=== PATIENT | female | born 1945 | race Caucasian/White ===

== ENCOUNTER 2020-03-04 09:22 | Outpatient (REF) | payer MEDICARE, SELFPAY ==
[2020-03-04 10:06] LABS: MANUAL DIFF FLAG NO
[2020-03-04 10:18] LABS: Basophils Percent Auto 0.5 % (0-2); Eosinophils Absolute Auto 0.2 X10*3/uL (0.0-0.4); Hemoglobin 12.5 g/dl (12.0-16.0); Imm Gran Abs Auto 0.02 X10*3/uL (0.00-0.03); Imm Gran Pct Auto 0.3 % (0.0-0.4); Lymphocytes Absolute Auto 2.4 X10*3/uL (1.2-4.9); Lymphocytes Percent Auto 40.4 % (20-40); Mean Corpuscular HGB Conc 32.1 g/dl (31.0-35.0); Mean Corpuscular Hemoglobin 28.8 pg (27.0-33.0); Mean Corpuscular Volume 89.9 fL (80-98); Mean Platelet Volume 10.3 fL (9.4-12.3); Monocytes Absolute Auto 0.5 X10*3/uL (0.1-1.2); Monocytes Percent Auto 8.4 % (2-11); Neutrophils Absolute Auto 2.7 X10*3/uL (2.0-8.3); Neutrophils Percent Auto 46.4 % (45-73); Platelet Count 210 X10*3/uL (160-400); Red Blood Count 4.34 X10*6/uL (4.20-5.50); Red Cell Distribution Width 12.5 % (11.0-16.0); White Blood Count 5.8 X10*3/uL (4.8-10.8)
[2020-03-04 10:48] LABS: Alanine Aminotransferase 14 U/L (0-31); Albumin Level 3.9 g/dL (3.5-5.0); Alkaline Phosphatase 41 U/L (39-117); Anion Gap 10 (12-20); Aspartate Amino Transferase 23 U/L (5-31); Bilirubin Total 0.5 mg/dL (0.0-1.0); Blood Urea Nitrogen 16 mg/dL (9-16); Calcium 9.7 mg/dL (8.4-10.2); Carbon Dioxide 26 mmol/L (22-29); Chloride 108 mmol/L (96-108); Cholesterol 178 mg/dL; Estimated Glomerular Filt Rate 48; Glucose Fasting 85 mg/dL (60-99); HDL Cholesterol 48 mg/dL; LDL Cholesterol Calculated 99 mg/dl; Potassium 4.7 mmol/l (3.3-5.1); Sodium 139 mmol/L (135-145); Total Protein 6.8 g/dL (6.5-8.0); Triglycerides 156 mg/dL
[2020-03-04 10:54] LABS: B Type Natriuretic Peptide 86 pg/mL (<100)
[2020-03-04 11:09] LABS: Vitamin D 25-OH Total 41.6 ng/mL (>30)
== END 2020-03-04 09:23 | disposition home or self-care (01) ==
LOC: HO.LAB 09:22
PROVIDERS: PCP Internal Medicine; Visit Provider Internal Medicine
DX: E78.00 Pure hypercholesterolemia, unspecified (principal); I50.9 Heart failure, unspecified; I48.0 Paroxysmal atrial fibrillation; E55.9 Vitamin D deficiency, unspecified
CPT/HCPCS: 36415; 80053; 80061; 82306; 83880; 85025

== ENCOUNTER → 2020-03-17 08:51 | Outpatient (BNVA) | payer MEDICARE, SELFPAY | PROVIDERS: PCP Internal Medicine; Visit Provider Internal Medicine Cardiovascular Disease | DX: I48.0 Paroxysmal atrial fibrillation (principal); Z86.79 Personal history of other diseases of the circulatory system; Z45.018 Encounter for adjustment and management of other part of cardiac pacemaker; Z79.01 Long term (current) use of anticoagulants | CPT/HCPCS: 93005; 99212 ==

== ENCOUNTER 2020-05-14 08:02 | Outpatient (REF) | payer MEDICARE, SELFPAY ==
[2020-05-14 10:34] LABS: Alanine Aminotransferase 23 U/L (0-31); Albumin Level 4.1 g/dL (3.5-5.0); Alkaline Phosphatase 43 U/L (39-117); Anion Gap 12 (12-20); Aspartate Amino Transferase 23 U/L (5-31); Bilirubin Total 0.7 mg/dL (0.0-1.0); Blood Urea Nitrogen 16 mg/dL (9-16); Calcium 9.8 mg/dL (8.4-10.2); Carbon Dioxide 25 mmol/L (22-29); Chloride 109 mmol/L (96-108); Estimated Glomerular Filt Rate 47; Glucose Fasting 93 mg/dL (60-99); Potassium 4.3 mmol/L (3.3-5.1); Sodium 142 mmol/L (135-145); Total Protein 6.9 g/dL (6.5-8.0)
[2020-05-16 13:07] LABS: Calcium (PTHI) 10.1 mg/dL (8.6-10.4); PTHI 59 pg/mL (14-64)
[2020-05-20 02:03] LABS: Collagen Type I C-Telopeptide 138 pg/mL (see note)
== END 2020-05-14 08:03 | disposition home or self-care (01) ==
LOC: HO.LAB 08:02
PROVIDERS: Absent Provider Internal Medicine Endocrinology, Diabetes & Metabolism; PCP Internal Medicine; Visit Provider Internal Medicine
DX: E21.3 Hyperparathyroidism, unspecified (principal); M81.0 Age-related osteoporosis without current pathological fracture
CPT/HCPCS: 36415; 80053; 82306; 82523; 83970

== ENCOUNTER → 2020-05-26 07:58 | Outpatient (BNVA) | payer MEDICARE, SELFPAY | PROVIDERS: PCP Internal Medicine; Referring Provider Internal Medicine; Visit Provider Internal Medicine Endocrinology, Diabetes & Metabolism | DX: Z13.89 Encounter for screening for other disorder (principal) | CPT/HCPCS: Q3014 ==

== ENCOUNTER → 2020-06-02 11:11 | Outpatient (BNVA) | payer MEDICARE, SELFPAY | PROVIDERS: PCP Internal Medicine; Visit Provider Hospitalist | DX: J44.9 Chronic obstructive pulmonary disease, unspecified (principal); G47.33 Obstructive sleep apnea (adult) (pediatric); I48.0 Paroxysmal atrial fibrillation; Z79.899 Other long term (current) drug therapy; Z87.891 Personal history of nicotine dependence | CPT/HCPCS: 99212 ==

== ENCOUNTER 2020-07-15 08:18 | Outpatient (REF) | payer MEDICARE, SELFPAY ==
[2020-07-15 08:43] LABS: MANUAL DIFF FLAG NO
[2020-07-15 08:49] LABS: Basophils Percent Auto 0.6 % (0-2); Eosinophils Absolute Auto 0.2 X10*3/uL (0.0-0.4); Hemoglobin 13.2 g/dl (12.0-16.0); Imm Gran Abs Auto 0.01 X10*3/uL (0.00-0.03); Imm Gran Pct Auto 0.1 % (0.0-0.4); Lymphocytes Absolute Auto 2.3 X10*3/uL (1.2-4.9); Lymphocytes Percent Auto 32.9 % (20-40); Mean Corpuscular HGB Conc 32.2 g/dl (31.0-35.0); Mean Corpuscular Volume 90.1 fL (80-98); Mean Platelet Volume 9.7 fL (9.4-12.3); Monocytes Absolute Auto 0.6 X10*3/uL (0.1-1.2); Monocytes Percent Auto 9.1 % (2-11); Neutrophils Absolute Auto 3.8 X10*3/uL (2.0-8.3); Neutrophils Percent Auto 54.3 % (45-73); Platelet Count 246 X10*3/uL (160-400); Red Blood Count 4.55 X10*6/uL (4.20-5.50); White Blood Count 6.9 X10*3/uL (4.8-10.8)
[2020-07-15 09:12] LABS: B Type Natriuretic Peptide 393 pg/mL (<100)
[2020-07-15 09:20] LABS: Alanine Aminotransferase 18 U/L (0-31); Albumin Level 4.1 g/dL (3.5-5.0); Alkaline Phosphatase 44 U/L (39-117); Anion Gap 10 (12-20); Aspartate Amino Transferase 24 U/L (5-31); Bilirubin Total 0.8 mg/dL (0.0-1.0); Blood Urea Nitrogen 13 mg/dL (9-16); Calcium 10.3 mg/dL (8.4-10.2); Carbon Dioxide 28 mmol/L (22-29); Chloride 108 mmol/L (96-108); Cholesterol 180 mg/dL; Estimated Glomerular Filt Rate 41; Glucose Fasting 107 mg/dL (60-99); HDL Cholesterol 49 mg/dL; LDL Cholesterol Calculated 103 mg/dl; Potassium 4.3 mmol/L (3.3-5.1); Sodium 142 mmol/L (135-145); Total Protein 6.9 g/dL (6.5-8.0); Triglycerides 144 mg/dL
== END 2020-07-15 08:19 | disposition home or self-care (01) ==
LOC: HO.LAB 08:18
PROVIDERS: PCP Internal Medicine; Visit Provider Internal Medicine
DX: I50.22 Chronic systolic (congestive) heart failure (principal); E78.5 Hyperlipidemia, unspecified; I48.0 Paroxysmal atrial fibrillation
CPT/HCPCS: 36415; 80053; 80061; 83880; 85025

== ENCOUNTER → 2020-09-16 08:21 | Outpatient (BNVA) | payer MEDICARE, SELFPAY | PROVIDERS: PCP Internal Medicine; Visit Provider Internal Medicine Cardiovascular Disease | DX: Z45.018 Encounter for adjustment and management of other part of cardiac pacemaker (principal); I48.0 Paroxysmal atrial fibrillation | CPT/HCPCS: 93005; 99212 ==

== ENCOUNTER 2020-09-26 08:19 | Outpatient (REF) | payer MEDICARE, SELFPAY ==
--- NOTE | ~2020-09-26 | FL_ITS ---
EXAMINATION: FL BARIUM SWALLOW CLINICAL INFORMATION: Dysphagia. COMPARISON: None TECHNIQUE: Barium swallow examination is performed using fluoroscopic evaluation in addition to multiple fluoroscopic spot views. The patient is imaged both upright and prone and using both thick and thin sulfate along with effervescent granules. Patient was also administered a barium tablet. Fluoroscopy time: 1.8 minutes DAP: 7.3 Gy-cm2 Images: 61 FINDINGS: The swallowing mechanism is normal. No aspiration or penetration is seen. There is abnormal esophageal motility. There are extensive tertiary contractions of the esophagus. There is retrograde peristalsis seen with the patient upright and prone. There is temporary stasis of the barium tablet in the distal thoracic esophagus. There is a small sliding-type hiatal hernia with Schatzki ring. No reflux is seen. FL/FL barium swallow IMPRESSION: Abnormal esophageal motility with tertiary contractions and retrograde peristalsis with the patient upright and prone. Small sliding hiatal hernia with Schatzki ring. Temporary stasis of the barium tablet in the distal thoracic esophagus. No reflux.
== END 2020-09-26 08:20 | disposition home or self-care (01) ==
LOC: HO.XRAY 08:19
PROVIDERS: PCP Internal Medicine; Visit Provider Internal Medicine
DX: R13.10 Dysphagia, unspecified (principal)
CPT/HCPCS: 74220

== ENCOUNTER 2020-09-30 10:41 | Outpatient (REF) | payer MEDICARE, SELFPAY ==
--- NOTE | ~2020-09-30 | XR_ITS ---
EXAMINATION: XR HAND, RIGHT CLINICAL INFORMATION: S69.90XA - Unspecified injury of unspecified wrist, hand ... Patient Shielded? COMPARISON: Radiographs right hand and wrist 10/04/2013. TECHNIQUE: The right hand and wrist are imaged together in large [id number] images for a total of 3 views. FINDINGS: Symptom marker directed towards the right thumb. There is mild generalized osteopenia. There is no visible acute or healing fracture or dislocation or destructive process. The ulnar variance is neutral. There is mild narrowing of the triscaphe joint. The MCP and interphalangeal joints show no focal narrowing or erosive change. XR/XR hand RT min 3V IMPRESSION: 1. Mild generalized osteopenia. No visible fracture or dislocation. 2. Degenerative changes lateral carpus. No erosive changes.
== END 2020-09-30 10:42 | disposition home or self-care (01) ==
LOC: HO.HMGCX 10:41
PROVIDERS: PCP Internal Medicine; Visit Provider Nurse Practitioner Family
DX: S69.91XA Unspecified injury of right wrist, hand and finger(s), initial encounter (principal)
CPT/HCPCS: 73130

== ENCOUNTER 2020-10-28 13:46 | Outpatient (REF) | payer MEDICARE, SELFPAY ==
--- NOTE | ~2020-10-28 | MM_ITS ---
EXAMINATION: MM SCREENING DIGITAL BREAST TOMOSYNTHESIS, BILATERAL CLINICAL INFORMATION: Screening. Asymptomatic. The lifetime risk of breast cancer based on the Tyrer-Cuzick Model is 2%. COMPARISON: Mammography: 09/07/2019, 07/17/2018, 02/17/2018, 07/14/2017; bilateral breast ultrasound 07/14/2017, left breast ultrasound 02/17/2018. TECHNIQUE: Digital breast tomosynthesis is performed in both the craniocaudal and mediolateral oblique views along with computer-aided detection (CAD). Synthesized 2D images are generated from the tomosynthesis. Additional exaggerated right CC view is provided. FINDINGS: The breasts are heterogeneously dense, which may obscure small masses (ACR BI-RADS breast composition Category c). There are fibrocystic changes again noted greatest anterior retroareolar right breast with probable associated chronic duct ectasia. Fibrocystic changes central lower left breast decreased since 2018. There is no significant mass or developing density or interval architectural abnormality. Again, there are scattered bilateral vascular, round, punctate calcifications. Pacemaker generator overlies and partly obscures the left axilla on the MLO view. The skin contours are smooth. No significant changes prior exams. MM/MM tomosynthesis screening BI IMPRESSION: No mammographic evidence of malignancy. ASSESSMENT: BI-RADS 2: Benign RECOMMENDATION: Routine annual mammography screening. This patient's information was entered into a reminder system with a target due date for their next mammogram.
== END 2020-10-28 13:47 | disposition home or self-care (01) ==
LOC: HO.MAMMO 13:46
PROVIDERS: Visit Provider Internal Medicine
DX: Z12.31 Encounter for screening mammogram for malignant neoplasm of breast (principal)
CPT/HCPCS: 77063; 77067

== ENCOUNTER 2020-11-07 14:59 | Outpatient (REF) | payer MEDICARE, SELFPAY ==
--- NOTE | ~2020-11-07 | MM_ITS ---
EXAMINATION: BONE DENSITOMETRY CLINICAL INDICATION: History of osteoporosis. Other specified disorders of bone density and structure, osteopenia. Postmenopausal. COMPARISON: Previous BD dated 09/08/2018 and baseline BD dated 09/02/2011. TECHNIQUE: Using a Strutta DXA System (software version: 13.1) manufactured by [employer], dual-energy x-ray absorptiometry was performed of the lumbar spine and left hip. The images are of good technical quality. Summary results are attached. FINDINGS: AP SPINE L1-L4: Current: BMD 1.088 g/cm2, Z-score 1.0, T-score -0.8, normal, 11.2% increase from previous, 8.9% increase from baseline (<5% change is not significant). Prior: BMD 0.978 g/cm2. Baseline: BMD 0.999 g/cm2. LEFT FEMUR, NECK: Current: BMD 0.671 g/cm2, Z-score -0.7, T-score -2.6, osteoporosis. Prior: BMD 0.684 g/cm2. Baseline: BMD 0.747 g/cm2. LEFT FEMUR, TOTAL: Current: BMD 0.744 g/cm2, Z-score -0.3, T-score -2.1, osteopenia, 0.5% decrease from previous, 10.7% decrease from baseline (<5% change is not significant). Prior: BMD 0.748 g/cm2. Baseline: BMD 0.833 g/cm2. IDENTIFIED RISK FACTORS: Osteoporosis. Height loss. History of fracture, (adult). Secondary osteoporosis, (early menopause). Hysterectomy. Bilateral oophorectomy. HISTORY OF FRACTURE: Shoulder/clavicle. MEDICATIONS: ERT/SERMS. Raloxifene, (Evista). Bisphosphonates. Calcium or multivitamin. Vitamin D. MM/XR DEXA axial skeleton IMPRESSION: 1. DIAGNOSIS: Osteoporosis based on the lowest T-score value of -2.6 in the femoral neck applying World Health Organization criteria. 2. 10-YEAR FRACTURE RISK PREDICTION, FRAX: According to the guidelines, FRAX calculation should only be performed on patients in the osteopenia bone density category. Therefore, FRAX was not performed on this patient. 3. Treatment Recommendations: NOF guidelines recommend consideration for treatment in postmenopausal women and men age 50 and older presenting with the following: -A hip or vertebral (clinical or morphometric) fracture. -T-score less than or equal to -2.5 at the femoral neck or spine after appropriate evaluation to exclude secondary causes. -Low bone mass at the hip or spine and a 10-year fracture probability by FRAX of greater than or equal to 3% for hip fracture or greater than or equal to 20% for major osteoporotic fracture based on the [place] adapted WHO algorithm. 4. Other Recommendations: All treatment decisions require clinical judgment and consideration of individual patient factors, including patient preferences, comorbidities, previous drug use, risk factors not captured in the FRAX model (e.g. frailty, falls, vitamin D deficiency, increased bone turnover, interval significant decline in bone density) and possible under or overestimation of fracture risk by FRAX. Additional medical evaluation for secondary cause of low bone mineral density may be appropriate. FUTURE SCAN RECOMMENDATION: People with diagnosed cases of osteoporosis or at high risk for fracture should have regular bone mineral density tests. For patients eligible for Medicare, routine testing is allowed once every 2 years. The testing frequency can be increased to one year for patients who have rapidly progressing disease, those who are receiving or discontinuing medical therapy to restore bone mass, or have additional risk factors.
== END 2020-11-07 15:00 | disposition home or self-care (01) ==
LOC: HO.MAMMO 14:59
PROVIDERS: PCP Internal Medicine; Visit Provider Internal Medicine
DX: Z13.820 Encounter for screening for osteoporosis (principal); M81.0 Age-related osteoporosis without current pathological fracture; Z87.81 Personal history of (healed) traumatic fracture; Z78.0 Asymptomatic menopausal state; Z79.899 Other long term (current) drug therapy; Z98.890 Other specified postprocedural states; Z90.722 Acquired absence of ovaries, bilateral
CPT/HCPCS: 77080

== ENCOUNTER → 2020-11-21 10:36 | Outpatient (BNVA) | payer MEDICARE, SELFPAY | PROVIDERS: PCP Internal Medicine; Referring Provider Internal Medicine; Visit Provider Nurse Practitioner Family | DX: R13.19 Other dysphagia (principal) | CPT/HCPCS: 99202 ==

== ENCOUNTER 2020-12-16 13:08 | Day surgery (SDC) | payer MEDICARE, SELFPAY ==
[2020-12-11 14:41] VITALS: BMI 25.8
[2020-12-11 16:50] VITALS: BMI 27.3
--- NOTE | 2020-12-15 11:03 | HO.ANESPROP2 ---
Documented by User: Radha Gardner NP 12/15/20 11:06 HPI - Anesthesia Eval Consult details Narrative: 75yo F for Upper Endoscopy Pacer in situ (SSS) Pradaxa for afib PMFSH Active Problems Active Problems: All Active Problems (Updated 12/11/20 @ 16:56 by Areli Johnson, SHANTA) Thumb injury (Acute) Dysphagia (Acute) JESU (obstructive sleep apnea) (Acute) COPD (chronic obstructive pulmonary disease) (Acute) Hyperparathyroidism (Acute) Osteoporosis (Acute) Dyslipidemia (Acute) Heart failure (Acute) Paroxysmal atrial fibrillation (Acute) Cardiac pacemaker in situ (Acute) Past Medical History Medical History Cardiac pacemaker in situ COPD (chronic obstructive pulmonary disease) Diverticulosis Dyslipidemia Dysphagia Epigastric pain GERD (gastroesophageal reflux disease) Heart failure Hiatal hernia Hyperparathyroidism JESU (obstructive sleep apnea) Osteoporosis Paroxysmal atrial fibrillation Sick sinus syndrome Family History Family History Father COPD (chronic obstructive pulmonary disease) Mother CAD (coronary artery disease) CVD (cardiovascular disease) Daughter No problems noted. Surgical History Surgical History H/O bilateral cataract extraction History of esophagogastroduodenoscopy (EGD) History of laparoscopic cholecystectomy History of pacemaker History of total abdominal hysterectomy and bilateral salpingo-oophorectomy History of total left knee replacement Hx of colonoscopy Social History Social History Housing: House Alcohol intake: current Alcohol intake frequency: holidays/special occasions only Alcohol type: wine Patient Tobacco Use Status: Former Tobacco user Quit Date: 1996 Tobacco use type: Cigarette e-Cigarette/Vaping Use: Never Used Second Hand Smoke Exposure: No Use of substances other than those prescribed or required for medical reasons: No Are you DNR?: No Advance Directives: No Advance Directives Information Provided: No Advance Directives on File: No Poor oral hygiene: No (upper and lower bridgework) service: No Current occupational status: retired Meds Allergies Allergy/AdvReac Type Severity Reaction Status Date / Time dronedarone [Multaq] Allergy Severe syncope Verified 12/11/20 16:46 flecainide Allergy Severe vertigo,blurry Verified 12/11/20 16:46 vision lisinopril [LISINOPRIL] Allergy Severe ANGIOEDEMA, Verified 12/11/20 16:46 bad cough, throat closing, tingling of head, cough Opioids - Morphine Analogues Allergy Severe SHORTNESS Verified 12/11/20 16:46 [OPIOIDS - MORPHINE OF BREATH ANALOGUES] losartan Allergy Intermediate dry cough, Verified 12/11/20 16:46 pruritus hydromorphone [Dilaudid] AdvReac Severe unresponsiv Verified 12/11/20 16:46 eness Home Medications Medication Instructions Recorded Confirmed Last Taken Type multivitamin,lc-pdsq-ydsovnkg 1 tab PO DAILY 03/17/20 12/11/20 Unknown History (Complete Multivitamin) calcium carbonate 600 mg (1,500 tab PO 12/11/20 12/11/20 Unknown History mg)-vitamin D3 400 unit tablet (Calcium 600 + D(3)) Exam Exam Date and Time: December 15, 2020 1103 Height,Weight and Vital Signs: Height 5 ft 1 in Weight 65.771 kg Pertinent Lab Results Pertinent Lab Results: Laboratory Tests 07/15/20 07/15/20 08:30 08:30 WBC 6.9 Hgb 13.2 Hct 41.0 Plt Count 246 Sodium 142 Potassium 4.3 Chloride 108 Carbon Dioxide 28 BUN 13 Creatinine 1.28 Narrative Narrative: PACER INTERR 09/2020 Dual-chamber [place] pacemaker in place.? Programmed in DDDR at ? 70 beats per minute.? Atrial pacing 85% of the time.? Ventricular pacing less than 1.1% time.? Atrial pacing thresholds excellent and reprogrammed to enhance battery life.? Ventricular pacing thresholds adequate and in our capture mode.? Atrial ventricular sensing is excellent.? Pacing lead impedance is stable.? Battery life is excellent at greater than 9 years. EKG 09/2020 atrially paced rhythm with normal QRS complex and normal intervals Assessment and Plan Assessment Anesthesia Assessment: Chart Reviewed Documented by User: Erlinda Oneill MD 12/16/20 15:46 [facility] Past Medical History Medical History Cardiac pacemaker in situ COPD (chronic obstructive pulmonary disease) Diverticulosis Dyslipidemia Dysphagia Epigastric pain GERD (gastroesophageal reflux disease) Heart failure Hiatal hernia Hyperparathyroidism JESU (obstructive sleep apnea) Osteoporosis Paroxysmal atrial fibrillation Sick sinus syndrome Family History Family History Father COPD (chronic obstructive pulmonary disease) Mother CAD (coronary artery disease) CVD (cardiovascular disease) Daughter No problems noted. Family history of problems with anesthesia: No Surgical History Surgical History H/O bilateral cataract extraction History of esophagogastroduodenoscopy (EGD) History of laparoscopic cholecystectomy History of pacemaker History of total abdominal hysterectomy and bilateral salpingo-oophorectomy History of total left knee replacement Hx of colonoscopy History of Problems with Anesthesia: No Social History Social History Housing: House Alcohol intake: current Alcohol intake frequency: holidays/special occasions only Alcohol type: wine Patient Tobacco Use Status: Former Tobacco user Quit Date: 1996 Tobacco use type: Cigarette e-Cigarette/Vaping Use: Never Used Second Hand Smoke Exposure: No Use of substances other than those prescribed or required for medical reasons: No Are you DNR?: No Advance Directives: No Advance Directives Information Provided: No Advance Directives on File: No Poor oral hygiene: No (upper and lower bridgework) service: No Current occupational status: retired Meds Allergies Allergy/AdvReac Type Severity Reaction Status Date / Time dronedarone [Multaq] Allergy Severe syncope Verified 12/11/20 16:46 flecainide Allergy Severe vertigo,blurry Verified 12/11/20 16:46 vision lisinopril [LISINOPRIL] Allergy Severe ANGIOEDEMA, Verified 12/11/20 16:46 bad cough, throat closing, tingling of head, cough Opioids - Morphine Analogues Allergy Severe SHORTNESS Verified 12/11/20 16:46 [OPIOIDS - MORPHINE OF BREATH ANALOGUES] losartan Allergy Intermediate dry cough, Verified 12/11/20 16:46 pruritus hydromorphone [Dilaudid] AdvReac Severe unresponsiv Verified 12/11/20 16:46 eness Home Medications Medication Instructions Recorded Confirmed Last Taken Type multivitamin,ry-pwci-ilrtpinu 1 tab PO DAILY 03/17/20 12/11/20 Unknown History (Complete Multivitamin) calcium carbonate 600 mg (1,500 tab PO 12/11/20 12/11/20 Unknown History mg)-vitamin D3 400 unit tablet (Calcium 600 + D(3)) Exam Airway Mallampati Class: II TM Dist: >3cm Neck ROM: Limited Assessment and Plan Assessment Anesthesia Assessment: Anesthesia Plan Discussed Final Anesthetic Review Family History of Problems with Anesthesia: No History of Problems with Anesthesia: No NPO: Yes ASA Class: III Final Preanesthetic Review: No Changes in Pt Med Stat, Meds/Allgs Chart Reviewed, Consent Obtained/Reviewed and Anes Risks/Benef Reviewed Patient Risk: Intermediate Procedure Risk: Low Assessment/Block/Sedation in SS: Assess/Block/Sedation-SS Anesthetic Plan Anesthetic Plan: MAC: Disposition: Standard PACU
[2020-12-16 14:02] VITALS: BP 129/69; PULSE 75; RESP 16; TEMP 36.1; O2SAT 95
[2020-12-16] MEDS: Lactated Ringers 1,000 ML 100 ML IVCONT (14:13)
--- NOTE | 2020-12-16 16:14 | P.BOP_ITS ---
Brief Operative Note Date of Service: 12/16/20 Pre-op diagnosis: Dysphagia, abdominal pain, abnormal barium swallow Post-op diagnosis: other (Dysphagia, hiatal hernia, Schatzki's ring, gastritis, gastric polyps) Procedure: FLEXIBLE TRANSORAL UPPER GASTROINTESTINAL ENDOSCOPY Consent: Indications for the procedure and potential complications of bleeding, perforation, reaction to medications and missed diagnosis were discussed with the patient and informed consent was obtained. Instrument: Olympus GIF H 190 mid size upper endoscope Monitoring: Vital signs and clinical assessment, continuous EKG monitoring, Pulse oximetry, Carbon Dioxide monitoring and blood pressure monitoring were done throughout the procedure. Procedure: The patient was placed in the left lateral decubitis position and pre-procedure medications were administered and a bite block was placed. The endoscope was inserted into the mouth and advanced under direct vision to the third part of duodenum. A careful inspection was made as the upper endoscope was withdrawn including a retroflexed examination of the proximal stomach; Findings and interventions are described below. Findings: Larynx: Normal Esophagus: Tortuous esophagus with increased tertiary contractions. GE junction at 33 cms, small hiatal hernia 33 to 35 cms.. Partially obstructing Schatzki's ring was noted at the GE junction. Esophageal balloon dilation was performed with an 18 mm and 19 mm (51 F) CRE balloon for 60 seconds at each level Stomach: Moderate diffuse gastric erythema with nodular appearing gastric mucosa. Biopsies were obtained from the gastric antrum and body. Multiple 5-10 mm benign appearing polyps in the gastric body and fundus - biopsied. Grade 2 flap valve on retroflexed examination of the cardia. Duodenum: Normal bulb and descending duodenum Intervention: Biopsies and esophageal balloon dilation as noted above Impression and Post Procedure Diagnosis: Endoscopy Findings: ESOPHAGUS: Tortuous esophagus with increased tertiary contractions. GE junction at 33 cms, small hiatal hernia 33 to 35 cms.. Partially obstructing Schatzki's ring was noted at the GE junction. Esophageal balloon dilation was performed to 51 F Dysphagia is likely due to a combination of Schatzki's ring and esophageal motility disorder. STOMACH: Gastritis and multiple gastric polyps. Plan: Await pathology results Patient has an appointment on 01/02/21 in the GI Clinic with NIKKIE Mcnamara. Above findings were reviewed with the patient and Gastric Polyps and Gastritis handouts were given in the discharge area Patient was advised to resume taking Pradaxa on 12/17/2020 Surgeon: Per Rodriguez MD Anesthesia: MAC (Sammy Cruz CRNA) Was an Wellness Guide used for this Procedure?: Yes Wellness Guide: Nancy Aviles Estimated blood loss (mL): 0 Pathology: other (A. GASTRIC ANTRUM BX'S R/O H. PYLORI B. GASTRIC POLYP C. GASTRIC BODY BX'S) Condition: stable Disposition: PACU
--- NOTE | 2020-12-16 16:14 | MHC.SHP ---
Pre-Procedural Eval Section A Date of Service: 12/16/20 The patient is an INPATIENT: No Changes since office visit: Yes Patient answered all questions; No Cold of Flu in the past 2 weeks, No New Medical Problems and No Changes in Medication The History & Physical has been completed within 30 days and I have reviewed it.: Yes Section B Chief Complaint: Dysphagia Allergies: Allergies Allergy/AdvReac Type Severity Reaction Status Date / Time dronedarone [Multaq] Allergy Severe syncope Verified 12/11/20 16:46 flecainide Allergy Severe vertigo,blurry Verified 12/11/20 16:46 vision lisinopril [LISINOPRIL] Allergy Severe ANGIOEDEMA, Verified 12/11/20 16:46 bad cough, throat closing, tingling of head, cough Opioids - Morphine Analogues Allergy Severe SHORTNESS Verified 12/11/20 16:46 [OPIOIDS - MORPHINE OF BREATH ANALOGUES] losartan Allergy Intermediate dry cough, Verified 12/11/20 16:46 pruritus hydromorphone [Dilaudid] AdvReac Severe unresponsiv Verified 12/11/20 16:46 eness Plan I have reviewed the history and physical and performed a pertinent physical examination on my patient. No changes have occurred unless specified.
--- NOTE | 2020-12-16 16:15 | W.PM.OPN ---
Operative Note Operative Note Date of Service: 12/16/20 Narrative: Pre-op diagnosis:?Dysphagia, abdominal pain, abnormal barium swallow Post-op diagnosis:?other (Dysphagia, hiatal hernia, Schatzki's ring, gastritis, gastric polyps) Procedure:? FLEXIBLE TRANSORAL UPPER GASTROINTESTINAL ENDOSCOPY WITH BIOPSIES AND ESOPHAGEAL BALLOON DILATION Consent:?Indications for the procedure and potential complications of bleeding, perforation, reaction to medications and missed diagnosis were discussed with the patient and informed consent was obtained. Instrument:?Olympus GIF H 190 mid size upper endoscope Monitoring: Vital signs and clinical assessment, continuous EKG monitoring, Pulse oximetry, Carbon Dioxide monitoring and blood pressure monitoring were done throughout the procedure. Procedure:?The patient was placed in the left lateral decubitis position and pre-procedure medications were administered and a bite block was placed. The endoscope was inserted into the mouth and advanced under direct vision to the third part of duodenum. A careful inspection was made as the upper endoscope was withdrawn including a retroflexed examination of the proximal stomach; Findings and interventions are described below. Findings: Larynx:??Normal Esophagus:??Tortuous esophagus with increased tertiary contractions.? GE junction at 33 cms, small hiatal hernia 33 to 35 cms..? Partially obstructing?Schatzki's ring was noted at the GE junction.? Esophageal balloon dilation was performed with an 18 mm and 19 mm (51 F) CRE balloon for 60 seconds at each level Stomach:?Moderate diffuse gastric erythema with nodular appearing gastric mucosa.? Biopsies were obtained from the gastric antrum and body.? Multiple 5-10 mm benign appearing polyps in the gastric body and fundus - biopsied.? Grade 2 flap valve on retroflexed examination of the cardia. Duodenum:?Normal bulb and descending duodenum Intervention:?Biopsies and esophageal balloon dilation as noted above Impression and Post Procedure Diagnosis: Endoscopy Findings: ESOPHAGUS: Tortuous esophagus with increased tertiary contractions.? GE junction at 33 cms, small hiatal hernia 33 to 35 cms..? Partially obstructing Schatzki's ring was noted at the GE junction.? Esophageal balloon dilation was performed to 51 F Dysphagia is likely due to a combination of Schatzki's ring and esophageal motility disorder. STOMACH: Gastritis and multiple gastric polyps. Plan: Await pathology results Patient has an appointment on 01/02/21 in the GI Clinic with NIKKIE Mcnamara. Above findings were reviewed with the patient and Gastric Polyps and Gastritis handouts were given in the discharge area Patient was advised to resume taking Pradaxa on 12/17/2020 Surgeon:?Per Rodriguez MD Anesthesia:?MAC (Sammy Cruz CRNA) Was an Planting Material Carrier used for this Procedure?:?Yes Planting Material Carrier:?Nancy Aviles Estimated blood loss (mL):?0 Pathology:?other (A. GASTRIC ANTRUM BX'S R/O H. PYLORI? B. GASTRIC POLYP? C. GASTRIC BODY BX'S) Condition:?stable Disposition:?PACU
[2020-12-16 16:50] VITALS: BP 94/51; PULSE 70; RESP 16; TEMP 36.1; O2SAT 97
[2020-12-16 16:55] VITALS: BP 92/49; PULSE 70; RESP 15; O2SAT 100
[2020-12-16 17:00] VITALS: BP 112/63; PULSE 70; RESP 16; O2SAT 100
[2020-12-16 17:05] VITALS: BP 115/70; PULSE 70; RESP 17; TEMP 36.2; O2SAT 100
[2020-12-16 17:20] VITALS: BP 123/61; PULSE 72; RESP 16; TEMP 36.3; O2SAT 98
== END 2020-12-16 17:36 | disposition home or self-care (01) ==
PROVIDERS: PCP Internal Medicine; Visit Provider Internal Medicine Gastroenterology
PROC: 0DJ08ZZ Inspection of Upper Intestinal Tract, Via Natural or Artificial Opening Endoscopic (ICD-10-PCS; CPT 43235; principal; 2020-12-16 14:20)
DX: K22.2 Esophageal obstruction (principal); R13.19 Other dysphagia; K44.9 Diaphragmatic hernia without obstruction or gangrene; K29.50 Unspecified chronic gastritis without bleeding; K31.7 Polyp of stomach and duodenum; I49.5 Sick sinus syndrome; I50.9 Heart failure, unspecified; Z95.0 Presence of cardiac pacemaker; I48.0 Paroxysmal atrial fibrillation; Z79.01 Long term (current) use of anticoagulants; J44.9 Chronic obstructive pulmonary disease, unspecified; G47.33 Obstructive sleep apnea (adult) (pediatric); Z79.899 Other long term (current) drug therapy; Z88.8 Allergy status to other drugs, medicaments and biological substances; Z90.49 Acquired absence of other specified parts of digestive tract; Z87.891 Personal history of nicotine dependence
CPT/HCPCS: 43249; 43239; 88305; 88342; C1726; J3010

== ENCOUNTER → 2021-01-02 09:55 | Outpatient (BNVA) | payer MEDICARE, SELFPAY | PROVIDERS: PCP Internal Medicine; Referring Provider Internal Medicine; Visit Provider Nurse Practitioner Family | DX: K21.9 Gastro-esophageal reflux disease without esophagitis (principal); R13.19 Other dysphagia; R14.0 Abdominal distension (gaseous) | CPT/HCPCS: 99212 ==

== ENCOUNTER 2021-01-26 10:49 | Emergency (ER) | payer MEDICARE, SELFPAY ==
[2021-01-26 11:05] VITALS: BP 146/82; BP 153/75; PULSE 68; PULSE 70; RESP 18; TEMP 37.1; O2SAT 97; O2SAT 98; BMI 28.3
--- NOTE | 2021-01-26 11:15 | ED_ITS ---
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 Patient states her Menieres attacks is sudden and she falls back. Today felt lightheaded with nausea there was no sense of movement today. She felt nauseated but no vomiting today. MD elicited complaint: lightheadedness Onset (ago): minute(s) Timing: sudden onset Severity: severe Description: lightheadedness Associated symptoms: nausea Related Data Home Medications Medication Instructions Recorded Confirmed multivitamin,xd-[id number]-[id number] 1 tab PO DAILY 03/17/20 01/22/21 (Complete Multivitamin) calcium carbonate 600 mg (1,500 tab PO 12/11/20 01/22/21 mg)-vitamin D3 400 unit tablet (Calcium 600 + D(3)) Previous Rx's Medication Instructions Recorded lovastatin 20 mg tablet 20 mg PO DAILY #90 tab 08/19/20 metoprolol succinate 25 mg 25 mg PO DAILY #90 tab 08/19/20 tablet,extended release 24 hr oxybutynin chloride 5 mg tablet 5 mg PO BID #180 tab 08/19/20 alendronate 70 mg tablet 70 mg PO QWEEK 90 Days #13 tab 11/25/20 dabigatran etexilate 150 mg 150 mg PO BID #180 cap 11/30/20 capsule (Pradaxa) pantoprazole 40 mg tablet,delayed 40 mg PO DAILY #90 tab 01/02/21 release ondansetron HCl 4 mg tablet 4 mg PO Q8H PRN #10 tab 01/26/21 (Zofran) Allergies Allergy/AdvReac Type Severity Reaction Status Date / Time dronedarone [Multaq] Allergy Severe syncope Verified 01/22/21 09:13 flecainide Allergy Severe vertigo,blurry Verified 01/22/21 09:13 vision lisinopril [LISINOPRIL] Allergy Severe ANGIOEDEMA, Verified 01/22/21 09:13 bad cough, throat closing, tingling of head, cough Opioids - Morphine Analogues Allergy Severe SHORTNESS Verified 01/22/21 09:13 [OPIOIDS - MORPHINE OF BREATH ANALOGUES] losartan Allergy Intermediate dry cough, Verified 01/22/21 09:13 pruritus hydromorphone [Dilaudid] AdvReac Severe unresponsiv Verified 01/22/21 09:13 eness Review of Systems Constitutional: Constitutional: Reports no additional constitutional complaints Eyes: Eyes: Reports no additional eye complaints ENT: Denies dizziness Cardiovascular: Cardiovascular: Reports no additional cardiovascular complaints Respiratory: Respiratory: Reports as per HPI Gastrointestinal: Gastrointestinal: Reports no additional gastrointestinal complaints Genitourinary: Genitourinary: Reports no additional female genitourinary comp laints Musculoskeletal: Musculoskeletal: Reports no additional musculoskeletal complaints Integumentary/Breasts: Skin/Breast: Denies rash Neurologic: Reports system reviewed and no additional complaints, except as documented, Denies dizziness and Denies Sensory deficit (Neuro) Psychiatric: Psychiatric: Denies anxiety [facility] Past Medical History Medical History Cardiac pacemaker in situ COPD (chronic obstructive pulmonary disease) Diverticulosis Dyslipidemia Dysphagia Epigastric pain GERD (gastroesophageal reflux disease) Heart failure Hiatal hernia Hyperparathyroidism JESU (obstructive sleep apnea) Osteoporosis Paroxysmal atrial fibrillation Sick sinus syndrome Surgical History H/O bilateral cataract extraction History of esophagogastroduodenoscopy (EGD) History of laparoscopic cholecystectomy History of pacemaker History of total abdominal hysterectomy and bilateral salpingo-oophorectomy History of total left knee replacement Hx of colonoscopy Family History Family History Father COPD (chronic obstructive pulmonary disease) Mother CAD (coronary artery disease) CVD (cardiovascular disease) Daughter No problems noted. Social History Social History Housing: House Alcohol intake: current Alcohol intake frequency: holidays/special occasions only Alcohol type: wine Patient Tobacco Use Status: Former Tobacco user Quit Date: 1996 Tobacco use type: Cigarette e-Cigarette/Vaping Use: Never Used Second Hand Smoke Exposure: No Advance Directives: No Advance Directives Information Provided: Yes service: No Current occupational status: retired Physical Exam Vital Signs: Vital Signs: Last Vital Signs Temp 98.2 F 01/26/21 15:22 Pulse 71 01/26/21 15:22 Resp 15 01/26/21 15:22 BP 148/69 H 01/26/21 15:22 Pulse Ox 94 01/26/21 15:22 Body Mass Index 28.3 Const: General: healthy appearing Nutritional Appearance: average body habitus Orientation/consciousness: oriented to person and patient oriented x3 Limitations: no limitations HENMT: Head: Yes normal to inspection Ears: external ears normal General nose exam: Normal external nose present Mouth: Normal oral and palatal mucosa present and oropharynx normal Throat: Yes posterior oropharynx normal Eyes: General: appearance normal, both eyes and all related structures Neck: Other: supple Neck: Yes normal visual inspection Chest: Chest palpation & inspection: normal inspection of the chest Resp: Auscultation: clear to auscultation bilaterally Cardio: Jugular venous distension: no JVD Rate: regular rate Rhythm: regular rhythm Heart sounds: S1 normal heart sound present and S2 normal heart sound present GI: Inspection: Yes normal to inspection Palpation (GI): Soft to palpation, nontender and No hepatosplenomegaly present Auscultation: normal bowel sounds : General: Yes no CVA tenderness Back/Spine/Pelvis: Back: no CVA tenderness Skin: General skin exam: no rashes or lesions noted Neuro: General: oriented to person and patient oriented x3 Cranial nerves: Yes CN's II-XII intact bilaterally Motor exam (neuro): 5/5 motor strength present throughout Sensory Exam: No Sensory deficit (Neuro) Extrem: General: Yes normal to inspection Psych: Appearance: grossly normal Course Reevaluation(s) Reevaluation #1: patients pacemaker was interrogated, she had 2 very short runs of afib barely lasting 3 seconds, no other arrhythmia Time: 14:02 MDM - Dizziness Lab Data Result diagrams: 01/26/21 12:04 01/26/21 12:04 Labs: Lab Results 01/26/21 01/26/21 01/26/21 Range/Units 12:04 12:04 12:04 WBC 9.0 (4.8-10.8) X10*3/uL RBC 4.25 (4.20-5.50) X10*6/uL Hgb 12.4 (12.0-16.0) g/dl Hct 38.2 (37.0-47.0) % MCV 89.9 (80.0-98.0) fL MCH 29.2 (27.0-33.0) pg MCHC 32.5 (31.0-35.0) g/dl RDW 12.9 (11.0-16.0) % Plt Count 204 (160-400) X10*3/uL MPV 9.7 (9.4-12.3) fL Immature Gran % (Auto) 0.3 (0.0-0.4) % Neut % (Auto) 71.8 (45-73) % Lymph % (Auto) 20.1 (20-40) % [place] % (Auto) 6.3 (2-11) % Eos % (Auto) 1.2 (0-4) % Baso % (Auto) 0.3 (0-2) % Lymph # (Auto) 1.8 (1.2-4.9) X10*3/uL [place] # (Auto) 0.6 (0.1-1.2) X10*3/uL Eos # (Auto) 0.1 (0.0-0.4) X10*3/uL Baso # (Auto) 0.0 (0.0-0.2) X10*3/uL Abs Immat Gran (auto) 0.03 (0.00-0.03) X10*3/uL Absolute Neuts (auto) 6.4 (2.0-8.3) x10*3/uL Absolute Nucleated RBC 0.000 (0.0-0.012) X10*3/uL Nucleated RBC % (auto) 0.0 (0.0-0.2) /100WBC Sodium 138 (135-145) mmol/L Potassium 4.5 (3.3-5.1) mmol/L Chloride 109 H (96-108) mmol/L Carbon Dioxide 20 L (22-29) mmol/L Anion Gap 14 (12-20) BUN 12 (9-16) mg/dL Creatinine 1.11 (0.5-1.4) mg/dL Estim Creat Clear Calc 35.9 Estimated GFR 48 Random Glucose 92 (60-115) mg/dL Calcium 9.6 D (8.4-10.2) mg/dL Troponin I High Sens < 3.5 (<3.5-17.0) ng/L ECG Data Attestation: I personally reviewed and interpreted this ECG as follows: Interpretation: atrial paced 70, no st or twave changes Discharge Plan Discharge Clinical Impression: Dizziness Patient Disposition: Home, Self-Care Instructions: Dizziness (ED) Prescriptions: New ondansetron HCl [Zofran] 4 mg tablet 4 mg PO Q8H PRN (Reason: nausea and vomiting) Qty: 10 RF: 0 No Action lovastatin 20 mg tablet 20 mg PO DAILY Qty: 90 RF: 3 metoprolol succinate 25 mg tablet extended release 24 hr 25 mg PO DAILY Qty: 90 RF: 3 oxybutynin chloride 5 mg tablet 5 mg PO BID Qty: 180 RF: 1 alendronate 70 mg tablet 70 mg PO QWEEK 90 Days Qty: 13 RF: 0 Pradaxa 150 mg capsule 150 mg PO BID Qty: 180 RF: 2 calcium carbonate-vitamin D3 [Calcium 600 + D(3)] 600 mg(1,500mg) -400 unit Tablet PO RF: 0 Complete Multivitamin Tablet 1 tab PO DAILY RF: 0 pantoprazole 40 mg tablet,delayed release (DR/EC) 40 mg PO DAILY Qty: 90 RF: 2 Referrals: Physician,Unknown J [Primary Care Provider] - 5 days
--- NOTE | 2021-01-26 11:20 | ECG_ITS ---
Test Reason : DIZZINESS Blood Pressure : / mmHG Vent. Rate : 070 BPM Atrial Rate : 070 BPM P-R Int : 206 ms QRS Dur : 084 ms QT Int : 392 ms P-R-T Axes : 025 -06 023 degrees QTc Int : 423 ms Atrial-paced rhythm Left axis deviation Abnormal ECG When compared with ECG of 19-NOV-2014 07:10, QRS duration has decreased Nonspecific T wave abnormality no longer evident in Lateral leads Referred By: Parish Ramirez Electronically Signed By:SADIE SIEGEL MD
[2021-01-26 12:09] VITALS: BP 148/65; BP 155/74; PULSE 70
[2021-01-26 12:09] LABS: MANUAL DIFF FLAG NO
[2021-01-26 12:11] VITALS: BP 135/70; PULSE 72
[2021-01-26 12:11] LABS: Basophils Percent Auto 0.3 % (0-2); Eosinophils Absolute Auto 0.1 X10*3/uL (0.0-0.4); Eosinophils Percent Auto 1.2 % (0-4); Hematocrit 38.2 % (37.0-47.0); Hemoglobin 12.4 g/dl (12.0-16.0); Imm Gran Abs Auto 0.03 X10*3/uL (0.00-0.03); Imm Gran Pct Auto 0.3 % (0.0-0.4); Lymphocytes Absolute Auto 1.8 X10*3/uL (1.2-4.9); Lymphocytes Percent Auto 20.1 % (20-40); Mean Corpuscular HGB Conc 32.5 g/dl (31.0-35.0); Mean Corpuscular Hemoglobin 29.2 pg (27.0-33.0); Mean Corpuscular Volume 89.9 fL (80.0-98.0); Mean Platelet Volume 9.7 fL (9.4-12.3); Monocytes Absolute Auto 0.6 X10*3/uL (0.1-1.2); Monocytes Percent Auto 6.3 % (2-11); Neutrophils Absolute Auto 6.4 x10*3/uL (2.0-8.3); Neutrophils Percent Auto 71.8 % (45-73); Platelet Count 204 X10*3/uL (160-400); Red Blood Count 4.25 X10*6/uL (4.20-5.50); Red Cell Distribution Width 12.9 % (11.0-16.0)
[2021-01-26 12:37] LABS: Troponin-I High Sensitivity < 3.5 ng/L (<3.5-17.0)
[2021-01-26 14:08] LABS: Anion Gap 14 (12-20); Blood Urea Nitrogen 12 mg/dL (9-16); Calcium 9.6 mg/dL (8.4-10.2); Carbon Dioxide 20 mmol/L (22-29); Chloride 109 mmol/L (96-108); Creatinine Clr Calc Pharmacy 35.9; Estimated Glomerular Filt Rate 48; Glucose Random 92 mg/dL (60-115); Potassium 4.5 mmol/L (3.3-5.1); Sodium 138 mmol/L (135-145)
[2021-01-26 15:22] VITALS: BP 148/69; PULSE 71; RESP 15; TEMP 36.8; O2SAT 94
== END 2021-01-26 16:04 | disposition home or self-care (01) ==
PROVIDERS: Emergency Provider Emergency Medicine
DX: R42 Dizziness and giddiness (principal); I48.0 Paroxysmal atrial fibrillation; J44.9 Chronic obstructive pulmonary disease, unspecified; Z95.0 Presence of cardiac pacemaker
CPT/HCPCS: 36415; 80048; 84484; 85025; 93005; 99283; 99285

== ENCOUNTER 2021-02-10 13:50 | Outpatient (REF) | payer MEDICARE, SELFPAY ==
[2021-02-10 14:51] LABS: Influenza A PCR NEGATIVE (Negative); Influenza B PCR NEGATIVE (Negative); Resp Syncy Virus RNA Qual PCR NEGATIVE (Negative); SARS COV2 PCR INHOUSE NEGATIVE (Negative)
== END 2021-02-10 13:51 | disposition home or self-care (01) ==
LOC: HO.LNP 13:50
PROVIDERS: Visit Provider Internal Medicine
DX: Z20.822 Contact with and (suspected) exposure to COVID-19 (principal); R43.9 Unspecified disturbances of smell and taste
CPT/HCPCS: 0241U

== ENCOUNTER → 2021-03-24 08:56 | Outpatient (BNVA) | payer MEDICARE, SELFPAY | PROVIDERS: Referring Provider Internal Medicine; Visit Provider Internal Medicine Cardiovascular Disease | DX: Z45.018 Encounter for adjustment and management of other part of cardiac pacemaker (principal); I48.0 Paroxysmal atrial fibrillation | CPT/HCPCS: 99212 ==

== ENCOUNTER → 2021-04-03 08:59 | Outpatient (BNVA) | payer MEDICARE, SELFPAY | PROVIDERS: PCP Internal Medicine; Referring Provider Internal Medicine; Visit Provider Nurse Practitioner Family | DX: Z12.11 Encounter for screening for malignant neoplasm of colon (principal); K21.9 Gastro-esophageal reflux disease without esophagitis; K44.9 Diaphragmatic hernia without obstruction or gangrene; R14.0 Abdominal distension (gaseous) | CPT/HCPCS: 99212 ==

== ENCOUNTER 2021-05-13 09:32 | Outpatient (REF) | payer MEDICARE, SELFPAY ==
[2021-05-13 10:31] LABS: MANUAL DIFF FLAG NO
[2021-05-13 11:14] LABS: Basophils Percent Auto 0.5 % (0-2); Eosinophils Absolute Auto 0.2 X10*3/uL (0.0-0.4); Eosinophils Percent Auto 2.7 % (0-4); Hematocrit 41.4 % (37.0-47.0); Hemoglobin 13.1 g/dl (12.0-16.0); Imm Gran Abs Auto 0.02 X10*3/uL (0.00-0.03); Imm Gran Pct Auto 0.3 % (0.0-0.4); Lymphocytes Absolute Auto 2.6 X10*3/uL (1.2-4.9); Lymphocytes Percent Auto 38.9 % (20-40); Mean Corpuscular HGB Conc 31.6 g/dl (31.0-35.0); Mean Corpuscular Hemoglobin 28.6 pg (27.0-33.0); Mean Corpuscular Volume 90.4 fL (80.0-98.0); Monocytes Absolute Auto 0.5 X10*3/uL (0.1-1.2); Monocytes Percent Auto 8.1 % (2-11); Neutrophils Absolute Auto 3.3 x10*3/uL (2.0-8.3); Neutrophils Percent Auto 49.5 % (45-73); Platelet Count 239 X10*3/uL (160-400); Red Blood Count 4.58 X10*6/uL (4.20-5.50); Red Cell Distribution Width 12.8 % (11.0-16.0); White Blood Count 6.6 X10*3/uL (4.8-10.8)
[2021-05-13 11:39] LABS: B Type Natriuretic Peptide 67 pg/mL (<100)
[2021-05-13 11:49] LABS: Alanine Aminotransferase 24 U/L (0-31); Albumin Level 4.2 g/dL (3.5-5.0); Alkaline Phosphatase 45 U/L (39-117); Anion Gap 10 (12-20); Aspartate Amino Transferase 30 U/L (5-31); Bilirubin Total 0.7 mg/dL (0.0-1.0); Blood Urea Nitrogen 13 mg/dL (9-16); Calcium 10.8 mg/dL (8.4-10.2); Carbon Dioxide 29 mmol/L (22-29); Chloride 107 mmol/L (96-108); Cholesterol 207 mg/dL; Estimated Glomerular Filt Rate 46; Glucose Fasting 91 mg/dL (60-99); HDL Cholesterol 51 mg/dL; LDL Cholesterol Calculated 123 mg/dl; Potassium 4.5 mmol/L (3.3-5.1); Sodium 141 mmol/L (135-145); Total Protein 7.4 g/dL (6.5-8.0); Triglycerides 165 mg/dL
[2021-05-17 15:32] LABS: Vitamin D 25-OH, D2 <4 ng/mL; Vitamin D 25-OH, D3 54 ng/mL; Vitamin D 25-OH, Total 54 ng/mL (30-100)
== END 2021-05-13 09:33 | disposition home or self-care (01) ==
LOC: HO.LAB 09:32
PROVIDERS: Visit Provider Internal Medicine
DX: E78.5 Hyperlipidemia, unspecified (principal); J44.9 Chronic obstructive pulmonary disease, unspecified; I50.22 Chronic systolic (congestive) heart failure; E55.9 Vitamin D deficiency, unspecified
CPT/HCPCS: 36415; 80053; 80061; 82306; 83880; 85025

== ENCOUNTER → 2021-05-29 09:11 | Outpatient (BNVA) | payer MEDICARE, SELFPAY | PROVIDERS: PCP Internal Medicine; Referring Provider Internal Medicine; Visit Provider Nurse Practitioner Family | DX: Z12.11 Encounter for screening for malignant neoplasm of colon (principal); K21.9 Gastro-esophageal reflux disease without esophagitis; R19.5 Other fecal abnormalities | CPT/HCPCS: 99212 ==

== ENCOUNTER 2021-06-02 08:12 | Outpatient (REF) | payer MEDICARE, SELFPAY ==
--- NOTE | ~2021-06-02 | XR_ITS ---
EXAMINATION: XR CHEST CLINICAL INFORMATION: COPD. COMPARISON: Chest 04/10/2019 TECHNIQUE: 2 views of the chest were obtained. FINDINGS: No significant abnormality is noted involving the heart, lungs, mediastinum, bony thorax or soft tissues. XR/XR chest 2V IMPRESSION: Unremarkable chest examination.
--- NOTE | 2021-06-02 11:02 | PFT_ITS ---
FLOWS: FEV1 90% of predicted at 1.66 L. FVC 98% of predicted at 2.42 L. FEV1 to FVC ratio of 0.68. No bronchodilator response. LUNG VOLUMES: Total lung capacity 98% of predicted at 4.66 L. Residual volume 94% of predicted at 2.12 L. Slow vital capacity 101% of predicted at 2.54 L. Expiratory reserve volume 78% of predicted at 0.38 L. Diffusion capacity is moderately decreased. IMPRESSION: Mild obstructive ventilatory defect with no bronchodilator response. Decreased diffusion capacity suggests emphysema. Vignesh Berman MD AP/MODL / [id number]
== END 2021-06-02 08:13 | disposition home or self-care (01) ==
LOC: HO.RESP 08:12
PROVIDERS: PCP Internal Medicine; Visit Provider Hospitalist
DX: J44.9 Chronic obstructive pulmonary disease, unspecified (principal); G47.33 Obstructive sleep apnea (adult) (pediatric); I48.0 Paroxysmal atrial fibrillation
CPT/HCPCS: 71046; 94060; 94727; 94729; 99212

== ENCOUNTER → 2021-07-28 08:53 | Outpatient (BNVA) | payer MEDICARE, SELFPAY | PROVIDERS: PCP Internal Medicine; Visit Provider Internal Medicine Endocrinology, Diabetes & Metabolism | DX: M81.0 Age-related osteoporosis without current pathological fracture (principal) | CPT/HCPCS: 99212 ==

== ENCOUNTER 2021-07-31 10:41 | Outpatient (REF) | payer MEDICARE, SELFPAY ==
[2021-08-04 15:42] LABS: Calcium (PTHI) 9.8 mg/dL (8.6-10.4); PTHI 78 pg/mL (16-77)
[2021-08-12 09:27] LABS: Prot Elec - Albumin 3.9 g/dL (3.8-4.8); Prot Elec - Alpha1 0.3 g/dL (0.2-0.3); Prot Elec - Alpha2 0.7 g/dL (0.5-0.9); Prot Elec - Beta 1 0.5 g/dL (0.4-0.6); Prot Elec - Beta 2 0.3 g/dL (0.2-0.5); Prot Elec - Gamma 1.1 g/dL (0.8-1.7); Prot Elec - Total Protein 6.7 g/dL (6.1-8.1)
== END 2021-07-31 10:42 | disposition home or self-care (01) ==
LOC: HO.LAB 10:41
PROVIDERS: PCP Internal Medicine; Visit Provider Internal Medicine Endocrinology, Diabetes & Metabolism
DX: M81.0 Age-related osteoporosis without current pathological fracture (principal)
CPT/HCPCS: 83970; 84165; 86335

== ENCOUNTER 2021-08-03 10:55 | Day surgery (SDC) | payer MEDICARE, SELFPAY ==
[2021-07-29 10:01] VITALS: BMI 27.9
--- NOTE | 2021-07-31 13:16 | P.CONAN_ITS ---
Documented by User: Radha Gardner NP 07/31/21 13:21 HPI - Anesthesia Eval Consult details Narrative: 75yo F for Colonoscopy Pacer in situ (SSS) Pradaxa for afib Stable at 03/2021 cardiac visit [facility] Active Problems Active Problems: All Active Problems (Updated 05/29/21 @ 09:38 [facility] Positive colorectal cancer screening using Cologuard test (Acute) Hypercalcemia (Acute) Upper respiratory tract infection (Acute) Thumb injury (Acute) Dysphagia (Acute) JESU (obstructive sleep apnea) (Acute) COPD (chronic obstructive pulmonary disease) (Acute) Hyperparathyroidism (Acute) Osteoporosis (Acute) Dyslipidemia (Acute) Heart failure (Acute) Paroxysmal atrial fibrillation (Acute) Cardiac pacemaker in situ (Acute) Past Medical History Medical History (Updated 05/29/21 @ 09:38 by ERIC BrownPAULINE) Cardiac pacemaker in situ COPD (chronic obstructive pulmonary disease) Diverticulosis Dyslipidemia Dysphagia Epigastric pain GERD (gastroesophageal reflux disease) Heart failure Hiatal hernia Hypercalcemia Hyperparathyroidism JESU (obstructive sleep apnea) Osteoporosis Paroxysmal atrial fibrillation Positive colorectal cancer screening using Cologuard test Sick sinus syndrome Family History Family History Father COPD (chronic obstructive pulmonary disease) Mother CAD (coronary artery disease) CVD (cardiovascular disease) Daughter No problems noted. Family history of problems with anesthesia: No Surgical History Surgical History H/O bilateral cataract extraction History of esophagogastroduodenoscopy (EGD) History of laparoscopic cholecystectomy History of pacemaker History of total abdominal hysterectomy and bilateral salpingo-oophorectomy History of total left knee replacement Hx of colonoscopy History of Problems with Anesthesia: No Social History Social History Housing: House Alcohol intake: current Alcohol intake frequency: holidays/special occasions only Alcohol type: wine Patient Tobacco Use Status: Former Tobacco user Quit Date: 1996 Tobacco use type: Cigarette Smoked in Last 30 Days: No e-Cigarette/Vaping Use: Never Used Second Hand Smoke Exposure: No Use of substances other than those prescribed or required for medical reasons: No Are you DNR?: No Advance Directives: No Advance Directives Information Provided: Yes Recently lost weight without trying: No service: No Current occupational status: retired Meds Allergies Allergy/AdvReac Type Severity Reaction Status Date / Time dronedarone [Multaq] Allergy Severe syncope Verified 07/28/21 08:58 flecainide Allergy Severe vertigo,blurry Verified 07/28/21 08:58 vision lisinopril [LISINOPRIL] Allergy Severe ANGIOEDEMA, Verified 07/28/21 08:58 bad cough, throat closing, tingling of head, cough Opioids - Morphine Analogues Allergy Severe SHORTNESS Verified 07/28/21 08:58 [OPIOIDS - MORPHINE OF BREATH ANALOGUES] losartan Allergy Intermediate dry cough, Verified 07/28/21 08:58 pruritus hydromorphone [Dilaudid] AdvReac Severe unresponsiv Verified 07/28/21 08:58 eness Home Medications Medication Instructions Recorded Confirmed Last Taken Type multivitamin,dn-gjsm-ynrkhmkd 1 tab PO DAILY 03/17/20 07/29/21 Unknown History (Complete Multivitamin) calcium carbonate 600 mg-vitamin 1 tab PO DAILY 12/11/20 07/29/21 Unknown History D3 10 mcg (400 unit) tablet (Calcium 600 + D(3)) Exam Exam Date and Time: July 31, 2021 1316 Height,Weight and Vital Signs: Height 5 ft 1 in Weight 67.132 kg Pertinent Lab Results Pertinent Lab Results: Laboratory Tests 05/13/21 05/13/21 10:30 10:30 WBC 6.6 Hgb 13.1 Hct 41.4 Plt Count 239 Sodium 141 Potassium 4.5 Chloride 107 Carbon Dioxide 29 BUN 13 Creatinine 1.14 Narrative Narrative: Cardiac Device Check 07/2021 Details: ?remote pacemaker report generated 07/19/2021.? Pacemaker function is adequate.? Battery life is excellent.? Total burden of atrial fibrillation around 4.8% EKG 01/2021 Vent. Rate : 070 BPM ? ? Atrial Rate : 070 BPM ?? P-R Int : 206 ms? QRS Dur : 084 ms ? ? QT Int : 392 ms ? ? ? P-R-T Axes : 025 -06 023 degrees ?? QTc Int : 423 ms ? Atrial-paced rhythm Left axis deviation Abnormal ECG When compared with ECG of 19-NOV-2014 07:10, QRS duration has decreased Nonspecific T wave abnormality no longer evident in Lateral leads PFT 05/2021 (per 05/2021 pulm note, no significant change from 2013) FLOWS:? FEV1 90% of predicted at 1.66 L. ? FVC 98% of predicted at 2.42 L. ? FEV1 to FVC ratio of 0.68. ? No bronchodilator response. ?? LUNG VOLUMES:? Total lung capacity 98% of predicted at 4.66 L. ? Residual volume 94% of predicted at 2.12 L. ? Slow vital capacity 101% of predicted at 2.54 L. ? Expiratory reserve volume 78% of predicted at 0.38 L. ? Diffusion capacity is moderately decreased. ?? IMPRESSION:? Mild obstructive ventilatory defect with no bronchodilator response.? Decreased diffusion capacity suggests emphysema. Assessment and Plan Assessment Anesthesia Assessment: Chart Reviewed Final Anesthetic Review Family History of Problems with Anesthesia: No History of Problems with Anesthesia: No Documented by User: Shannan Nolen MD 08/03/21 13:09 [facility] Past Medical History Medical History (Updated 05/29/21 @ 09:38 by Andreia Chowdary [facility]) Cardiac pacemaker in situ COPD (chronic obstructive pulmonary disease) Diverticulosis Dyslipidemia Dysphagia Epigastric pain GERD (gastroesophageal reflux disease) Heart failure Hiatal hernia Hypercalcemia Hyperparathyroidism JESU (obstructive sleep apnea) Osteoporosis Paroxysmal atrial fibrillation Positive colorectal cancer screening using Cologuard test Sick sinus syndrome Family History Family History Father COPD (chronic obstructive pulmonary disease) Mother CAD (coronary artery disease) CVD (cardiovascular disease) Daughter No problems noted. Surgical History Surgical History H/O bilateral cataract extraction History of esophagogastroduodenoscopy (EGD) History of laparoscopic cholecystectomy History of pacemaker History of total abdominal hysterectomy and bilateral salpingo-oophorectomy History of total left knee replacement Hx of colonoscopy Social History Social History Housing: House Alcohol intake: current Alcohol intake frequency: holidays/special occasions only Alcohol type: wine Patient Tobacco Use Status: Former Tobacco user Quit Date: 1996 Tobacco use type: Cigarette Smoked in Last 30 Days: No e-Cigarette/Vaping Use: Never Used Second Hand Smoke Exposure: No Use of substances other than those prescribed or required for medical reasons: No Are you DNR?: No Advance Directives: No Advance Directives Information Provided: Yes Recently lost weight without trying: No service: No Current occupational status: retired Meds Allergies Allergy/AdvReac Type Severity Reaction Status Date / Time dronedarone [Multaq] Allergy Severe syncope Verified 07/28/21 08:58 flecainide Allergy Severe vertigo,blurry Verified 07/28/21 08:58 vision lisinopril [LISINOPRIL] Allergy Severe ANGIOEDEMA, Verified 07/28/21 08:58 bad cough, throat closing, tingling of head, cough Opioids - Morphine Analogues Allergy Severe SHORTNESS Verified 07/28/21 08:58 [OPIOIDS - MORPHINE OF BREATH ANALOGUES] losartan Allergy Intermediate dry cough, Verified 07/28/21 08:58 pruritus hydromorphone [Dilaudid] AdvReac Severe unresponsiv Verified 07/28/21 08:58 eness Home Medications Medication Instructions Recorded Confirmed Last Taken Type multivitamin,wz-dgpn-jmyazjft 1 tab PO DAILY 03/17/20 07/29/21 Unknown History (Complete Multivitamin) calcium carbonate 600 mg-vitamin 1 tab PO DAILY 12/11/20 07/29/21 Unknown History D3 10 mcg (400 unit) tablet (Calcium 600 + D(3)) Exam Airway Mallampati Class: III (Multiple caps) TM Dist: >3cm Neck ROM: Full Heart: rrr Lungs: cta Assessment and Plan Assessment Anesthesia Assessment: Anesthesia Plan Discussed and Chart Reviewed Final Anesthetic Review NPO: Yes ASA Class: III Final Preanesthetic Review: No Changes in Pt Med Stat, Meds/Allgs Chart Reviewed and Consent Obtained/Reviewed Patient Risk: Intermediate Procedure Risk: Intermediate Anesthetic Plan Anesthetic Plan: MAC: Disposition: Standard PACU
[2021-08-03 11:58] VITALS: BMI 27.8
[2021-08-03 12:10] VITALS: BP 168/80; PULSE 75; RESP 16; TEMP 36.2; O2SAT 98
[2021-08-03] MEDS: Sodium Phosphate,Mono-Dibasic 133 ML ENEMA PR (12:23)
[2021-08-03] MEDS: Lactated Ringers 1,000 ML 50 ML IVCONT (12:23)
--- NOTE | 2021-08-03 12:24 | PC.NURSE ---
FLEET ENEMA PER MD RODRÍGUEZ. STATES YELLOW THEN ?LIGHT BROWN. NELL PROCEDURE WELL.
--- NOTE | 2021-08-03 12:55 | PC.NURSE ---
yellow results after fleets
--- NOTE | 2021-08-03 13:06 | MHC.SHP ---
Pre-Procedural Eval Section A Date of Service: 08/03/21 The patient is an INPATIENT: No The History & Physical has been completed within 30 days and I have reviewed it.: No Section B Chief Complaint: Positive Cologuard test Details of Present Illness: Colon cancer screening, positive Cologuard test Relevant Family History (Specify if Yes): No Relevant Social History: Tobacco Use (former smoker) Present Medications: see Short Stay Collaborative assessment Medical History: Significant History (Cardiac pacemaker in situ COPD (chronic obstructive pulmonary disease) Diverticulosis Dyslipidemia Dysphagia Epigastric pain GERD (gastroesophageal reflux disease) Heart failure Hiatal hernia Hypercalcemia Hyperparathyroidism JESU (obstructive sleep apnea) Osteoporosis Paroxysmal atrial fibrillation ) History of Previous Operations: Relevant previous surgery/procedure and date(s) (H/O bilateral cataract extraction History of esophagogastroduodenoscopy (EGD) History of laparoscopic cholecystectomy History of pacemaker History of total abdominal hysterectomy and bilateral salpingo-oophorectomy History of total left knee replacement Hx of colonoscopy) Allergies: Allergies Allergy/AdvReac Type Severity Reaction Status Date / Time dronedarone [Multaq] Allergy Severe syncope Verified 07/28/21 08:58 flecainide Allergy Severe vertigo,blurry Verified 07/28/21 08:58 vision lisinopril [LISINOPRIL] Allergy Severe ANGIOEDEMA, Verified 07/28/21 08:58 bad cough, throat closing, tingling of head, cough Opioids - Morphine Analogues Allergy Severe SHORTNESS Verified 07/28/21 08:58 [OPIOIDS - MORPHINE OF BREATH ANALOGUES] losartan Allergy Intermediate dry cough, Verified 07/28/21 08:58 pruritus hydromorphone [Dilaudid] AdvReac Severe unresponsiv Verified 07/28/21 08:58 eness Review of Systems Sugical H&P ROS: Negative: Constitution, Cardiovascular and Gastrointestinal Exam Surgical H&P Exam: Normal: Heart, Normal: Lungs, Normal: Extremities and Normal: Abdomen Plan Diagnosis/Plan: Unchanged I have reviewed the history and physical and performed a pertinent physical examination on my patient. No changes have occurred unless specified.
--- NOTE | 2021-08-03 13:14 | W.PM.OPN ---
Operative Note Operative Note Date of Service: 08/03/21 Narrative: Pre-op diagnosis: Colon cancer screening, positive Cologuard test Post-op diagnosis:?other (Colon polyps, diverticulosis, cecal AVM, hemorrhoids) Procedure: COLONOSCOPY TILL CECUM WITH SNARE POLYPECTOMY AND SUBMUCOSAL INJECTION Consent: Indications for the procedure and potential complications of bleeding, perforation, reaction to medications and missed diagnosis were discussed with the patient and informed consent was obtained. Instrument: Olympus PCF H 190 L variable stiffness pediatric colonoscope Monitoring: Vital signs and clinical assessment, intermittent blood pressure monitoring, continuous EKG monitoring, Pulse oximetry and Carbon Dioxide monitoring were done throughout the procedure. Colon withdrawl time was 32 minutes. Procedure: The patient was placed in the left lateral decubitis position and pre-procedure medications were administered. After a digital rectal examination of the ano-rectum, the video colonoscope was inserted into the rectum and advanced through the colon to the cecum. The colonoscope was slowly withdrawn in a retrograde panoramic fashion and the colon mucosa was carefully examined including a retroflexed view of the rectum. Findings and interventions are described below. Procedure Difficulty: Without difficulty Findings: Terminal Ileum: Not evaluated Cecum:? A 1.5 cms non-bleeding AVM Ascending Colon:? A 2 to 2.5 cms flat polyp at 70 cms raised with 2 cc of Orise solution and removed with a hot snare.? Polypectomy site was marked with lalit ink. A 2nd 1.5 sessile polyp at 70 cms removed with a hot snare. Two 8 to 10 mm sessile polyps removed with a hot snare. Scattered moderate diverticulosis throughout the colon Transverse Colon:? Scattered moderate diverticulosis throughout the colon Descending Colon:? Scattered moderate diverticulosis throughout the colon Sigmoid Colon:? Severe diverticulosis with luminal narrowing Rectum:? Normal Ano-rectum:? Small internal hemorrhoids Colon preparation:? Good Impression and Post Procedure Diagnosis: Colonoscopy Findings: Four medium sized polyps removed Moderate diverticulosis seen in the entire colon, left > right Small hemorrhoids on retroflexed exam. Plan: Await pathology results. Pt advised to resume Pradaxa on 08/09/21. Patient has an appointment on 08/17/21 in the GI [facility] with Andreia Chowdary FNP-BC . Repeat Colonoscopy interval based on path results - in 1-2 years if polyps are adenomatous and to check polypectomy sites in the right colon. Above findings were reviewed with the patient and colon polyps and diverticulosis handouts were given in the discharge area Surgeon: Per Rodriguez MD Anesthesia:?MAC (Dr Myrick) Was an Director Clinical Operations used for this Procedure?:?Yes Director Clinical Operations:?Christina Everett Estimated blood loss (mL):?0 Pathology:?other (A. ascending colon polyps with Orise at 70 cm (2)? B. ascending colon polyp) Condition:?stable Disposition:?PACU
[2021-08-03 14:03] VITALS: BP 129/66; PULSE 70; RESP 16; TEMP 36.3; O2SAT 97
[2021-08-03 14:18] VITALS: BP 134/60; PULSE 70; RESP 16; TEMP 36.3; O2SAT 98
== END 2021-08-03 15:03 | disposition home or self-care (01) ==
PROVIDERS: PCP Internal Medicine; Visit Provider Internal Medicine Gastroenterology
PROC: 0DJD8ZZ Inspection of Lower Intestinal Tract, Via Natural or Artificial Opening Endoscopic (ICD-10-PCS; CPT 45378; principal; 2021-08-03 12:50)
DX: R19.5 Other fecal abnormalities (principal); D12.2 Benign neoplasm of ascending colon; K57.30 Diverticulosis of large intestine without perforation or abscess without bleeding; K64.8 Other hemorrhoids; K55.20 Angiodysplasia of colon without hemorrhage; K21.9 Gastro-esophageal reflux disease without esophagitis; K44.9 Diaphragmatic hernia without obstruction or gangrene; J44.9 Chronic obstructive pulmonary disease, unspecified; G47.33 Obstructive sleep apnea (adult) (pediatric); E78.5 Hyperlipidemia, unspecified; I48.0 Paroxysmal atrial fibrillation; I50.9 Heart failure, unspecified; I49.5 Sick sinus syndrome; Z95.0 Presence of cardiac pacemaker; Z79.899 Other long term (current) drug therapy; Z88.8 Allergy status to other drugs, medicaments and biological substances; Z90.49 Acquired absence of other specified parts of digestive tract; Z87.891 Personal history of nicotine dependence
CPT/HCPCS: 45385; 45381; 88305

== ENCOUNTER → 2021-08-17 07:48 | Outpatient (BNVA) | payer MEDICARE, SELFPAY | PROVIDERS: PCP Internal Medicine; Visit Provider Nurse Practitioner Family | DX: D12.2 Benign neoplasm of ascending colon (principal); K57.30 Diverticulosis of large intestine without perforation or abscess without bleeding; K64.8 Other hemorrhoids; K21.9 Gastro-esophageal reflux disease without esophagitis; Z98.890 Other specified postprocedural states | CPT/HCPCS: 99212 ==

== ENCOUNTER → 2021-09-15 08:24 | Outpatient (REF) | payer MEDICARE, SELFPAY ==
--- NOTE | 2021-09-15 08:27 | CA_ITS ---
Transthoracic Echocardiogram Patient (Last, First, Middle): Nancy Zaragoza E Gender: Female Date of : 1945 Age: 75 Procedure Date: 09/15/2021 Procedure Type: Transthoracic Echocardiogram Location: OP Height: 152.4 cm Weight: 65.77 kg BSA: 1.63 m2 Heart Rate: bpm BP: 130 / 76 mmHg Dismantler: YANDEL Referring MD: Saud Guzmán MD Symptoms: I48.0 - Paroxysmal atrial fibrillation Study Quality: Adequate ECG Rhythm: Sinus Conclusions: - The left ventricular systolic function is normal. The calculated ejection fraction is 66% by biplane method. - No obvious valvular pathology seen on this study. Findings Left Ventricle Normal left ventricular cavity size. There is mildly increased left ventricular wall thickness. The left ventricular systolic function is normal. The calculated ejection fraction is 66% by biplane method. There is no evidence of regional wall motion abnormalities. E/E prime ratio is between 8 and 15 consistent with indeterminate filling pressures. Evidence suggests grade I (mild) diastolic dysfunction. Right Ventricle Normal right ventricular cavity size. There is mildly decreased right ventricular systolic function. Atria Both atria are normal in size. Aortic Valve The aortic valve structure and function is likely normal. There is no aortic valve stenosis. There is no aortic valve regurgitation. Mitral Valve The mitral valve appears normal. There is no mitral valve regurgitation. There is no mitral valve stenosis. Pulmonic Valve The pulmonic valve is likely normal. Tricuspid Valve There is trace tricuspid valve regurgitation. The pulmonary artery systolic pressure is normal. Great Vessels The aortic annulus, sinuses of valsalva, and asc aorta are normal in size. Venous The inferior vena cava is normal in size and collapses greater than 50% with inspiration. Pericardium/Pleural There is no evidence of pericardial effusion. Prior Study Comparison No significant change compared to prior study dated: 09/07/2019. Recommendations, Care & Conclusions No obvious valvular pathology seen on this study. Measurements 2D Linear Measurements IVSd: 1.29 0.6-0.9/0.6-1.0 cm LVIDd: 3.28 3.9-5.3/4.2-5.9 cm LVIDd Index: 2.01 2.4-3.2/2.2-3.1 cm/m2 LVIDs: 2.17 2.0-3.6 cm LVPWd: 1.13 0.7-1.1 cm LA Diam: 3.10 2.7-3.8/3.0-4.0 cm LAIDs Index: 1.90 1.5-2.3 cm/m2 LV Mass: 155.90 67-162/88-224 g LV Mass Index: 95.65 43-95/49-115 g/m2 LVOT Diam: 2.00 3.0+(-)1.3 cm 2D Systolic Function EF 4C: 65.90 >55% EF 2C: 64.80 >55% EF BiP: 66.10 >55% Mitral Valve MV Pk E: 0.65 MV PK A: 0.83 MV Decel Time: 157.00 E/A: 0.80 E'Lateral: 8.38 E'Medial: 4.79 E/E' Med: 13.50 E/E' Lat: 7.70 PHT: 46.00 MVA PHT: 4.78 Decel [place]: 4.13 Aortic Valve AoV Pk Uziel: 1.17 AoV Mn Uziel: 0.95 AoV VTI: 0.27 AoV Pk Grad: 5.00 Aov Mn Grad: 4.00 EDWARD Cont.VTI: 2.79 LVOT LVOT Pk Uziel: 1.06 LVOT Mn Uziel: 0.72 LVOT VTI: 0.24 LVOT Pk Grad: 4.00 LVOT Mn Grad: 2.00 LVOT Diam: 2.00 LVOT Area: 3.14 Diastolic Function MV Pk E: 0.65 MV Pk A: 0.83 E/A: 0.80 E'Medial: 4.79 E/E' Med: 13.50 E' Laterial: 8.38 E/E' Lat: 7.70 Right Ventricle TAPSE (mm): 14.60 TVS' Uziel: 8.27 Tricuspid Valve TR Pk Uziel: 2.39 TR Pk Grad: 23.00 RA Press: 3.00 RVSP: 26.00 Great Vessels Aorta Sinus of Valsalva: 2.89 2.0-3.[address] [place]: 2.70 1.7-3.4 cm Ao Asc: 2.90 2.1-3.4 cm Updated in Other Vendor System with Status of Final Uriel Delogn MD electronically signed on 09/15/2021 10:36:33 AM with status of Final
[2021-09-15 10:23] LABS: B Type Natriuretic Peptide 89 pg/mL (<100)
[2021-09-15 10:29] LABS: Calcium 9.9 mg/dL (8.4-10.2)
[2021-09-15 10:34] LABS: Alanine Aminotransferase 16 U/L (0-31); Alkaline Phosphatase 44 U/L (39-117); Anion Gap 11 (12-20); Aspartate Amino Transferase 24 U/L (5-31); Bilirubin Total 0.6 mg/dL (0.0-1.0); Blood Urea Nitrogen 14 mg/dL (9-16); Calcium 9.6 mg/dL (8.4-10.2); Carbon Dioxide 24 mmol/L (22-29); Chloride 109 mmol/L (96-108); Cholesterol 159 mg/dL; Estimated Glomerular Filt Rate 47; Glucose Fasting 93 mg/dL (60-99); HDL Cholesterol 48 mg/dL; LDL Cholesterol Calculated 93 mg/dl; Potassium 4.6 mmol/L (3.3-5.1); Sodium 139 mmol/L (135-145); Total Protein 6.8 g/dL (6.5-8.0); Triglycerides 92 mg/dL
[2021-09-15 10:54] LABS: Vitamin D 25-OH Total 45.1 ng/mL (>30)
[2021-09-15 10:55] LABS: Vitamin D 25-OH Total 48.5 ng/mL (>30)
[2021-09-16 15:47] LABS: Calcium (PTHI) 9.7 mg/dL (8.6-10.4); PTHI 53 pg/mL (16-77)
[2021-09-18 16:07] LABS: Calcium, Ionized 5.4 mg/dL (4.8-5.6)
[2021-09-20 15:17] LABS: N-Telopeptide 19 (see note); NTXCreaRU 98 mg/dL (20-275)
== END ==
LOC: HO.CARD 08:24
PROVIDERS: Internal Medicine Endocrinology, Diabetes & Metabolism; Absent Provider Internal Medicine; PCP Internal Medicine; Visit Provider Internal Medicine Cardiovascular Disease
DX: I48.0 Paroxysmal atrial fibrillation (principal); I50.22 Chronic systolic (congestive) heart failure; E78.5 Hyperlipidemia, unspecified; E21.3 Hyperparathyroidism, unspecified; E55.9 Vitamin D deficiency, unspecified; M81.0 Age-related osteoporosis without current pathological fracture
CPT/HCPCS: 36415; 80053; 80061; 82040; 82306; 82310; 82330; 82523; 83880; 83970; 93306

== ENCOUNTER → 2021-09-22 09:14 | Outpatient (BNVA) | payer MEDICARE, SELFPAY | PROVIDERS: PCP Internal Medicine; Visit Provider Hospitalist | DX: J44.9 Chronic obstructive pulmonary disease, unspecified (principal); G47.33 Obstructive sleep apnea (adult) (pediatric); I48.0 Paroxysmal atrial fibrillation | CPT/HCPCS: 99212 ==

== ENCOUNTER → 2021-09-29 09:07 | Outpatient (BNVA) | payer MEDICARE, SELFPAY | PROVIDERS: PCP Internal Medicine; Referring Provider Internal Medicine; Visit Provider Internal Medicine Cardiovascular Disease | DX: Z45.018 Encounter for adjustment and management of other part of cardiac pacemaker (principal); I48.0 Paroxysmal atrial fibrillation | CPT/HCPCS: 93280; 99212 ==

== ENCOUNTER 2021-10-30 08:09 | Outpatient (REF) | payer MEDICARE, SELFPAY ==
--- NOTE | ~2021-10-30 | MM_ITS ---
EXAMINATION: MM SCREENING DIGITAL BREAST TOMOSYNTHESIS, BILATERAL CLINICAL INFORMATION: Screening. Asymptomatic. The lifetime risk of breast cancer based on the Tyrer-Cuzick Model is 1%. COMPARISON: Mammography: 10/28/2020 and studies dating back to 06/17/2015. TECHNIQUE: Digital breast tomosynthesis is performed in both the craniocaudal and mediolateral oblique views along with computer-aided detection (CAD). Synthesized 2D images are generated from the tomosynthesis. FINDINGS: The breasts are heterogeneously dense, which may obscure small masses (ACR BI-RADS breast composition Category c). There is a stable parenchymal pattern of the right breast. Ultrasound demonstrated multiple complex cysts and prominent ducts within the breast. Within the anterior inferior medial aspect of the left breast, there is a developing circumscribed density with a density which is deeper within the breast and which is not as well circumscribed. MM/MM tomosynthesis screening BI IMPRESSION: Developing left breast density for further evaluation with spot compression view and possible ultrasound. ASSESSMENT: BI-RADS 0: Incomplete - Need Additional Imaging Evaluation RECOMMENDATION: Routine annual mammography screening. This patient's information was entered into a reminder system with a target due date for their next mammogram.
== END 2021-10-30 08:10 | disposition home or self-care (01) ==
LOC: HO.MAMMO 08:09
PROVIDERS: PCP Internal Medicine; Visit Provider Internal Medicine
DX: Z12.31 Encounter for screening mammogram for malignant neoplasm of breast (principal)
CPT/HCPCS: 77063; 77067

== ENCOUNTER 2021-11-20 13:14 | Outpatient (REF) | payer MEDICARE, SELFPAY ==
--- NOTE | ~2021-11-20 | MM_ITS ---
EXAMINATION: MM DIAGNOSTIC DIGITAL BREAST TOMOSYNTHESIS, LEFT US DIAGNOSTIC ULTRASOUND BREAST, LEFT CLINICAL INFORMATION: Recall from screening for nodular asymmetry anterior left breast. COMPARISON: Mammography: 10/30/2021, 10/28/2020, 09/07/2019, 07/17/2018, 02/17/2018, ultrasound left breast 02/17/2018. TECHNIQUE: Digital breast tomosynthesis is performed. 2D images are generated from the tomosynthesis. The following views are obtained: Spot CC, spot MLO, standard ML. Ultrasound left breast is targeted to the lower breast 4:00 through 8:00 position. Grayscale imaging and color Doppler are performed without and with harmonics. FINDINGS: The breasts are heterogeneously dense, which may obscure small masses (ACR BI-RADS breast composition Category c). The additional views demonstrate smooth grouped nodular asymmetry anterior lower inner breast. There is no architectural abnormality. Ultrasound demonstrates scattered cysts in the interrogated areas, largest 7:00 position 3 cm from nipple measuring 1.1 cm. Other cysts are smaller in size. This show increased through-transmission of sound. There is no solid mass or architectural abnormality. No abnormal color flow. Results are discussed with the patient at time of visit. MM/MM tomosynthesis added views L IMPRESSION: Fibrocystic changes lower anterior left breast corresponding to recent mammography. ASSESSMENT: BI-RADS 2: Benign RECOMMENDATION: Routine annual mammography screening. This patient's information was entered into a reminder system with a target due date for their next mammogram.
== END 2021-11-20 13:15 | disposition home or self-care (01) ==
LOC: HO.MAMMO 13:14
PROVIDERS: PCP Internal Medicine; Visit Provider Internal Medicine
DX: R92.2 Inconclusive mammogram (principal)
CPT/HCPCS: 76642; 77061; 77065

== ENCOUNTER 2022-01-19 07:50 | Outpatient (REF) | payer MEDICARE, SELFPAY ==
[2022-01-19 09:16] LABS: B Type Natriuretic Peptide 211 pg/mL (<100)
[2022-01-19 10:20] LABS: Alanine Aminotransferase 19 U/L (0-31); Albumin Level 3.9 g/dL (3.5-5.0); Alkaline Phosphatase 50 U/L (39-117); Anion Gap 15 (12-20); Aspartate Amino Transferase 25 U/L (5-31); Bilirubin Total 0.6 mg/dL (0.0-1.0); Blood Urea Nitrogen 18 mg/dL (9-16); Calcium 9.6 mg/dL (8.4-10.2); Carbon Dioxide 22 mmol/L (22-29); Chloride 108 mmol/L (96-108); Cholesterol 177 mg/dL; Estimated Glomerular Filt Rate 49; Glucose Fasting 90 mg/dL (60-99); HDL Cholesterol 50 mg/dL; LDL Cholesterol Calculated 103 mg/dl; Potassium 4.4 mmol/L (3.3-5.1); Sodium 141 mmol/L (135-145); Total Protein 6.8 g/dL (6.5-8.0); Triglycerides 120 mg/dL
== END 2022-01-19 07:51 | disposition home or self-care (01) ==
LOC: HO.LAB 07:50
PROVIDERS: PCP Internal Medicine; Visit Provider Internal Medicine
DX: E55.9 Vitamin D deficiency, unspecified (principal); E78.5 Hyperlipidemia, unspecified; I50.22 Chronic systolic (congestive) heart failure
CPT/HCPCS: 36415; 80053; 80061; 82306; 83880

== ENCOUNTER → 2022-04-19 12:47 | Outpatient (BNVA) | payer MEDICARE, SELFPAY | PROVIDERS: PCP Internal Medicine; Referring Provider Internal Medicine; Visit Provider Nurse Practitioner Family | DX: I48.0 Paroxysmal atrial fibrillation (principal); I49.5 Sick sinus syndrome; Z45.018 Encounter for adjustment and management of other part of cardiac pacemaker | CPT/HCPCS: 93280 ==

== ENCOUNTER → 2022-05-06 14:35 | Outpatient (BNVA) | payer MEDICARE, SELFPAY | PROVIDERS: PCP Internal Medicine; Referring Provider Internal Medicine; Visit Provider Internal Medicine Cardiovascular Disease | DX: R42 Dizziness and giddiness (principal); I48.0 Paroxysmal atrial fibrillation; R06.02 Shortness of breath; Z45.010 Encounter for checking and testing of cardiac pacemaker pulse generator [battery] | CPT/HCPCS: 93005; 93280; 99212 ==

== ENCOUNTER → 2022-05-31 10:56 | Outpatient (BNVA) | payer MEDICARE, SELFPAY | PROVIDERS: PCP Internal Medicine; Visit Provider Hospitalist | DX: J44.9 Chronic obstructive pulmonary disease, unspecified (principal); G47.33 Obstructive sleep apnea (adult) (pediatric); I48.0 Paroxysmal atrial fibrillation; R10.9 Unspecified abdominal pain | CPT/HCPCS: 99212 ==

== ENCOUNTER 2022-06-17 08:30 | Outpatient (REF) | payer MEDICARE, SELFPAY ==
[2022-06-17 09:31] LABS: Alanine Aminotransferase 23 U/L (0-31); Alkaline Phosphatase 61 U/L (39-117); Anion Gap 13 (12-20); Aspartate Amino Transferase 28 U/L (5-31); Bilirubin Total 0.9 mg/dL (0.0-1.0); Blood Urea Nitrogen 15 mg/dL (9-16); Carbon Dioxide 24 mmol/L (22-29); Chloride 112 mmol/L (96-108); Cholesterol 177 mg/dL; Estimated Glomerular Filt Rate 52; Glucose Fasting 97 mg/dL (60-99); HDL Cholesterol 53 mg/dL; LDL Cholesterol Calculated 101 mg/dl; Potassium 4.2 mmol/L (3.3-5.1); Sodium 145 mmol/L (135-145); Total Protein 6.8 g/dL (6.5-8.0); Triglycerides 115 mg/dL
[2022-06-17 09:45] LABS: Vitamin D 25-OH Total 49.8 ng/mL (>30)
[2022-06-21 12:58] LABS: NT-proBNP 1130 pg/mL
== END 2022-06-17 08:31 | disposition home or self-care (01) ==
LOC: HO.LAB 08:30
PROVIDERS: PCP Internal Medicine; Visit Provider Internal Medicine
DX: E78.5 Hyperlipidemia, unspecified (principal); I50.22 Chronic systolic (congestive) heart failure; E55.9 Vitamin D deficiency, unspecified
CPT/HCPCS: 36415; 80053; 80061; 82306; 83880

== ENCOUNTER 2022-07-13 08:18 | Outpatient (REF) | payer MEDICARE, SELFPAY ==
--- NOTE | ~2022-07-13 | CT_ITS ---
EXAMINATION: CT ABDOMEN AND PELVIS WITH CONTRAST CLINICAL INFORMATION: Unspecified abdominal pain. COMPARISON: CT abdomen and pelvis 09/04/2015. TECHNIQUE: Multidetector volumetric images were obtained from the superior aspect of the liver through the pubic symphysis following administration 85 mL of Omnipaque 350 intravenous contrast. Sagittal and coronal reformatted images were obtained on the technologist's workstation. Oral contrast: No This CT examination was performed using dose optimization techniques as appropriate, variously including the following: *Automated exposure control *Adjustment of mA and/or kV according to patient size (this includes techniques or standardized protocols for targeted exams where dose is matched to indication/reason for exam; i.e. extremities or head) *Use of iterative reconstruction technique DLP: 333 mGy-cm FINDINGS: LUNG BASES: The visualized lung bases are unremarkable. The heart size is normal. There are pacer electrodes in the right atrium and right ventricle. LIVER, GALLBLADDER, AND BILIARY TREE: The liver is normal in size, shape, and attenuation. There are multiple hypodense nonenhancing liver lesions most prominent in the left lobe and measuring fluid density. No solid lesion or intrahepatic ductal dilatation seen. The gallbladder has been surgically removed. PANCREAS: Unremarkable. SPLEEN: Unremarkable. ADRENAL GLANDS: Unremarkable. KIDNEYS AND URETERS: The kidneys are normal in size, shape, and attenuation. No hydronephrosis, hydroureter, or calculi seen. No perinephric stranding. There is left peripelvic and right renal cortical cysts. BLADDER: Unremarkable. GASTROINTESTINAL TRACT: There is scattered stool, diverticuli and gas seen throughout the colon without significant distention. The small bowel loops are normal caliber. The cecum is low lying in the right pelvis. Appendix is not seen. ABDOMINAL WALL: No significant hernia is appreciated. LYMPH NODES: Normal. VASCULAR: There is arthroscopic calcification of abdominal aorta without aneurysmal dilatation. PELVIC VISCERA: There is diffuse colonic diverticulosis without mural thickening or pericolic fat stranding. There is no free fluid. No abnormal pelvic lymph nodes. OSSEOUS STRUCTURES: No aggressive lytic or sclerotic process seen. There is grade I anterolisthesis L3 over L4. CT/CT abdomen pelvis w IV con IMPRESSION: Diffuse colonic diverticulosis without diverticulitis. Diverticula are most prominent in the sigmoid colon. Multiple hepatic cysts and renal cysts. They are stable compared to previous study 09/04/2015. Grade 1 anterolisthesis L3 over L4 with mild degenerative L3-L4 disc changes. Fleischner guidelines were followed.
[2022-07-13] MEDS: iohexoL 350 MG/ML 100 ML INFUS..BTL IV (08:54)
== END 2022-07-13 08:19 | disposition home or self-care (01) ==
LOC: HO.CT 08:18
PROVIDERS: PCP Internal Medicine; Visit Provider Internal Medicine
DX: R10.9 Unspecified abdominal pain (principal)
CPT/HCPCS: 74177; Q9967

== ENCOUNTER → 2022-07-28 08:05 | Outpatient (BNVA) | payer MEDICARE, SELFPAY | PROVIDERS: PCP Internal Medicine; Visit Provider Internal Medicine Endocrinology, Diabetes & Metabolism | DX: M81.0 Age-related osteoporosis without current pathological fracture (principal) | CPT/HCPCS: 99212 ==

== ENCOUNTER 2022-08-04 07:41 | Outpatient (REF) | payer MEDICARE, SELFPAY ==
[2022-08-12 06:34] LABS: N-Telopeptide 33 (see note); NTXCreaRU 76 mg/dL (20-275)
== END 2022-08-04 07:42 | disposition home or self-care (01) ==
LOC: HO.LAB 07:41
PROVIDERS: PCP Internal Medicine; Visit Provider Internal Medicine Endocrinology, Diabetes & Metabolism
DX: M81.0 Age-related osteoporosis without current pathological fracture (principal)
CPT/HCPCS: 82523

== ENCOUNTER 2022-09-09 07:55 | Outpatient (AMB) | payer MEDICARE, SELFPAY ==
[2022-09-09 08:10] VITALS: BP 141/84; PULSE 86; BMI 28.1
--- NOTE | 2022-09-09 08:10 | MHC.OFFVIS ---
Intake Vital Signs 09/09/22 08:10 Height 5 ft Weight 143 lb 11.862 oz BMI 28.1 BP 141/84 H Blood Pressure Location Lt brachial Position Sitting Pulse 86 Intake Visit Reasons: 1 yr f/u diverticulosis, GERD, colo screen Intake Note: Nancy presents in office as a est.patient for a 1yr f/u for Diverticulosis ,GERD, COLO screening PT CC: pt reports having no concerns pt denies any other GI Issues Line Out Man Required: No Accompanied by: Self / Same As Patient Allergies dronedarone [Multaq] Allergy (Severe, Verified 09/09/22 08:10) syncope flecainide Allergy (Severe, Verified 09/09/22 08:10) vertigo,blurry vision lisinopril [LISINOPRIL] Allergy (Severe, Verified 09/09/22 08:10) ANGIOEDEMA, bad cough, throat closing, tingling of head, cough losartan Allergy (Intermediate, Verified 09/09/22 08:10) dry cough, pruritus hydromorphone [Dilaudid] Adverse Reaction (Severe, Verified 09/09/22 08:10) unresponsiveness HPI 1 yr f/u diverticulosis, GERD, colo screen HPI Details LAST VISIT Tubular adenoma Tubular adenoma found on colonoscopy. The polyp was large one was 2.5 cm and one 1.5 cm. Patient will need to return in 1 year for colorectal screening. Patient denies any melena, hematochezia, unintentional weight loss or ribbon like stools. Patient was informed that she must speak to blood relatives above early colorectal screening Diverticulosis Moderate diverticulosis found on colonoscopy. Patient reports that she eats lot of popcorn at least twice a week. Discussed with patient avoiding certain food diverticulosis diet discussed with patient. Avoiding raw vegetables. Patient was encouraged to take fiber supplement Status post colonoscopy Colonoscopy results discussed with patient. Patient denies any ill effects from the prep, anesthesia or procedure itself. Patient denies melena, hematochezia, unintentional weight loss or ribbon like stools. Colonoscopy will be repeated in 1 year tubular adenoma was found without high-grade dysplasia or carcinoma. GERD (gastroesophageal reflux disease) Patient reports that she is doing well and taking pantoprazole every other day. Patient reports that her symptoms are well controlled. Patient denies any dyspepsia, dysphagia or odynophagia. Patient continues avoiding dietary triggers and late night snacking. Discussed with patient the importance of staying upright for 3 hours after meals. I will see patient in 1 year, sooner on as needed basis. Patient is agreeable to this plan and verbalizes understanding of instructions. She was given the opportunity to ask questions and all questions answered. Colonoscopy 08/03/2021 Cecum:? A 1.5 cms non-bleeding AVM Ascending Colon:? A 2 to 2.5 cms flat polyp at 70 cms raised with 2 cc of Orise solution and removed with a hot snare.? Polypectomy site was marked with lalit ink. A 2nd 1.5 sessile polyp at 70 cms removed with a hot snare. Two 8 to 10 mm sessile polyps removed with a hot snare. Scattered moderate diverticulosis throughout the colon TODAY'S VISIT Patient is here today for follow-up and to also discussed going for colonoscopy. Patient reports that she has been feeling well lately. Had abdominal discomfort and abdominal bloating in the past, however it went away. Patient denies any ill effects from the prep, anesthesia or procedure in the past. Last colonoscopy in 2022 see above report. Tubular of of adenoma found in patient will need to go for colorectal screening. Patient is on Pradaxa. Will discussed going for colonoscopy with her environmental conflict manager. No history of sleep apnea. [facility] Medical History Cardiac pacemaker in situ COPD (chronic obstructive pulmonary disease) Diverticulosis Dyslipidemia Dysphagia Epigastric pain GERD (gastroesophageal reflux disease) Heart failure Hiatal hernia Hypercalcemia Hyperparathyroidism JESU (obstructive sleep apnea) Osteoporosis Paroxysmal atrial fibrillation Positive colorectal cancer screening using Cologuard test Sick sinus syndrome Tubular adenoma Surgical History H/O bilateral cataract extraction History of esophagogastroduodenoscopy (EGD) History of laparoscopic cholecystectomy History of pacemaker History of total abdominal hysterectomy and bilateral salpingo-oophorectomy History of total left knee replacement Hx of colonoscopy Family History Father COPD (chronic obstructive pulmonary disease) Mother CAD (coronary artery disease) CVD (cardiovascular disease) Daughter No problems noted. Social History Housing: House Alcohol intake: current Alcohol intake frequency: holidays/special occasions only Alcohol type: wine Patient Tobacco Use Status: Former Tobacco user Quit Date: 1996 Tobacco use type: Cigarette e-Cigarette/Vaping Use: Never Used Second Hand Smoke Exposure: No service: No Current occupational status: retired Cognitive needs: No Hearing needs: No Vision needs: No Review of Systems Const Denies weight gain and Denies weight loss ENT Reports no additional complaints, Denies dysphagia and Denies odynophagia Card Reports no additional complaints Resp Reports no additional complaints GI Denies abdominal pain, Denies belching, Denies melena, Denies bloating, Denies change in bowel habits, Denies dysphagia, Denies excessive flatus, Denies dyspepsia, Denies heartburn, Denies diarrhea, Denies loose stools, Denies nausea, Denies odynophagia and Denies vomiting Reports no additional complaints Musc Reports no additional complaints Neuro Reports no additional complaints Psych Reports no additional complaints Endo Reports no additional complaints Physical Exam Vital Signs: Last Vital Signs Pulse 86 09/09/22 08:10 BP 141/84 H 09/09/22 08:10 BMI result Body Mass Index 28.1 Const General: healthy appearing, no acute distress and well developed Nutritional Appearance: well nourished Orientation/consciousness: patient oriented x3 HEENT Head: Yes normal to inspection, Yes normocephalic and Yes atraumatic Face and sinus: Yes normal facial exam Mouth: Normal oral and palatal mucosa present Throat: Yes posterior oropharynx normal, Yes tonsils normal and Yes uvula midline Eyes General: appearance normal, both eyes and all related structures Neck Neck: Yes normal visual inspection, Yes full ROM and Yes trachea midline Thyroid: Thyroid normal Resp Effort & Inspection: normal respiratory effort, able to speak in complete sentences, no tracheal deviation and symmetric chest movement Auscultation: clear to auscultation bilaterally Cardio Rate: regular rate Heart sounds: S1 normal heart sound present and S2 normal heart sound present GI Inspection: Yes normal to inspection and No distended Palpation (GI): Soft to palpation, not firm, nontender and No hepatosplenomegaly present Auscultation: normal bowel sounds General: Yes no CVA tenderness Back/Spine/Pelvis Back: no CVA tenderness Skin General skin exam: elasticity normal, turgor normal and dry skin Neuro General: patient oriented x3 Psych Appearance: grossly normal Mental Status: mental status grossly normal Speech and movement: Normal speech and movement present Affect: normal affect Assessment & Plan Assessment & Plan (1) Tubular adenoma: Code(s): D36.9 - Benign neoplasm, unspecified site Plan: As mentioned above tubular all adenoma found, large polyp will schedule patient for colonoscopy. (2) Screen for colon cancer: Code(s): Z12.11 - Encounter for screening for malignant neoplasm of colon Plan: Patient denies any melena, hematochezia, unintentional weight loss or ribbon like stools. Denies any dyspepsia, dysphagia or odynophagia. Patient can proceed with colonoscopy, cleared by her environmental conflict manager. Hold Pradaxa for 3 days before the procedure. Discussed with patient at length what to expect before during and after the procedure. Patient just had the procedure last year and is aware that she has to clear her bowels. I will see her after the procedure, sooner on as needed basis. Patient is agreeable to this plan and verbalizes understanding of instructions. She was given the opportunity to ask questions all questions answered. Thank you for allowing me to participate in her care Medications: New bisacodyl (Dulcolax (bisacodyl)) take 2 tabs at noon the day before your colonoscopy 10 mg (2 x 5 mg) PO ONCE 2 tabs 0RF 1 day Z12.11 - Encounter for screening for malignant neoplasm of colon polyethylene glycol 3350 (Miralax) As directed by gastroenterology department at [facility] 238 grams PO ONCE 238 grams 0RF Z12.11 - Encounter for screening for malignant neoplasm of colon Coding Level of Care Code Est Pt Level 3 (63482) Diagnoses Tubular adenoma D36.9 Screen for colon cancer Z12.11 Time Spent (min) 35 Comment 20 minutes spent with patient and additional 15 minutes spent reviewing her records
== END 2022-09-09 09:45 | disposition home or self-care (01) ==
PROVIDERS: PCP Internal Medicine; Visit Provider Nurse Practitioner Family
DX: D36.9 Benign neoplasm, unspecified site (principal); Z12.11 Encounter for screening for malignant neoplasm of colon
CPT/HCPCS: 99213

== ENCOUNTER → 2022-09-09 07:55 | Outpatient (BNVA) | payer MEDICARE, SELFPAY | PROVIDERS: PCP Internal Medicine; Visit Provider Nurse Practitioner Family ==

== ENCOUNTER 2022-09-09 08:49 | Outpatient (REF) | payer MEDICARE, SELFPAY ==
--- NOTE | ~2022-09-09 | XR_ITS ---
EXAMINATION: XR CHEST 2 VIEWS CLINICAL INFORMATION: COPD. COMPARISON: Chest radiographs dated 05/31/2021. TECHNIQUE: Frontal and lateral views of the chest were obtained. FINDINGS: The heart, great vessels, pulmonary vasculature and mediastinum are normal. The lungs show no focal infiltrate, effusion or pneumothorax. There is no acute osseous abnormality. A dual-lead, dual-chamber pacemaker device shows no lead fracture or change in lead tip positions. XR/XR chest 2V IMPRESSION: No active cardiopulmonary disease.
== END 2022-09-09 08:50 | disposition home or self-care (01) ==
LOC: HO.XRAY 08:49
PROVIDERS: PCP Internal Medicine; Visit Provider Hospitalist
DX: Z01.818 Encounter for other preprocedural examination (principal); J44.9 Chronic obstructive pulmonary disease, unspecified; K21.9 Gastro-esophageal reflux disease without esophagitis; K57.90 Diverticulosis of intestine, part unspecified, without perforation or abscess without bleeding; D36.9 Benign neoplasm, unspecified site
CPT/HCPCS: 71046; 99212

== ENCOUNTER → 2022-09-20 07:52 | Outpatient (REF) | payer MEDICARE, SELFPAY ==
--- NOTE | 2022-09-20 07:57 | CA_ITS ---
Transthoracic Echocardiogram Patient (Last, First, Middle): Nancy Zaragoza E Gender: Female Date of : 1945 Age: 76 Procedure Date: 09/20/2022 Procedure Type: Transthoracic Echocardiogram Location: OP Height: 154.94 cm Weight: 65.77 kg BSA: 1.65 m2 Heart Rate: bpm BP: 140 / 90 mmHg Mold Closer Helper: YANDEL Referring MD: Homa Jones MD Information Assurance Manager: Saud Guzmán MD Symptoms: I50.9 - Heart failure, unspecified Study Quality: Fair ECG Rhythm: Sinus Conclusions: - 1. Normal LV systolic function with LVEF of 65-70% with impaired relaxation filling pattern 2. Normal cardiac valvular Doppler 3. No gross pericardial effusion Findings Left Ventricle Normal left ventricular size, thickness, and systolic function. The visually estimated ejection fraction is between 65-70%. Spectral Doppler is indicative of an impaired relaxation filling pattern. E/E prime ratio is between 8 and 15 consistent with indeterminate filling pressures. Peak GLS is -19.9%, within normal limits. Right Ventricle Normal right ventricular cavity size and systolic function. There is a pacemaker wire seen in the right ventricle. Atria The left atrium is normal in size. Interatrial shunt cannot be excluded. The right atrium is normal in size. A pacemaker wire is identified in the right atrium. Aortic Valve Normal aortic valve structure and function. There is no aortic valve stenosis. There is no aortic valve regurgitation. Mitral Valve Normal mitral valve structure and function. There is trace mitral valve regurgitation. There is no mitral valve stenosis. Pulmonic Valve The pulmonic valve was not well visualized. Tricuspid Valve Normal tricuspid valve structure. There is trace tricuspid valve regurgitation. The right ventricular systolic pressure is normal. The right ventricular systolic pressure is 27 mmHg. Normal right atrial pressure. There is no evidence of pulmonary hypertension. Great Vessels All visible segments of the aorta are normal in size. The pulmonary artery was not well visualized. Venous The inferior vena cava is normal in size and collapses greater than 50% with inspiration. Pericardium/Pleural There is no evidence of pericardial effusion. Prior Study Comparison No significant change compared to prior study dated: 09/15/2021. Measurements 2D Linear Measurements IVSd: 1.26 0.6-0.9/0.6-1.0 cm LVIDd: 3.63 3.9-5.3/4.2-5.9 cm LVIDd Index: 2.20 2.4-3.2/2.2-3.1 cm/m2 LVIDs: 2.58 2.0-3.6 cm LVPWd: 0.94 0.7-1.1 cm LA Diam: 2.80 2.7-3.8/3.0-4.0 cm LAIDs Index: 1.70 1.5-2.3 cm/m2 LV Mass: 156.65 67-162/88-224 g LV Mass Index: 94.94 43-95/49-115 g/m2 LVOT Diam: 2.00 3.0+(-)1.3 cm 2D Systolic Function EF 4C: 66.30 >55% EF 2C: 65.20 >55% EF BiP: 66.90 >55% Mitral Valve MV Pk E: 0.51 MV PK A: 0.81 MV Decel Time: 256.00 E/A: 0.60 E'Lateral: 7.62 E'Medial: 5.00 E/E' Med: 10.20 E/E' Lat: 6.70 PHT: 75.00 MVA PHT: 2.93 Decel [place]: 1.99 Aortic Valve AoV Pk Uziel: 1.36 AoV Mn Uziel: 0.95 AoV VTI: 0.32 AoV Pk Grad: 7.00 Aov Mn Grad: 4.00 EDWARD Cont.VTI: 2.40 LVOT LVOT Pk Uziel: 1.01 LVOT Mn Uziel: 0.66 LVOT VTI: 0.24 LVOT Pk Grad: 4.00 LVOT Mn Grad: 2.00 LVOT Diam: 2.00 LVOT Area: 3.14 Diastolic Function MV Pk E: 0.51 MV Pk A: 0.81 E/A: 0.60 E'Medial: 5.00 E/E' Med: 10.20 E' Laterial: 7.62 E/E' Lat: 6.70 Right Ventricle TAPSE (mm): 18.60 TVS' Uziel: 9.68 Tricuspid Valve TR Pk Uziel: 2.47 TR Pk Grad: 24.00 RA Press: 3.00 RVSP: 27.00 Great Vessels Aorta Sinus of Valsalva: 2.73 2.0-3.5 cm Ao Asc: 2.70 2.1-3.4 cm Updated in Other Vendor System with Status of Final Saud Guzmán MD electronically signed on 09/20/2022 4:53:23 PM with status of Final
[2022-09-20 09:27] LABS: Alanine Aminotransferase 16 U/L (0-31); Albumin Level 3.9 g/dL (3.5-5.0); Alkaline Phosphatase 64 U/L (39-117); Anion Gap 11 (12-20); Aspartate Amino Transferase 24 U/L (5-31); Bilirubin Total 0.8 mg/dL (0.0-1.0); Blood Urea Nitrogen 18 mg/dL (9-16); Calcium 10.7 mg/dL (8.4-10.2); Carbon Dioxide 27 mmol/L (22-29); Chloride 108 mmol/L (96-108); Cholesterol 159 mg/dL; Estimated Glomerular Filt Rate 54; Glucose Fasting 97 mg/dL (60-99); HDL Cholesterol 48 mg/dL; LDL Cholesterol Calculated 90 mg/dl; Potassium 4.5 mmol/L (3.3-5.1); Sodium 141 mmol/L (135-145); Total Protein 7.1 g/dL (6.5-8.0); Triglycerides 105 mg/dL
[2022-09-20 09:40] LABS: Vitamin D 25-OH Total 52.7 ng/mL (>30)
[2022-09-25 15:18] LABS: NT-proBNP 185 pg/mL (<450)
== END ==
LOC: HO.CARD 07:52
PROVIDERS: PCP Internal Medicine; Visit Provider Internal Medicine
DX: I50.22 Chronic systolic (congestive) heart failure (principal); E55.9 Vitamin D deficiency, unspecified; E78.5 Hyperlipidemia, unspecified
CPT/HCPCS: 36415; 80053; 80061; 82306; 83880; 93306; 93356

== ENCOUNTER → 2022-09-20 07:57 | Outpatient (BNV) | payer MEDICARE, SELFPAY | PROVIDERS: PCP Internal Medicine; Visit Provider Internal Medicine Cardiovascular Disease | DX: I50.22 Chronic systolic (congestive) heart failure (principal) | CPT/HCPCS: 93306 ==

== ENCOUNTER 2022-11-08 08:52 | Outpatient (AMB) | payer MEDICARE, SELFPAY ==
--- NOTE | 2022-11-08 08:55 | A.OFFVIS_ITS ---
Intake Vital Signs 11/08/22 08:57 Height 5 ft 1 in Weight 142 lb 3.17 oz BMI 26.9 BP 132/78 Blood Pressure Location Lt brachial Position Sitting Pulse 72 Pulse Source Pulse Oximeter Pulse Oximetry (%) 98 Oxygen Delivery Method Room Air Intake Visit Reasons: tania Allergies dronedarone [Multaq] Allergy (Severe, Verified 11/08/22 08:58) syncope flecainide Allergy (Severe, Verified 11/08/22 08:58) vertigo,blurry vision lisinopril [LISINOPRIL] Allergy (Severe, Verified 11/08/22 08:58) ANGIOEDEMA, bad cough, throat closing, tingling of head, cough losartan Allergy (Intermediate, Verified 11/08/22 08:58) dry cough, pruritus hydromorphone [Dilaudid] Adverse Reaction (Severe, Verified 11/08/22 08:58) unresponsiveness HPI HPI Comments History of Present Illness Details She pis a 76 y/o woman with a history of COPD and TANIA not on CPAP. Overall she has been doing well. She has not been using her inhalers regularly. She has not noticed any significant difference. Her major issue right now is having significant balance issues and falls. She did fracture her clavicle. She was diagnosed with Meniere's. She has not had any recent imaging studies to rule out any potential pulmonary process. She denies any weight loss or night sweats. She denies any anorexia. Denies any hemoptysis. BAsed on her h/o afib and neurological symptoms she should consider having a repeat PSG. 09/04/2019. The patient is here for pulmonary follow-up visit. She has been having issues with heart rate more often. Her antiarrhythmic medications was going to be changed due to her irregular heart rate due to her AFib. She continues to have daytime drowsiness with an elevated [place] score of 12/24. In the meantime she is also complaining of some lightheadedness and dizziness as well as some shortness of breath with activity. She has been using her inhalers more often. Her symptoms are [id number] severity. She had been using CPAP in the past but then she developed a skin cancer and could not wear the mask. At this point would like to try to get her back on CPAP because of her cardiovascular risks and her ongoing daytime I will recent mid prescription for supplies to her [place]. I will also request a sleep study in case she needs 1 to get reactivated. We did review her chest x-ray demonstrating no acute disease. 05/31/2022 the patient is here for a pulmonary follow-up visit. Overall the patient is doing well from a respiratory status. She is not using any inhalers. Although, she has a planned trip to [place] and she is wondering if she could have something available. Sometimes after exerting herself she does get shortness of breath and also get some fatigue. She does have a history atrial fibrillation. Therefore I did explain to her that she needs to be careful not to over use the inhaler in view of worsening her heart rate and tachyarrhythmia. I also want to try the inhaler before she goes to [place] to make sure that she is tolerating it. Otherwise the patient is sleeping well. She had significant weight loss. She is no longer using CPAP. She is waking up rested with an [place] score of 6/24. Therefore this point she does not need to continue using her CPAP and will continue positional therapy. She is complaining of significant abdominal discomfort. Last 3 days she had a hard time getting around because her significant discomfort. She will follow-up with the GI doctor. I did advise her to call the GI office to get an earlier evaluation. 11/08/2022 patient is here for pulmonary follow-up visit. The patient overall is doing well off status. She had not used her rescue inhaler. She is concerned about atrial fibrillation. She recently got a call from her shelver to increase her metoprolol because he was having more episodes. As far as the sleep she is doing well. He is sleeping prone. She denies any daytime drowsiness. Her [place] score is decreased down to 5/24. She does not have any significant snoring and denies any apneic episodes that she has been told about. The patient therefore does not need CPAP at this time. Although with her cardiac history I did bring that up. She is having episodes of dizziness. She has only had about couple episodes but there concerning to her. One day she could not get up. She denies any vertigo. She denies positional changes with dizziness. I did recommend she can take a baby aspirin and then if it happens again to go to the ER to be evaluated for TIA. I also did send a message to her shelver to make sure that she can take a baby aspirin along with Pradaxa she did have a chest x-ray back in August which is reassuring. No acute disease. [facility] Medical History Cardiac pacemaker in situ COPD (chronic obstructive pulmonary disease) Diverticulosis Dyslipidemia Dysphagia Epigastric pain GERD (gastroesophageal reflux disease) Heart failure Hiatal hernia Hypercalcemia Hyperparathyroidism TANIA (obstructive sleep apnea) Osteoporosis Paroxysmal atrial fibrillation Positive colorectal cancer screening using Cologuard test Sick sinus syndrome Tubular adenoma Surgical History H/O bilateral cataract extraction History of esophagogastroduodenoscopy (EGD) History of laparoscopic cholecystectomy History of pacemaker History of total abdominal hysterectomy and bilateral salpingo-oophorectomy History of total left knee replacement Hx of colonoscopy Family History Father COPD (chronic obstructive pulmonary disease) Mother CAD (coronary artery disease) CVD (cardiovascular disease) Daughter No problems noted. Social History Housing: House Alcohol intake: current Alcohol intake frequency: holidays/special occasions only Alcohol type: wine Patient Tobacco Use Status: Former Tobacco user Quit Date: 1996 Tobacco use type: Cigarette e-Cigarette/Vaping Use: Never Used Second Hand Smoke Exposure: No service: No Current occupational status: retired Cognitive needs: No Hearing needs: No Vision needs: No Review of Systems Const Denies chills, Denies fatigue, Denies fever(s), Denies frequent falls, Denies weakness, Denies weight gain and Denies weight loss ENT Reports dizziness Card Denies chest pain, Denies leg edema, Denies lightheadedness, Denies palpitations, Denies dyspnea, Denies dyspnea on exertion, Denies orthopnea and Denies other (LOC) Resp Denies cough, Denies dyspnea and Denies dyspnea on exertion GI Denies hematochezia and Denies change in bowel habits Musc Denies abnormal gait, Denies muscle weakness, Denies numbness, Denies radiating pain into limb and Denies tingling Neuro Denies abnormal gait, Reports dizziness, Denies frequent falls, Denies numbness, Denies tingling and Denies weakness Endo Denies fatigue and Denies palpitations Physical Exam Vital Signs: Last Vital Signs Pulse 72 11/08/22 08:57 BP 132/78 11/08/22 08:57 Pulse Ox 98 11/08/22 08:57 Oxygen Delivery Method Room Air 11/08/22 08:57 BMI result Body Mass Index 26.9 Const General: alert Neck Neck: Yes normal visual inspection, Yes full ROM and Yes no lymphadenopathy Chest Chest palpation & inspection: normal inspection of the chest Resp Auscultation: diminished lung sounds Cardio Rate: regular rate Rhythm: regular rhythm Heart sounds: S1 normal heart sound present and S2 normal heart sound present GI Palpation (GI): Soft to palpation, nontender and Guarding due to palpation present (GI) in the LLQ and in the RLQ Auscultation: normal bowel sounds Skin General skin exam: rashes and/or lesions noted Assessment & Plan Assessment & Plan (1) COPD (chronic obstructive pulmonary disease): Code(s): J44.9 - Chronic obstructive pulmonary disease, unspecified Qualifiers: COPD type: unspecified COPD Qualified Code(s): J44.9 - Chronic obstructive pulmonary disease, unspecified (2) TANIA (obstructive sleep apnea): Comment: borderline, not using CPAP Code(s): G47.33 - Obstructive sleep apnea (adult) (pediatric) (3) Paroxysmal atrial fibrillation: Code(s): I48.0 - Paroxysmal atrial fibrillation (4) Dizziness: Comment: episodic dizziness, not vertiginous. Code(s): R42 - Dizziness and giddiness Plan recommend baby ASA and should go and seek urgent medical advice if it occurs again Consider LAMA if worsening respiratory status LIGIA as needed position of sleep therapy. Consider restarting CPAP if she becomes more symptomatic or if he has worsening cardiac arrhythmias follow-up in 8-12 months Coding Level of Care Code Tele New Pt Level 4 (56169) Diagnoses COPD (chronic obstructive pulmonary disease) J44.9 COPD type: unspecified COPD TANIA (obstructive sleep apnea) G47.33 Paroxysmal atrial fibrillation I48.0 Dizziness R42 Time Spent (min) 17
[2022-11-08 08:57] VITALS: BP 132/78; PULSE 72; O2SAT 98; BMI 26.9
== END 2022-11-08 09:30 | disposition home or self-care (01) ==
PROVIDERS: PCP Internal Medicine; Visit Provider Hospitalist
DX: J44.9 Chronic obstructive pulmonary disease, unspecified (principal); G47.33 Obstructive sleep apnea (adult) (pediatric); I48.0 Paroxysmal atrial fibrillation; R42 Dizziness and giddiness
CPT/HCPCS: 99214

== ENCOUNTER → 2022-11-08 08:52 | Outpatient (BNVA) | payer MEDICARE, SELFPAY | PROVIDERS: PCP Internal Medicine; Visit Provider Hospitalist | DX: J44.9 Chronic obstructive pulmonary disease, unspecified (principal); G47.33 Obstructive sleep apnea (adult) (pediatric); I48.0 Paroxysmal atrial fibrillation; R42 Dizziness and giddiness | CPT/HCPCS: 99212 ==

== ENCOUNTER 2022-11-09 08:13 | Outpatient (REF) | payer MEDICARE, SELFPAY ==
--- NOTE | ~2022-11-09 | MM_ITS ---
EXAMINATION: BONE DENSITOMETRY CLINICAL INDICATION: Age-related osteoporosis without current pathological fracture. COMPARISON: Previous BD dated 11/07/2020 and baseline BD dated 09/02/2011. TECHNIQUE: Using a [employer] DXA System (software version: 13.1) manufactured by [employer] dual-energy x-ray absorptiometry was performed of the lumbar spine and left hip. The images are of good technical quality. Summary results are attached. FINDINGS: LEFT FEMUR, NECK: Current: BMD 0.652 g/cm2, Z-score -0.7, T-score -2.8, osteoporosis. Prior: BMD 0.671 g/cm2. Baseline: BMD 0.747 g/cm2. LEFT FEMUR, TOTAL: Current: BMD 0.745 g/cm2, Z-score -0.1, T-score -2.1, osteopenia, 0.1% increase from previous, 10.6% decrease from baseline (<5% change is not significant). Prior: BMD 0.744 g/cm2. Baseline: BMD 0.833 g/cm2. AP SPINE L1-L2 (excluding L3 and L4): The data of L1-L4 has been changed to exclude the L3 and L4 vertebral bodies, because degenerative sclerosis at these levels may cause overestimation of lumbar spine density. Current: BMD 0.987 g/cm2, Z-score 0.3, T-score -1.5, osteopenia, 1.0% decrease from previous, 7.9% increase from baseline (<5% change is not significant). Prior: BMD 0.997 g/cm2. Baseline: BMD 0.915 g/cm2. IDENTIFIED RISK FACTORS: Early menopause, history of fracture (adult), hysterectomy, left oophorectomy, osteoporosis, secondary osteoporosis. HISTORY OF FRACTURE: Other. MEDICATIONS: Calcium, vitamin D. MM/XR DEXA axial skeleton IMPRESSION: 1. DIAGNOSIS: Osteoporosis based on the lowest T-score value of -2.8 in the femoral neck applying World Health Organization criteria. 2. 10-YEAR FRACTURE RISK PREDICTION, FRAX: According to the guidelines, FRAX calculation should only be performed on patients in the osteopenia bone density category. Therefore, FRAX was not performed on this patient. 3. Treatment Recommendations: NOF guidelines recommend consideration for treatment in postmenopausal women and men age 50 and older presenting with the following: -A hip or vertebral (clinical or morphometric) fracture. -T-score less than or equal to -2.5 at the femoral neck or spine after appropriate evaluation to exclude secondary causes. -Low bone mass at the hip or spine and a 10-year fracture probability by FRAX of greater than or equal to 3% for hip fracture or greater than or equal to 20% for major osteoporotic fracture based on the [place] adapted WHO algorithm. 4. Other Recommendations: All treatment decisions require clinical judgment and consideration of individual patient factors, including patient preferences, comorbidities, previous drug use, risk factors not captured in the FRAX model (e.g. frailty, falls, vitamin D deficiency, increased bone turnover, interval significant decline in bone density) and possible under or overestimation of fracture risk by FRAX. Additional medical evaluation for secondary cause of low bone mineral density may be appropriate. FUTURE SCAN RECOMMENDATION: People with diagnosed cases of osteoporosis or at high risk for fracture should have regular bone mineral density tests. For patients eligible for Medicare, routine testing is allowed once every 2 years. The testing frequency can be increased to one year for patients who have rapidly progressing disease, those who are receiving or discontinuing medical therapy to restore bone mass, or have additional risk factors.
== END 2022-11-09 08:14 | disposition home or self-care (01) ==
LOC: HO.MAMMO 08:13
PROVIDERS: PCP Internal Medicine; Visit Provider Internal Medicine Endocrinology, Diabetes & Metabolism
DX: Z13.820 Encounter for screening for osteoporosis (principal); M81.0 Age-related osteoporosis without current pathological fracture; Z78.0 Asymptomatic menopausal state
CPT/HCPCS: 77080

== ENCOUNTER → 2022-11-09 08:15 | Outpatient (BNV) | payer MEDICARE, SELFPAY | PROVIDERS: PCP Internal Medicine; Visit Provider Radiology Diagnostic Radiology | DX: M81.0 Age-related osteoporosis without current pathological fracture (principal); M85.89 Other specified disorders of bone density and structure, multiple sites | CPT/HCPCS: 77080 ==

== ENCOUNTER → 2022-11-15 23:59 | Outpatient (BNV) | payer MEDICARE, SELFPAY ==
--- NOTE | 2022-11-16 10:52 | A.OFFVIS_ITS ---
Intake Intake Visit Reasons: Remote Device Check- [facility] Allergies dronedarone [Multaq] Allergy (Severe, Verified 11/08/22 08:58) syncope flecainide Allergy (Severe, Verified 11/08/22 08:58) vertigo,blurry vision lisinopril [LISINOPRIL] Allergy (Severe, Verified 11/08/22 08:58) ANGIOEDEMA, bad cough, throat closing, tingling of head, cough losartan Allergy (Intermediate, Verified 11/08/22 08:58) dry cough, pruritus hydromorphone [Dilaudid] Adverse Reaction (Severe, Verified 11/08/22 08:58) unresponsiveness [facility] Medical History Cardiac pacemaker in situ COPD (chronic obstructive pulmonary disease) Diverticulosis Dyslipidemia Dysphagia Epigastric pain GERD (gastroesophageal reflux disease) Heart failure Hiatal hernia Hypercalcemia Hyperparathyroidism JESU (obstructive sleep apnea) Osteoporosis Paroxysmal atrial fibrillation Positive colorectal cancer screening using Cologuard test Sick sinus syndrome Tubular adenoma Surgical History H/O bilateral cataract extraction History of esophagogastroduodenoscopy (EGD) History of laparoscopic cholecystectomy History of pacemaker History of total abdominal hysterectomy and bilateral salpingo-oophorectomy History of total left knee replacement Hx of colonoscopy Family History Father COPD (chronic obstructive pulmonary disease) Mother CAD (coronary artery disease) CVD (cardiovascular disease) Daughter No problems noted. Social History Housing: House Alcohol intake: current Alcohol intake frequency: holidays/special occasions only Alcohol type: wine Patient Tobacco Use Status: Former Tobacco user Quit Date: 1996 Tobacco use type: Cigarette e-Cigarette/Vaping Use: Never Used Second Hand Smoke Exposure: No service: No Current occupational status: retired Cognitive needs: No Hearing needs: No Vision needs: No Office Procedures Cardiac Device Check Cardiac Device Check Details: Remote pacemaker report generated 11/15/2022. Higher incidence of atrial fibrillation noted with total burden of about 8% with longest episode lasting about 2 hours. Ventricular capture thresholds are reset at higher level. Will schedule for an office visit to check her pacemaker [id number] Cardiac Device Interrogation, pacemaker Procedure code (CPT) selection complete Coding Level of Care Code Procedure Only Diagnoses CPT Codes Cardiac Device Check - Cardiac Device 12: [id number] Cardiac Device Interrogation, pacemaker ([id number])
== END ==
PROVIDERS: PCP Internal Medicine; Visit Provider Internal Medicine Cardiovascular Disease
DX: I48.0 Paroxysmal atrial fibrillation (principal); Z95.0 Presence of cardiac pacemaker
CPT/HCPCS: 93294

== ENCOUNTER 2022-11-18 14:41 | Outpatient (AMB) | payer MEDICARE, SELFPAY ==
[2022-11-18 14:47] VITALS: BP 124/80; PULSE 70; BMI 27.1
--- NOTE | 2022-11-18 14:47 | A.OFFVIS_ITS ---
Intake Vital Signs 11/18/22 14:47 Height 5 ft 1 in Weight 143 lb 4.807 oz BMI 27.1 BP 124/80 Blood Pressure Location Lt brachial Position Sitting Pulse 70 Intake Visit Reasons: 6 mth f/up Intake Note: 6 month follow-up with [facility] [employer] Marketing Executive Required: No Allergies dronedarone [Multaq] Allergy (Severe, Verified 11/08/22 08:58) syncope flecainide Allergy (Severe, Verified 11/08/22 08:58) vertigo,blurry vision lisinopril [LISINOPRIL] Allergy (Severe, Verified 11/08/22 08:58) ANGIOEDEMA, bad cough, throat closing, tingling of head, cough losartan Allergy (Intermediate, Verified 11/08/22 08:58) dry cough, pruritus hydromorphone [Dilaudid] Adverse Reaction (Severe, Verified 11/08/22 08:58) unresponsiveness Medication List - Last Reconciled 11/18/22 by Saud Guzmán MD bisacodyl (Dulcolax (bisacodyl)) 10 mg (2 x 5 mg) PO ONCE 1 day dabigatran etexilate 150 mg PO BID fluoride (sodium) 1.1% PO BEDTIME levalbuterol tartrate 45 mcg/actuation (Xopenex HFA) 2 puffs inhalation Q6H PRN 30 days lovastatin 20 mg PO DAILY metoprolol succinate ER 50 mg PO DAILY multivitamin,dh-xecy-bpfzpxpc (Complete Multivitamin tablet) 1 tab PO DAILY oxybutynin chloride 5 mg PO BID pantoprazole 40 mg PO DAILY polyethylene glycol 3350 (Miralax) 17 grams PO DAILY vitamins A,C,W-tsef-etdcct 4,296 mcg-226 mg-90 mg (PreserVision AREDS) 1 cap PO BID HPI HPI Comments History of Present Illness Details Nancy comes for follow-up. One episode when she had orthostatic lightheadedness all day. She was feeling lightheaded when she was standing up and better when she is sitting down. Since then the symptoms have resolved. She denies any change in her medications or change in her oral hydration status. She denies any prolonged palpitation irregular heartbeat. No lightheadedness, syncope. Takes all her medications. No bleeding issues or neurologic events. Recently she had blood work done with anti proBNP was elevated in the 1100 range. She says this was done because of leg swelling. Since then there was no change in her therapy and no diuretic regimen her proBNP has normalized. This is highly unusual. She has never had prior history of heart failure. [facility] Medical History Tubular adenoma Positive colorectal cancer screening using Cologuard test Hypercalcemia Diverticulosis Hiatal hernia GERD (gastroesophageal reflux disease) Epigastric pain Dysphagia JESU (obstructive sleep apnea) Hyperparathyroidism Osteoporosis Dyslipidemia Heart failure Paroxysmal atrial fibrillation Cardiac pacemaker in situ Sick sinus syndrome COPD (chronic obstructive pulmonary disease) Surgical History H/O bilateral cataract extraction History of esophagogastroduodenoscopy (EGD) Hx of colonoscopy History of total abdominal hysterectomy and bilateral salpingo-oophorectomy History of total left knee replacement History of pacemaker History of laparoscopic cholecystectomy Family History Father COPD (chronic obstructive pulmonary disease) Mother CAD (coronary artery disease) CVD (cardiovascular disease) Daughter No problems noted. Social History Housing: House Alcohol intake: current Alcohol intake frequency: holidays/special occasions only Alcohol type: wine Patient Tobacco Use Status: Former Tobacco user Quit Date: 1996 Tobacco use type: Cigarette e-Cigarette/Vaping Use: Never Used Second Hand Smoke Exposure: No service: No Current occupational status: retired Cognitive needs: No Hearing needs: No Vision needs: No Review of Systems Const Denies chills, Denies fatigue, Denies fever(s), Denies frequent falls, Denies weakness, Denies weight gain and Denies weight loss ENT Denies dizziness Card Denies chest pain, Denies leg edema, Denies lightheadedness, Denies palpitations, Denies dyspnea, Denies dyspnea on exertion, Denies orthopnea and Denies other (loss of consciousness) Resp Denies cough, Denies dyspnea and Denies dyspnea on exertion GI Denies hematochezia and Denies change in stool character Musc Denies abnormal gait, Denies muscle weakness, Denies numbness, Denies radiating pain into limb and Denies tingling Neuro Denies abnormal gait, Denies dizziness, Denies frequent falls, Denies numbness, Denies tingling and Denies weakness Endo Denies fatigue and Denies palpitations Physical Exam Vital Signs: Last Vital Signs Pulse 70 11/18/22 14:47 BP 124/80 11/18/22 14:47 BMI result Body Mass Index 27.1 Const General: cooperative, comfortable, no acute distress, alert, awake and well groomed Nutritional Appearance: average body habitus Orientation/consciousness: patient oriented x3 Limitations: no limitations Neck Neck: Yes trachea midline, Yes supple and Yes no JVD Resp Effort & Inspection: normal respiratory effort Auscultation: clear to auscultation bilaterally Cardio Jugular venous distension: no JVD Palpation: normal PMI Rhythm: abnormal rhythm irregularly irregular Heart sounds: S1 normal heart sound present, S2 normal heart sound present, no click, no gallops and no murmurs GI Auscultation: normal bowel sounds Skin General skin exam: no rashes or lesions noted Neuro General: patient oriented x3 and no focal motor deficits Extrem General: Yes no clubbing, cyanosis or edema Psych Appearance: grossly normal Office Procedures Cardiac Device Check Cardiac Device Check Details: Dual-chamber [facility] pacemaker in place. Programmed in DDDR at 70 beats per minute. Atrial pacing 78% of time. Increased burden of atrial fibrillation about 15% noted. Patient no symptoms during these episodes of atrial fibrillation. Atrial sensing and ventricular sensing is adequate. Pacing lead impedance is stable. Atrial and ventricular pacing thresholds adequate. Battery life is at about 8 and half years [id number] Cardiac Device Check, pacemaker dual lead Procedure code (CPT) selection complete Assessment & Plan Assessment & Plan (1) Paroxysmal atrial fibrillation: Code(s): I48.0 - Paroxysmal atrial fibrillation Plan: Paroxysmal atrial fibrillation with increasing burden of atrial fibrillation noted on pacer telemetry without any obvious symptoms related to it. In the past she had done better with rhythm control approach but then developed side effects related to flecainide therapy. Since then she has been off it. Given that she has remained predominantly asymptomatic would avoid any other addit ional antiarrhythmic drug therapy at this point time. Continue metoprolol therapy avoidance of stimulants was discussed. Continue full oral anticoagulation, currently on therapy with dabigatran 150 mg b.i.d.. Semi annual renal function test should be pursued. (2) Cardiac pacemaker in situ: Code(s): Z95.0 - Presence of cardiac pacemaker Plan: Cardiac pacemaker in-situ, pacemaker working well. Reprogrammed for adequate functioning. Will follow remotely in 3 months and follow up in the clinic in 6 months time. Continue aggressive blood pressure control. Will follow up in the clinic in 6 months time, sooner p.r.n.. Thank you for allowing me to partake in her care Coding Level of Care Code Est Pt Level 4 (71516) Diagnoses Paroxysmal atrial fibrillation I48.0 Cardiac pacemaker in situ Z95.0 CPT Codes Cardiac Device Check - Cardiac Device 2: [id number] Cardiac Device Check, pacemaker dual lead ([id number])
== END 2022-11-18 15:08 | disposition home or self-care (01) ==
PROVIDERS: PCP Internal Medicine; Referring Provider Internal Medicine; Visit Provider Internal Medicine Cardiovascular Disease
DX: I48.0 Paroxysmal atrial fibrillation (principal); Z95.0 Presence of cardiac pacemaker
CPT/HCPCS: 93280; 99214

== ENCOUNTER → 2022-11-18 14:41 | Outpatient (BNVA) | payer MEDICARE, SELFPAY | PROVIDERS: PCP Internal Medicine; Referring Provider Internal Medicine; Visit Provider Internal Medicine Cardiovascular Disease | DX: Z45.018 Encounter for adjustment and management of other part of cardiac pacemaker (principal); I48.0 Paroxysmal atrial fibrillation | CPT/HCPCS: 93280; 99212 ==

== ENCOUNTER 2022-11-25 08:08 | Outpatient (REF) | payer MEDICARE, SELFPAY ==
--- NOTE | ~2022-11-25 | MM_ITS ---
EXAMINATION: MM SCREENING DIGITAL BREAST TOMOSYNTHESIS, BILATERAL CLINICAL INFORMATION: Screening. Asymptomatic. COMPARISON: Mammography: This study is compared with prior exams dating back to 2019. TECHNIQUE: Digital breast tomosynthesis is performed in both the craniocaudal and mediolateral oblique views along with computer-aided detection (CAD). Synthesized 2D images are generated from the tomosynthesis. FINDINGS: The breasts are heterogeneously dense, which may obscure small masses (ACR BI-RADS breast composition Category c). There are no significant masses, abnormal calcifications, or other abnormalities. There are bilateral benign calcifications present in each breast. There are small well-circumscribed masses in the left breast shown to be cysts on prior sonography. There is marked ductal ectasia in the subareolar region of the right breast. Prior evaluation with ultrasound shows debris-filled ducts with no suspicious findings. There is a pacemaker or at the superior aspect of the left side of the chest. MM/MM tomosynthesis screening BI IMPRESSION: No mammographic evidence of malignancy. ASSESSMENT: BI-RADS BI-RADS 2 - Benign Findings RECOMMENDATION: Routine annual mammography screening. 1 year F/U This examination should not preclude the clinical evaluation of a suspicious palpable abnormality. This patient's information was entered into a reminder system with a target due date for their next mammogram.
== END 2022-11-25 08:09 | disposition home or self-care (01) ==
LOC: HO.MAMMO 08:08
PROVIDERS: PCP Internal Medicine; Visit Provider Internal Medicine
DX: Z12.31 Encounter for screening mammogram for malignant neoplasm of breast (principal)
CPT/HCPCS: 77063; 77067

== ENCOUNTER → 2022-11-25 08:15 | Outpatient (BNV) | payer MEDICARE, SELFPAY | PROVIDERS: PCP Internal Medicine; Visit Provider Radiology Diagnostic Radiology | DX: Z12.31 Encounter for screening mammogram for malignant neoplasm of breast (principal) | CPT/HCPCS: 77063; 77067 ==

== ENCOUNTER 2022-12-01 07:54 | Outpatient (AMB) | payer MEDICARE, SELFPAY ==
--- NOTE | 2022-12-01 07:55 | MHC.OFFVIS ---
Intake Vital Signs 12/01/22 07:56 Height 5 ft 1 in Weight 143 lb 4.807 oz BMI 27.1 BP 122/76 Blood Pressure Location Lt brachial Position Sitting Pulse 78 Pulse Source Pulse Oximeter Intake Visit Reasons: f/u osteoporosis/Confirmed Intake Note: Patient present today for osteoporosis follow up visit. [employer] Rep[employer]man Required: No Accompanied by: Self / Same As Patient Allergies dronedarone [Multaq] Allergy (Severe, Verified 12/01/22 08:02) syncope flecainide Allergy (Severe, Verified 12/01/22 08:02) vertigo,blurry vision lisinopril [LISINOPRIL] Allergy (Severe, Verified 12/01/22 08:02) ANGIOEDEMA, bad cough, throat closing, tingling of head, cough losartan Allergy (Intermediate, Verified 12/01/22 08:02) dry cough, pruritus hydromorphone [Dilaudid] Adverse Reaction (Severe, Verified 12/01/22 08:02) unresponsiveness HPI HPI Comments History of Present Illness Details 76 yo female today for fup visit, for secondary hyperparathyroidism and osteoporosis . She is feeling well. She has no complaints. She has h/o of vitamin D defficiency , B12 defficiency, osteoporosis, she has CKD 3. Afib on Pradaxa. She has FH of a brother with Hyperparathyroidism, he had exploratory parathryoidectomy 1 gland removed, he remains hypercalcemic after surgery last february. She had a right wrist fracture after tripped and falling at age 63. She had a L clavicle fx 2 yrs ago She had GERD on PPI's, negative FH of fractures or osteoporosis, no nephrolithiasis, no steroids used, ex smoker, quit 20 years ago, no anti seizures medications, Denies lithium use. She was on Evista , for about 10 years. Last visit I had discontinue the Evista and started the patient on alendronate 70 mg weekly. She stopped the alendronate 8 mos ago . 09/08/18 DEXA scan AP SPINE L1-L4: Current: BMD 0.978 g/cm2, Z-score 0.1, T-score -1.7, osteopenia, 2.2% decrease from previous, 2.1% decrease from baseline (<5% change is not significant). Prior: BMD 1.000 g/cm2. Baseline: BMD 0.999 g/cm2. LEFT FEMUR, NECK: Current: BMD 0.684 g/cm2, Z-score -0.6, T-score -2.5, osteoporosis. Prior: BMD 0.659 g/cm2. Baseline: BMD 0.747 g/cm2. LEFT FEMUR, TOTAL: Current: BMD 0.748 g/cm2, Z-score -0.3, T-score -2.1, osteopenia, 2.5% increase from previous, 10.2% decrease from baseline (<5% change is not significant). Prior: BMD 0.730 g/cm2. Baseline: BMD 0.833 g/cm2. 11/09/22 FINDINGS: LEFT FEMUR, NECK: Current: BMD 0.652 g/cm2, Z-score -0.7, T-score -2.8, osteoporosis. Prior: BMD 0.671 g/cm2. Baseline: BMD 0.747 g/cm2. LEFT FEMUR, TOTAL: Current: BMD 0.745 g/cm2, Z-score -0.1, T-score -2.1, osteopenia, 0.1% increase from previous, 10.6% decrease from baseline (<5% change is not significant). Prior: BMD 0.744 g/cm2. Baseline: BMD 0.833 g/cm2. AP SPINE L1-L2 (excluding L3 and L4): The data of L1-L4 has been changed to exclude the L3 and L4 vertebral bodies, because degenerative sclerosis at these levels may cause overestimation of lumbar spine density. Current: BMD 0.987 g/cm2, Z-score 0.3, T-score -1.5, osteopenia, 1.0% decrease from previous, 7.9% increase from baseline (<5% change is not significant). Prior: BMD 0.997 g/cm2. Baseline: BMD 0.915 g/cm2. IDENTIFIED RISK FACTORS: Early menopause, history of fracture (adult), hysterectomy, left oophorectomy, osteoporosis, secondary osteoporosis. HISTORY OF FRACTURE: Other. MEDICATIONS: Calcium, vitamin D. MM/XR DEXA axial skeleton IMPRESSION: 1. DIAGNOSIS: Osteoporosis based on the lowest T-score value of -2.8 in the femoral neck applying World Health Organization criteria. Prior important labs: calcium trended since 2007 to 2018 range from 9.0 to 10.2 mg/dl Albumin trended from 1995 to 2017 range 3.6 to 4.8 g/dl ALk phosphatase 1995 to 2017 ranges from 47 to 78 U/L phosphorous trned 2006 to 2010 2.8 to 3.0 mg/dl magnesium 2010 1.8 to 2 mg/dl. 07/04/06 24 h calcium urine 81 mg/dl 24h, creatinine was low. 01/14/17 PTH 78 pg/ml Calcium 9.6 mg/dl Albumin 3.6 g/dl Ionized calcium 5.6 mg/dl Vit D 25.7 ng/dl Vit D 2011 25.8 ng/dl 2016 25.7 ng.dl 2017 71.4 ng/dl after 10,000 Iu daily. 04/29/17 Creat 1.07 mg/dl GFR 50 ml/mimn Calcium 9.9 mg/dl albumin 3.8 g/dl Corrected calcium 10.1 mg/dl. Laboratory Tests 05/10/19 10/29/19 10/29/19 07:30 10:40 10:40 Sodium Potassium Creatinine Estimated GFR Calcium Alkaline Phosphata se Albumin N-Telopeptide X-li nked 29 Collgn I C-Telopep tide 25-OH Vitamin D To julius TSH 3rd Generation 1.91 PTH Intact Calcium (PTH Intac t) Bone Specific Alk Phos 8.4 05/14/20 05/14/20 08:15 08:15 Sodium 142 Potassium 4.3 Creatinine 1.12 Estimated GFR 47 Calcium 9.8 Alkaline Phosphata se 43 Albumin 4.1 N-Telopeptide X-li nked Collgn I C-Telopep tide 138 25-OH Vitamin D To julius 44.0 TSH 3rd Generation PTH Intact 59 Calcium (PTH Intac t) 10.1 Bone Specific Alk Phos Laboratory Tests 01/05/18 09/08/18 07:00 00:00 Ur 24 Hour Volume 1300 1225 Ur Creatinine 24 H our 0.78 0.49 L Ur Calcium 24 Hr 44 61 Calcium/Creat 24 H r 57 126 No fx or back pain since [facility] Medical History Tubular adenoma Positive colorectal cancer screening using Cologuard test Hypercalcemia Diverticulosis Hiatal hernia GERD (gastroesophageal reflux disease) Epigastric pain Dysphagia JESU (obstructive sleep apnea) Hyperparathyroidism Osteoporosis Dyslipidemia Heart failure Paroxysmal atrial fibrillation Cardiac pacemaker in situ Sick sinus syndrome COPD (chronic obstructive pulmonary disease) Surgical History H/O bilateral cataract extraction History of esophagogastroduodenoscopy (EGD) Hx of colonoscopy History of total abdominal hysterectomy and bilateral salpingo-oophorectomy History of total left knee replacement History of pacemaker History of laparoscopic cholecystectomy Family History Father COPD (chronic obstructive pulmonary disease) Mother CAD (coronary artery disease) CVD (cardiovascular disease) Daughter No problems noted. Social History Housing: House Alcohol intake: current Alcohol intake frequency: holidays/special occasions only Alcohol type: wine Patient Tobacco Use Status: Former Tobacco user Quit Date: 1996 Tobacco use type: Cigarette e-Cigarette/Vaping Use: Never Used Second Hand Smoke Exposure: No service: No Current occupational status: retired Cognitive needs: No Hearing needs: No Vision needs: No Physical Exam Vital Signs: Last Vital Signs Pulse 78 12/01/22 07:56 BP 122/76 12/01/22 07:56 BMI result Body Mass Index 27.1 Assessment & Plan Assessment & Plan (1) Osteoporosis: Code(s): M81.0 - Age-related osteoporosis without current pathological fracture Qualifiers: Osteoporosis type: age-related Presence of current pathological fracture: without current pathological fracture Qualified Code(s): M81.0 - Age-related osteoporosis without current pathological fracture Plan: This is a 76-year-old white female with a history of osteoporosis and a distant wrist fracture was treated with Evista for 10 years and more recently alendronate for 2 years. Currently not on pharmacologic therapy. Recent DEXA bone density shows stability but in the osteoporotic range. Urine NTX suppressed The plan is to discussed with patient possibility of reinitiating anti-resorptive therapy versus observation. Discussed possibly using generic atelvia instead of alendronate or Reclast or Prolia. Will hold off on this for now awaiting calcium and PTH level (2) Hyperparathyroidism: Code(s): E21.3 - Hyperparathyroidism, unspecified Plan: Family history of primary hyperparathyroidism. Calcium is mildly elevated. Will rule out lab error. Plan is to repeat calcium and PTH and BRL lab. Further workup necessary after above Orders: Orders PTHI Today E21.3 - Hyperparathyroidism, unspecified Calcium Today E21.3 - Hyperparathyroidism, unspecified Coding Level of Care Code Est Pt Level 3 (27573) Diagnoses Age-related osteoporosis without current pathological fracture M81.0 Osteoporosis type: age-related Presence of current pathological fracture: without current pathological fracture Hyperparathyroidism E21.3
[2022-12-01 07:56] VITALS: BP 122/76; PULSE 78; BMI 27.1
== END 2022-12-01 08:24 | disposition home or self-care (01) ==
PROVIDERS: PCP Internal Medicine; Referring Provider Internal Medicine; Visit Provider Internal Medicine Endocrinology, Diabetes & Metabolism
DX: M81.0 Age-related osteoporosis without current pathological fracture (principal); E21.3 Hyperparathyroidism, unspecified
CPT/HCPCS: 99213

== ENCOUNTER → 2022-12-01 07:54 | Outpatient (BNVA) | payer MEDICARE, SELFPAY | PROVIDERS: Visit Provider Internal Medicine Endocrinology, Diabetes & Metabolism | DX: M81.0 Age-related osteoporosis without current pathological fracture (principal); E21.3 Hyperparathyroidism, unspecified | CPT/HCPCS: 99212 ==

== ENCOUNTER 2022-12-10 06:23 | Day surgery (SDC) | payer MEDICARE, SELFPAY ==
[2022-12-07 19:50] VITALS: BMI 27.0
[2022-12-10 06:50] VITALS: BP 153/78; PULSE 70; RESP 18; TEMP 36.3; O2SAT 97
[2022-12-10 06:53] VITALS: BMI 27.9
[2022-12-10] MEDS: Lactated Ringers 1,000 ML 50 ML IVCONT (07:06)
--- NOTE | 2022-12-10 07:25 | MHC.SHP ---
Pre-Procedural Eval Section A Date of Service: 12/10/22 The patient is an INPATIENT: No The History & Physical has been completed within 30 days and I have reviewed it.: No Section B Chief Complaint: Surveillance for colon polyps Relevant Family History (Specify if Yes): No Relevant Social History: Tobacco Use (Former smoker) Present Medications: see Short Stay Collaborative assessment Medical History: Significant History (Cardiac pacemaker in situ COPD (chronic obstructive pulmonary disease) Diverticulosis Dyslipidemia Dysphagia Epigastric pain GERD (gastroesophageal reflux disease) Heart failure Hiatal hernia Hypercalcemia Hyperparathyroidism JESU (obstructive sleep apnea) Osteoporosis Paroxysmal atrial fibrillation ) History of Previous Operations: Relevant previous surgery/procedure and date(s) (H/O bilateral cataract extraction History of esophagogastroduodenoscopy (EGD) History of laparoscopic cholecystectomy History of pacemaker History of total abdominal hysterectomy and bilateral salpingo-oophorectomy History of total left knee replacement Hx of colonoscopy) Allergies: Allergies Allergy/AdvReac Type Severity Reaction Status Date / Time dronedarone [Multaq] Allergy Severe syncope Verified 12/01/22 08:02 flecainide Allergy Severe vertigo,blurry Verified 12/01/22 08:02 vision lisinopril [LISINOPRIL] Allergy Severe ANGIOEDEMA, Verified 12/01/22 08:02 bad cough, throat closing, tingling of head, cough losartan Allergy Intermediate dry cough, Verified 12/01/22 08:02 pruritus hydromorphone [Dilaudid] AdvReac Severe unresponsiv Verified 12/01/22 08:02 eness Review of Systems Sugical H&P ROS: Negative: Constitution, Cardiovascular, Respiratory and Gastrointestinal Exam Surgical H&P Exam: Normal: Heart, Normal: Lungs and Normal: Abdomen Plan Diagnosis/Plan: Unchanged I have reviewed the history and physical and performed a pertinent physical examination on my patient. No changes have occurred unless specified. Time Spent With Patient Time: Total time managing care of this patient today ____ minutes.
--- NOTE | 2022-12-10 08:27 | HO.ANESPROP2 ---
HPI - Anesthesia Eval Consult details Narrative: 77 F for colonoscopy pacemaker in situ . functional status greater than 4 mets [facility] Active Problems Active Problems: All Active Problems (Updated 12/07/22 @ 19:50 by Yazmin Andres RN) Abdominal pain (Acute) Upper respiratory tract infection (Acute) Thumb injury (Acute) Tubular adenoma (Acute) Positive colorectal cancer screening using Cologuard test (Acute) Hypercalcemia (Acute) Dysphagia (Acute) JESU (obstructive sleep apnea) (Acute) COPD (chronic obstructive pulmonary disease) (Acute) Hyperparathyroidism (Acute) Osteoporosis (Acute) Dyslipidemia (Acute) Heart failure (Acute) Paroxysmal atrial fibrillation (Acute) Cardiac pacemaker in situ (Acute) Past Medical History Medical History (Updated 01/17/23 @ 19:29 by Andreia Chowdary [facility]) Active Meniere's disease Tubular adenoma Positive colorectal cancer screening using Cologuard test Hypercalcemia Diverticulosis Hiatal hernia GERD (gastroesophageal reflux disease) Epigastric pain Dysphagia JESU (obstructive sleep apnea) Hyperparathyroidism Osteoporosis Dyslipidemia Heart failure Paroxysmal atrial fibrillation Cardiac pacemaker in situ Sick sinus syndrome COPD (chronic obstructive pulmonary disease) Functional capacity: independent ambulation Family History Family History Father COPD (chronic obstructive pulmonary disease) Mother CAD (coronary artery disease) CVD (cardiovascular disease) Daughter No problems noted. Family history of problems with anesthesia: No Surgical History Surgical History H/O bilateral cataract extraction History of esophagogastroduodenoscopy (EGD) Hx of colonoscopy History of total abdominal hysterectomy and bilateral salpingo-oophorectomy History of total left knee replacement History of pacemaker History of laparoscopic cholecystectomy History of Problems with Anesthesia: No Social History Housing: House Alcohol intake: current Alcohol intake frequency: holidays/special occasions only Alcohol type: wine Patient Tobacco Use Status: Former Tobacco user Quit Date: 2000 Tobacco use type: Cigarette e-Cigarette/Vaping Use: Never Used Second Hand Smoke Exposure: No service: No Current occupational status: retired Cognitive needs: No Hearing needs: No Vision needs: No Meds Allergies Allergy/AdvReac Type Severity Reaction Status Date / Time dronedarone [Multaq] Allergy Severe syncope Verified 12/31/22 09:43 flecainide Allergy Severe vertigo,blurry Verified 12/31/22 09:43 vision lisinopril [LISINOPRIL] Allergy Severe ANGIOEDEMA, Verified 12/31/22 09:43 bad cough, throat closing, tingling of head, cough losartan Allergy Intermediate dry cough, Verified 12/31/22 09:43 pruritus hydromorphone [Dilaudid] AdvReac Severe unresponsiv Verified 12/31/22 09:43 eness Active Medications: Current Medications Lactated Ringer's (Lr) 1,000 mls @ 50 mls/hr IVCONT .Q20H KAMI Last Admin: 12/10/22 07:06 Dose: 50 mls/hr Home Medications Medication Instructions Recorded Confirmed Last Taken Type multivitamin,[id number] 1 tab PO DAILY 03/17/20 12/15/22 Unknown History (Complete Multivitamin tablet) vitamins A,C,R-lzjj-uccilc 4,296 1 cap PO BID 05/06/22 12/15/22 Unknown History mcg-226 mg-90 mg capsule (PreserVision AREDS) fluoride (sodium) 1.1 % dental 1 appl PO BEDTIME 07/28/22 12/15/22 Unknown History paste dabigatran etexilate 150 mg capsule 150 mg PO BID 11/08/22 12/15/22 12/06/22 History Exam Exam Date and Time: December 10, 2022 0827 Height,Weight and Vital Signs: Height 5 ft Weight 64.864 kg Last Vital Signs Temp 97.4 F 12/10/22 06:50 Pulse 70 12/10/22 06:50 Resp 18 12/10/22 06:50 BP 153/78 H 12/10/22 06:50 Pulse Ox 97 12/10/22 06:50 O2 Del Method Room Air 12/10/22 06:50 Airway Mallampati Class: IV Loose/Missing/Broken Teeth: Yes Assessment and Plan Assessment Anesthesia Assessment: Anesthesia Plan Discussed and Chart Reviewed Final Anesthetic Review Family History of Problems with Anesthesia: No History of Problems with Anesthesia: No NPO: Yes ASA Class: III Final Preanesthetic Review: Meds/Allgs Chart Reviewed, Consent Obtained/Reviewed and Anes Risks/Benef Reviewed Patient Risk: Intermediate Procedure Risk: Intermediate Anesthetic Plan Anesthetic Plan: MAC: and Agree w/ Assess. and Plan Disposition: Standard PACU
--- NOTE | 2022-12-10 08:50 | W.PM.OPN ---
Operative Note Operative Note Date of Service: 12/10/22 Narrative: COLONOSCOPY TILL CECUM WITH SNARE POLYPECTOMY, SUBMUCOSAL INJECTION AND HEMOCLIP PLACEMENT Pre-op diagnosis: SURVEILLANCE FOR COLON POLYPS Post-op diagnosis:? Colon polyps, diverticulosis, hemorrhoids Endoscopist:? Per Rodriguez MD Anesthesia:?MAC Consent: Indications for the procedure and potential complications of bleeding, perforation, reaction to medications and missed diagnosis were discussed with the patient and informed consent was obtained. Instrument: Olympus PCF H 190 L variable stiffness pediatric colonoscope Monitoring: Vital signs and clinical assessment, intermittent blood pressure monitoring, continuous EKG monitoring, Pulse oximetry and Carbon Dioxide monitoring were done throughout the procedure. Please see anesthesia flowsheet. Colon withdrawl time was 30 minutes. Procedure: The patient was placed in the left lateral decubitis position and pre-procedure medications were administered. After a digital rectal examination of the ano-rectum, the video colonoscope was inserted into the rectum and advanced through the colon to the cecum. The colonoscope was slowly withdrawn in a retrograde panoramic fashion and the colon mucosa was carefully examined including a retroflexed view of the rectum. Findings and interventions are described below. Procedure Difficulty: Without difficulty Findings: Terminal Ileum: Not evaluated Cecum: A 12-15 mm flat polyp - raised with 3 cc of Eleview and removed with a hot snare. Polypectomy site was closed with 1 hemoclip. Ascending Colon: A 10-12 mm sessile polyp at 70 cms (at past polypectomy site) Polyp was raised with 4 cc of Eleview and removed with a hot snare. Transverse Colon: A 12-15 mm flat polyp - raised with 3 cc of Eleview and removed with a hot snare. Polypectomy site was closed with 1 hemoclip. Descending Colon: Moderate diverticulosis Sigmoid Colon: Severe diverticulosis with luminal narrowing Rectum: Normal Ano-rectum: Small internal hemorrhoids Colon preparation: Good after copious irrigation Impression and Post Procedure Diagnosis: Colonoscopy Findings: Three medium sized polyps removed Moderate diverticulosis seen in the left colon Small hemorrhoids on retroflexed exam. Plan: Await pathology results Patient has an appointment on 12/23/22 in the [facility] with Andreia Chowdary FNP-BC. Repeat Colonoscopy interval based on path results - in 3 years if polyps are adenomatous (if pt remains in stable health) or can discontinue colon cancer screening if pt is high risk. Above findings were reviewed with the patient.
[2022-12-10 09:48] VITALS: BP 120/47; PULSE 61; RESP 16; TEMP 36.1; O2SAT 98
[2022-12-10 10:03] VITALS: BP 139/60; PULSE 60; RESP 20; TEMP 36.2; O2SAT 99
== END 2022-12-10 11:05 | disposition home or self-care (01) ==
PROVIDERS: PCP Internal Medicine; Visit Provider Internal Medicine Gastroenterology
PROC: 0DJD8ZZ Inspection of Lower Intestinal Tract, Via Natural or Artificial Opening Endoscopic (ICD-10-PCS; CPT 45378; principal; 2022-12-10 08:30)
DX: Z12.11 Encounter for screening for malignant neoplasm of colon (principal); D12.3 Benign neoplasm of transverse colon; K57.30 Diverticulosis of large intestine without perforation or abscess without bleeding; K64.8 Other hemorrhoids; Z86.010 Personal history of colon polyps; K21.9 Gastro-esophageal reflux disease without esophagitis; J44.9 Chronic obstructive pulmonary disease, unspecified; I50.9 Heart failure, unspecified; E78.5 Hyperlipidemia, unspecified; I48.0 Paroxysmal atrial fibrillation; G47.33 Obstructive sleep apnea (adult) (pediatric); Z95.0 Presence of cardiac pacemaker; Z79.899 Other long term (current) drug therapy; Z87.891 Personal history of nicotine dependence; Z90.49 Acquired absence of other specified parts of digestive tract; Z90.710 Acquired absence of both cervix and uterus; Z79.01 Long term (current) use of anticoagulants
CPT/HCPCS: 45385; 45381; 88305

== ENCOUNTER → 2022-12-10 06:23 | Outpatient (BNV) | payer MEDICARE, SELFPAY | PROVIDERS: PCP Internal Medicine; Visit Provider Internal Medicine Gastroenterology | DX: Z12.11 Encounter for screening for malignant neoplasm of colon (principal); Z86.010 Personal history of colon polyps; D12.3 Benign neoplasm of transverse colon; K57.90 Diverticulosis of intestine, part unspecified, without perforation or abscess without bleeding | CPT/HCPCS: 45381; 45385 ==

== ENCOUNTER 2022-12-15 08:57 | Outpatient (AMB) | payer MEDICARE, SELFPAY ==
--- NOTE | 2022-12-15 09:04 | A.OFFPC_ITS ---
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: No Accompanied by: Self / Same As Patient Allergies dronedarone [Multaq] Allergy (Severe, Verified 12/15/22 09:13) syncope flecainide Allergy (Severe, Verified 12/15/22 09:13) vertigo,blurry vision lisinopril [LISINOPRIL] Allergy (Severe, Verified 12/15/22 09:13) ANGIOEDEMA, bad cough, throat closing, tingling of head, cough losartan Allergy (Intermediate, Verified 12/15/22 09:13) dry cough, pruritus hydromorphone [Dilaudid] Adverse Reaction (Severe, Verified 12/15/22 09:13) unresponsiveness Medication List - Last Reconciled 12/15/22 by ERIC Abraham dabigatran etexilate 150 mg PO BID fluoride (sodium) 1.1% 1 appl PO BEDTIME lovastatin 20 mg PO DAILY meclizine 25 mg PO TID PRN metoprolol succinate ER 50 mg PO DAILY multivitamin,[id number] (Complete Multivitamin tablet) 1 tab PO DAILY oxybutynin chloride 5 mg PO BID pantoprazole 40 mg PO DAILY polyethylene glycol 3350 (Miralax) 17 grams PO DAILY vitamins A,C,N-mbfe-aoitko 4,296 mcg-226 mg-90 mg (PreserVision AREDS) 1 cap PO BID Tobacco use date assessed: 06/22/22 Fall risk assessment: No Falls in past year Last assessed Fall Risk: 12/15/22 Dental Screening Dental Screen Date: 12/15/22 Did you have a dental visit in the last 12 months?: Yes Did you have a dental problem in the last 6 months where you did not have access to dental care?: No Was dental information given to patient?: Patient has dentist HPI chf HPI0 Details Patient is a 77-year-old female who presents today to follow-up her chronic conditions. Patient of Dr. Goff. Medical history significant for cardiac pacemaker, AFib-followed by [facility], heart failure, GERD, dyslipidemia, hyperparathyroidism-followed by [facility], COPD, JESU, and Meniere's disease - patient requested refill on meclizine p.r.n. which helps her with dizziness. Patient denies shortness of breath or chest pain. Reports that she takes pantoprazole p.r.n. with improvement in acid reflux. No shortness of breath or chest pain. Patient is due for blood work. [facility] Medical History (Updated 12/15/22 @ 09:26 by ERIC Abraham) Active Meniere's disease Tubular adenoma Positive colorectal cancer screening using Cologuard test Hypercalcemia Diverticulosis Hiatal hernia GERD (gastroesophageal reflux disease) Epigastric pain Dysphagia JESU (obstructive sleep apnea) Hyperparathyroidism Osteoporosis Dyslipidemia Heart failure Paroxysmal atrial fibrillation Cardiac pacemaker in situ Sick sinus syndrome COPD (chronic obstructive pulmonary disease) Surgical History H/O bilateral cataract extraction History of esophagogastroduodenoscopy (EGD) Hx of colonoscopy History of total abdominal hysterectomy and bilateral salpingo-oophorectomy History of total left knee replacement History of pacemaker History of laparoscopic cholecystectomy Family History Father COPD (chronic obstructive pulmonary disease) Mother CAD (coronary artery disease) CVD (cardiovascular disease) Daughter No problems noted. Social History Housing: House Alcohol intake: current Alcohol intake frequency: holidays/special occasions only Alcohol type: wine Patient Tobacco Use Status: Former Tobacco user Quit Date: 2000 Tobacco use type: Cigarette e-Cigarette/Vaping Use: Never Used Second Hand Smoke Exposure: No service: No Current occupational status: retired Cognitive needs: No Hearing needs: No Vision needs: No Questionnaire Thrive Questionnaire Date Thrive assessed: 06/22/22 FELICITAS-7 AMB Questionnaire FELICITAS-7 Date FELICITAS - 7 assessed: 06/22/22 Source: Developed by Drs. Haider Lake, Keyonna Fernando, Remi Heath and colleagues, with an educational omi from [employer]. Review of Systems Const Denies body aches, Denies chills, Denies fever(s) and Denies headache(s) Eyes Denies change in vision ENT Reports dizziness (Intermittent), Denies otalgia, Denies headache(s), Denies nasal discharge, Denies sinus pain and Denies sore throat Card Denies chest pain, Denies edema, Denies lightheadedness and Denies dyspnea Resp Denies cough, Denies dyspnea and Denies wheezing GI Denies abdominal pain Denies dysuria Musc Denies myalgias Skin/Breast Denies rash Neuro Reports dizziness (Intermittent) and Denies headache(s) Aller/Immun Denies wheezing Physical exam (Primary Care) Vital Signs: Last Vital Signs Pulse 70 12/15/22 09:05 BP 120/82 12/15/22 09:05 Pulse Ox 99 12/15/22 09:05 Oxygen Delivery Method Room Air 12/15/22 09:05 BMI result Body Mass Index 27.9 Tobacco/Smoking Status: Tobacco use Status Tobacco use date assessed 06/22/22 12/15/22 09:11 Patient Tobacco Use Status Former Tobacco user 12/15/22 09:11 Tobacco use type Cigarette 12/15/22 09:11 e-Cigarette/Vaping Use Never Used 12/15/22 09:11 Thrive Assessment: Date of Thrive Assessment Date Thrive assessed 06/22/22 12/15/22 09:11 Const General: cooperative and no acute distress Orientation/consciousness: patient oriented x3 HENMT Head: Yes normocephalic and Yes atraumatic Mouth: oropharynx normal and moist mucous membranes Throat: Yes posterior oropharynx normal Eyes General: appearance normal, both eyes and all related structures Neck Neck: Yes normal visual inspection, Yes full ROM and Yes no lymphadenopathy Resp Effort & Inspection: normal respiratory effort and able to speak in complete sentences Auscultation: clear to auscultation bilaterally, no crackles, no rales, no rhonchi and no wheezes Cardio Rate: regular rate Rhythm: regular rhythm Heart sounds: S1 normal heart sound present, S2 normal heart sound present and no murmurs GI Auscultation: normal bowel sounds Skin General skin exam: no rashes or lesions noted Neuro General: patient oriented x3 Gait exam (Neuro): Normal gait present Extrem General: Yes full ROM and No edema Assessment and Plan Assessment & Plan (1) Active Meniere's disease: Code(s): H81.09 - Meniere's disease, unspecified ear Plan: Refill sent on meclizine p.r.n.-educated about drowsiness, patient reports that this was helping her in the past (2) Dyslipidemia: Code(s): E78.5 - Hyperlipidemia, unspecified Plan: Continue lovastatin Low-cholesterol diet (3) Heart failure: Code(s): I50.9 - Heart failure, unspecified Qualifiers: Heart failure type: systolic Heart failure chronicity: chronic Qualified Code(s): I50.22 - Chronic systolic (congestive) heart failure Plan: Continue current treatment Continue to follow-up with [facility] (4) Paroxysmal atrial fibrillation: Code(s): I48.0 - Paroxysmal atrial fibrillation Plan: Continue dabigatran and metoprolol Continue to follow-up with [facility] (5) GERD (gastroesophageal reflux disease): Code(s): K21.9 - Gastro-esophageal reflux disease without esophagitis Plan: Stable with pantoprazole 40 mg daily p.r.n. Avoid GERD trigger foods Do not lay down 2-3 hours after evening meal Orders: Orders Comprehensive [place]. Panel Fast Today I48.0 - Paroxysmal atrial fibrillation Lipid Panel Today E78.5 - Hyperlipidemia, unspecified Medications: New meclizine 25 mg PO TID PRN 30 tabs 0RF dizziness H81.09 - Meniere's disease, unspecified ear Coding Level of Care Code Est Pt Level 4 (25471) Diagnoses Active Meniere's disease H81.09 Dyslipidemia E78.5 Chronic systolic heart failure I50.22 Heart failure type: systolic Heart failure chronicity: chronic Paroxysmal atrial fibrillation I48.0 GERD (gastroesophageal reflux disease) K21.9
[2022-12-15 09:05] VITALS: BP 120/82; PULSE 70; O2SAT 99; BMI 27.9
== END 2022-12-15 09:25 | disposition home or self-care (01) ==
PROVIDERS: PCP Internal Medicine; Visit Provider Nurse Practitioner Family
DX: H81.09 Meniere's disease, unspecified ear (principal); I50.22 Chronic systolic (congestive) heart failure; I48.0 Paroxysmal atrial fibrillation; E21.3 Hyperparathyroidism, unspecified; K21.9 Gastro-esophageal reflux disease without esophagitis; E78.5 Hyperlipidemia, unspecified
CPT/HCPCS: 99214

== ENCOUNTER 2022-12-31 09:33 | Outpatient (AMB) | payer MEDICARE, SELFPAY ==
--- NOTE | 2022-12-31 09:44 | A.OFFVIS_ITS ---
Intake Vital Signs 12/31/22 09:45 Height 5 ft Weight 143 lb BMI 27.9 BP 113/60 Blood Pressure Location Lt brachial Position Sitting Pulse 70 Intake Visit Reasons: r/s from 11/23 Intake Note: Patient followup for Colonoscopy results. Patient denies any GI issues. 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 Accompanied by: Self / Same As Patient Allergies dronedarone [Multaq] Allergy (Severe, Verified 12/31/22 09:43) syncope flecainide Allergy (Severe, Verified 12/31/22 09:43) vertigo,blurry vision lisinopril [LISINOPRIL] Allergy (Severe, Verified 12/31/22 09:43) ANGIOEDEMA, bad cough, throat closing, tingling of head, cough losartan Allergy (Intermediate, Verified 12/31/22 09:43) dry cough, pruritus hydromorphone [Dilaudid] Adverse Reaction (Severe, Verified 12/31/22 09:43) unresponsiveness HPI r/s from 11/23 HPI Details LAST VISIT Tubular adenoma As mentioned above tubular all adenoma found, large polyp will schedule patient for colonoscopy. Screen for colon cancer Patient denies any melena, hematochezia, unintentional weight loss or ribbon like stools. Denies any dyspepsia, dysphagia or odynophagia. Patient can proceed with colonoscopy, cleared by her chainstitch hemmer. Hold Pradaxa for 3 days before the procedure. Discussed with patient at length what to expect before during and after the procedure. Patient just had the procedure last year and is aware that she has to clear her bowels. I will see her after the procedure, sooner on as needed basis. Patient is agreeable to this plan and verbalizes understanding of instructions. She was given the opportunity to ask questions all questions answered. ? COLONOSCOPY Findings: Terminal Ileum: Not evaluated Cecum: A 12-15 mm flat polyp - raised with 3 cc of Eleview and removed with a hot snare. Polypectomy site was closed with 1 hemoclip. Ascending Colon: A 10-12 mm sessile polyp at 70 cms (at past polypectomy site) Polyp was raised with 4 cc of Eleview and removed with a hot snare. Transverse Colon: A 12-15 mm flat polyp - raised with 3 cc of Eleview and removed with a hot snare. Polypectomy site was closed with 1 hemoclip. Descending Colon: Moderate diverticulosis Sigmoid Colon: Severe diverticulosis with luminal narrowing Rectum: Normal Ano-rectum: Small internal hemorrhoids Colon preparation: Good after copious irrigation Impression and Post Procedure Diagnosis: Colonoscopy Findings: Three medium sized polyps removed Moderate diverticulosis seen in the left colon Small hemorrhoids on retroflexed exam. Plan: Await pathology results Patient has an appointment on 12/23/22 in the [facility] with Andreia Chowdary FNP-BC. Repeat Colonoscopy interval based on path results - in 3 years if polyps are adenomatous (if pt remains in stable health) or can discontinue colon cancer screening if pt is high risk. PATHOLOGY RESULTS Diagnosis A. Colon, cecal polyp: Serrated polyp with thermal artifact, suspicious for sessile serrated lesion/polyp without dysplasia. B. Colon, ascending at 70 cm, polyp: Colonic mucosa with minimal hyperplastic changes; negative for adenomatous dysplasia. C. Colon, transverse, polyp: Tubular adenoma, completely excised; negative for high-grade dysplasia and carcinoma TODAY'S VISIT Patient is here today for follow-up and to discuss colonoscopy results. Patient denies any ill effects from the prep, anesthesia or procedure is self. Sessile serrated polyp removed from cecum. Tubular adenoma in transverse colon without high-grade dysplasia or carcinoma. Patient reports that she has been feeling well since the procedure. Denies any abdominal pain or discomfort. Reports that she has been moving her bowels without any issues. Denies melena, hematochezia, unintentional weight loss or ribbon like stools. Patient denies any dyspepsia, dysphagia or odynophagia. Patient reports that she is taking MiraLax and pantoprazole. Symptoms of acid reflux are suppressed. [facility] Medical History (Updated 01/17/23 @ 19:29 by MAR Brown) Active Meniere's disease Tubular adenoma Positive colorectal cancer screening using Cologuard test Hypercalcemia Diverticulosis Hiatal hernia GERD (gastroesophageal reflux disease) Epigastric pain Dysphagia JESU (obstructive sleep apnea) Hyperparathyroidism Osteoporosis Dyslipidemia Heart failure Paroxysmal atrial fibrillation Cardiac pacemaker in situ Sick sinus syndrome COPD (chronic obstructive pulmonary disease) Surgical History H/O bilateral cataract extraction History of esophagogastroduodenoscopy (EGD) Hx of colonoscopy History of total abdominal hysterectomy and bilateral salpingo-oophorectomy History of total left knee replacement History of pacemaker History of laparoscopic cholecystectomy Family History Father COPD (chronic obstructive pulmonary disease) Mother CAD (coronary artery disease) CVD (cardiovascular disease) Daughter No problems noted. Social History Housing: House Alcohol intake: current Alcohol intake frequency: holidays/special occasions only Alcohol type: wine Patient Tobacco Use Status: Former Tobacco user Quit Date: 2000 Tobacco use type: Cigarette e-Cigarette/Vaping Use: Never Used Second Hand Smoke Exposure: No service: No Current occupational status: retired Cognitive needs: No Hearing needs: No Vision needs: No Review of Systems Const Denies weight gain and Denies weight loss ENT Reports no additional complaints, Denies dysphagia and Denies odynophagia Card Reports no additional complaints Resp Reports no additional complaints GI Denies abdominal pain, Denies belching, Denies melena, Denies bloating, Denies change in bowel habits, Denies dysphagia, Denies excessive flatus, Denies dyspepsia, Denies heartburn, Denies diarrhea, Denies loose stools, Denies nausea, Denies odynophagia and Denies vomiting Reports no additional complaints Musc Reports no additional complaints Neuro Reports no additional complaints Psych Reports no additional complaints Endo Reports no additional complaints Physical Exam Vital Signs: Last Vital Signs Pulse 70 12/31/22 09:45 BP 113/60 12/31/22 09:45 BMI result Body Mass Index 27.9 Const General: healthy appearing, no acute distress and well developed Nutritional Appearance: well nourished Orientation/consciousness: patient oriented x3 HEENT Head: Yes normal to inspection, Yes normocephalic and Yes atraumatic Face and sinus: Yes normal facial exam Mouth: Normal oral and palatal mucosa present Throat: Yes posterior oropharynx normal, Yes tonsils normal and Yes uvula midline Eyes General: appearance normal, both eyes and all related structures Neck Neck: Yes normal visual inspection, Yes full ROM and Yes trachea midline Thyroid: Thyroid normal Resp Effort & Inspection: normal respiratory effort, able to speak in complete sentences, no tracheal deviation and symmetric chest movement Auscultation: clear to auscultation bilaterally Cardio Rate: regular rate Heart sounds: S1 normal heart sound present and S2 normal heart sound present GI Inspection: Yes normal to inspection and No distended Palpation (GI): Soft to palpation, not firm, nontender and No hepatosplenomegaly present Auscultation: normal bowel sounds General: Yes no CVA tenderness Back/Spine/Pelvis Back: no CVA tenderness Skin General skin exam: elasticity normal, turgor normal and dry skin Neuro General: patient oriented x3 Psych Appearance: grossly normal Mental Status: mental status grossly normal Assessment & Plan Assessment & Plan (1) Tubular adenoma: Code(s): D36.9 - Benign neoplasm, unspecified site (2) GERD (gastroesophageal reflux disease): Code(s): K21.9 - Gastro-esophageal reflux disease without esophagitis Qualifiers: Esophagitis presence: esophagitis presence not specified Qualified Code(s): K21.9 - Gastro-esophageal reflux disease without esophagitis (3) Status post colonoscopy: Code(s): Z98.890 - Other specified postprocedural states (4) Diverticulosis: Code(s): K57.90 - Diverticulosis of intestine, part unspecified, without perforation or abscess without bleeding (5) Internal hemorrhoids without complication: Code(s): K64.8 - Other hemorrhoids Plan Patient will continue taking pantoprazole in the morning half an hour before breakfast. Continue avoiding dietary triggers late night snacking. Patient can continue taking MiraLax daily. She is reporting that she is moving her bowels well. Tubular adenoma without high-grade dysplasia found, colorectal screening recommended in 3 years, however patient will be evaluated then to see if she is medically stable to go for the procedure. Discussed with patient colonoscopy results. Patient was also found to have hemorrhoids and diverticulosis. High fiber diet discussed with patient. List of food that is high in fiber given to patient. Patient will follow-up on as needed basis per her request. Patient is agreeable to current plan and verbalizes understanding of instructions. She was given the opportunity to ask questions and all questions answered. Thank you for allowing me to participate in her care Coding Level of Care Code Est Pt Level 4 (15053) Diagnoses Tubular adenoma D36.9 Gastroesophageal reflux disease, unspecified whether esophagitis present K21.9 Esophagitis presence: esophagitis presence not specified Status post colonoscopy Z98.890 Diverticulosis K57.90 Internal hemorrhoids without complication K64.8 Time Spent (min) 35 Comment 20 minutes spent with patient and additional 15 minutes spent reviewing her records
[2022-12-31 09:45] VITALS: BP 113/60; PULSE 70; BMI 27.9
== END 2022-12-31 10:13 | disposition home or self-care (01) ==
PROVIDERS: PCP Internal Medicine; Visit Provider Nurse Practitioner Family
DX: D36.9 Benign neoplasm, unspecified site (principal); K21.9 Gastro-esophageal reflux disease without esophagitis; Z98.890 Other specified postprocedural states; K57.90 Diverticulosis of intestine, part unspecified, without perforation or abscess without bleeding; K64.8 Other hemorrhoids
CPT/HCPCS: 99214

== ENCOUNTER → 2022-12-31 09:33 | Outpatient (BNVA) | payer MEDICARE, SELFPAY | PROVIDERS: PCP Internal Medicine; Visit Provider Nurse Practitioner Family | DX: Z12.11 Encounter for screening for malignant neoplasm of colon (principal); D36.9 Benign neoplasm, unspecified site | CPT/HCPCS: 99212 ==

== ENCOUNTER → 2023-02-14 23:59 | Outpatient (BNV) | payer MEDICARE, SELFPAY ==
--- NOTE | 2023-02-14 16:05 | A.OFFVIS_ITS ---
Intake Intake Visit Reasons: Remote Device Check- [facility] Allergies dronedarone [Multaq] Allergy (Severe, Verified 12/31/22 09:43) syncope flecainide Allergy (Severe, Verified 12/31/22 09:43) vertigo,blurry vision lisinopril [LISINOPRIL] Allergy (Severe, Verified 12/31/22 09:43) ANGIOEDEMA, bad cough, throat closing, tingling of head, cough losartan Allergy (Intermediate, Verified 12/31/22 09:43) dry cough, pruritus hydromorphone [Dilaudid] Adverse Reaction (Severe, Verified 12/31/22 09:43) unresponsiveness [facility] Medical History (Updated 01/17/23 @ 19:29 by Andreia Chowdary [facility]) Active Meniere's disease Tubular adenoma Positive colorectal cancer screening using Cologuard test Hypercalcemia Diverticulosis Hiatal hernia GERD (gastroesophageal reflux disease) Epigastric pain Dysphagia JESU (obstructive sleep apnea) Hyperparathyroidism Osteoporosis Dyslipidemia Heart failure Paroxysmal atrial fibrillation Cardiac pacemaker in situ Sick sinus syndrome COPD (chronic obstructive pulmonary disease) Surgical History H/O bilateral cataract extraction History of esophagogastroduodenoscopy (EGD) Hx of colonoscopy History of total abdominal hysterectomy and bilateral salpingo-oophorectomy History of total left knee replacement History of pacemaker History of laparoscopic cholecystectomy Family History Father COPD (chronic obstructive pulmonary disease) Mother CAD (coronary artery disease) CVD (cardiovascular disease) Daughter No problems noted. Social History Housing: House Alcohol intake: current Alcohol intake frequency: holidays/special occasions only Alcohol type: wine Patient Tobacco Use Status: Former Tobacco user Quit Date: 2000 Tobacco use type: Cigarette e-Cigarette/Vaping Use: Never Used Second Hand Smoke Exposure: No service: No Current occupational status: retired Cognitive needs: No Hearing needs: No Vision needs: No Office Procedures Cardiac Device Check Cardiac Device Check Details: Remote pacemaker report generated 02/14/2023. Pacemaker function is adequate. Atrial fibrillation burden about 9% [id number] Cardiac Device Interrogation, pacemaker Procedure code (CPT) selection complete Assessment & Plan Assessment & Plan (1) Cardiac pacemaker in situ: Code(s): Z95.0 - Presence of cardiac pacemaker Plan: No change see the procedure note Coding Level of Care Code Procedure Only Diagnoses Cardiac pacemaker in situ Z95.0 CPT Codes Cardiac Device Check - Cardiac Device 12: [id number] Cardiac Device Interrogation, pacemaker ([id number])
== END ==
PROVIDERS: PCP Internal Medicine; Visit Provider Internal Medicine Cardiovascular Disease
DX: I48.0 Paroxysmal atrial fibrillation (principal); Z95.0 Presence of cardiac pacemaker
CPT/HCPCS: 93294

== ENCOUNTER 2023-04-12 08:13 | Outpatient (AMB) | payer MEDICARE, SELFPAY ==
--- NOTE | 2023-04-12 08:15 | A.OFFVIS_ITS ---
Intake Vital Signs 04/12/23 08:17 Height 5 ft Weight 147 lb 0.773 oz BMI 28.7 BP 102/60 Blood Pressure Location Lt brachial Position Sitting Pulse 68 Pulse Source Pulse Oximeter Intake Visit Reasons: Osteoporosis-lvm Intake Note: Patient presents today for Osteoporosis follow up visit. Retail Assistant Required: No Accompanied by: Daughter Allergies dronedarone [Multaq] Allergy (Severe, Verified 04/12/23 08:18) syncope flecainide Allergy (Severe, Verified 04/12/23 08:18) vertigo,blurry vision lisinopril [LISINOPRIL] Allergy (Severe, Verified 04/12/23 08:18) ANGIOEDEMA, bad cough, throat closing, tingling of head, cough losartan Allergy (Intermediate, Verified 04/12/23 08:18) dry cough, pruritus hydromorphone [Dilaudid] Adverse Reaction (Severe, Verified 04/12/23 08:18) unresponsiveness HPI HPI Comments History of Present Illness Details 77 yo female today for fup visit, for secondary hyperparathyroidism and osteoporosis . She is feeling well. She has no complaints. She has h/o of vitamin D defficiency , B12 defficiency, osteoporosis, she has CKD 3. Afib on Pradaxa. She has FH of a brother with Hyperparathyroidism, he had exploratory par athryoidectomy 1 gland removed, he remains hypercalcemic after surgery last february. She had a right wrist fracture after tripped and falling at age 63. She had a L clavicle fx 2 yrs ago She had GERD on PPI's, negative FH of fractures or osteoporosis, no nephrolithiasis, no steroids used, ex smoker, quit 20 years ago, no anti seizures medications, Denies lithium use. She was on Evista , for about 10 years. Last visit I had discontinue the Evista and started the patient on alendronate 70 mg weekly. She stopped the alendronate 8 mos ago . 09/08/18 DEXA scan AP SPINE L1-L4: Current: BMD 0.978 g/cm2, Z-score 0.1, T-score -1.7, osteopenia, 2.2% decrease from previous, 2.1% decrease from baseline (<5% change is not significant). Prior: BMD 1.000 g/cm2. Baseline: BMD 0.999 g/cm2. LEFT FEMUR, NECK: Current: BMD 0.684 g/cm2, Z-score -0.6, T-score -2.5, osteoporosis. Prior: BMD 0.659 g/cm2. Baseline: BMD 0.747 g/cm2. LEFT FEMUR, TOTAL: Current: BMD 0.748 g/cm2, Z-score -0.3, T-score -2.1, osteopenia, 2.5% increase from previous, 10.2% decrease from baseline (<5% change is not significant). Prior: BMD 0.730 g/cm2. Baseline: BMD 0.833 g/cm2. 11/09/22 FINDINGS: LEFT FEMUR, NECK: Current: BMD 0.652 g/cm2, Z-score -0.7, T-score -2.8, osteoporosis. Prior: BMD 0.671 g/cm2. Baseline: BMD 0.747 g/cm2. LEFT FEMUR, TOTAL: Current: BMD 0.745 g/cm2, Z-score -0.1, T-score -2.1, osteopenia, 0.1% increase from previous, 10.6% decrease from baseline (<5% change is not significant). Prior: BMD 0.744 g/cm2. Baseline: BMD 0.833 g/cm2. AP SPINE L1-L2 (excluding L3 and L4): The data of L1-L4 has been changed to exclude the L3 and L4 vertebral bodies, because degenerative sclerosis at these levels may cause overestimation of lumbar spine density. Current: BMD 0.987 g/cm2, Z-score 0.3, T-score -1.5, osteopenia, 1.0% decrease from previous, 7.9% increase from baseline (<5% change is not significant). Prior: BMD 0.997 g/cm2. Baseline: BMD 0.915 g/cm2. IDENTIFIED RISK FACTORS: Early menopause, history of fracture (adult), hysterectomy, left oophorectomy, osteoporosis, secondary osteoporosis. HISTORY OF FRACTURE: Other. MEDICATIONS: Calcium, vitamin D. MM/XR DEXA axial skeleton IMPRESSION: 1. DIAGNOSIS: Osteoporosis based on the lowest T-score value of -2.8 in the femoral neck applying World Health Organization criteria. Prior important labs: calcium trended since 2006 to 2018 range from 9.0 to 10.2 mg/dl Albumin trended from 1995 to 2017 range 3.6 to 4.8 g/dl ALk phosphatase 1995 to 2017 ranges from 47 to 78 U/L phosphorous trned 2006 to 2010 2.8 to 3.0 mg/dl magnesium 2010 1.8 to 2 mg/dl. 07/04/06 24 h calcium urine 81 mg/dl 24h, creatinine was low. 01/14/17 PTH 78 pg/ml Calcium 9.6 mg/dl Albumin 3.6 g/dl Ionized calcium 5.6 mg/dl Vit D 25.7 ng/dl Vit D 2011 25.8 ng/dl 2016 25.7 ng.dl 2017 71.4 ng/dl after 10,000 Iu daily. 04/29/17 Creat 1.07 mg/dl GFR 50 ml/mimn Calcium 9.9 mg/dl albumin 3.8 g/dl Corrected calcium 10.1 mg/dl. Laboratory Tests 05/10/19 10/29/19 10/29/19 07:30 10:40 10:40 Sodium Potassium Creatinine Estimated GFR Calcium Alkaline Phosphata se Albumin N-Telopeptide X-li nked 29 Collgn I C-Telopep tide 25-OH Vitamin D To julius TSH 3rd Generation 1.91 PTH Intact Calcium (PTH Intac t) Bone Specific Alk Phos 8.4 05/14/20 05/14/20 08:15 08:15 Sodium 142 Potassium 4.3 Creatinine 1.12 Estimated GFR 47 Calcium 9.8 Alkaline Phosphata se 43 Albumin 4.1 N-Telopeptide X-li nked Collgn I C-Telopep tide 138 25-OH Vitamin D To julius 44.0 TSH 3rd Generation PTH Intact 59 Calcium (PTH Intac t) 10.1 Bone Specific Alk Phos Laboratory Tests 01/05/18 09/08/18 07:00 00:00 Ur 24 Hour Volume 1300 1225 Ur Creatinine 24 H our 0.78 0.49 L Ur Calcium 24 Hr 44 61 Calcium/Creat 24 H r 57 126 laboratory values indicate the presence of primary hyperparathyroidism [facility] Medical History (Updated 01/17/23 @ 19:29 by Andreia Chowdary, [facility]) Active Meniere's disease Tubular adenoma Positive colorectal cancer screening using Cologuard test Hypercalcemia Diverticulosis Hiatal hernia GERD (gastroesophageal reflux disease) Epigastric pain Dysphagia JESU (obstructive sleep apnea) Hyperparathyroidism Osteoporosis Dyslipidemia Heart failure Paroxysmal atrial fibrillation Cardiac pacemaker in situ Sick sinus syndrome COPD (chronic obstructive pulmonary disease) Surgical History H/O bilateral cataract extraction History of esophagogastroduodenoscopy (EGD) Hx of colonoscopy History of total abdominal hysterectomy and bilateral salpingo-oophorectomy History of total left knee replacement History of pacemaker History of laparoscopic cholecystectomy Family History Father COPD (chronic obstructive pulmonary disease) Mother CAD (coronary artery disease) CVD (cardiovascular disease) Daughter No problems noted. Social History Housing: House Alcohol intake: current Alcohol intake frequency: holidays/special occasions only Alcohol type: wine Patient Tobacco Use Status: Former Tobacco user Quit Date: 2000 Tobacco use type: Cigarette e-Cigarette/Vaping Use: Never Used Second Hand Smoke Exposure: No service: No Current occupational status: retired Cognitive needs: No Hearing needs: No Vision needs: No Assessment & Plan Assessment & Plan (1) Osteoporosis: Code(s): M81.0 - Age-related osteoporosis without current pathological fracture Qualifiers: Osteoporosis type: age-related Presence of current pathological fracture: without current pathological fracture Qualified Code(s): M81.0 - Age- related osteoporosis without current pathological fracture Plan: This is a 76-year-old white female with a history of osteoporosis and a distant wrist fracture was treated with Evista for 10 years and more recently alendronate for 2 years. Currently not on pharmacologic therapy. Recent DEXA bone density shows stability but in the osteoporotic range. Urine NTX suppressed The plan is to discussed with patient possibility of reinitiating anti- resorptive therapy as outlined below for treatment of hyperparathyroidism (2) Hyperparathyroidism: Code(s): E21.3 - Hyperparathyroidism, unspecified Plan: Family history of primary hyperparathyroidism. Calcium is mildly elevated. Lab value from [facility] reference lab confirms the presence of primary hyperparathyroidism Plan is to discussed with patient different options of treatment including possibility of surgical exploration considering the presence of osteoporosis versus medical treatment with re-initiation of bisphosphonate. She is opting for medical therapy at this point after being explained the options to her and her daughter and will restart alendronate 70 mg q.week. she took this medication in the past and knows how to administer it and tolerated nicely. Will recheck calcium level in 6 months' time Orders: Orders Albumin Level 6 Months E21.3 - Hyperparathyroidism, unspecified Calcium 6 Months E21.3 - Hyperparathyroidism, unspecified Medications: New alendronate 70 mg PO QWEEK 5 tabs 4RF Coding Level of Care Code Est Pt Level 3 (14603) Diagnoses Age-related osteoporosis without current pathological fracture M81.0 Osteoporosis type: age-related Presence of current pathological fracture: without current pathological fracture Hyperparathyroidism E21.3
[2023-04-12 08:17] VITALS: BP 102/60; PULSE 68; BMI 28.7
== END 2023-04-12 08:50 | disposition home or self-care (01) ==
PROVIDERS: PCP Internal Medicine; Visit Provider Internal Medicine Endocrinology, Diabetes & Metabolism
DX: M81.0 Age-related osteoporosis without current pathological fracture (principal); E21.3 Hyperparathyroidism, unspecified
CPT/HCPCS: 99213

== ENCOUNTER → 2023-04-12 08:13 | Outpatient (BNVA) | payer MEDICARE, SELFPAY | PROVIDERS: PCP Internal Medicine; Visit Provider Internal Medicine Endocrinology, Diabetes & Metabolism | DX: M81.0 Age-related osteoporosis without current pathological fracture (principal); E21.3 Hyperparathyroidism, unspecified | CPT/HCPCS: 99212 ==

== ENCOUNTER 2023-05-09 14:03 | Outpatient (AMB) | payer MEDICARE, SELFPAY ==
--- NOTE | 2023-05-09 14:12 | MHC.PC.OV ---
Vital Signs 05/09/23 14:13 Height 5 ft Weight 151 lb BMI 29.5 BP 120/74 Blood Pressure Location Lt brachial Position Sitting Intake Visit Reasons: Follow up CHF Intake Note: Patient here for a follow up CHF Office Bookkeeper Required: No Accompanied by: Self / Same As Patient Allergies dronedarone [Multaq] Allergy (Severe, Verified 05/09/23 14:29) syncope flecainide Allergy (Severe, Verified 05/09/23 14:29) vertigo,blurry vision lisinopril [LISINOPRIL] Allergy (Severe, Verified 05/09/23 14:29) ANGIOEDEMA, bad cough, throat closing, tingling of head, cough losartan Allergy (Intermediate, Verified 05/09/23 14:29) dry cough, pruritus hydromorphone [Dilaudid] Adverse Reaction (Severe, Verified 05/09/23 14:29) unresponsiveness Medication List - Last Reconciled 05/09/23 by Homa Jones MD alendronate 70 mg PO QWEEK biotin 1,000 mcg PO DAILY dabigatran etexilate 150 mg PO BID fluoride (sodium) 1.1% 1 appl PO BEDTIME lovastatin 20 mg PO DAILY metoprolol succinate ER 25 mg PO DAILY multivitamin,px-adfp-sycrtect (Complete Multivitamin tablet) 1 tab PO DAILY oxybutynin chloride 5 mg PO BID pantoprazole 40 mg PO DAILY polyethylene glycol 3350 (Miralax) 17 grams PO DAILY vitamins A,C,H-bqzd-mnirta 4,296 mcg-226 mg-90 mg (PreserVision AREDS) 1 cap PO BID Tobacco use date assessed: 05/09/23 Fall risk assessment: No Falls in past year Last assessed Fall Risk: 05/09/23 Dental Screening Dental Screen Date: 05/09/23 Did you have a dental visit in the last 12 months?: Yes Did you have a dental problem in the last 6 months where you did not have access to dental care?: No Was dental information given to patient?: Patient has dentist HPI HPI Comments History of Present Illness Details This is a 77-year-old female with paroxysmal atrial fibrillation, congestive heart failure, dyslipidemia, COPD and GERD that comes today for follow-up on her conditions. Dizziness has resolved for the past month and she has seen just more water. On chronic anticoagulation for atrial fibrillation and denies any active bleeding. Last BNP was normal and she follows with cardiology for her atrial fibrillation and congestive heart failure. Denies gaining 5 lb in a week. No chest pain or shortness of breath. No leg swelling. Cholesterol stable with statins. COPD were control with long-acting inhaler. GERD stable with PPIs. [facility] Medical History Active Meniere's disease Tubular adenoma Positive colorectal cancer screening using Cologuard test Hypercalcemia Diverticulosis Hiatal hernia GERD (gastroesophageal reflux disease) Epigastric pain Dysphagia JESU (obstructive sleep apnea) Hyperparathyroidism Osteoporosis Dyslipidemia Heart failure Paroxysmal atrial fibrillation Cardiac pacemaker in situ Sick sinus syndrome COPD (chronic obstructive pulmonary disease) Surgical History H/O bilateral cataract extraction History of esophagogastroduodenoscopy (EGD) Hx of colonoscopy History of total abdominal hysterectomy and bilateral salpingo-oophorectomy History of total left knee replacement History of pacemaker History of laparoscopic cholecystectomy Family History Father COPD (chronic obstructive pulmonary disease) Mother CAD (coronary artery disease) CVD (cardiovascular disease) Daughter No problems noted. Social History Housing: House Alcohol intake: current Alcohol intake frequency: holidays/special occasions only Alcohol type: wine Patient Tobacco Use Status: Former Tobacco user Quit Date: 2000 Tobacco use type: Cigarette e-Cigarette/Vaping Use: Never Used Second Hand Smoke Exposure: No service: No Current occupational status: retired Cognitive needs: No Hearing needs: No Vision needs: No Questionnaire PHQ-9 Over the last 2 weeks, how often have you been bothered by any of the following problems? 1. Little interest or pleasure in doing things: not at all 2. Feeling down, depressed, or hopeless: not at all 3. Trouble falling or staying asleep, or sleeping too much: not at all 4. Feeling tired or having little energy: not at all 5. Poor appetite or overeating: not at all 6. Feeling bad about yourself - or that you are a failure or have let yourself or your family down: not at all 7. Trouble concentrating on things, such as reading the newspaper or watching television: not at all 8. Moving or speaking so slowly that other people could have noticed. Or the opposite - being so fidgety or restless that you have been moving around a lot more than usual: not at all 9. Thoughts that you would be better off or of hurting yourself in some way: not at all Total score: 0 Depression Screening Interpretation: Negative Depression Screening Done: Yes 01599 - PHQ-9 Billing: Yes Source: Developed by Drs. Haider Lake, Keyonna Fernando, Remi Heath and colleagues, with an educational omi from [employer]. Thrive Questionnaire Date Thrive assessed: 05/09/23 I am a: Patient What is your living situation today?: I have a steady place to live Within the past 12 months, did the food you bought not last and you didn't have the money to get more?: Never true Within the past 12 months, did you worry whether your food would run out before you got money to buy more?: Never true Do you have trouble paying for medicines?: No Do you have trouble getting transportation to medical appointments?: No Do you have trouble paying your heating and electricity bill?: No Do you have trouble taking care of your child, family member or friend?: No Do you have trouble with day-to-day activities such as bathing, preparing meals, shopping, managing finances, etc.?: No Are you currently unemployed and looking for a job?: No Are you interested in more education?: No Please select the resources that you would like help with: None Currently or been in a relationship where the following occur: no concerns reported THRIVE Score: 0 AUDIT C Alcohol Use Questionnaire (AUDIT-C) 1. How often do you have a drink containing alcohol?: Monthly or less 2. How many drinks containing alcohol do you have on a typical day when you are drinking?: 1 or 2 3. How often do you have six or more drinks on one occasion?: Never Total Score: 1 Score Reviewed/Action Taken: Yes FELICITAS-7 AMB Questionnaire FELICITAS-7 Date FELICITAS - 7 assessed: 05/09/23 Feeling nervous, anxious, or on edge: 0 = Not at all Not being able to stop or control worryin = Not at all Worrying too much about different things: 0 = Not at all Trouble relaxin = Not at all Being so restless that it is hard to sit still: 0 = Not at all Becoming easily annoyed or irritable: 0 = Not at all Feeling afraid as if something awful might happen: 0 = Not at all Total FELICITAS-7 score (0-4 normal; 5-9 mild; 10-14 moderate; 15-21 severe): 0 Source: Developed by Drs. Haider Lake, Keyonna Fernando, Remi Heath and colleagues, with an educational omi from [employer]. FELICITAS-7 Assessment Billing FELICITAS-7 Assessment Tool: FELICITAS-7 Assessment 25331 Review of Systems Const All systems reviewed & are unremarkable except as noted in HPI and below Eyes Reports no additional complaints, Denies change in vision and Denies other visual disturbances Card Denies chest pain at rest, Denies chest pain with activity, Denies edema, Denies irregular heart rhythm, Denies claudication, Denies dyspnea, Denies dyspnea on exertion, Denies orthopnea, Denies paroxysmal nocturnal dyspnea and Denies slow heart rate Resp Denies cough, Denies dyspnea and Denies dyspnea on exertion GI Denies abdominal pain, Denies change in bowel habits, Denies excessive flatus, Denies nausea and Denies vomiting Denies urinary incontinence, Denies urinary hesitancy and Denies urinary urgency Musc Denies abnormal gait, Denies atrophy, Denies deformity and Denies limited range of motion Skin/Breast Denies bleeding lesions, Denies changing lesions and Denies rash Neuro Denies abnormal gait, Denies behavioral changes and Denies lack of coordination Psych Denies behavioral changes Physical exam (Primary Care) Vital Signs: Last Vital Signs BP 120/74 05/09/23 14:13 BMI result Body Mass Index 29.5 Tobacco/Smoking Status: Tobacco use Status Tobacco use date assessed 05/09/23 05/09/23 14:21 Patient Tobacco Use Status Former Tobacco user 05/09/23 14:15 Tobacco use type Cigarette 05/09/23 14:15 e-Cigarette/Vaping Use Never Used 05/09/23 14:15 PHQ-9: PHQ-9 Score PHQ-9: Total score 0 05/09/23 14:42 Depression Screening Interpretation: Negative Thrive Assessment: Date of Thrive Assessment Date Thrive assessed 05/09/23 05/09/23 14:22 Currently or been in a relationship where the following occur: no concerns reported Eyes General: appearance normal, both eyes and all related structures Eyelids: Yes eyelids normal Conjunctivae: conjunctivae normal Neck Neck: Yes normal visual inspection and Yes supple Resp Effort & Inspection: normal respiratory effort Auscultation: clear to auscultation bilaterally Cardio Jugular venous distension: no JVD Rate: regular rate Rhythm: regular rhythm Heart sounds: S1 normal heart sound present and S2 normal heart sound present Extrem General: Yes full ROM Assessment and Plan Assessment & Plan (1) Paroxysmal atrial fibrillation: Code(s): I48.0 - Paroxysmal atrial fibrillation Plan: Continue Doacs. Continue metoprolol. Follow-up with Cardiology. (2) Heart failure: Code(s): I50.9 - Heart failure, unspecified Qualifiers: Heart failure type: systolic Heart failure chronicity: chronic Qualified Code(s): I50.22 - Chronic systolic (congestive) heart failure Plan: The goal is to not gain 5 lb in a week. Follow-up with Cardiology. (3) COPD (chronic obstructive pulmonary disease): Code(s): J44.9 - Chronic obstructive pulmonary disease, unspecified Qualifiers: COPD type: unspecified COPD Qualified Code(s): J44.9 - Chronic obstructive pulmonary disease, unspecified Plan: Continue long-acting inhaler. Follow-up with pulmonology. Use rescue inhaler as needed. (4) Dyslipidemia: Code(s): E78.5 - Hyperlipidemia, unspecified Plan: Continue statins. (5) GERD (gastroesophageal reflux disease): Code(s): K21.9 - Gastro-esophageal reflux disease without esophagitis Qualifiers: Esophagitis presence: esophagitis presence not specified Qualified Code(s): K21.9 - Gastro-esophageal reflux disease without esophagitis Plan: Continue PPIs. Orders: Orders Comprehensive [place]. Panel Fast 4 Months I50.9 - Heart failure, unspecified NT-proBNP 4 Months I50.22 - Chronic systolic (congestive) heart failure Calcium, Ionized 4 Months E21.3 - Hyperparathyroidism, unspecified Lipid Panel 4 Months E78.5 - Hyperlipidemia, unspecified Medications: Changed From metoprolol succinate ER 50 mg PO DAILY 90 tabs 3RF To metoprolol succinate ER 25 mg PO DAILY Coding Level of Care Code Est Pt Level 4 (47315) Diagnoses Paroxysmal atrial fibrillation I48.0 Chronic systolic heart failure I50.22 Heart failure type: systolic Heart failure chronicity: chronic Chronic obstructive pulmonary disease, unspecified COPD type J44.9 COPD type: unspecified COPD Dyslipidemia E78.5 Gastroesophageal reflux disease, unspecified whether esophagitis present K21.9 Esophagitis presence: esophagitis presence not specified Additional Codes FELICITAS-7 Assessment Billing - FELICITAS-7 Assessment Tool: FELICITAS-7 Assessment 80353 ([id number]) Time Spent (min) 24
[2023-05-09 14:13] VITALS: BP 120/74; BMI 29.5
== END 2023-05-09 14:40 | disposition home or self-care (01) ==
PROVIDERS: PCP Internal Medicine; Visit Provider Internal Medicine
DX: I48.0 Paroxysmal atrial fibrillation (principal); I50.22 Chronic systolic (congestive) heart failure; J44.9 Chronic obstructive pulmonary disease, unspecified; E78.5 Hyperlipidemia, unspecified; K21.9 Gastro-esophageal reflux disease without esophagitis
CPT/HCPCS: 99214

== ENCOUNTER 2023-05-16 09:24 | Outpatient (AMB) | payer MEDICARE, SELFPAY ==
--- NOTE | 2023-05-16 09:26 | A.OFFVIS_ITS ---
Intake Vital Signs 05/16/23 09:29 Height 5 ft Weight 147 lb 11.355 oz BMI 28.8 BP 120/76 Blood Pressure Location Lt brachial Position Sitting Pulse 95 Pulse Source Monitor Intake Visit Reasons: 6M w/Pacer Intake Note: 6 month follow up with Pacer and EKG Allergies dronedarone [Multaq] Allergy (Severe, Verified 05/09/23 14:29) syncope flecainide Allergy (Severe, Verified 05/09/23 14:29) vertigo,blurry vision lisinopril [LISINOPRIL] Allergy (Severe, Verified 05/09/23 14:29) ANGIOEDEMA, bad cough, throat closing, tingling of head, cough losartan Allergy (Intermediate, Verified 05/09/23 14:29) dry cough, pruritus hydromorphone [Dilaudid] Adverse Reaction (Severe, Verified 05/09/23 14:29) unresponsiveness Medication List - Last Reconciled 05/16/23 by Saud Guzmán MD alendronate 70 mg PO QWEEK biotin 1,000 mcg PO DAILY dabigatran etexilate 150 mg PO BID fluoride (sodium) 1.1% 1 appl PO BEDTIME lovastatin 20 mg PO DAILY metoprolol succinate ER 50 mg PO DAILY multivitamin,uf-gyla-goidnxfr (Complete Multivitamin tablet) 1 tab PO DAILY oxybutynin chloride 5 mg PO BID pantoprazole 40 mg PO DAILY polyethylene glycol 3350 (Miralax) 17 grams PO DAILY vitamins A,C,C-elld-xxvyfv 4,296 mcg-226 mg-90 mg (PreserVision AREDS) 1 cap PO BID HPI HPI Comments History of Present Illness Details Nancy comes for 6 months follow-up. She denies any new complaints. She says she noticed may be in AFib this morning although she has been in atrial fibrillation with mode switch about 67% of time. 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 She denies any worsening shortness of breath, orthopnea, PND, leg edema. She takes all her medications. No major bleeding issues or neurologic events. Recently she was seeing Endocrine and she was noted to have low blood pressure. She had been complaining of orthostatic lightheadedness especially when she would get up and walk she would get lightheaded. She has since then increase her fluid and she says she has been doing better and feeling a lot better. She has not had any syncopal episodes. [facility] Medical History Active Meniere's disease Tubular adenoma Positive colorectal cancer screening using Cologuard test Hypercalcemia Diverticulosis Hiatal hernia GERD (gastroesophageal reflux disease) Epigastric pain Dysphagia JESU (obstructive sleep apnea) Hyperparathyroidism Osteoporosis Dyslipidemia Heart failure Paroxysmal atrial fibrillation Cardiac pacemaker in situ Sick sinus syndrome COPD (chronic obstructive pulmonary disease) Surgical History H/O bilateral cataract extraction History of esophagogastroduodenoscopy (EGD) Hx of colonoscopy History of total abdominal hysterectomy and bilateral salpingo-oophorectomy History of total left knee replacement History of pacemaker History of laparoscopic cholecystectomy Family History Father COPD (chronic obstructive pulmonary disease) Mother CAD (coronary artery disease) CVD (cardiovascular disease) Daughter No problems noted. Social History Housing: House Alcohol intake: current Alcohol intake frequency: holidays/special occasions only Alcohol type: wine Patient Tobacco Use Status: Former Tobacco user Quit Date: 2000 Tobacco use type: Cigarette e-Cigarette/Vaping Use: Never Used Second Hand Smoke Exposure: No service: No Current occupational status: retired Cognitive needs: No Hearing needs: No Vision needs: No Review of Systems Const Denies fatigue and Denies weakness ENT Denies dizziness Card Denies chest pain, Denies leg edema, Denies lightheadedness, Denies palpitations, Denies dyspnea, Denies dyspnea on exertion, Denies orthopnea and Denies other (loss of consciousness) Resp Denies cough, Denies dyspnea and Denies dyspnea on exertion GI Denies hematochezia and Denies change in stool character Musc Denies abnormal gait, Denies muscle cramps, Denies muscle weakness, Denies numbness, Denies radiating pain into limb and Denies tingling Neuro Denies abnormal gait, Denies dizziness, Denies numbness, Denies tingling and Denies weakness Endo Denies fatigue and Denies palpitations Physical Exam Vital Signs: Last Vital Signs Pulse 95 05/16/23 09:29 BP 120/76 05/16/23 09:29 BMI result Body Mass Index 28.8 Const General: cooperative, comfortable, no acute distress, alert, awake and well groomed Nutritional Appearance: average body habitus Orientation/consciousness: patient oriented x3 Limitations: no limitations Neck Neck: Yes trachea midline, Yes supple and Yes no JVD Resp Effort & Inspection: normal respiratory effort Auscultation: clear to auscultation bilaterally Cardio Jugular venous distension: no JVD Palpation: normal PMI Rhythm: abnormal rhythm irregularly irregular Heart sounds: S1 normal heart sound present, S2 normal heart sound present, no click, no gallops and no murmurs GI Auscultation: normal bowel sounds Skin General skin exam: no rashes or lesions noted Neuro General: patient oriented x3 and no focal motor deficits Extrem General: Yes no clubbing, cyanosis or edema Psych Appearance: grossly normal Office Procedures Cardiac Device Check Cardiac Device Check Details: Pacemaker was reprogrammed from DDDR to DDIR. Atrial sensing was low as expected as patient has persistent atrial fibrillation. Ventricular sensing was excellent. Ventricular pacing thresholds are adequate and in auto capture mode. Pacing lead impedance is stable. Battery life is adequate. Atrial fibrillation mode switch about 67% of the time. [id number] Cardiac Device Check, pacemaker dual lead Procedure code (CPT) selection complete EKG Details: EKG shows atrial fibrillation with occasional paced complexes with nonspecific ST T wave changes 28834-[id number], Complete Assessment & Plan Assessment & Plan (1) Persistent atrial fibrillation: Code(s): I48.19 - Other persistent atrial fibrillation Plan: Patient is now having more persistent atrial fibrillation put it today was in persistent atrial fibrillation for the last few hours but feels some palpitation but otherwise doing okay. She notices no worsening symptoms of heart failure. No change in her exercise capacity. At this point time will continue pursue rate control approach as she has no new symptoms and has not tolerated some antiarrhythmic drug therapy and is not excited to pursue rhythm control approach at this point time. Continue full oral anticoagulation, currently on Pradaxa 150 mg b.i.d.. Semi annual renal function test and annual CBC should be pursued. Will check for the same today. Continue metoprolol at 50 mg daily. (2) Cardiac pacemaker in situ: Code(s): Z95.0 - Presence of cardiac pacemaker Plan: Cardiac pacemaker in-situ, working well. Reprogrammed for adequate functioning and reprogrammed to DDIR due to persistent AFib. Will continue monitor remotely. (3) Heart failure: Code(s): I50.9 - Heart failure, unspecified Qualifiers: Heart failure chronicity: chronic Heart failure type: systolic Qualified Code(s): I50.22 - Chronic systolic (congestive) heart failure Plan: Prior history of heart failure setting of AFib but currently having no signs or symptoms of heart failure. Currently not on any diuretic regimen. In fact she is having some orthostatic lightheadedness symptoms which improved fluid intake. Advised to continue maintain adequate fluid intake. Signs and symptoms of heart failure were discussed. She understands agrees. Follow up in the clinic in 6 months time, sooner p.r.n.. Thank you for allowing me to partake in the care Orders: Orders Complete Blood Count no Diff Today I48.19 - Other persistent atrial fibrillation Basic Metabolic Panel Today I48.19 - Other persistent atrial fibrillation Medications: Changed From metoprolol succinate ER 25 mg PO DAILY I48.19 - Other persistent atrial fibrillation To metoprolol succinate ER 50 mg PO DAILY I48.19 - Other persistent atrial fibrillation Coding Level of Care Code Est Pt Level 4 (86766) Diagnoses Persistent atrial fibrillation I48.19 Cardiac pacemaker in situ Z95.0 Chronic systolic heart failure I50.22 Heart failure chronicity: chronic Heart failure type: systolic CPT Codes Cardiac Device Check - Cardiac Device 2: 06012-ON Cardiac Device Check, pacemaker dual lead ([id number]) EKG - CPT: 14006-Sppwlnfdgixfdeybs, Complete ([id number])
[2023-05-16 09:29] VITALS: BP 120/76; PULSE 95; BMI 28.8
== END 2023-05-16 09:53 | disposition home or self-care (01) ==
PROVIDERS: PCP Internal Medicine; Visit Provider Internal Medicine Cardiovascular Disease
DX: I48.19 Other persistent atrial fibrillation (principal); I50.22 Chronic systolic (congestive) heart failure; Z95.0 Presence of cardiac pacemaker
CPT/HCPCS: 93280; 99214

== ENCOUNTER 2023-05-16 09:24 | Outpatient (REF) | payer MEDICARE, SELFPAY ==
[2023-05-16 10:52] LABS: Hematocrit 41.8 % (37.0-47.0); Hemoglobin 13.6 g/dl (12.0-16.0); Mean Corpuscular HGB Conc 32.5 g/dl (31.0-35.0); Mean Corpuscular Hemoglobin 29.4 pg (27.0-33.0); Mean Corpuscular Volume 90.3 fL (80.0-98.0); Mean Platelet Volume 10.2 fL (9.4-12.3); Platelet Count 235 X10*3/uL (160-400); Red Blood Count 4.63 X10*6/uL (4.20-5.50); Red Cell Distribution Width 13.1 % (11.0-16.0)
[2023-05-16 11:22] LABS: Anion Gap 8 (12-20); Blood Urea Nitrogen 16 mg/dL (9-16); Calcium 9.9 mg/dL (8.4-10.2); Carbon Dioxide 25 mmol/L (22-29); Chloride 109 mmol/L (96-108); Estimated Glomerular Filt Rate 48; Glucose Random 96 mg/dL (60-115); Potassium 4.4 mmol/L (3.3-5.1); Sodium 138 mmol/L (135-145)
== END 2023-05-16 09:25 | disposition home or self-care (01) ==
LOC: HO.LAB 09:24
PROVIDERS: PCP Internal Medicine; Visit Provider Internal Medicine Cardiovascular Disease
DX: I48.19 Other persistent atrial fibrillation (principal); I50.22 Chronic systolic (congestive) heart failure; Z95.0 Presence of cardiac pacemaker; Z79.899 Other long term (current) drug therapy
CPT/HCPCS: 36415; 80048; 85027; 93005; 93280; 99212

== ENCOUNTER → 2023-05-16 23:59 | Outpatient (BNV) | payer MEDICARE, SELFPAY ==
--- NOTE | 2023-05-17 16:30 | MHC.OFFVIS ---
Intake Intake Visit Reasons: Remote Device Check- [facility] Allergies dronedarone [Multaq] Allergy (Severe, Verified 05/09/23 14:29) syncope flecainide Allergy (Severe, Verified 05/09/23 14:29) vertigo,blurry vision lisinopril [LISINOPRIL] Allergy (Severe, Verified 05/09/23 14:29) ANGIOEDEMA, bad cough, throat closing, tingling of head, cough losartan Allergy (Intermediate, Verified 05/09/23 14:29) dry cough, pruritus hydromorphone [Dilaudid] Adverse Reaction (Severe, Verified 05/09/23 14:29) unresponsiveness PENDING SALE TO [facility] Medical History Active Meniere's disease Tubular adenoma Positive colorectal cancer screening using Cologuard test Hypercalcemia Diverticulosis Hiatal hernia GERD (gastroesophageal reflux disease) Epigastric pain Dysphagia JESU (obstructive sleep apnea) Hyperparathyroidism Osteoporosis Dyslipidemia Heart failure Paroxysmal atrial fibrillation Cardiac pacemaker in situ Sick sinus syndrome COPD (chronic obstructive pulmonary disease) Surgical History H/O bilateral cataract extraction History of esophagogastroduodenoscopy (EGD) Hx of colonoscopy History of total abdominal hysterectomy and bilateral salpingo-oophorectomy History of total left knee replacement History of pacemaker History of laparoscopic cholecystectomy Family History Father COPD (chronic obstructive pulmonary disease) Mother CAD (coronary artery disease) CVD (cardiovascular disease) Daughter No problems noted. Social History Housing: House Alcohol intake: current Alcohol intake frequency: holidays/special occasions only Alcohol type: wine Patient Tobacco Use Status: Former Tobacco user Quit Date: 2000 Tobacco use type: Cigarette e-Cigarette/Vaping Use: Never Used Second Hand Smoke Exposure: No service: No Current occupational status: retired Cognitive needs: No Hearing needs: No Vision needs: No Office Procedures Cardiac Device Check Cardiac Device Check Details: Remote pacemaker report generated 05/16/2023. Pacemaker function is adequate. Increasing burden of atrial fibrillation noted [id number] Cardiac Device Interrogation, pacemaker Procedure code (CPT) selection complete Assessment & Plan Assessment & Plan (1) Cardiac pacemaker in situ: Code(s): Z95.0 - Presence of cardiac pacemaker Plan: See above Coding Level of Care Code Procedure Only Diagnoses Cardiac pacemaker in situ Z95.0 CPT Codes Cardiac Device Check - Cardiac Device 12: [id number] Cardiac Device Interrogation, pacemaker ([id number])
== END ==
PROVIDERS: PCP Internal Medicine; Visit Provider Internal Medicine Cardiovascular Disease
DX: I48.0 Paroxysmal atrial fibrillation (principal); Z95.0 Presence of cardiac pacemaker
CPT/HCPCS: 93294

== ENCOUNTER 2023-06-21 09:10 | Outpatient (AMB) | payer MEDICARE, SELFPAY ==
[2023-06-21 09:18] VITALS: PULSE 74; O2SAT 96; BMI 28.7
--- NOTE | 2023-06-21 09:18 | MHC.OFFVIS ---
Intake Vital Signs 06/21/23 09:18 Height 5 ft Weight 147 lb BMI 28.7 Pulse 74 Pulse Source Pulse Oximeter Pulse Oximetry (%) 96 Oxygen Delivery Method Room Air Intake Visit Reasons: jesu Mobile Phlebotomist Required: No Allergies dronedarone [Multaq] Allergy (Severe, Verified 06/21/23 09:19) syncope flecainide Allergy (Severe, Verified 06/21/23 09:19) vertigo,blurry vision lisinopril [LISINOPRIL] Allergy (Severe, Verified 06/21/23 09:19) ANGIOEDEMA, bad cough, throat closing, tingling of head, cough losartan Allergy (Intermediate, Verified 06/21/23 09:19) dry cough, pruritus hydromorphone [Dilaudid] Adverse Reaction (Severe, Verified 06/21/23 09:19) unresponsiveness HPI HPI Comments History of Present Illness Details She pis a 77 y/o woman with a history of COPD and JESU not on CPAP. Overall she has been doing well. She has not been using her inhalers regularly. She has not noticed any significant difference. Her major issue right now is having significant balance issues and falls. She did fracture her clavicle. She was diagnosed with Meniere's. She has not had any recent imaging studies to rule out any potential pulmonary process. She denies any weight loss or night sweats. She denies any anorexia. Denies any hemoptysis. BAsed on her h/o afib and neurological symptoms she should consider having a repeat PSG. 09/04/2019. The patient is here for pulmonary follow-up visit. She has been having issues with heart rate more often. Her antiarrhythmic medications was going to be changed due to her irregular heart rate due to her AFib. She continues to have daytime drowsiness with an elevated Mantador score of 12/24. In the meantime she is also complaining of some lightheadedness and dizziness as well as some shortness of breath with activity. She has been using her inhalers more often. Her symptoms are gzwf-sm-qkawfwug severity. She had been using CPAP in the past but then she developed a skin cancer and could not wear the mask. At this point would like to try to get her back on CPAP because of her cardiovascular risks and her ongoing daytime I will recent mid prescription for supplies to her DocuTAP. I will also request a sleep study in case she needs 1 to get reactivated. We did review her chest x-ray demonstrating no acute disease. 05/31/2022 the patient is here for a pulmonary follow-up visit. Overall the patient is doing well from a respiratory status. She is not using any inhalers. Although, she has a planned trip to [place] and she is wondering if she could have something available. Sometimes after exerting herself she does get shortness of breath and also get some fatigue. She does have a history atrial fibrillation. Therefore I did explain to her that she needs to be careful not to over use the inhaler in view of worsening her heart rate and tachyarrhythmia. I also want to try the inhaler before she goes to [place] to make sure that she is tolerating it. Otherwise the patient is sleeping well. She had significant weight loss. She is no longer using CPAP. She is waking up rested with an Mantador score of 6/24. Therefore this point she does not need to continue using her CPAP and will continue positional therapy. She is complaining of significant abdominal discomfort. Last 3 days she had a hard time getting around because her significant discomfort. She will follow-up with the GI doctor. I did advise her to call the GI office to get an earlier evaluation. 11/08/2022 patient is here for pulmonary follow-up visit. The patient overall is doing well off status. She had not used her rescue inhaler. She is concerned about atrial fibrillation. She recently got a call from her manager rn to increase her metoprolol because he was having more episodes. As far as the sleep she is doing well. He is sleeping prone. She denies any daytime drowsiness. Her Mantador score is decreased down to 5/24. She does not have any significant snoring and denies any apneic episodes that she has been told about. The patient therefore does not need CPAP at this time. Although with her cardiac history I did bring that up. She is having episodes of dizziness. She has only had about couple episodes but there concerning to her. One day she could not get up. She denies any vertigo. She denies positional changes with dizziness. I did recommend she can take a baby aspirin and then if it happens again to go to the ER to be evaluated for TIA. I also did send a message to her manager rn to make sure that she can take a baby aspirin along with Pradaxa she did have a chest x-ray back in August which is reassuring. No acute disease. 06/21/2023 the patient is here for a pulmonary follow-up visit. Overall the patient has been doing well. She no longer has any dizziness. It was felt to be related to dehydration. She continues on her cardiac medications. The patient also has been sleeping well. Her Mantador score continues to be well at 5/24. She has not using CPAP and she tries to continue using positional therapy. As far as imaging studies last chest x-ray was last year which was without any acute disease. She denies any respiratory symptoms and denies having to use any respiratory medications. At this point will follow the patient in a year's time. She will get the pneumonia vaccine today before she goes. [facility] Medical History Active Meniere's disease Tubular adenoma Positive colorectal cancer screening using Cologuard test Hypercalcemia Diverticulosis Hiatal hernia GERD (gastroesophageal reflux disease) Epigastric pain Dysphagia JESU (obstructive sleep apnea) Hyperparathyroidism Osteoporosis Dyslipidemia Heart failure Paroxysmal atrial fibrillation Cardiac pacemaker in situ Sick sinus syndrome COPD (chronic obstructive pulmonary disease) Surgical History H/O bilateral cataract extraction History of esophagogastroduodenoscopy (EGD) Hx of colonoscopy History of total abdominal hysterectomy and bilateral salpingo-oophorectomy History of total left knee replacement History of pacemaker History of laparoscopic cholecystectomy Family History Father COPD (chronic obstructive pulmonary disease) Mother CAD (coronary artery disease) CVD (cardiovascular disease) Daughter No problems noted. Social History Housing: House Alcohol intake: current Alcohol intake frequency: holidays/special occasions only Alcohol type: wine Patient Tobacco Use Status: Former Tobacco user Quit Date: 2000 Tobacco use type: Cigarette e-Cigarette/Vaping Use: Never Used Second Hand Smoke Exposure: No service: No Current occupational status: retired Cognitive needs: No Hearing needs: No Vision needs: No Review of Systems Const Denies chills, Denies fatigue, Denies fever(s), Denies frequent falls, Denies weakness, Denies weight gain and Denies weight loss ENT Denies dizziness Card Denies chest pain, Denies leg edema, Denies lightheadedness, Denies palpitations, Denies dyspnea, Denies dyspnea on exertion, Denies orthopnea and Denies other (LOC) Resp Denies cough, Denies dyspnea and Denies dyspnea on exertion GI Denies hematochezia and Denies change in bowel habits Musc Denies abnormal gait, Denies muscle weakness, Denies numbness, Denies radiating pain into limb and Denies tingling Neuro Denies abnormal gait, Denies dizziness, Denies frequent falls, Denies numbness, Denies tingling and Denies weakness Endo Denies fatigue and Denies palpitations Physical Exam Vital Signs: Last Vital Signs Pulse 74 06/21/23 09:18 Pulse Ox 96 06/21/23 09:18 Oxygen Delivery Method Room Air 06/21/23 09:18 BMI result Body Mass Index 28.7 Const General: alert Neck Neck: Yes normal visual inspection, Yes full ROM and Yes no lymphadenopathy Chest Chest palpation & inspection: normal inspection of the chest Resp Auscultation: diminished lung sounds Cardio Rate: regular rate Rhythm: regular rhythm Heart sounds: S1 normal heart sound present and S2 normal heart sound present GI Palpation (GI): Soft to palpation, nontender and Guarding due to palpation present (GI) in the LLQ and in the RLQ Auscultation: normal bowel sounds Skin General skin exam: rashes and/or lesions noted Immunizations pneumoc 20-alina conj-dip cr(PF) 0.5 mL IM syringe Performing Provider: Etienne Barillas MD Performing Location: [facility] [place] [facility] Administered by: Ruth Cruz LPN on 06/21/23 09:37 Dose Route Admin Location Dispensed Lot Number Expiration Date NDC [employer] 0.5 mL IM Right Deltoid 0.5 mL [id number] 05/11/24 7431-3107-87 [employer] VIS Given Date VIS Provided VIS Publication Date 06/21/23 Single Vaccine 22 Eligibility Eligibility Date Funding Source Not [facility] Eligible 06/21/23 Private Assessment & Plan Assessment & Plan (1) COPD (chronic obstructive pulmonary disease): Code(s): J44.9 - Chronic obstructive pulmonary disease, unspecified Qualifiers: COPD type: unspecified COPD Qualified Code(s): J44.9 - Chronic obstructive pulmonary disease, unspecified (2) JESU (obstructive sleep apnea): Comment: borderline, not using CPAP Code(s): G47.33 - Obstructive sleep apnea (adult) (pediatric) (3) Paroxysmal atrial fibrillation: Code(s): I48.0 - Paroxysmal atrial fibrillation Plan Consider LAMA if worsening respiratory status LIGIA as needed position of sleep therapy. Consider restarting CPAP if she becomes more symptomatic or if he has worsening cardiac arrhythmias prevnar 20 follow-up in 12 months Orders: Orders Pneumococcal 20 Immunization Today Z23 - Encounter for immunization Coding Level of Care Code Est Pt Level 4 (11183) Diagnoses Chronic obstructive pulmonary disease, unspecified COPD type J44.9 COPD type: unspecified COPD JESU (obstructive sleep apnea) G47.33 Paroxysmal atrial fibrillation I48.0 Time Spent (min) 16
== END 2023-06-21 09:36 | disposition home or self-care (01) ==
PROVIDERS: PCP Internal Medicine; Visit Provider Hospitalist
DX: J44.9 Chronic obstructive pulmonary disease, unspecified (principal); G47.33 Obstructive sleep apnea (adult) (pediatric); I48.0 Paroxysmal atrial fibrillation; R42 Dizziness and giddiness
CPT/HCPCS: 99214

== ENCOUNTER → 2023-06-21 09:10 | Outpatient (BNVA) | payer MEDICARE, SELFPAY | PROVIDERS: PCP Internal Medicine; Visit Provider Hospitalist | DX: Z23 Encounter for immunization (principal); G47.33 Obstructive sleep apnea (adult) (pediatric); J44.9 Chronic obstructive pulmonary disease, unspecified; I48.0 Paroxysmal atrial fibrillation | CPT/HCPCS: 90471; 90677; 99212 ==

== ENCOUNTER 2023-07-20 10:56 | Outpatient (AMB) | payer MEDICARE, SELFPAY ==
--- NOTE | 2023-07-20 11:06 | MHC.OFFVIS ---
Intake Visit Reasons: Urinary incontinence Intake Note: New Patient presents for initial visit for incontinence Urology Medications: oxybutynin Blood Thinner: Pradaxa PVR: 18ml's Accompanied by: Self / Same As Patient Allergies dronedarone [Multaq] Allergy (Severe, Verified 07/20/23 11:24) syncope flecainide Allergy (Severe, Verified 07/20/23 11:24) vertigo,blurry vision lisinopril [LISINOPRIL] Allergy (Severe, Verified 07/20/23 11:24) ANGIOEDEMA, bad cough, throat closing, tingling of head, cough losartan Allergy (Intermediate, Verified 07/20/23 11:24) dry cough, pruritus hydromorphone [Dilaudid] Adverse Reaction (Severe, Verified 07/20/23 11:24) unresponsiveness HPI Comments Details: Nancy is a very pleasant 77-year-old female patient of Dr. Goff. She has a past medical history of Meniere's disease, old hypercalcemia, diverticulosis, hiatal hernia, GERD, obstructive sleep apnea, hyperparathyroidism, osteoporosis, dyslipidemia, heart failure, paroxysmal AFib, sick sinus syndrome status post [place] pacemaker, and COPD. She presents to the office today as a new patient for ongoing lower urinary tract symptoms. In discussion with the patient today she reports going to the [facility] frequently at which time 1 of her friends told her she underwent a bladder suspension and has since been able to not utilize any Ayala pads. She is here to inquire if she is a candidate for this particular procedure. She reports mixed urinary incontinence symptoms have been present for many years. When asked she does report a history of 2 vaginal births of average size babies. She reports labors were approximately 4-5 hours long. She reports utilizing 2-3 Ayala pads per day. She reports nocturia 2-3 times per night. She otherwise denies hematuria, dysuria, foul smelling urine, changes to urinary stream, flank pain, fever, and or chills. In office urinalysis results reviewed with the patient today. PVR 18 mL. When asked she denies any known chemical exposure and or smoking history. Discussed further treatment options of mixed urinary incontinence. She reports being prescribed oxybutynin with PCP for many years however does not feel this has been affective. She otherwise offers no other issues or concerns at this time. [facility] Medical History Active Meniere's disease Tubular adenoma Positive colorectal cancer screening using Cologuard test Hypercalcemia Diverticulosis Hiatal hernia GERD (gastroesophageal reflux disease) Epigastric pain Dysphagia JESU (obstructive sleep apnea) Hyperparathyroidism Osteoporosis Dyslipidemia Heart failure Paroxysmal atrial fibrillation Cardiac pacemaker in situ Sick sinus syndrome COPD (chronic obstructive pulmonary disease) Surgical History H/O bilateral cataract extraction History of esophagogastroduodenoscopy (EGD) Hx of colonoscopy History of total abdominal hysterectomy and bilateral salpingo-oophorectomy History of total left knee replacement History of pacemaker History of laparoscopic cholecystectomy Family History Father COPD (chronic obstructive pulmonary disease) Mother CAD (coronary artery disease) CVD (cardiovascular disease) Daughter No problems noted. Social History Housing: House Alcohol intake: current Alcohol intake frequency: holidays/special occasions only Alcohol type: wine Patient Tobacco Use Status: Former Tobacco user Quit Date: 2000 Tobacco use type: Cigarette e-Cigarette/Vaping Use: Never Used Second Hand Smoke Exposure: No service: No Current occupational status: retired Cognitive needs: No Hearing needs: No Vision needs: No Review of Systems Const Reports as per HPI Eyes Reports no additional complaints ENT Reports no additional complaints Card Reports as per HPI Resp Reports as per HPI GI Reports as per HPI Reports as per [facility] Musc Reports as per [facility] Neuro Reports as per HPI Psych Reports no additional complaints Endo Reports no additional complaints Kvng/Lymph Reports no additional complaints Aller/Immun Reports no additional complaints Physical Exam Const General: cooperative, healthy appearing, comfortable, no acute distress, well developed, alert and awake Orientation/consciousness: patient oriented x3 Limitations: no limitations HEENT Head: Yes normal to inspection, Yes normocephalic and Yes atraumatic Ears: hearing grossly normal bilaterally Eyes General: appearance normal, both eyes and all related structures Neck Neck: Yes normal visual inspection and Yes trachea midline Chest Chest palpation & inspection: normal inspection of the chest Resp Effort & Inspection: normal respiratory effort and able to speak in complete sentences Cardio Rate: regular rate GI Inspection: Yes normal to inspection General: Yes no CVA tenderness Back/Spine/Pelvis Back: no CVA tenderness Skin General skin exam: no rashes or lesions noted Neuro General: patient oriented x3 Extrem General: Yes normal to inspection Psych Appearance: grossly normal and well kempt Mental Status: mental status grossly normal Speech and movement: Normal speech and movement present and Clear speech present Affect: normal affect Attitude: cooperative Thought process: Normal thought process present Thought content: Normal thought content present Insight: Fair insight present (Psych) Judgement: Fair judgement present (Psych) Office Procedures Post Void Residual Post Residual Void Post Void Residual (PVR): 18 [id number] Void Residual by ultrasound Results AMB Urinalysis, Automated UA Leukoctes 15 Fredy/uL Last Edit by [employer] on 07/20/23 11:33 UA Nitrite Negative Last Edit by [employer] on 07/20/23 11:33 UA Urobilinogen 0.2 mg/dL Last Edit by [employer] on 07/20/23 11:33 UA Protein 30 mg/dL Last Edit by [employer] on 07/20/23 11:33 UA pH 5.5 Last Edit by [employer] on 07/20/23 11:33 UA Blood 80 Eyad/uL Last Edit by [employer] on 07/20/23 11:33 UA Specific Howe 1.025 Last Edit by [employer] on 07/20/23 11:33 UA Ketone Negative Last Edit by [employer] on 07/20/23 11:33 UA Bilirubin 0 mg/dL Last Edit by [employer] on 07/20/23 11:33 UA Glucose 0 mg/dL Last Edit by [employer] on 07/20/23 11:33 Results Reviewed Results Reviewed: Laboratory Last Values Urine pH (Auto) 5.5 07/20/23 11:31 Specific Howe (Auto) 1.025 07/20/23 11:31 Urine Protein (Auto) 30 mg/dL 07/20/23 11:31 Glucose (UA)(Auto) 0 mg/dL 07/20/23 11:31 Urine Ketones (Auto) Negative 07/20/23 11:31 Urine Blood (Auto) 80 Eyad/uL 07/20/23 11:31 Urine Nitrite (Auto) Negative 07/20/23 11:31 Urine Bilirubin (Auto) 0 mg/dL 07/20/23 11:31 Urine Urobilinogen (Auto) 0.2 mg/dL 07/20/23 11:31 Leukocyte Esterase (Auto) 15 Fredy/uL 07/20/23 11:31 Assessment & Plan Assessment & Plan (1) Urinary incontinence, mixed: Code(s): N39.46 - Mixed incontinence Category: Medical (2) Microscopic hematuria: Code(s): R31.29 - Other microscopic hematuria Category: Medical Plan In office urinalysis results reviewed with the patient today; as noted above. PVR 18 mL. Discussed at length potential causes of microscopic hematuria. Will obtain retroperitoneal ultrasound for further assessment evaluation. Discussed possible near future in office urodynamics for further assessment evaluation. Stop oxybutynin. Start Myrbetriq as discussed and prescribed. Discussed bladder triggers/irritants. Discussed pelvic floor therapy. Discussed, educated, and stressed the importance of drinking water daily. Discussed importance of limiting fluids 2-3 hours prior to bed to decrease episodes of nocturia. Follow-up in 1-2 months with imaging and PVR at next office visit; or sooner with any issues, concerns, and or questions. Orders: Orders US retroperitoneal comp Today N39.46 - Mixed incontinence, R35.1 - Nocturia AMB Urinalysis Automated Today Z13.9 - Encounter for screening, unspecified AMB Post Void Residual by ultrasound Today R32 - Unspecified urinary incontinence Medications: New mirabegron ER (Myrbetriq) 25 mg PO DAILY 30 days 30 tabs 1RF N30.10 - Interstitial cystitis (chronic) without hematuria, N32.81 - Overactive bladder, R35.1 - Nocturia, R39.15 - Urgency of urination Discontinued oxybutynin chloride Discontinued Reason: Doctor's Order 5 mg PO BID 180 tabs 1RF Patient Instructions: The patient had an opportunity to ask questions regarding the treatment plan. All questions were answered. Physical exam, labs, and imaging were discussed and reviewed in detail. As well as risks, benefits, and discussion of treatment choices. No major barriers to understanding were identified. The patient expressed understanding and agreement with the above treatment plan. The patient was made aware they should contact our office by phone for worsening of their current condition, the appearance of new symptoms, or with any questions or concerns. Compliance is encouraged with any medications and follow up testing that is ordered. It is a privilege to be allowed the opportunity to participate in? your urological care.? Again, if you have any questions or concerns If you have any questions or concerns please do not hesitate to contact me. The office is [phone]. This note is constructed using voice recognition software. While every effort has been made to ensure accuracy instructor of nursing errors may have been included. Yours sincerely, ERIC Robertson-PAULINE Coding Level of Care Code New Pt Level 4 (60615) Diagnoses Urinary incontinence, mixed N39.46 Microscopic hematuria R31.29 CPT Codes Post Residual Void - PVR CPT Code: 85597-Redx Void Residual by ultrasound ([id number])
== END 2023-07-20 11:40 | disposition home or self-care (01) ==
PROVIDERS: PCP Internal Medicine; Visit Provider Nurse Practitioner Family
DX: N39.46 Mixed incontinence (principal); R31.29 Other microscopic hematuria; Z13.9 Encounter for screening, unspecified
CPT/HCPCS: 99204; 99214

== ENCOUNTER → 2023-07-20 10:56 | Outpatient (BNVA) | payer MEDICARE, SELFPAY | PROVIDERS: PCP Internal Medicine; Visit Provider Nurse Practitioner Family | DX: N39.46 Mixed incontinence (principal); R31.29 Other microscopic hematuria | CPT/HCPCS: 51798; 81003; 99202 ==

== ENCOUNTER 2023-08-03 08:41 | Outpatient (REF) | payer MEDICARE, SELFPAY ==
[2023-08-03 09:46] LABS: Alanine Aminotransferase 22 U/L (0-31); Albumin Level 3.8 g/dL (3.5-5.0); Alkaline Phosphatase 48 U/L (39-117); Anion Gap 10 (12-20); Aspartate Amino Transferase 24 U/L (5-31); Bilirubin Total 0.6 mg/dL (0.0-1.0); Blood Urea Nitrogen 14 mg/dL (9-16); Calcium 10.1 mg/dL (8.4-10.2); Carbon Dioxide 25 mmol/L (22-29); Chloride 110 mmol/L (96-108); Cholesterol 174 mg/dL (<200); Estimated Glomerular Filt Rate 58; Glucose Fasting 96 mg/dL (60-99); HDL Cholesterol 43 mg/dL (>40); LDL Cholesterol Calculated 98 mg/dL (<100); Potassium 4.4 mmol/L (3.3-5.1); Sodium 141 mmol/L (135-145); Total Protein 6.8 g/dL (6.5-8.0); Triglycerides 168 mg/dL (<150)
[2023-08-05 11:58] LABS: Calcium, Ionized 5.5 mg/dL (4.7-5.5)
[2023-08-08 22:03] LABS: NT-proBNP 622 pg/mL (<450)
== END 2023-08-03 08:42 | disposition home or self-care (01) ==
LOC: HO.LAB 08:41
PROVIDERS: PCP Internal Medicine; Visit Provider Internal Medicine
DX: E21.3 Hyperparathyroidism, unspecified (principal); I50.9 Heart failure, unspecified; E78.5 Hyperlipidemia, unspecified; I50.22 Chronic systolic (congestive) heart failure
CPT/HCPCS: 36415; 80053; 80061; 82330; 83880

== ENCOUNTER → 2023-08-15 23:59 | Outpatient (BNV) | payer MEDICARE, SELFPAY ==
--- NOTE | 2023-08-16 13:40 | A.OFFVIS_ITS ---
Intake Visit Reasons: Remote Device Check- [place] Allergies dronedarone [Multaq] Allergy (Severe, Verified 07/20/23 11:24) syncope flecainide Allergy (Severe, Verified 07/20/23 11:24) vertigo,blurry vision lisinopril [LISINOPRIL] Allergy (Severe, Verified 07/20/23 11:24) ANGIOEDEMA, bad cough, throat closing, tingling of head, cough losartan Allergy (Intermediate, Verified 07/20/23 11:24) dry cough, pruritus hydromorphone [Dilaudid] Adverse Reaction (Severe, Verified 07/20/23 11:24) unresponsiveness [facility] Medical History Active Meniere's disease Tubular adenoma Positive colorectal cancer screening using Cologuard test Hypercalcemia Diverticulosis Hiatal hernia GERD (gastroesophageal reflux disease) Epigastric pain Dysphagia JESU (obstructive sleep apnea) Hyperparathyroidism Osteoporosis Dyslipidemia Heart failure Paroxysmal atrial fibrillation Cardiac pacemaker in situ Sick sinus syndrome COPD (chronic obstructive pulmonary disease) Surgical History H/O bilateral cataract extraction History of esophagogastroduodenoscopy (EGD) Hx of colonoscopy History of total abdominal hysterectomy and bilateral salpingo-oophorectomy History of total left knee replacement History of pacemaker History of laparoscopic cholecystectomy Family History Father COPD (chronic obstructive pulmonary disease) Mother CAD (coronary artery disease) CVD (cardiovascular disease) Daughter No problems noted. Social History Housing: House Alcohol intake: current Alcohol intake frequency: holidays/special occasions only Alcohol type: wine Patient Tobacco Use Status: Former Tobacco user Tobacco use type: Cigarette e-Cigarette/Vaping Use: Never Used Second Hand Smoke Exposure: No service: No Current occupational status: retired Cognitive needs: No Hearing needs: No Vision needs: No Office Procedures Cardiac Device Check Cardiac Device Check Details: Remote pacemaker report generated 08/15/2023. Pacemaker function is adequate. Increased burden of atrial fibrillation noted at 8.1%. Increase ventricular pacing noted as well. [id number] Cardiac Device Interrogation, pacemaker Procedure code (CPT) selection complete Assessment & Plan Assessment & Plan (1) Cardiac pacemaker in situ: Code(s): Z95.0 - Presence of cardiac pacemaker Category: Medical Plan: See above Coding Level of Care Code Procedure Only Diagnoses Cardiac pacemaker in situ Z95.0 CPT Codes Cardiac Device Check - Cardiac Device 12: [id number] Cardiac Device Interrogation, pacemaker ([id number])
== END ==
PROVIDERS: PCP Internal Medicine; Visit Provider Internal Medicine Cardiovascular Disease
DX: Z45.018 Encounter for adjustment and management of other part of cardiac pacemaker (principal)
CPT/HCPCS: 93294

== ENCOUNTER 2023-09-06 15:16 | Outpatient (AMB) | payer MEDICARE, SELFPAY ==
[2023-09-06 15:37] VITALS: BP 124/82; BMI 28.3
--- NOTE | 2023-09-06 15:37 | A.OFFPC_ITS ---
Vital Signs 09/06/23 15:37 Height 5 ft Weight 145 lb BMI 28.3 BP 124/82 Blood Pressure Location Lt brachial Position Sitting Intake Visit Reasons: chf Intake Note: Patient here for a follow up CHF [employer] Technician Required: No Accompanied by: Self / Same As Patient Allergies dronedarone [Multaq] Allergy (Severe, Verified 09/06/23 15:54) syncope flecainide Allergy (Severe, Verified 09/06/23 15:54) vertigo,blurry vision lisinopril [LISINOPRIL] Allergy (Severe, Verified 09/06/23 15:54) ANGIOEDEMA, bad cough, throat closing, tingling of head, cough losartan Allergy (Intermediate, Verified 09/06/23 15:54) dry cough, pruritus hydromorphone [Dilaudid] Adverse Reaction (Severe, Verified 09/06/23 15:54) unresponsiveness Medication List - Last Reconciled 09/06/23 by Homa Jones MD alendronate 70 mg PO QWEEK biotin 1,000 mcg PO DAILY calcium carbonate-vitamin D3 500 mg-10 mcg (400 unit) (Calcium 500 + D) 2 tabs PO DAILY dabigatran etexilate 150 mg PO BID 90 days fluoride (sodium) 1.1% 1 appl PO BEDTIME levalbuterol tartrate 45 mcg/actuation (Xopenex HFA) 2 puffs inhalation Q6H PRN 30 days lovastatin 20 mg PO DAILY metoprolol succinate ER 50 mg PO DAILY multivitamin,bt-xnnp-hyuveolx (Complete Multivitamin tablet) 1 tab PO DAILY pantoprazole 40 mg PO DAILY polyethylene glycol 3350 (Miralax) 17 grams PO DAILY tolterodine ER 2 mg PO DAILY 30 days vitamins A,C,R-rrrd-hfpoti 4,296 mcg-226 mg-90 mg (PreserVision AREDS) 1 cap PO BID Tobacco use date assessed: 05/09/23 Fall risk assessment: No Falls in past year Last assessed Fall Risk: 09/06/23 Dental Screening Dental Screen Date: 09/06/23 Did you have a dental visit in the last 12 months?: Yes Did you have a dental problem in the last 6 months where you did not have access to dental care?: No Was dental information given to patient?: Patient has dentist HPI HPI Comments History of Present Illness Details This is a 77-year-old female with dyslipidemia, congestive heart failure, COPD, persistent atrial fibrillation and GERD that comes today for follow-up on her conditions. Cholesterol well controlled with statins. She denies any chest pain, shortness on breath or leg swelling. Has not gain 5 lb in a week. Her NT proBNP is elevated and last echocardiogram was 09/2022. I will repeat the echocardiogram. COPD stable and is follow by pulmonology once a year. Atrial fibrillation is follow by cardiology and the goal is heart rate control. GERD stable with PPIs. She also has osteoporosis from DEXA scan from 2022 and follows with endocrinology. Next DEXA scan should be 2024. [facility] Medical History Active Meniere's disease Tubular adenoma Positive colorectal cancer screening using Cologuard test Hypercalcemia Diverticulosis Hiatal hernia GERD (gastroesophageal reflux disease) Epigastric pain Dysphagia JESU (obstructive sleep apnea) Hyperparathyroidism Osteoporosis Dyslipidemia Heart failure Paroxysmal atrial fibrillation Cardiac pacemaker in situ Sick sinus syndrome COPD (chronic obstructive pulmonary disease) Surgical History H/O bilateral cataract extraction History of esophagogastroduodenoscopy (EGD) Hx of colonoscopy History of total abdominal hysterectomy and bilateral salpingo-oophorectomy History of total left knee replacement History of pacemaker History of laparoscopic cholecystectomy Family History Father COPD (chronic obstructive pulmonary disease) Mother CAD (coronary artery disease) CVD (cardiovascular disease) Daughter No problems noted. Social History Housing: House Alcohol intake: current Alcohol intake frequency: holidays/special occasions only Alcohol type: wine Patient Tobacco Use Status: Former Tobacco user Tobacco use type: Cigarette e-Cigarette/Vaping Use: Never Used Second Hand Smoke Exposure: No service: No Current occupational status: retired Cognitive needs: No Hearing needs: No Vision needs: No Questionnaire Thrive Questionnaire Date Thrive assessed: 05/09/23 FELICITAS-7 AMB Questionnaire FELICITAS-7 Date FELICITAS - 7 assessed: 05/09/23 Source: Developed by Drs. Haider Lake, Keyonna Fernando, Remi Heath and colleagues, with an educational omi from [employer]. Review of Systems Const All systems reviewed & are unremarkable except as noted in HPI and below Card Denies chest pain at rest, Denies chest pain with activity, Denies edema, Denies irregular heart rhythm, Denies claudication, Denies dyspnea, Denies dyspnea on exertion, Denies orthopnea, Denies paroxysmal nocturnal dyspnea and Denies slow heart rate Resp Denies cough, Denies dyspnea and Denies dyspnea on exertion Physical exam (Primary Care) Vital Signs: Last Vital Signs BP 124/82 09/06/23 15:37 BMI result Body Mass Index 28.3 Tobacco/Smoking Status: Tobacco use Status Tobacco use date assessed 05/09/23 09/06/23 15:44 Patient Tobacco Use Status Former Tobacco user 09/06/23 15:44 Tobacco use type Cigarette 09/06/23 15:44 e-Cigarette/Vaping Use Never Used 09/06/23 15:44 Thrive Assessment: Date of Thrive Assessment Date Thrive assessed 05/09/23 09/06/23 15:44 Resp Effort & Inspection: normal respiratory effort Auscultation: clear to auscultation bilaterally Cardio Jugular venous distension: no JVD Rate: regular rate Rhythm: regular rhythm Heart sounds: S1 normal heart sound present and S2 normal heart sound present Extrem General: Yes full ROM Assessment and Plan Assessment & Plan (1) Persistent atrial fibrillation: Code(s): I48.19 - Other persistent atrial fibrillation Plan: Continue dabigatran. The goal is heart rate control. Follow-up with Cardiology. (2) GERD (gastroesophageal reflux disease): Code(s): K21.9 - Gastro-esophageal reflux disease without esophagitis Qualifiers: Esophagitis presence: esophagitis presence not specified Qualified Code(s): K21.9 - Gastro-esophageal reflux disease without esophagitis Plan: Continue PPIs. (3) COPD (chronic obstructive pulmonary disease): Code(s): J44.9 - Chronic obstructive pulmonary disease, unspecified Qualifiers: COPD type: unspecified COPD Qualified Code(s): J44.9 - Chronic obstructive pulmonary disease, unspecified Plan: Use rescue inhaler as needed. (4) Heart failure: Code(s): I50.9 - Heart failure, unspecified Qualifiers: Heart failure type: systolic Heart failure chronicity: chronic Qualified Code(s): I50.22 - Chronic systolic (congestive) heart failure Plan: Repeat echocardiogram. The goal is to not gain 5 lb in a week. Follow-up with Cardiology. Patient seems euvolemic. (5) Dyslipidemia: Code(s): E78.5 - Hyperlipidemia, unspecified Plan: Continue statins. (6) Osteoporosis: Code(s): M81.0 - Age-related osteoporosis without current pathological fracture Qualifiers: Osteoporosis type: age-related Presence of current pathological fracture: without current pathological fracture Qualified Code(s): M81.0 - Age- related osteoporosis without current pathological fracture Plan: Continue alendronate. Follow-up with endocrinology. Next DEXA scan should be 2024. Orders: Orders CA echo transthoracic complete Today I50.22 - Chronic systolic (congestive) heart failure Lipid Panel 4 Months E78.5 - Hyperlipidemia, unspecified Vitamin D 25-OH Total 4 Months E55.9 - Vitamin D deficiency, unspecified Comprehensive [place]. Panel Fast 4 Months I50.22 - Chronic systolic (congestive) heart failure NT-proBNP 4 Months I50.22 - Chronic systolic (congestive) heart failure Medications: Refilled dabigatran etexilate 150 mg PO BID 180 caps 1RF 90 days I50.22 - Chronic systolic (congestive) heart failure lovastatin 20 mg PO DAILY 90 tabs 3RF I50.22 - Chronic systolic (congestive) heart failure pantoprazole take one tablet half an hour before breakfast 40 mg PO DAILY 90 tabs 2RF K21.9 - Gastro-esophageal reflux disease without esophagitis Coding Level of Care Code Est Pt Level 4 (16896) Complex EM visit Add On G2211 Diagnoses Persistent atrial fibrillation I48.19 Gastroesophageal reflux disease, unspecified whether esophagitis present K21.9 Esophagitis presence: esophagitis presence not specified Chronic obstructive pulmonary disease, unspecified COPD type J44.9 COPD type: unspecified COPD Chronic systolic heart failure I50.22 Heart failure type: systolic Heart failure chronicity: chronic Dyslipidemia E78.5 Age-related osteoporosis without current pathological fracture M81.0 Osteoporosis type: age-related Presence of current pathological fracture: without current pathological fracture Time Spent (min) 23
== END 2023-09-06 16:10 | disposition home or self-care (01) ==
PROVIDERS: PCP Internal Medicine; Visit Provider Internal Medicine
DX: I48.19 Other persistent atrial fibrillation (principal); J44.9 Chronic obstructive pulmonary disease, unspecified; I50.22 Chronic systolic (congestive) heart failure; K21.9 Gastro-esophageal reflux disease without esophagitis; E78.5 Hyperlipidemia, unspecified; M81.0 Age-related osteoporosis without current pathological fracture
CPT/HCPCS: 99214; G2211

== ENCOUNTER 2023-09-19 09:26 | Outpatient (REF) | payer MEDICARE, SELFPAY ==
[2023-09-19 10:45] LABS: Calcium 10.5 mg/dL (8.4-10.2)
== END 2023-09-19 09:27 | disposition home or self-care (01) ==
LOC: HO.LAB 09:26
PROVIDERS: PCP Internal Medicine; Visit Provider Internal Medicine Endocrinology, Diabetes & Metabolism
DX: E21.3 Hyperparathyroidism, unspecified (principal)
CPT/HCPCS: 36415; 82040; 82310

== ENCOUNTER 2023-09-20 12:48 | Outpatient (REF) | payer MEDICARE, SELFPAY ==
--- NOTE | ~2023-09-20 | US_ITS ---
EXAMINATION: US RETROPERITONEAL COMPLETE (RENAL) CLINICAL INFORMATION: Mixed incontinence. COMPARISON: CT abdomen and pelvis 07/13/2022. Renal ultrasound 08/14/2015. X-ray KUB 07/09/2015. TECHNIQUE: Real-time imaging of the kidneys and bladder. Limited visualization due to bowel gas. FINDINGS: RIGHT KIDNEY: 8.7 x 4.3 x 4.3 cm (SAG x AP x TRV). No hydronephrosis. No renal calculi. Limited visualization. Mild diffuse renal cortical thinning. Multiple renal cysts, largest 1.1 cm upper pole. There is no specific indication for additional imaging at this time. LEFT KIDNEY: 9.0 x 4.1 x 3.8 cm (SAG x AP x TRV). Mild diffuse renal cortical thinning. No obstructing renal calculi. Limited visualization. Left caliectasis. Multiple anechoic foci in the left peripelvic region may be related to caliectasis and/or pelvic cysts. May represent parapelvic cysts, largest 1.1 cm. BLADDER: Moderately distended. Bilateral ureteral jets are demonstrated. Prevoid bladder volume is 129 mL. Postvoid bladder volume is 8.8 mL. US/US retroperitoneal comp IMPRESSION: 1. Mild diffuse bilateral renal cortical thinning. 2. Left renal caliectasis. Multiple anechoic foci in the left peripelvic region may be related to caliectasis and/or pelvic cysts. May represent parapelvic cysts, largest 1.1 cm. 3. No obstructing renal calculi. Limited visualization.
== END 2023-09-20 12:49 | disposition home or self-care (01) ==
LOC: HO.US 12:48
PROVIDERS: PCP Internal Medicine; Visit Provider Nurse Practitioner Family
DX: N39.46 Mixed incontinence (principal); R35.1 Nocturia
CPT/HCPCS: 76770

== ENCOUNTER 2023-09-29 08:46 | Outpatient (REF) | payer MEDICARE, SELFPAY ==
[2023-09-29 15:46] LABS: Urine Cytology See Pathology rpt
== END 2023-09-29 08:47 | disposition home or self-care (01) ==
LOC: HO.LNP 08:46
PROVIDERS: PCP Internal Medicine; Visit Provider Nurse Practitioner Family
DX: R31.29 Other microscopic hematuria (principal); N39.46 Mixed incontinence
CPT/HCPCS: 51798; 81003; 88112; 99212

== ENCOUNTER 2023-09-29 08:46 | Outpatient (AMB) | payer MEDICARE, SELFPAY ==
--- NOTE | 2023-09-29 09:00 | MHC.OFFVIS ---
Intake Visit Reasons: 2m/US(set) Intake Note: Patient presents for follow up visit on: incontinence Urology Medications: tolterodine Blood Thinner: Pradaxa PVR: 19ml's Sample Coordinator Required: No Accompanied by: Self / Same As Patient Allergies dronedarone [Multaq] Allergy (Severe, Verified 09/29/23 09:32) syncope flecainide Allergy (Severe, Verified 09/29/23 09:32) vertigo,blurry vision lisinopril [LISINOPRIL] Allergy (Severe, Verified 09/29/23 09:32) ANGIOEDEMA, bad cough, throat closing, tingling of head, cough losartan Allergy (Intermediate, Verified 09/29/23 09:32) dry cough, pruritus hydromorphone [Dilaudid] Adverse Reaction (Severe, Verified 09/29/23 09:32) unresponsiveness Medication List - Last Reconciled 09/29/23 by NOÉ RobertsonP- alendronate 70 mg PO QWEEK biotin 1,000 mcg PO DAILY calcium carbonate-vitamin D3 500 mg-10 mcg (400 unit) (Calcium 500 + D) 2 tabs PO DAILY dabigatran etexilate 150 mg PO BID 90 days fluoride (sodium) 1.1% 1 appl PO BEDTIME levalbuterol tartrate 45 mcg/actuation (Xopenex HFA) 2 puffs inhalation Q6H PRN 30 days lovastatin 20 mg PO DAILY metoprolol succinate ER 50 mg PO DAILY multivitamin,wm-fsni-xkaykwvi (Complete Multivitamin tablet) 1 tab PO DAILY pantoprazole 40 mg PO DAILY polyethylene glycol 3350 (Miralax) 17 grams PO DAILY tolterodine ER 2 mg PO DAILY 30 days vitamins A,C,N-nxod-qqtqtw 4,296 mcg-226 mg-90 mg (PreserVision AREDS) 1 cap PO BID HPI Comments Details: Nancy is a very pleasant 77-year-old female patient of Dr. Goff. She has a past medical history of Meniere's disease, old hypercalcemia, diverticulosis, hiatal hernia, GERD, obstructive sleep apnea, hyperparathyroidism, osteoporosis, dyslipidemia, heart failure, paroxysmal AFib, sick sinus syndrome status post [place] pacemaker, and COPD. She presents to the office today for a follow up. Of note, patient was seen approximately 2 months ago as a new patient for ongoing lower urinary tract symptoms at which time retroperitoneal ultrasound was ordered for further assessment evaluation. These results were reviewed with the patient today. Bilateral kidneys with no hydronephrosis. Right kidney with mild diffuse renal cortical thickening multiple renal cysts largest 1.1 cm upper pole there is no specific indication for additional imaging follow-up per radiology report. Left kidney with multiple anechoic foci i in the left peripelvic region may be related to caliectasis and/or pelvic cysts. May represent parapelvic cysts, largest 1.1 cm. The bladder is moderately distended. Bladder ureteral jets are demonstrated. Pre void bladder volume is approximately 130 mL. Postvoid bladder volume is approximately 10 mL. In discussion with the patient today she does report noting improvement in lower urinary tract symptoms of (urinary urgency, urinary frequency, and mixed urinary incontinence) with 2 mg of tolterodine as prescribed however discusses enquiring if she is a candidate for a bladder lift/bladder suspension . Discussed at length risks and benefits of further surgical intervention. She reports mixed urinary incontinence symptoms have been present for many years. When asked she does report a history of 2 vaginal births of average size babies. She reports labors were approximately 4-5 hours long. She reports utilizing 2-3 Ayala pads per day. She reports episodes of nocturia she had been experiencing has since subsided. She otherwise denies hematuria, dysuria, foul smelling urine, changes to urinary stream, flank pain, fever, and or chills. In office urinalysis results reviewed with the patient today. PVR 19 mL. Discussed further treatment options of mixed urinary incontinence. She reports being prescribed oxybutynin with PCP for many years however does not feel this has been affective. She has also previously trialed Myrbetriq however experienced difficulty with breathing and has since been discontinued. She otherwise offers no other issues or concerns at this time. [facility] Medical History Active Meniere's disease Tubular adenoma Positive colorectal cancer screening using Cologuard test Hypercalcemia Diverticulosis Hiatal hernia GERD (gastroesophageal reflux disease) Epigastric pain Dysphagia JESU (obstructive sleep apnea) Hyperparathyroidism Osteoporosis Dyslipidemia Heart failure Paroxysmal atrial fibrillation Cardiac pacemaker in situ Sick sinus syndrome COPD (chronic obstructive pulmonary disease) Surgical History H/O bilateral cataract extraction History of esophagogastroduodenoscopy (EGD) Hx of colonoscopy History of total abdominal hysterectomy and bilateral salpingo-oophorectomy History of total left knee replacement History of pacemaker History of laparoscopic cholecystectomy Family History Father COPD (chronic obstructive pulmonary disease) Mother CAD (coronary artery disease) CVD (cardiovascular disease) Daughter No problems noted. Social History Housing: House Alcohol intake: current Alcohol intake frequency: holidays/special occasions only Alcohol type: wine Patient Tobacco Use Status: Former Tobacco user Tobacco use type: Cigarette e-Cigarette/Vaping Use: Never Used Second Hand Smoke Exposure: No service: No Current occupational status: retired Cognitive needs: No Hearing needs: No Vision needs: No Review of Systems Const Reports as per HPI Eyes Reports no additional complaints ENT Reports no additional complaints Card Reports as per HPI Resp Reports as per HPI GI Reports as per HPI Reports as per HPI Musc Reports as per HPI Neuro Reports as per HPI Psych Reports no additional complaints Endo Reports no additional complaints Knvg/Lymph Reports no additional complaints Aller/Immun Reports no additional complaints Physical Exam Const General: cooperative, healthy appearing, comfortable, no acute distress, well developed, alert and awake Orientation/consciousness: patient oriented x3 Limitations: no limitations HEENT Head: Yes normal to inspection, Yes normocephalic and Yes atraumatic Ears: hearing grossly normal bilaterally Eyes General: appearance normal, both eyes and all related structures Neck Neck: Yes normal visual inspection and Yes trachea midline Chest Chest palpation & inspection: normal inspection of the chest Resp Effort & Inspection: normal respiratory effort and able to speak in complete sentences Cardio Rate: regular rate GI Inspection: Yes normal to inspection General: Yes no CVA tenderness Back/Spine/Pelvis Back: no CVA tenderness Skin General skin exam: no rashes or lesions noted Neuro General: patient oriented x3 Extrem General: Yes normal to inspection Psych Appearance: grossly normal and well kempt Mental Status: mental status grossly normal Speech and movement: Normal speech and movement present and Clear speech present Affect: normal affect Attitude: cooperative Thought process: Normal thought process present Thought content: Normal thought content present Insight: Fair insight present (Psych) Judgement: Fair judgement present (Psych) Office Procedures Post Void Residual Post Residual Void Post Void Residual (PVR): 19 [id number] Void Residual by ultrasound Results AMB Urinalysis, Automated UA Leukoctes 0 Fredy/uL Last Edit by Wilfredo Crabtree on 09/29/23 09:19 UA Nitrite Negative Last Edit by Wilfredo Crabtree on 09/29/23 09:19 UA Urobilinogen 0.2 mg/dL Last Edit by Wilfredo Crabtree on 09/29/23 09:19 UA Protein 15 mg/dL Last Edit by Wilfredo Crabtree on 09/29/23 09:19 UA pH 5.5 Last Edit by Wilfredo Crabtree on 09/29/23 09:19 UA Blood 80 Eyad/uL Last Edit by Wilfredo Crabtree on 09/29/23 09:19 UA Specific [place] 1.015 Last Edit by Wilfredo Crabtree on 09/29/23 09:19 UA Ketone Negative Last Edit by Wilfredo Crabtree on 09/29/23 09:19 UA Bilirubin 1 mg/dL Last Edit by Wilfredo Crabtree on 09/29/23 09:19 UA Glucose 0 mg/dL Last Edit by Wilfredo Crabtree on 09/29/23 09:19 Results Reviewed Results Reviewed: Laboratory Last Values Urine pH (Auto) 5.5 09/29/23 09:04 Specific [place] (Auto) 1.015 09/29/23 09:04 Urine Protein (Auto) 15 mg/dL 09/29/23 09:04 Glucose (UA)(Auto) 0 mg/dL 09/29/23 09:04 Urine Ketones (Auto) Negative 09/29/23 09:04 Urine Blood (Auto) 80 Eyad/uL 09/29/23 09:04 Urine Nitrite (Auto) Negative 09/29/23 09:04 Urine Bilirubin (Auto) 1 mg/dL 09/29/23 09:04 Urine Urobilinogen (Auto) 0.2 mg/dL 09/29/23 09:04 Leukocyte Esterase (Auto) 0 Fredy/uL 09/29/23 09:04 Date of Service: 09/20/23 EXAMINATION: US RETROPERITONEAL COMPLETE (RENAL) FINDINGS: RIGHT KIDNEY: 8.7 x 4.3 x 4.3 cm (SAG x AP x TRV). No hydronephrosis. No renal calculi. Limited visualization. Mild diffuse renal cortical thinning. Multiple renal cysts, largest 1.1 cm upper pole. There is no specific indication for additional imaging at this time. LEFT KIDNEY: 9.0 x 4.1 x 3.8 cm (SAG x AP x TRV). Mild diffuse renal cortical thinning. No obstructing renal calculi. Limited visualization. Left caliectasis. Multiple anechoic foci in the left peripelvic region may be related to caliectasis and/or pelvic cysts. May represent parapelvic cysts, largest 1.1 cm. BLADDER: Moderately distended. Bilateral ureteral jets are demonstrated. Prevoid bladder volume is 129 mL. Postvoid bladder volume is 8.8 mL. IMPRESSION: 1. Mild diffuse bilateral renal cortical thinning. 2. Left renal caliectasis. Multiple anechoic foci in the left peripelvic region may be related to caliectasis and/or pelvic cysts. May represent parapelvic cysts, largest 1.1 cm. 3. No obstructing renal calculi. Limited visualization. Assessment & Plan Assessment & Plan (1) Urinary incontinence, mixed: Code(s): N39.46 - Mixed incontinence Category: Medical (2) Microscopic hematuria: Code(s): R31.29 - Other microscopic hematuria Category: Medical Plan In office urinalysis results reviewed with the patient today; as noted above. PVR 19 mL. Recent retroperitoneal ultrasound results reviewed with the patient today; as noted above. Discussed possible near future in office urodynamics for further assessment evaluation. Will increase tolterodine as discussed and prescribed; prescription provided. Discussed bladder triggers/irritants. Discussed pelvic floor therapy. Follow-up in 1-2 months with PVR; or sooner with any issues, concerns, and or questions. Orders: Orders AMB Post Void Residual by ultrasound 09/29/23 N39.46 - Mixed incontinence AMB Urinalysis Automated 09/29/23 Z13.9 - Encounter for screening, unspecified Urine Cytology 09/29/23 R31.29 - Other microscopic hematuria Medications: Changed From tolterodine ER 2 mg PO DAILY 30 days 30 caps 1RF To tolterodine ER This is an increase in dose 4 mg (2 x 2 mg) PO DAILY 60 caps 1RF 30 days Patient Instructions: The patient had an opportunity to ask questions regarding the treatment plan. All questions were answered. Physical exam, labs, and imaging were discussed and reviewed in detail. As well as risks, benefits, and discussion of treatment choices. No major barriers to understanding were identified. The patient expressed understanding and agreement with the above treatment plan. The patient was made aware they should contact our office by phone for worsening of their current condition, the appearance of new symptoms, or with any questions or concerns. Compliance is encouraged with any medications and follow up testing that is ordered. It is a privilege to be allowed the opportunity to participate in? your urological care.? Again, if you have any questions or concerns If you have any questions or concerns please do not hesitate to contact me. The office is [phone]. This note is constructed using voice recognition software. While every effort has been made to ensure accuracy door closer errors may have been included. Yours sincerely, ERIC Robertson-PAULINE Coding Level of Care Code Est Pt Level 3 (41073) Complex EM visit Add On G2211 Diagnoses Urinary incontinence, mixed N39.46 Microscopic hematuria R31.29 CPT Codes Post Residual Void - PVR CPT Code: 76680-Joxk Void Residual by ultrasound ([id number])
== END 2023-09-29 09:37 | disposition home or self-care (01) ==
PROVIDERS: PCP Internal Medicine; Visit Provider Nurse Practitioner Family
DX: N39.46 Mixed incontinence (principal); R31.29 Other microscopic hematuria
CPT/HCPCS: 99213; G2211

== ENCOUNTER → 2023-09-30 09:00 | Outpatient (REF) | payer MEDICARE, SELFPAY ==
--- NOTE | 2023-09-30 09:06 | CA_ITS ---
Transthoracic Echocardiogram Patient (Last, First, Middle): Nancy Zaragoza E Gender: Female Date of : 1945 Age: 77 Procedure Date: 09/30/2023 Procedure Type: Transthoracic Echocardiogram Location: OP Height: 152.4 cm Weight: 65.77 kg BSA: 1.63 m2 Heart Rate: bpm BP: 124 / 82 mmHg Solar Electric Installer: FRANSISCO Ramos MD: Homa Jones MD Sponge Press Operator: Saud Guzmán MD Symptoms: I50.22 - Chronic systolic (congestive) heart failure Study Quality: Fair ECG Rhythm: Sinus Conclusions: - 1. Normal LV ejection fraction of 60 65% with impaired relaxation filling pattern 2. Mild aortic regurgitation noted 3. Upper limits of normal RV systolic pressure 4. No gross pericardial effusion Findings Left Ventricle Normal left ventricular size, thickness, and systolic function. The visually estimated ejection fraction is between 60-65%. Spectral Doppler is indicative of an impaired relaxation filling pattern. E/E prime ratio is between 8 and 15 consistent with indeterminate filling pressures. Right Ventricle Normal right ventricular cavity size and systolic function. There is a pacemaker wire seen in the right ventricle. Atria The left atrium is normal in size. There is no evidence of interatrial shunt. The right atrium is normal in size. A pacemaker wire is identified in the right atrium. Aortic Valve There is mild calcification of the aortic valve. There is no aortic valve stenosis. There is mild aortic valve regurgitation. Mitral Valve There is mild anterior and posterior mitral leaflet thickening. There is trace mitral valve regurgitation. There is no mitral valve stenosis. Pulmonic Valve The pulmonic valve is likely normal. Tricuspid Valve Normal tricuspid valve structure. There is mild tricuspid valve regurgitation. Normal right atrial pressure. There is no evidence of pulmonary hypertension. Great Vessels All visible segments of the aorta are normal in size. The pulmonary artery was not well visualized. There is no dilatation of the ascending aorta. Venous The inferior vena cava is normal in size and collapses greater than 50% with inspiration. Pericardium/Pleural There is no evidence of pericardial effusion. Prior Study Comparison Changes noted compared to prior study dated: 09/20/2022. mild aortic regurgitation present Measurements 2D Linear Measurements IVSd: 1.06 0.6-0.9/0.6-1.0 cm LVIDd: 4.05 3.9-5.3/4.2-5.9 cm LVIDd Index: 2.48 2.4-3.2/2.2-3.1 cm/m2 LVIDs: 2.56 2.0-3.6 cm LVPWd: 0.63 0.7-1.1 cm Ao Root: 3.00 2.1-3.5 cm LA Diam: 3.40 2.7-3.8/3.0-4.0 cm LAIDs Index: 2.09 1.5-2.3 cm/m2 LV Mass: 127.70 67-162/88-224 g LV Mass Index: 78.34 43-95/49-115 g/m2 LVOT Diam: 1.90 3.0+(-)1.3 cm 2D Systolic Function EF 4C: 61.70 >55% EF 2C: 58.30 >55% EF BiP: 58.60 >55% Mitral Valve MV Pk E: 0.62 MV PK A: 0.79 MV Decel Time: 268.00 E/A: 0.80 E'Lateral: 7.72 E'Medial: 4.90 E/E' Med: 12.70 E/E' Lat: 8.00 PHT: 78.00 MVA PHT: 2.82 Decel Chambers: 2.32 Aortic Valve AoV Pk Uziel: 1.37 AoV Mn Uziel: 0.99 AoV VTI: 0.33 AoV Pk Grad: 8.00 Aov Mn Grad: 4.00 EDWARD Cont.VTI: 1.82 LVOT LVOT Pk Uziel: 0.85 LVOT Mn Uziel: 0.59 LVOT VTI: 0.21 LVOT Pk Grad: 3.00 LVOT Mn Grad: 2.00 LVOT Diam: 1.90 LVOT Area: 2.84 Diastolic Function MV Pk E: 0.62 MV Pk A: 0.79 E/A: 0.80 E'Medial: 4.90 E/E' Med: 12.70 E' Laterial: 7.72 E/E' Lat: 8.00 Right Ventricle TAPSE (mm): 21.80 TVS' Uziel: 12.30 Tricuspid Valve TR Pk Uziel: 2.86 TR Pk Grad: 33.00 RA Press: 3.00 RVSP: 36.00 Great Vessels Aorta Ao Root-2D: 3.00 2.0-3.7 cm Ao Asc: 2.70 2.1-3.4 cm Ao Arch: 2.00 Updated in Other Vendor System with Status of Final Saud Guzmán MD electronically signed on 10/01/2023 12:00:35 PM with status of Final
== END ==
LOC: HO.CARD 09:00
PROVIDERS: PCP Internal Medicine; Visit Provider Internal Medicine
DX: I50.22 Chronic systolic (congestive) heart failure (principal)
CPT/HCPCS: 93306

== ENCOUNTER → 2023-09-30 09:06 | Outpatient (BNV) | payer MEDICARE, SELFPAY | PROVIDERS: PCP Internal Medicine; Visit Provider Internal Medicine Cardiovascular Disease | DX: I36.1 Nonrheumatic tricuspid (valve) insufficiency (principal); I35.8 Other nonrheumatic aortic valve disorders; I50.22 Chronic systolic (congestive) heart failure | CPT/HCPCS: 93306 ==

== ENCOUNTER 2023-10-18 08:31 | Outpatient (AMB) | payer MEDICARE, SELFPAY ==
--- NOTE | 2023-10-18 08:32 | A.OFFVIS_ITS ---
Vital Signs 10/18/23 08:33 Height 5 ft Weight 148 lb 5.938 oz BMI 29.0 BP 122/72 Blood Pressure Location Lt brachial Position Sitting Pulse 75 Pulse Source Pulse Oximeter Intake Visit Reasons: Osteoporosis/LVM Intake Note: Patient present today for Osteoporosis follow up visit. Aquatic Director Required: No Accompanied by: Self / Same As Patient Allergies dronedarone [Multaq] Allergy (Severe, Verified 10/18/23 08:42) syncope flecainide Allergy (Severe, Verified 10/18/23 08:42) vertigo,blurry vision lisinopril [LISINOPRIL] Allergy (Severe, Verified 10/18/23 08:42) ANGIOEDEMA, bad cough, throat closing, tingling of head, cough losartan Allergy (Intermediate, Verified 10/18/23 08:42) dry cough, pruritus hydromorphone [Dilaudid] Adverse Reaction (Severe, Verified 10/18/23 08:42) unresponsiveness HPI Comments Details: 77 yo female today for fup visit, for secondary hyperparathyroidism and osteoporosis . She is feeling well. She has no complaints. She has h/o of vitamin D defficiency , B12 defficiency, osteoporosis, she has CKD 3. Afib on Pradaxa. She has FH of a brother with Hyperparathyroidism, he had exploratory parathryoidectomy 1 gland removed, he remains hypercalcemic after surgery last february. She had a right wrist fracture after tripped and falling at age 63. She had a L clavicle fx 2 yrs ago She had GERD on PPI's, negative FH of fractures or osteoporosis, no nephrolithiasis, no steroids used, ex smoker, quit 20 years ago, no anti seizures medications, Denies lithium use. She was on Evista , for about 10 years. Last visit I had discontinue the Evista and started the patient on alendronate 70 mg weekly. She stopped the alendronate 8 mos ago . 09/08/18 DEXA scan AP SPINE L1-L4: Current: BMD 0.978 g/cm2, Z-score 0.1, T-score -1.7, osteopenia, 2.2% decrease from previous, 2.1% decrease from baseline (<5% change is not significant). Prior: BMD 1.000 g/cm2. Baseline: BMD 0.999 g/cm2. LEFT FEMUR, NECK: Current: BMD 0.684 g/cm2, Z-score -0.6, T-score -2.5, osteoporosis. Prior: BMD 0.659 g/cm2. Baseline: BMD 0.747 g/cm2. LEFT FEMUR, TOTAL: Current: BMD 0.748 g/cm2, Z-score -0.3, T-score -2.1, osteopenia, 2.5% increase from previous, 10.2% decrease from baseline (<5% change is not significant). Prior: BMD 0.730 g/cm2. Baseline: BMD 0.833 g/cm2. 11/09/22 FINDINGS: LEFT FEMUR, NECK: Current: BMD 0.652 g/cm2, Z-score -0.7, T-score -2.8, osteoporosis. Prior: BMD 0.671 g/cm2. Baseline: BMD 0.747 g/cm2. LEFT FEMUR, TOTAL: Current: BMD 0.745 g/cm2, Z-score -0.1, T-score -2.1, osteopenia, 0.1% increase from previous, 10.6% decrease from baseline (<5% change is not significant). Prior: BMD 0.744 g/cm2. Baseline: BMD 0.833 g/cm2. AP SPINE L1-L2 (excluding L3 and L4): The data of L1-L4 has been changed to exclude the L3 and L4 vertebral bodies, because degenerative sclerosis at these levels may cause overestimation of lumbar spine density. Current: BMD 0.987 g/cm2, Z-score 0.3, T-score -1.5, osteopenia, 1.0% decrease from previous, 7.9% increase from baseline (<5% change is not significant). Prior: BMD 0.997 g/cm2. Baseline: BMD 0.915 g/cm2. IDENTIFIED RISK FACTORS: Early menopause, history of fracture (adult), hysterectomy, left oophorectomy, osteoporosis, secondary osteoporosis. HISTORY OF FRACTURE: Other. MEDICATIONS: Calcium, vitamin D. MM/XR DEXA axial skeleton IMPRESSION: 1. DIAGNOSIS: Osteoporosis based on the lowest T-score value of -2.8 in the femoral neck applying World Health Organization criteria. Prior important labs: calcium trended since 2007 to 2018 range from 9.0 to 10.2 mg/dl Albumin trended from 1995 to 2017 range 3.6 to 4.8 g/dl ALk phosphatase 1995 to 2017 ranges from 47 to 78 U/L phosphorous trned 2006 to 2010 2.8 to 3.0 mg/dl magnesium 2010 1.8 to 2 mg/dl. 07/04/06 24 h calcium urine 81 mg/dl 24h, creatinine was low. 01/14/17 PTH 78 pg/ml Calcium 9.6 mg/dl Albumin 3.6 g/dl Ionized calcium 5.6 mg/dl Vit D 25.7 ng/dl Vit D 2011 25.8 ng/dl 2016 25.7 ng.dl 2017 71.4 ng/dl after 10,000 Iu daily. 04/29/17 Creat 1.07 mg/dl GFR 50 ml/mimn Calcium 9.9 mg/dl albumin 3.8 g/dl Corrected calcium 10.1 mg/dl. Laboratory Tests 05/10/19 10/29/19 10/29/19 07:30 10:40 10:40 Sodium Potassium Creatinine Estimated GFR Calcium Alkaline Phosphatase Albumin N-Telopeptide X-linked 29 Collgn I C-Telopeptide 25-OH Vitamin D Total TSH 3rd Generation 1.91 PTH Intact Calcium (PTH Intact) Bone Specific Alk Phos 8.4 05/14/20 05/14/20 08:15 08:15 Sodium 142 Potassium 4.3 Creatinine 1.12 Estimated GFR 47 Calcium 9.8 Alkaline Phosphatase 43 Albumin 4.1 N-Telopeptide X-linked Collgn I C-Telopeptide 138 25-OH Vitamin D Total 44.0 TSH 3rd Generation PTH Intact 59 Calcium (PTH Intact) 10.1 Bone Specific Alk Phos Laboratory Tests 01/05/18 09/08/18 07:00 00:00 Ur 24 Hour Volume 1300 1225 Ur Creatinine 24 Hour 0.78 0.49 L Ur Calcium 24 Hr 44 61 Calcium/Creat 24 Hr 57 126 laboratory values indicate the presence of primary hyperparathyroidism [facility] Medical History Active Meniere's disease Tubular adenoma Positive colorectal cancer screening using Cologuard test Hypercalcemia Diverticulosis Hiatal hernia GERD (gastroesophageal reflux disease) Epigastric pain Dysphagia JESU (obstructive sleep apnea) Hyperparathyroidism Osteoporosis Dyslipidemia Heart failure Paroxysmal atrial fibrillation Cardiac pacemaker in situ Sick sinus syndrome COPD (chronic obstructive pulmonary disease) Surgical History H/O bilateral cataract extraction History of esophagogastroduodenoscopy (EGD) Hx of colonoscopy History of total abdominal hysterectomy and bilateral salpingo-oophorectomy History of total left knee replacement History of pacemaker History of laparoscopic cholecystectomy Family History Father COPD (chronic obstructive pulmonary disease) Mother CAD (coronary artery disease) CVD (cardiovascular disease) Daughter No problems noted. Social History Housing: House Alcohol intake: current Alcohol intake frequency: holidays/special occasions only Alcohol type: wine Patient Tobacco Use Status: Former Tobacco user Tobacco use type: Cigarette e-Cigarette/Vaping Use: Never Used Second Hand Smoke Exposure: No service: No Current occupational status: retired Cognitive needs: No Hearing needs: No Vision needs: No Assessment & Plan Assessment & Plan (1) Osteoporosis: Code(s): M81.0 - Age-related osteoporosis without current pathological fracture Category: Medical Qualifiers: Osteoporosis type: age-related Presence of current pathological fracture: without current pathological fracture Qualified Code(s): M81.0 - Age- related osteoporosis without current pathological fracture Plan: This is a 77-year-old white female with a history of osteoporosis and a distant wrist fracture was treated with Evista for 10 years and more recently alendronate for 2 years. Currently not on pharmacologic therapy. Recent DEXA bone density shows stability but in the osteoporotic range. Urine NTX suppressed. Currently on alendronate 70 mg Q weekly The plan is to continue alendronate. Will check urine NTX (2) Hyperparathyroidism: Code(s): E21.3 - Hyperparathyroidism, unspecified Category: Medical Plan: Family history of primary hyperparathyroidism. Calcium is mildly elevated. Lab value from [facility] reference lab confirms the presence of primary hyperparathyroidism. Repeat calcium shows mild elevation As was outlined in the previous note, patient has chosen to go on medical therapy and not to proceed with surgical exploration. We will continue alendronate Orders: Orders Collagen Crosslinks NTX Today M81.0 - Age-related osteoporosis without current pathological fracture Coding Level of Care Code Est Pt Level 3 (56634) Diagnoses Age-related osteoporosis without current pathological fracture M81.0 Osteoporosis type: age-related Presence of current pathological fracture: without current pathological fracture Hyperparathyroidism E21.3
[2023-10-18 08:33] VITALS: BP 122/72; PULSE 75; BMI 29.0
== END 2023-10-18 08:49 | disposition home or self-care (01) ==
PROVIDERS: PCP Internal Medicine; Visit Provider Internal Medicine Endocrinology, Diabetes & Metabolism
DX: M81.0 Age-related osteoporosis without current pathological fracture (principal); E21.3 Hyperparathyroidism, unspecified
CPT/HCPCS: 99213

== ENCOUNTER → 2023-10-18 08:31 | Outpatient (BNVA) | payer MEDICARE, SELFPAY | PROVIDERS: PCP Internal Medicine; Visit Provider Internal Medicine Endocrinology, Diabetes & Metabolism | DX: M81.0 Age-related osteoporosis without current pathological fracture (principal); E21.3 Hyperparathyroidism, unspecified; Z90.710 Acquired absence of both cervix and uterus; Z90.721 Acquired absence of ovaries, unilateral; Z78.0 Asymptomatic menopausal state | CPT/HCPCS: 99212 ==

== ENCOUNTER → 2023-11-14 23:59 | Outpatient (BNV) | payer MEDICARE, SELFPAY ==
--- NOTE | 2023-11-21 17:26 | A.OFFVIS_ITS ---
Intake Visit Reasons: Remote device check- [facility] Allergies dronedarone [Multaq] Allergy (Severe, Verified 10/18/23 08:42) syncope flecainide Allergy (Severe, Verified 10/18/23 08:42) vertigo,blurry vision lisinopril [LISINOPRIL] Allergy (Severe, Verified 10/18/23 08:42) ANGIOEDEMA, bad cough, throat closing, tingling of head, cough losartan Allergy (Intermediate, Verified 10/18/23 08:42) dry cough, pruritus hydromorphone [Dilaudid] Adverse Reaction (Severe, Verified 10/18/23 08:42) unresponsiveness [facility] Medical History Active Meniere's disease Tubular adenoma Positive colorectal cancer screening using Cologuard test Hypercalcemia Diverticulosis Hiatal hernia GERD (gastroesophageal reflux disease) Epigastric pain Dysphagia JESU (obstructive sleep apnea) Hyperparathyroidism Osteoporosis Dyslipidemia Heart failure Paroxysmal atrial fibrillation Cardiac pacemaker in situ Sick sinus syndrome COPD (chronic obstructive pulmonary disease) Surgical History H/O bilateral cataract extraction History of esophagogastroduodenoscopy (EGD) Hx of colonoscopy History of total abdominal hysterectomy and bilateral salpingo-oophorectomy History of total left knee replacement History of pacemaker History of laparoscopic cholecystectomy Family History Father COPD (chronic obstructive pulmonary disease) Mother CAD (coronary artery disease) CVD (cardiovascular disease) Daughter No problems noted. Social History Housing: House Alcohol intake: current Alcohol intake frequency: holidays/special occasions only Alcohol type: wine Patient Tobacco Use Status: Former Tobacco user Tobacco use type: Cigarette e-Cigarette/Vaping Use: Never Used Second Hand Smoke Exposure: No service: No Current occupational status: retired Cognitive needs: No Hearing needs: No Vision needs: No Office Procedures Cardiac Device Check Cardiac Device Check Details: Remote pacemaker report generated 11/14/2023. Pacemaker function is adequate. Total burden of atrial fibrillation 7.7% [id number] Cardiac Device Interrogation, pacemaker Procedure code (CPT) selection complete Assessment & Plan Assessment & Plan (1) Cardiac pacemaker in situ: Code(s): Z95.0 - Presence of cardiac pacemaker Category: Medical Plan: See above Coding Level of Care Code Procedure Only Diagnoses Cardiac pacemaker in situ Z95.0 CPT Codes Cardiac Device Check - Cardiac Device 12: [id number] Cardiac Device Interrogation, pacemaker ([id number])
== END ==
PROVIDERS: PCP Internal Medicine; Visit Provider Internal Medicine Cardiovascular Disease
DX: I48.91 Unspecified atrial fibrillation (principal); Z95.0 Presence of cardiac pacemaker
CPT/HCPCS: 93294

== ENCOUNTER 2023-11-21 09:15 | Outpatient (AMB) | payer MEDICARE, SELFPAY ==
[2023-11-21 09:16] VITALS: BP 120/82; PULSE 73; BMI 28.0
--- NOTE | 2023-11-21 09:16 | MHC.OFFVIS ---
Vital Signs 11/21/23 09:16 Height 5 ft Weight 143 lb 4.807 oz BMI 28.0 BP 120/82 Blood Pressure Location Lt brachial Position Sitting Pulse 73 Intake Visit Reasons: 6 mth w/ pacer ck Intake Note: 6 month follow-up [facility] pacer check feeling good Registry Rn Required: No Allergies dronedarone [Multaq] Allergy (Severe, Verified 10/18/23 08:42) syncope flecainide Allergy (Severe, Verified 10/18/23 08:42) vertigo,blurry vision lisinopril [LISINOPRIL] Allergy (Severe, Verified 10/18/23 08:42) ANGIOEDEMA, bad cough, throat closing, tingling of head, cough losartan Allergy (Intermediate, Verified 10/18/23 08:42) dry cough, pruritus hydromorphone [Dilaudid] Adverse Reaction (Severe, Verified 10/18/23 08:42) unresponsiveness Medication List - Last Reconciled 11/21/23 by Saud Guzmán MD alendronate 70 mg PO QWEEK biotin 1,000 mcg PO DAILY calcium carbonate-vitamin D3 500 mg-10 mcg (400 unit) (Calcium 500 + D) 2 tabs PO DAILY dabigatran etexilate 150 mg PO BID 90 days fluoride (sodium) 1.1% 1 appl PO BEDTIME lovastatin 20 mg PO DAILY metoprolol succinate ER 50 mg PO DAILY multivitamin,ax-emmw-iakzkolm (Complete Multivitamin tablet) 1 tab PO DAILY pantoprazole 40 mg PO DAILY polyethylene glycol 3350 (Miralax) 17 grams PO DAILY tolterodine ER 4 mg PO DAILY 30 days vitamins A,C,E-ydjl-nxhpti 4,296 mcg-226 mg-90 mg (PreserVision AREDS) 1 cap PO BID HPI Comments Details: Nancy comes for follow-up. She has been doing well. 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 Does get mildly short of breath but this improves. She denies any orthopnea, PND, leg edema. Denies any abdominal distension, weight gain. Denies any exertional chest pain. No wheezing. In August she had frequent episodes of atrial fibrillation which was more persistent. She comes today and is in atrially paced rhythm. She had brief episodes of atrial fibrillation November 13 November 20. She said this was probably related to new medication Myrbetriq there was prescribed for her and she was feeling tired and weak. She since stopping that her symptoms have improved. She denies any bleeding issues or neurologic events. FORMERLY [facility], [facility]–1983 Medical History Active Meniere's disease Tubular adenoma Positive colorectal cancer screening using Cologuard test Hypercalcemia Diverticulosis Hiatal hernia GERD (gastroesophageal reflux disease) Epigastric pain Dysphagia JESU (obstructive sleep apnea) Hyperparathyroidism Osteoporosis Dyslipidemia Heart failure Paroxysmal atrial fibrillation Cardiac pacemaker in situ Sick sinus syndrome COPD (chronic obstructive pulmonary disease) Surgical History H/O bilateral cataract extraction History of esophagogastroduodenoscopy (EGD) Hx of colonoscopy History of total abdominal hysterectomy and bilateral salpingo-oophorectomy History of total left knee replacement History of pacemaker History of laparoscopic cholecystectomy Family History Father COPD (chronic obstructive pulmonary disease) Mother CAD (coronary artery disease) CVD (cardiovascular disease) Daughter No problems noted. Social History Housing: House Alcohol intake: current Alcohol intake frequency: holidays/special occasions only Alcohol type: wine Patient Tobacco Use Status: Former Tobacco user Tobacco use type: Cigarette e-Cigarette/Vaping Use: Never Used Second Hand Smoke Exposure: No service: No Current occupational status: retired Cognitive needs: No Hearing needs: No Vision needs: No Review of Systems Const Denies chills, Denies fatigue, Denies fever(s), Denies frequent falls, Denies weakness, Denies weight gain and Denies weight loss ENT Denies dizziness Card Denies chest pain, Denies leg edema, Denies lightheadedness, Denies palpitations, Denies dyspnea, Denies dyspnea on exertion, Denies orthopnea and Denies other (loss of consciousness) Resp Denies cough, Denies dyspnea and Denies dyspnea on exertion GI Denies hematochezia and Denies change in stool character Musc Denies abnormal gait, Denies muscle weakness, Denies numbness, Denies radiating pain into limb and Denies tingling Neuro Denies abnormal gait, Denies dizziness, Denies frequent falls, Denies numbness, Denies tingling and Denies weakness Endo Denies fatigue and Denies palpitations Physical Exam Vital Signs: Last Vital Signs Pulse 73 11/21/23 09:16 BP 120/82 11/21/23 09:16 BMI result Body Mass Index 28.0 Const General: cooperative, comfortable, no acute distress, alert, awake and well groomed Nutritional Appearance: average body habitus Orientation/consciousness: patient oriented x3 Limitations: no limitations Neck Neck: Yes trachea midline, Yes supple and Yes no JVD Resp Effort & Inspection: normal respiratory effort Auscultation: clear to auscultation bilaterally Cardio Jugular venous distension: no JVD Palpation: normal PMI Rhythm: abnormal rhythm irregularly irregular Heart sounds: S1 normal heart sound present, S2 normal heart sound present, no click, no gallops and no murmurs GI Auscultation: normal bowel sounds Skin General skin exam: no rashes or lesions noted Neuro General: patient oriented x3 and no focal motor deficits Extrem General: Yes no clubbing, cyanosis or edema Psych Appearance: grossly normal Office Procedures Cardiac Device Check Cardiac Device Check Details: Dual-chamber [facility] pacemaker in place. Reprogrammed from DDIR to DDDR. Few episodes of atrial fibrillation noted. [place] was 8% since 11/21/2023. Atrial sensitivity is excellent. Atrial capture thresholds excellent. Ventricular sensing and ventricular capture thresholds excellent. Total atrial pacing 80% of the time. Pacing lead impedance is stable. Battery life is at about 3 years [id number] Cardiac Device Check, pacemaker dual lead Procedure code (CPT) selection complete Assessment & Plan Assessment & Plan (1) Paroxysmal atrial fibrillation: Code(s): I48.0 - Paroxysmal atrial fibrillation Category: Medical Plan: Paroxysmal atrial fibrillation with still 8% burden. She had symptoms when she was persistently in atrial fibrillation. If this happens again she will probably need antiarrhythmic drug therapy. She has not tolerated flecainide therapy in the past and would not be a good candidate for amiodarone therapy. May consider using Tikosyn. Will monitor her. At this point time her pacemaker was reprogrammed, see below. Continue full oral anticoagulation, currently on dabigatran 150 mg b.i.d.. Semi annual renal function test should be pursued. Mrs. Malcolm was discussed advised to call me with new symptoms. Will continue monitor remotely (2) Cardiac pacemaker in situ: Code(s): Z95.0 - Presence of cardiac pacemaker Category: Medical Plan: Cardiac pacemaker in-situ, with sick sinus syndrome. Currently working well. Reprogrammed for adequate function. Will follow remotely every 3 months. Follow up in the clinic in 6 months time. (3) Heart failure: Code(s): I50.9 - Heart failure, unspecified Category: Medical Qualifiers: Heart failure chronicity: chronic Heart failure type: systolic Qualified Code(s): I50.22 - Chronic systolic (congestive) heart failure Plan: Heart failure in the setting of persistent atrial fibrillation. Currently clinically euvolemic and well compensated. Her current shortness of breath is most likely related to underlying COPD. No clinical signs of fluid overload. No indication for loop diuretic therapy. Develops recurrent heart failure like syndrome with persistent atrial fibrillation will most likely require rhythm control approach. Will monitor closely clinically. Advised to call me with any new symptoms. Follow up in the clinic in 6 months time, sooner p.r.n.. Thank you for allowing me to partake in her care Coding Level of Care Code Est Pt Level 4 (19773) Diagnoses Paroxysmal atrial fibrillation I48.0 Cardiac pacemaker in situ Z95.0 Chronic systolic heart failure I50.22 Heart failure chronicity: chronic Heart failure type: systolic CPT Codes Cardiac Device Check - Cardiac Device 2: [id number] Cardiac Device Check, pacemaker dual lead ([id number])
== END 2023-11-21 09:37 | disposition home or self-care (01) ==
PROVIDERS: PCP Internal Medicine; Visit Provider Internal Medicine Cardiovascular Disease
DX: I48.0 Paroxysmal atrial fibrillation (principal); Z95.0 Presence of cardiac pacemaker; I50.22 Chronic systolic (congestive) heart failure
CPT/HCPCS: 93280; 99214

== ENCOUNTER → 2023-11-21 09:15 | Outpatient (BNVA) | payer MEDICARE, SELFPAY | PROVIDERS: PCP Internal Medicine; Visit Provider Internal Medicine Cardiovascular Disease | DX: Z45.018 Encounter for adjustment and management of other part of cardiac pacemaker (principal); I48.0 Paroxysmal atrial fibrillation; I50.22 Chronic systolic (congestive) heart failure | CPT/HCPCS: 93280; 99212 ==

== ENCOUNTER 2023-12-01 08:15 | Outpatient (REF) | payer MEDICARE, SELFPAY ==
--- NOTE | ~2023-12-01 | MM_ITS ---
EXAMINATION: MM SCREENING DIGITAL BREAST TOMOSYNTHESIS, BILATERAL CLINICAL INFORMATION: Screening. Asymptomatic. Patient with known fibrocystic breast tissue. COMPARISON: Mammography: 11/25/2022, 10/30/2021, 10/28/2020, 09/07/2019, and exams dating back to 2017. TECHNIQUE: Digital breast tomosynthesis is performed in both the craniocaudal and mediolateral oblique views along with computer-aided detection (CAD). Synthesized 2D images are generated from the tomosynthesis. In addition, added full field left MLO view was obtained, as well as an exaggerated lateral right CC view. FINDINGS: The breasts are heterogeneously dense, which may obscure small masses (ACR BI-RADS breast composition Category c). Redemonstration of a pacemaker device overlying the left superior chest wall on the MLO views. There is a stable parenchymal pattern of both breasts. There are unchanged oval and round small masses in both breasts. Prior ultrasound demonstrated multiple complex cysts and prominent ducts within the breasts. Marked duct ectasia in the retroareolar right breast again present, stable. Milder ectasia in the left breast, stable. There are vascular calcifications and scattered bilateral benign type calcifications which are unchanged. No suspicious masses, suspicious grouped calcifications, or areas of architectural distortion are present in either breast. There is no skin or axillary abnormality. MM/MM tomosynthesis screening BI IMPRESSION: No mammographic evidence of malignancy in either breast. Stable benign findings bilaterally. ASSESSMENT: BI-RADS BI-RADS 2 - Benign Findings RECOMMENDATION: Routine annual mammography screening. 1 year F/U This examination should not preclude the clinical evaluation of a suspicious palpable abnormality. This patient's information was entered into a reminder system with a target due date for their next mammogram. Electronically signed by: Kody Sesay MD 12/01/2023 12:56 PM EDT
[2023-12-01 10:12] LABS: Calcium 10.1 mg/dL (8.4-10.2)
[2023-12-01 10:15] LABS: Parathyroid Hormone Intact 161.2 pg/mL (8.7-77.1)
[2023-12-07 16:13] LABS: N-Telopeptide 15 (see note); NTXCreaRU 102 mg/dL (20-275)
== END 2023-12-01 08:16 | disposition home or self-care (01) ==
LOC: HO.MAMMO 08:15
PROVIDERS: Absent Provider Internal Medicine Endocrinology, Diabetes & Metabolism; PCP Internal Medicine; Visit Provider Internal Medicine
DX: Z12.31 Encounter for screening mammogram for malignant neoplasm of breast (principal); E21.3 Hyperparathyroidism, unspecified; M81.0 Age-related osteoporosis without current pathological fracture
CPT/HCPCS: 36415; 77063; 77067; 82310; 82523; 83970

== ENCOUNTER → 2023-12-01 08:30 | Outpatient (BNV) | payer MEDICARE, SELFPAY | PROVIDERS: Absent Provider Internal Medicine Endocrinology, Diabetes & Metabolism; PCP Internal Medicine; Visit Provider Radiology Diagnostic Radiology | DX: Z12.31 Encounter for screening mammogram for malignant neoplasm of breast (principal) | CPT/HCPCS: 77063; 77067 ==

== ENCOUNTER 2023-12-28 08:41 | Outpatient (AMB) | payer MEDICARE, SELFPAY ==
--- NOTE | 2023-12-28 08:52 | A.OFFVIS_ITS ---
Intake Visit Reasons: 3m follow up Intake Note: Patient presents for follow up visit on: incontinence Urology Medications: tolterodine (stopped) Blood Thinner: Pradaxa PVR: 46ml's Hand Counter Required: No Accompanied by: Self / Same As Patient Allergies dronedarone [Multaq] Allergy (Severe, Verified 12/28/23 09:23) syncope flecainide Allergy (Severe, Verified 12/28/23 09:23) vertigo,blurry vision lisinopril [LISINOPRIL] Allergy (Severe, Verified 12/28/23 09:23) ANGIOEDEMA, bad cough, throat closing, tingling of head, cough losartan Allergy (Intermediate, Verified 12/28/23 09:23) dry cough, pruritus hydromorphone [Dilaudid] Adverse Reaction (Severe, Verified 12/28/23 09:23) unresponsiveness Medication List - Last Reconciled 12/28/23 by ERIC Robertson- alendronate 70 mg PO QWEEK biotin 1,000 mcg PO DAILY calcium carbonate-vitamin D3 500 mg-10 mcg (400 unit) (Calcium 500 + D) 2 tabs PO DAILY dabigatran etexilate 150 mg PO BID 90 days fluoride (sodium) 1.1% 1 appl PO BEDTIME lovastatin 20 mg PO DAILY metoprolol succinate ER 50 mg PO DAILY multivitamin,qf-yfop-qsafphht (Complete Multivitamin tablet) 1 tab PO DAILY nitrofurantoin macrocrystal 100 mg PO BID 5 days pantoprazole 40 mg PO DAILY polyethylene glycol 3350 (Miralax) 17 grams PO DAILY tolterodine ER 4 mg PO DAILY 30 days vitamins A,C,O-laxj-hdwpkx 4,296 mcg-226 mg-90 mg (PreserVision AREDS) 1 cap PO BID HPI Comments Details: Nancy is a very pleasant 78-year-old female patient of Dr. Goff. She has a past medical history of Meniere's disease, old hypercalcemia, diverticulo sis, hiatal hernia, GERD, obstructive sleep apnea, hyperparathyroidism, osteoporosis, dyslipidemia, heart failure, paroxysmal AFib, sick sinus syndrome status post [facility] pacemaker, and COPD. She presents to the office today for a follow up of her ongoing lower urinary tract symptoms. In discussion with the patient today she reports since her last office visit here approximately 3 months ago she has since stopped her tolterodine as she felt she was experiencing runny nose and a cough related to the medication. She also reports calling PCP office 9 days ago to report lower urinary tract symptoms at which time she was given Macrobid however was sent to her mail away pharmacy and she just started Macrobid last night. In review of patient's chart is not appear a urine culture was ordered and or obtained. In office urinalysis results reviewed with the patient today 1+ leukocytes pH 5.5 and 2+ microscopic blood. We discussed lower urinary tract symptoms verses urinary tract infection. PVR 46 mL. Previous workup has included a retroperitoneal ultrasound 10/04 noting bilateral kidneys with no hydronephrosis. Right kidney with mild diffuse renal cortical thickening multiple renal cysts largest 1.1 cm upper pole there is no specific indication for additional imaging follow-up per radiology report. Left kidney with multiple anechoic foci i in the left peripelvic region may be related to caliectasis and/or pelvic cysts. May represent parapelvic cysts, largest 1.1 cm. The bladder is moderately distended. Bladder ureteral jets are demonstrated. Pre void bladder volume is approximately 130 mL. Postvoid bladder volume is approximately 10 mL. She reports feeling that although she was experiencing runny nose and cough with tolterodine she did feel improvement in urinary urgency, urinary frequency, and mixed urinary incontinence episodes she had been experiencing. She discusses these symptoms have been present for many years and continues to inquire if she is a candidate for a bladder lift and or suspension. We discussed at length risks and benefits of further surgical intervention. When asked she does report a history of 2 vaginal births of average size babies. She reports labors were approximately 4-5 hours long. She reports utilizing 2-3 Ayala pads per day. She otherwise denies hematuria, dysuria, foul smelling urine, changes to urinary stream, flank pain, fever, and or chills. Discussed further treatment options of mixed urinary incontinence. She has trialed Myrbetriq and oxybutynin with no improvement in her lower urinary tract symptoms. She continues to report UTI like symptoms at this time. She reports urinary urgency, urinary frequency, dysuria, and nocturia. Discussed completion of antibiotic therapy as prescribed by PCP. She otherwise offers no other issues or concerns at this time. [facility] Medical History Active Meniere's disease Tubular adenoma Positive colorectal cancer screening using Cologuard test Hypercalcemia Diverticulosis Hiatal hernia GERD (gastroesophageal reflux disease) Epigastric pain Dysphagia JESU (obstructive sleep apnea) Hyperparathyroidism Osteoporosis Dyslipidemia Heart failure Paroxysmal atrial fibrillation Cardiac pacemaker in situ Sick sinus syndrome COPD (chronic obstructive pulmonary disease) Surgical History H/O bilateral cataract extraction History of esophagogastroduodenoscopy (EGD) Hx of colonoscopy History of total abdominal hysterectomy and bilateral salpingo-oophorectomy History of total left knee replacement History of pacemaker History of laparoscopic cholecystectomy Family History Father COPD (chronic obstructive pulmonary disease) Mother CAD (coronary artery disease) CVD (cardiovascular disease) Daughter No problems noted. Social History Housing: House Alcohol intake: current Alcohol intake frequency: holidays/special occasions only Alcohol type: wine Patient Tobacco Use Status: Former Tobacco user Tobacco use type: Cigarette e-Cigarette/Vaping Use: Never Used Second Hand Smoke Exposure: No service: No Current occupational status: retired Cognitive needs: No Hearing needs: No Vision needs: No Review of Systems Const Reports as per HPI Eyes Reports no additional complaints ENT Reports no additional complaints Card Reports as per HPI Resp Reports as per HPI GI Reports as per HPI Reports as per HPI Musc Reports as per HPI Neuro Reports as per HPI Psych Reports no additional complaints Endo Reports no additional complaints Kvng/Lymph Reports no additional complaints Aller/Immun Reports no additional complaints Physical Exam Const General: cooperative, healthy appearing, comfortable, no acute distress, well developed, alert and awake Orientation/consciousness: patient oriented x3 Limitations: no limitations HEENT Head: Yes normal to inspection, Yes normocephalic and Yes atraumatic Ears: hearing grossly normal bilaterally Eyes General: appearance normal, both eyes and all related structures Neck Neck: Yes normal visual inspection and Yes trachea midline Chest Chest palpation & inspection: normal inspection of the chest Resp Effort & Inspection: normal respiratory effort and able to speak in complete sentences Cardio Rate: regular rate GI Inspection: Yes normal to inspection General: Yes no CVA tenderness Back/Spine/Pelvis Back: no CVA tenderness Skin General skin exam: no rashes or lesions noted Neuro General: patient oriented x3 Extrem General: Yes normal to inspection Psych Appearance: grossly normal and well kempt Mental Status: mental status grossly normal Speech and movement: Normal speech and movement present and Clear speech present Affect: normal affect Attitude: cooperative Thought process: Normal thought process present Thought content: Normal thought content present Insight: Fair insight present (Psych) Judgement: Fair judgement present (Psych) Office Procedures Post Void Residual Post Residual Void Post Void Residual (PVR): 46 [id number] Void Residual by ultrasound Results AMB Urinalysis, Automated UA Leukoctes 70 Fredy/uL Last Edit by Aud[employer] on 12/28/23 09:44 UA Nitrite Last Edit by [employer] on 12/28/23 09:44 UA Urobilinogen 0.2 mg/dL Last Edit by [employer] on 12/28/23 09:44 UA Protein 15 mg/dL Last Edit by [employer] BreOB[employer] on 12/28/23 09:44 UA pH 5.5 Last Edit by [employer] on 12/28/23 09:44 UA Blood 80 Eyad/uL Last Edit by [employer] on 12/28/23 09:44 UA Specific [place] 1.015 Last Edit by [employer] on 12/28/23 09:44 UA Ketone Last Edit by Audaciousyce BreOB10 on 12/28/23 09:44 UA Bilirubin 0 mg/dL Last Edit by [email or web address] on 12/28/23 09:44 UA Glucose 0 mg/dL Last Edit by Audaciousyce Bress on 12/28/23 09:44 Assessment & Plan Assessment & Plan (1) Microscopic hematuria: Code(s): R31.29 - Other microscopic hematuria Category: Medical (2) Nocturia: Code(s): R35.1 - Nocturia Category: Medical (3) Urinary incontinence, mixed: Code(s): N39.46 - Mixed incontinence Category: Medical (4) Urinary incontinence: Code(s): R32 - Unspecified urinary incontinence Category: Medical (5) Lower urinary tract symptoms: Code(s): R39.9 - Unspecified symptoms and signs involving the genitourinary system Category: Medical Plan In office urinalysis results reviewed with the patient today; as noted above. PVR 46 mL We discussed at length potential causes of lower urinary tract symptoms patient is experiencing Discussed completing antibiotic therapy as prescribed by PCP. Discussed calling office if UTI like symptoms continue despite completion of antibiotic therapy for potential urine culture or microgen for further assessment evaluation. Discussed possible near future urodynamics and or in office cystoscopy Discuss trial of festosterodine verses VESIcare verses Gemtesa. Discussed, educated, and stressed the importance of adequate hydration relation to lower urinary tract symptoms as well as overall health and well-being. Discussed UTI prevention with D mannose supplement, vitamin-C, increasing fluid intake, behavioral therapy with timed voiding, perineal hygiene and postcoital voiding, and management of constipation with stool softeners and increased fiber intake. Follow-up in 1 month with PVR; or sooner with any issues, concerns, and or questions. Orders: Orders AMB Urinalysis Automated Today Z13.9 - Encounter for screening, unspecified AMB Post Void Residual by ultrasound Today N39.46 - Mixed incontinence Patient Instructions: The patient had an opportunity to ask questions regarding the treatment plan. All questions were answered. Physical exam, labs, and imaging were discussed and reviewed in detail. As well as risks, benefits, and discussion of treatment choices. No major barriers to understanding were identified. The patient expressed understanding and agreement with the above treatment plan. The patient was made aware they should contact our office by phone for worsening of their current condition, the appearance of new symptoms, or with any questions or concerns. Compliance is encouraged with any medications and follow up testing that is ordered. It is a privilege to be allowed the opportunity to participate in? your urological care.? Again, if you have any questions or concerns If you have any questions or concerns please do not hesitate to contact me. The office is [phone]. This note is constructed using voice recognition software. While every effort has been made to ensure accuracy cpc coder errors may have been included. Yours sincerely, MAR Robertson Coding Level of Care Code Est Pt Level 3 (64288) Complex EM visit Add On G2211 Diagnoses Microscopic hematuria R31.29 Nocturia R35.1 Urinary incontinence, mixed N39.46 Urinary incontinence R32 Lower urinary tract symptoms R39.9 CPT Codes Post Residual Void - PVR CPT Code: 11255-Ivwg Void Residual by ultrasound ([id number])
== END 2023-12-28 10:09 | disposition home or self-care (01) ==
PROVIDERS: PCP Internal Medicine; Visit Provider Nurse Practitioner Family
DX: R31.29 Other microscopic hematuria (principal); R35.1 Nocturia; N39.46 Mixed incontinence; R39.9 Unspecified symptoms and signs involving the genitourinary system
CPT/HCPCS: 99213

== ENCOUNTER → 2023-12-28 08:41 | Outpatient (BNVA) | payer MEDICARE, SELFPAY | PROVIDERS: PCP Internal Medicine; Visit Provider Nurse Practitioner Family | DX: R31.29 Other microscopic hematuria (principal); R35.1 Nocturia; R32 Unspecified urinary incontinence; R39.9 Unspecified symptoms and signs involving the genitourinary system; N39.46 Mixed incontinence | CPT/HCPCS: 51798; 81003; 99212 ==

== ENCOUNTER 2024-01-02 09:31 | Outpatient (REF) | payer MEDICARE, SELFPAY ==
[2024-01-02 11:02] LABS: Parathyroid Hormone Intact 99.5 pg/mL (8.7-77.1)
[2024-01-02 11:04] LABS: Anion Gap 12 (12-20)
[2024-01-02 11:08] LABS: Albumin Level 4.1 g/dL (3.5-5.0); Alkaline Phosphatase 52 U/L (39-117); Bilirubin Total 0.8 mg/dL (0.0-1.0); Blood Urea Nitrogen 14 mg/dL (9-16); Carbon Dioxide 26 mmol/L (22-29); Chloride 107 mmol/L (96-108); Cholesterol 159 mg/dL (<200); Estimated Glomerular Filt Rate 53; Glucose Fasting 100 mg/dL (60-99); HDL Cholesterol 47 mg/dL (>40); LDL Cholesterol Calculated 84 mg/dL (<100); Potassium 4.5 mmol/L (3.3-5.1); Sodium 140 mmol/L (135-145); Total Protein 7.2 g/dL (6.5-8.0); Triglycerides 142 mg/dL (<150)
[2024-01-02 11:20] LABS: Vitamin D 25-OH Total 64.1 ng/mL (>30)
[2024-01-02 12:44] LABS: Alanine Aminotransferase 19 U/L (0-31); Aspartate Amino Transferase 26 U/L (5-31)
[2024-01-07 14:34] LABS: NT-proBNP 228 pg/mL (<450)
== END 2024-01-02 09:32 | disposition home or self-care (01) ==
LOC: HO.LAB 09:31
PROVIDERS: Absent Provider Internal Medicine; PCP Internal Medicine; Visit Provider Internal Medicine Endocrinology, Diabetes & Metabolism
DX: I50.22 Chronic systolic (congestive) heart failure (principal); E78.5 Hyperlipidemia, unspecified; E55.9 Vitamin D deficiency, unspecified
CPT/HCPCS: 36415; 80053; 80061; 82306; 83880; 83970

== ENCOUNTER 2024-01-23 07:39 | Outpatient (AMB) | payer MEDICARE, SELFPAY ==
--- NOTE | 2024-01-23 07:49 | A.OFFVIS_ITS ---
Intake Visit Reasons: 4Week f/u Intake Note: Patient presents for follow up visit on: incontinence Urology Medications: none Blood Thinner: Pradaxa PVR: 23ml's Department Administrator Required: No Accompanied by: Self / Same As Patient Allergies dronedarone [Multaq] Allergy (Severe, Verified 01/23/24 09:59) syncope flecainide Allergy (Severe, Verified 01/23/24 09:59) vertigo,blurry vision lisinopril [LISINOPRIL] Allergy (Severe, Verified 01/23/24 09:59) ANGIOEDEMA, bad cough, throat closing, tingling of head, cough losartan Allergy (Intermediate, Verified 01/23/24 09:59) dry cough, pruritus hydromorphone [Dilaudid] Adverse Reaction (Severe, Verified 01/23/24 09:59) unresponsiveness Medication List - Last Reconciled 01/23/24 by ERIC Robertson-PAULINE alendronate 70 mg PO QWEEK biotin 1,000 mcg PO DAILY calcium carbonate-vitamin D3 500 mg-10 mcg (400 unit) (Calcium 500 + D) 2 tabs P O DAILY dabigatran etexilate 150 mg PO BID 90 days fluoride (sodium) 1.1% 1 appl PO BEDTIME lovastatin 20 mg PO DAILY metoprolol succinate ER 50 mg PO DAILY multivitamin,uq-mine-ophoslvb (Complete Multivitamin tablet) 1 tab PO DAILY pantoprazole 40 mg PO DAILY polyethylene glycol 3350 (Miralax) 17 grams PO DAILY vitamins A,C,W-nzqw-seecif 4,296 mcg-226 mg-90 mg (PreserVision AREDS) 1 cap PO BID HPI Comments Details: Nancy is a very pleasant 78-year-old female patient of Dr. Goff. She has a past medical history of Meniere's disease, old hypercalcemia, diverticulosis, hiatal hernia, GERD, obstructive sleep apnea, hyperparathyroidism, osteoporosis, dyslipidemia, heart failure, paroxysmal AFib, sick sinus syndrome status post [place] pacemaker, and COPD. She presents to the office today for a follow up of her ongoing lower urinary tract symptoms. Of note, patient was seen approximately 1 month ago at which time she was being treated for urinary tract infection by her PCP therefore recommendations were made for follow-up once patient was status post completion of antibiotic therapy for further assessment evaluation of patient's lower urinary tract symptoms. In discussion with the patient today she reports no UTI like symptoms however she does continue with episodes of mixed urinary incontinence. She discusses having recently retired from her job as she has been experiencing issues with dizziness and is unsure if this is related to her previous history of Meniere's disease many years ago or a circulation issue. Previous workup has included a retroperitoneal ultrasound 10/04 noting bilateral kidneys with no hydronephrosis. Right kidney with mild diffuse renal cortical thickening multiple renal cysts largest 1.1 cm upper pole there is no specific indication for additional imaging follow-up per radiology report. Left kidney with multiple anechoic foci i in the left peripelvic region may be related to caliectasis and/or pelvic cysts. May represent parapelvic cysts, largest 1.1 cm. The bladder is moderately distended. Bladder ureteral jets are demonstrated. Pre void bladder volume is approximately 130 mL. Postvoid bladder volume is approximately 10 mL. She has previously trialed tolterodine, Myrbetriq, and oxybutynin with no improvement in urinary urgency, urinary frequency and mixed urinary incontinent episodes she continues to experience. She continues to discuss and inquire if she is a candidate for bladder lift and or suspension procedure. We discussed at length risks and benefits of further surgical intervention. When asked she does report a history of 2 vaginal births of average size babies. She reports labors were approximately 4-5 hours long. She reports continuing to utilize 2-3 Ayala pads per day. She otherwise denies hematuria, dysuria, foul smelling urine, changes to urinary stream, flank pain, fever, and or chills. Discussed further treatment options of mixed urinary incontinence. In office urinalysis results reviewed with the patient today. PVR 23 mL. She otherwise offers no other issues or concerns at this time. [facility] Medical History Active Meniere's disease Tubular adenoma Positive colorectal cancer screening using Cologuard test Hypercalcemia Diverticulosis Hiatal hernia GERD (gastroesophageal reflux disease) Epigastric pain Dysphagia JESU (obstructive sleep apnea) Hyperparathyroidism Osteoporosis Dyslipidemia Heart failure Paroxysmal atrial fibrillation Cardiac pacemaker in situ Sick sinus syndrome COPD (chronic obstructive pulmonary disease) Surgical History H/O bilateral cataract extraction History of esophagogastroduodenoscopy (EGD) Hx of colonoscopy History of total abdominal hysterectomy and bilateral salpingo-oophorectomy History of total left knee replacement History of pacemaker History of laparoscopic cholecystectomy Family History Father COPD (chronic obstructive pulmonary disease) Mother CAD (coronary artery disease) CVD (cardiovascular disease) Daughter No problems noted. Social History Housing: House Alcohol intake: current Alcohol intake frequency: holidays/special occasions only Alcohol type: wine Patient Tobacco Use Status: Former Tobacco user Tobacco use type: Cigarette e-Cigarette/Vaping Use: Never Used Second Hand Smoke Exposure: No service: No Current occupational status: retired Cognitive needs: No Hearing needs: No Vision needs: No Review of Systems Const Reports as per HPI Eyes Reports no additional complaints ENT Reports no additional complaints Card Reports as per [facility] Resp Reports as per [facility] GI Reports as per HPI Reports as per [facility] Musc Reports as per [facility] Neuro Reports as per HPI Psych Reports no additional complaints Endo Reports no additional complaints Kvng/Lymph Reports no additional complaints Aller/Immun Reports no additional complaints Physical Exam Const General: cooperative, healthy appearing, comfortable, no acute distress, well developed, alert and awake Orientation/consciousness: patient oriented x3 Limitations: no limitations HEENT Head: Yes normal to inspection, Yes normocephalic and Yes atraumatic Ears: hearing grossly normal bilaterally Eyes General: appearance normal, both eyes and all related structures Neck Neck: Yes normal visual inspection and Yes trachea midline Chest Chest palpation & inspection: normal inspection of the chest Resp Effort & Inspection: normal respiratory effort and able to speak in complete sentences Cardio Rate: regular rate GI Inspection: Yes normal to inspection General: Yes no CVA tenderness Back/Spine/Pelvis Back: no CVA tenderness Skin General skin exam: no rashes or lesions noted Neuro General: patient oriented x3 Extrem General: Yes normal to inspection Psych Appearance: grossly normal and well kempt Mental Status: mental status grossly normal Speech and movement: Normal speech and movement present and Clear speech present Affect: normal affect Attitude: cooperative Thought process: Normal thought process present Thought content: Normal thought content present Insight: Fair insight present (Psych) Judgement: Fair judgement present (Psych) Office Procedures Post Void Residual Post Residual Void Post Void Residual (PVR): 23 [id number] Void Residual by ultrasound Results AMB Urinalysis, Automated UA Leukoctes 70 Fredy/uL Last Edit by Wilfredo Crabtree on 01/23/24 08:22 UA Nitrite Last Edit by Wilfredo Crabtree on 01/23/24 08:22 UA Urobilinogen 0.2 mg/dL Last Edit by Wilfredo Crabtree on 01/23/24 08:22 UA Protein 15 mg/dL Last Edit by Wilfredo Crabtree on 01/23/24 08:22 UA pH 6.0 Last Edit by Wilfredo Crabtree on 01/23/24 08:22 UA Blood 80 Eyad/uL Last Edit by Wilfredo Crabtree on 01/23/24 08:22 UA Specific Clifford 1.015 Last Edit by Wilfredo Crabtree on 01/23/24 08:22 UA Ketone Negative Last Edit by Wilfredo Crabtree on 01/23/24 08:22 UA Bilirubin 0 mg/dL Last Edit by Wilfredo Crabtree on 01/23/24 08:22 UA Glucose 0 mg/dL Last Edit by Wilfredo Crabtree on 01/23/24 08:22 Results Reviewed Results Reviewed: Laboratory Last Values Urine pH (Auto) 6.0 01/23/24 08:20 Specific Clifford (Auto) 1.015 01/23/24 08:20 Urine Protein (Auto) 15 mg/dL 01/23/24 08:20 Glucose (UA)(Auto) 0 mg/dL 01/23/24 08:20 Urine Ketones (Auto) Negative 01/23/24 08:20 Urine Blood (Auto) 80 Eyad/uL 01/23/24 08:20 Urine Bilirubin (Auto) 0 mg/dL 01/23/24 08:20 Urine Urobilinogen (Auto) 0.2 mg/dL 01/23/24 08:20 Leukocyte Esterase (Auto) 70 Fredy/uL 01/23/24 08:20 Assessment & Plan Assessment & Plan (1) Lower urinary tract symptoms: Code(s): R39.9 - Unspecified symptoms and signs involving the genitourinary system Category: Medical (2) Microscopic hematuria: Code(s): R31.29 - Other microscopic hematuria Category: Medical (3) Nocturia: Code(s): R35.1 - Nocturia Category: Medical (4) Urinary incontinence, mixed: Code(s): N39.46 - Mixed incontinence Category: Medical (5) Urinary incontinence: Code(s): R32 - Unspecified urinary incontinence Category: Medical Plan In office urinalysis results reviewed with the patient today; as noted above. PVR 23mLs We discussed at length potential causes of lower urinary tract symptoms patient is experiencing. Discussed possible near future urodynamics and or in office cystoscopy for further assessment evaluation Start VESIcare 5 mg daily as discussed and prescribed. We discuss trial of Estrace cream Discussed, educated, and stressed the importance of adequate hydration relation to lower urinary tract symptoms as well as overall health and well-being. Discussed UTI prevention with D mannose supplement, vitamin-C, increasing fluid intake, behavioral therapy with timed voiding, perineal hygiene and postcoital voiding, and management of constipation with stool softeners and increased fiber intake. Follow-up in 1-3 months with PVR; or sooner with any issues, concerns, and or questions. Orders: Orders AMB Post Void Residual by ultrasound Today N39.46 - Mixed incontinence AMB Urinalysis Automated Today Z13.9 - Encounter for screening, unspecified Medications: New solifenacin (Vesicare) Take 1 tablet daily; can increase to 2 tablets in 2-3 weeks if symptoms continue 5 mg PO DAILY 30 days 30 tabs 3RF Patient Instructions: The patient had an opportunity to ask questions regarding the treatment plan. All questions were answered. Physical exam, labs, and imaging were discussed and reviewed in detail. As well as risks, benefits, and discussion of treatment choices. No major barriers to understanding were identified. The patient expressed understanding and agreement with the above treatment plan. The patient was made aware they should contact our office by phone for worsening of their current condition, the appearance of new symptoms, or with any questions or concerns. Compliance is encouraged with any medications and follow up testing that is ordered. It is a privilege to be allowed the opportunity to participate in? your urological care.? Again, if you have any questions or concerns If you have any questions or concerns please do not hesitate to contact me. The office is [phone]. This note is constructed using voice recognition software. While every effort has been made to ensure accuracy log rafter errors may have been included. Yours sincerely, MAR Robertson Coding Level of Care Code Est Pt Level 4 (31077) Complex EM visit Add On G2211 Diagnoses Lower urinary tract symptoms R39.9 Microscopic hematuria R31.29 Nocturia R35.1 Urinary incontinence, mixed N39.46 Urinary incontinence R32 CPT Codes Post Residual Void - PVR CPT Code: 04840-Hmqt Void Residual by ultrasound ([id number])
== END 2024-01-23 08:17 | disposition home or self-care (01) ==
PROVIDERS: PCP Internal Medicine; Visit Provider Nurse Practitioner Family
DX: R39.9 Unspecified symptoms and signs involving the genitourinary system (principal); R31.29 Other microscopic hematuria; R35.1 Nocturia; N39.46 Mixed incontinence; R32 Unspecified urinary incontinence; Z13.9 Encounter for screening, unspecified
CPT/HCPCS: 99214; G2211

== ENCOUNTER → 2024-01-23 07:39 | Outpatient (BNVA) | payer MEDICARE, SELFPAY | PROVIDERS: PCP Internal Medicine; Visit Provider Nurse Practitioner Family | DX: R39.9 Unspecified symptoms and signs involving the genitourinary system (principal); R31.29 Other microscopic hematuria; R35.1 Nocturia; N39.46 Mixed incontinence | CPT/HCPCS: 51798; 81003; 99212 ==

== ENCOUNTER 2024-01-31 08:27 | Outpatient (AMB) | payer MEDICARE, SELFPAY ==
--- NOTE | 2024-01-31 08:29 | MHC.PC.OV ---
Vital Signs 01/31/24 08:35 Height 5 ft Weight 143 lb BMI 27.9 BP 120/78 Blood Pressure Location Lt brachial Position Sitting Intake Visit Reasons: chf Intake Note: Patient here for a follow up CHF Housekeeping Aide Required: No Accompanied by: Self / Same As Patient Allergies dronedarone [Multaq] Allergy (Severe, Verified 01/31/24 08:45) syncope flecainide Allergy (Severe, Verified 01/31/24 08:45) vertigo,blurry vision lisinopril [LISINOPRIL] Allergy (Severe, Verified 01/31/24 08:45) ANGIOEDEMA, bad cough, throat closing, tingling of head, cough losartan Allergy (Intermediate, Verified 01/31/24 08:45) dry cough, pruritus hydromorphone [Dilaudid] Adverse Reaction (Severe, Verified 01/31/24 08:45) unresponsiveness Medication List - Last Reconciled 01/31/24 by Homa Jones MD alendronate 70 mg PO QWEEK biotin 1,000 mcg PO DAILY calcium carbonate-vitamin D3 500 mg-10 mcg (400 unit) (Calcium 500 + D) 2 tabs PO DAILY dabigatran etexilate 150 mg PO BID 90 days fluoride (sodium) 1.1% 1 appl PO BEDTIME lovastatin 20 mg PO DAILY metoprolol succinate ER 50 mg PO DAILY multivitamin,mw-xyyf-musfefml (Complete Multivitamin tablet) 1 tab PO DAILY pantoprazole 40 mg PO DAILY polyethylene glycol 3350 (Miralax) 17 grams PO DAILY vitamins A,C,G-oqyr-cvkpho 4,296 mcg-226 mg-90 mg (PreserVision AREDS) 1 cap PO BID Tobacco use date assessed: 05/09/23 Fall risk assessment: No Falls in past year Last assessed Fall Risk: 01/31/24 Dental Screening Dental Screen Date: 01/31/24 Did you have a dental visit in the last 12 months?: No Did you have a dental problem in the last 6 months where you did not have access to dental care?: No Was dental information given to patient?: Patient has dentist HPI HPI Comments History of Present Illness Details The patient is an 78-year-old female presenting with dizziness and lightheadedness. She reports a history of syncope, vertigo, and blurry vision associated with Multaq, with ongoing dizziness and lightheadedness that began approximately three to four months ago. Previously, she experienced severe vertigo linked to Meniere's Disease five years ago, resulting in wrist and clavicle fractures. Her current dizziness differs, manifesting as a gradual onset of head-related symptoms leading to pronounced weakness, predominantly occurring in the morning. She describes that these episodes are alleviated by sitting after standing for extended periods. Attempts to control this with Meclizine have been ineffective. She has not yet undergone vestibular therapy nor consulted neurology for these symptoms. Will be referred to Neurology and vestibular therapy. She also has congestive heart failure and has not gain 5 lb in a week. Last echocardiogram done in September of this year shows ejection fraction of 60-65%. She follows with cardiology for this matter. She also has atrial fibrillation on chronic anticoagulation and denies any active bleeding. Complains of fatigue and tiredness and hemoglobin will be ordered. Has COPD and has not required even a rescue inhaler for over 3 months and this is follow by pulmonology. Also has hypertension well control with losartan. Has primary hyperparathyroidism and osteoporosis in which last DEXA scan was 2022 and next DEXA scan should be 2024. Also calcium was elevated and this is follow by endocrinology. COUNT INCLUDES [facility] Medical History (Updated 01/31/24 @ 10:27 by Homa Jones MD) Active Meniere's disease Tubular adenoma Positive colorectal cancer screening using Cologuard test Hypercalcemia Diverticulosis Hiatal hernia GERD (gastroesophageal reflux disease) Epigastric pain Dysphagia JESU (obstructive sleep apnea) Hyperparathyroidism Osteoporosis Dyslipidemia Heart failure Paroxysmal atrial fibrillation Cardiac pacemaker in situ Sick sinus syndrome COPD (chronic obstructive pulmonary disease) Surgical History H/O bilateral cataract extraction History of esophagogastroduodenoscopy (EGD) Hx of colonoscopy History of total abdominal hysterectomy and bilateral salpingo-oophorectomy History of total left knee replacement History of pacemaker History of laparoscopic cholecystectomy Family History Father COPD (chronic obstructive pulmonary disease) Mother CAD (coronary artery disease) CVD (cardiovascular disease) Daughter No problems noted. Social History Housing: House Alcohol intake: current Alcohol intake frequency: holidays/special occasions only Alcohol type: wine Patient Tobacco Use Status: Former Tobacco user Tobacco use type: Cigarette e-Cigarette/Vaping Use: Never Used Second Hand Smoke Exposure: No service: No Current occupational status: retired Cognitive needs: No Hearing needs: No Vision needs: No Questionnaire Thrive Questionnaire Date Thrive assessed: 05/09/23 FELICITAS-7 AMB Questionnaire FELICITAS-7 Date FELICITAS - 7 assessed: 05/09/23 Source: Developed by Drs. Haider Lake, Keyonna Fernando, Remi Heath and colleagues, with an educational omi from [employer]. Review of Systems Const All systems reviewed & are unremarkable except as noted in HPI and below ENT Reports dizziness Card Denies chest pain at rest, Denies chest pain with activity, Denies edema, Denies irregular heart rhythm, Denies claudication, Denies dyspnea, Denies dyspnea on exertion, Denies orthopnea, Denies paroxysmal nocturnal dyspnea and Denies slow heart rate Resp Denies cough, Denies dyspnea and Denies dyspnea on exertion Neuro Reports dizziness Physical exam (Primary Care) Vital Signs: Last Vital Signs BP 120/78 01/31/24 08:35 BMI result Body Mass Index 27.9 Tobacco/Smoking Status: Tobacco use Status Tobacco use date assessed 05/09/23 01/31/24 08:32 Patient Tobacco Use Status Former Tobacco user 01/31/24 08:32 Tobacco use type Cigarette 01/31/24 08:32 e-Cigarette/Vaping Use Never Used 01/31/24 08:32 Thrive Assessment: Date of Thrive Assessment Date Thrive assessed 05/09/23 01/31/24 08:32 Const Orientation/consciousness: patient oriented x3 Resp Effort & Inspection: normal respiratory effort Auscultation: clear to auscultation bilaterally Cardio Jugular venous distension: no JVD Rate: regular rate Rhythm: regular rhythm Heart sounds: S1 normal heart sound present and S2 normal heart sound present Neuro General: patient oriented x3 and no focal motor deficits Romberg Test: Negative Extrem General: Yes full ROM Psych Appearance: grossly normal Coding Level of Care Code Est Pt Level 4 (35915) Complex EM visit Add On G2211 Diagnoses Vertigo R42 Persistent atrial fibrillation I48.19 Chronic obstructive pulmonary disease, unspecified COPD type J44.9 COPD type: unspecified COPD Hyperparathyroidism E21.3 Chronic systolic heart failure I50.22 Heart failure type: systolic Heart failure chronicity: chronic Age-related osteoporosis without current pathological fracture M81.0 Osteoporosis type: age-related Presence of current pathological fracture: without current pathological fracture Time Spent (min) 25 Assessment & Plan Assessment & Plan (1) Vertigo: Code(s): R42 - Dizziness and giddiness Category: Medical (2) Persistent atrial fibrillation: Code(s): I48.19 - Other persistent atrial fibrillation Category: Medical (3) COPD (chronic obstructive pulmonary disease): Code(s): J44.9 - Chronic obstructive pulmonary disease, unspecified Category: Medical Qualifiers: COPD type: unspecified COPD Qualified Code(s): J44.9 - Chronic obstructive pulmonary disease, unspecified (4) Hyperparathyroidism: Code(s): E21.3 - Hyperparathyroidism, unspecified Category: Medical (5) Heart failure: Code(s): I50.9 - Heart failure, unspecified Category: Medical Qualifiers: Heart failure type: systolic Heart failure chronicity: chronic Qualified Code(s): I50.22 - Chronic systolic (congestive) heart failure (6) Osteoporosis: Code(s): M81.0 - Age-related osteoporosis without current pathological fracture Category: Medical Qualifiers: Osteoporosis type: age-related Presence of current pathological fracture: without current pathological fracture Qualified Code(s): M81.0 - Age-related osteoporosis without current pathological fracture Plan - For dizziness and lightheadedness: Recommend vestibular therapy due to ear etiology. - For hyperparathyroidism-related issues: Continued monitoring by Dr. Lowe. - For congestive heart failure: Advise daily weight monitoring. - For anticoagulation management: Continue Dabigatran therapy. - Blood work to assess thyroid function, white blood cell count, and hemoglobin levels to evaluate fatigue. - For osteoporosis: Continue Alendronate. Repeat DEXA in 2024. - For COPD: monitor symptoms. Non need for inhaler as of now. Patient was informed and verbally consented to the use of an ambient scribe for clinic note documentation during this visit. I discussed with the patient the likely peripheral etiology of her dizziness, suggesting vestibular therapy due to ear involvement. Meclizine was excluded as a prophylactic treatment since it hasn't been effective in her case. I explained that the negative Romberg test ruled out central causes like central vertigo. It's vital to monitor her overall condition due to multiple chronic illnesses that contribute to fatigue. Further, I highlighted the importance of daily weight tracking for managing her congestive heart failure. Blood work was ordered to explore potential causes of tiredness and ensure comprehensive management of her symptoms. The patient consented to vestibular therapy and agreed to the suggested diagnostic tests. Orders: Orders Vitamin B12 and Folate Today E53.8 - Deficiency of other specified B group vitamins IRON PROFILE Today D64.9 - Anemia, unspecified Lipid Panel 4 Months E78.5 - Hyperlipidemia, unspecified NT-proBNP 4 Months I50.22 - Chronic systolic (congestive) heart failure Complete Blood Count Auto Diff Today D64.9 - Anemia, unspecified Thyroid Stimulating Hormone Today R53.83 - Other fatigue PT Evaluation and Treatment Today R42 - Dizziness and giddiness Comprehensive [place]. Panel Fast 4 Months I50.22 - Chronic systolic (congestive) heart failure Patient Instructions: - Undergo vestibular therapy as recommended. - Monitor weight daily to manage congestive heart failure. - Get blood work done to check thyroid, hemoglobin, and white blood cell levels. - Follow up with Dr. Lowe regarding hyperparathyroidism and osteoporosis. - Continue current medications as discussed, and report any adverse effects.
[2024-01-31 08:35] VITALS: BP 120/78; BMI 27.9
== END 2024-01-31 09:03 | disposition home or self-care (01) ==
PROVIDERS: PCP Internal Medicine; Visit Provider Internal Medicine
DX: I48.19 Other persistent atrial fibrillation (principal); E21.3 Hyperparathyroidism, unspecified; J44.9 Chronic obstructive pulmonary disease, unspecified; I50.22 Chronic systolic (congestive) heart failure; R42 Dizziness and giddiness; M81.0 Age-related osteoporosis without current pathological fracture

== ENCOUNTER 2024-01-31 08:27 | Outpatient (REF) | payer MEDICARE, SELFPAY ==
[2024-01-31 09:34] LABS: MANUAL DIFF FLAG NO
[2024-01-31 10:20] LABS: Basophils Percent Auto 0.5 % (0-2); Eosinophils Absolute Auto 0.2 X10*3/uL (0.0-0.4); Eosinophils Percent Auto 2.9 % (0-4); Hematocrit 41.9 % (37.0-47.0); Hemoglobin 13.4 g/dl (12.0-16.0); Imm Gran Abs Auto 0.02 X10*3/uL (0.00-0.03); Imm Gran Pct Auto 0.3 % (0.0-0.4); Lymphocytes Absolute Auto 2.3 X10*3/uL (1.2-4.9); Lymphocytes Percent Auto 30.8 % (20-40); Mean Corpuscular Hemoglobin 28.9 pg (27.0-33.0); Mean Corpuscular Volume 90.3 fL (80.0-98.0); Monocytes Absolute Auto 0.6 X10*3/uL (0.1-1.2); Monocytes Percent Auto 8.4 % (2-11); Neutrophils Absolute Auto 4.3 x10*3/uL (2.0-8.3); Neutrophils Percent Auto 57.1 % (45-73); Platelet Count 265 X10*3/uL (160-400); Red Blood Count 4.64 X10*6/uL (4.20-5.50); Red Cell Distribution Width 13.2 % (11.0-16.0); White Blood Count 7.5 X10*3/uL (4.8-10.8)
[2024-01-31 11:37] LABS: Iron 95 mcg/dL (30-160); Percent Iron Saturation 34 % (15-50); Total Iron Binding Capacity 280 mcg/dL (228-428); Unsaturated Iron Binding 185 ug/dL
[2024-01-31 11:59] LABS: Thyroid Stimulating Hormone 2.33 uIU/mL (0.32-4.0)
[2024-01-31 14:08] LABS: Folate 17.6 ng/mL (> or = 4.0); Vitamin B12 411 pg/mL (200-900)
== END 2024-01-31 08:28 | disposition home or self-care (01) ==
LOC: HO.LAB 08:27
PROVIDERS: PCP Internal Medicine; Visit Provider Internal Medicine
DX: E53.8 Deficiency of other specified B group vitamins (principal); D64.9 Anemia, unspecified; R53.83 Other fatigue; R42 Dizziness and giddiness; I48.19 Other persistent atrial fibrillation; J44.9 Chronic obstructive pulmonary disease, unspecified; E21.3 Hyperparathyroidism, unspecified; I50.22 Chronic systolic (congestive) heart failure; M81.0 Age-related osteoporosis without current pathological fracture; E78.5 Hyperlipidemia, unspecified
CPT/HCPCS: 36415; 82607; 82746; 83540; 84443; 85025; 99212

== ENCOUNTER → 2024-02-13 23:59 | Outpatient (BNV) | payer MEDICARE, SELFPAY ==
--- NOTE | 2024-02-21 16:23 | A.OFFVIS_ITS ---
Intake Visit Reasons: Remote device check- [facility] Allergies dronedarone [Multaq] Allergy (Severe, Verified 01/31/24 08:45) syncope flecainide Allergy (Severe, Verified 01/31/24 08:45) vertigo,blurry vision lisinopril [LISINOPRIL] Allergy (Severe, Verified 01/31/24 08:45) ANGIOEDEMA, bad cough, throat closing, tingling of head, cough losartan Allergy (Intermediate, Verified 01/31/24 08:45) dry cough, pruritus hydromorphone [Dilaudid] Adverse Reaction (Severe, Verified 01/31/24 08:45) unresponsiveness [facility] Medical History (Updated 01/31/24 @ 10:27 by Homa Jones MD) Active Meniere's disease Tubular adenoma Positive colorectal cancer screening using Cologuard test Hypercalcemia Diverticulosis Hiatal hernia GERD (gastroesophageal reflux disease) Epigastric pain Dysphagia JESU (obstructive sleep apnea) Hyperparathyroidism Osteoporosis Dyslipidemia Heart failure Paroxysmal atrial fibrillation Cardiac pacemaker in situ Sick sinus syndrome COPD (chronic obstructive pulmonary disease) Surgical History H/O bilateral cataract extraction History of esophagogastroduodenoscopy (EGD) Hx of colonoscopy History of total abdominal hysterectomy and bilateral salpingo-oophorectomy History of total left knee replacement History of pacemaker History of laparoscopic cholecystectomy Family History Father COPD (chronic obstructive pulmonary disease) Mother CAD (coronary artery disease) CVD (cardiovascular disease) Daughter No problems noted. Social History Housing: House Alcohol intake: current Alcohol intake frequency: holidays/special occasions only Alcohol type: wine Patient Tobacco Use Status: Former Tobacco user Tobacco use type: Cigarette e-Cigarette/Vaping Use: Never Used Second Hand Smoke Exposure: No service: No Current occupational status: retired Cognitive needs: No Hearing needs: No Vision needs: No Office Procedures Cardiac Device Check Cardiac Device Check Details: Remote pacemaker report generated 02/13/2024. Pacemaker function is adequate. [place] of atrial fibrillation at 9% [id number] Cardiac Device Interrogation, pacemaker Procedure code (CPT) selection complete Assessment & Plan Assessment & Plan (1) Cardiac pacemaker in situ: Code(s): Z95.0 - Presence of cardiac pacemaker Category: Medical Plan: See above Coding Level of Care Code Procedure Only Diagnoses Cardiac pacemaker in situ Z95.0 CPT Codes Cardiac Device Check - Cardiac Device 12: [id number] Cardiac Device Interrogation, pacemaker ([id number])
== END ==
PROVIDERS: PCP Internal Medicine; Visit Provider Internal Medicine Cardiovascular Disease
DX: I48.91 Unspecified atrial fibrillation (principal); Z95.0 Presence of cardiac pacemaker
CPT/HCPCS: 93294

== ENCOUNTER 2024-03-09 17:23 | Emergency (ER) | payer MEDICARE, SELFPAY ==
--- NOTE | ~2024-03-09 | CT_ITS ---
CLINICAL HISTORY: dizziness CT angiography neck with contrast. 3D Postprocessing. Comparison: None Findings: Aortic arch and cervical great vessels are patent. Visualized intracranial arteries are patent. No aneurysm, dissection, or occlusion. The visualized thyroid gland is unremarkable. No cervical mass or fluid collection. Lung apices clear. No acute fracture. IMPRESSION: Patent neck CTA. This document has been electronically signed by: Nik Mancilla MD on 03/09/2024 22:46:48
--- NOTE | ~2024-03-09 | XR_ITS ---
CLINICAL HISTORY: palpitations 1 view chest x-ray Comparison: 09/09/2022 Findings: Portions of the chest are obscured by overlying material. The lungs are clear. Normal size heart. No acute fracture. IMPRESSION: 1. No acute findings. This document has been electronically signed by: Nik Mancilla MD on 03/09/2024 18:38:10
--- NOTE | 2024-03-09 17:45 | ECG_ITS ---
Test Reason : afib Blood Pressure : / mmHG Vent. Rate : 127 BPM Atrial Rate : 000 BPM P-R Int : 000 ms QRS Dur : 076 ms QT Int : 312 ms P-R-T Axes : 000 007 -27 degrees QTc Int : 453 ms Atrial fibrillation with rapid ventricular response with occasional ventricular-paced complexes Nonspecific ST and T wave abnormality Abnormal ECG When compared with ECG of 26-JAN-2021 11:46, Atrial fibrillation Present Vent. rate has increased BY 57 BPM Referred By: Generic ED Physician Electronically Signed By:Amadou Loza
[2024-03-09 17:46] VITALS: BP 149/68; PULSE 111; RESP 18; TEMP 36.5; O2SAT 98; BMI 28.3
[2024-03-09 18:11] LABS: MANUAL DIFF FLAG NO
[2024-03-09 18:13] LABS: Basophils Absolute Auto 0.1 X10*3/uL (0.0-0.2); Basophils Percent Auto 0.7 % (0-2); Eosinophils Absolute Auto 0.2 X10*3/uL (0.0-0.4); Eosinophils Percent Auto 1.6 % (0-4); Hematocrit 39.5 % (37.0-47.0); Hemoglobin 12.8 g/dl (12.0-16.0); Imm Gran Abs Auto 0.02 X10*3/uL (0.00-0.03); Imm Gran Pct Auto 0.2 % (0.0-0.4); Lymphocytes Absolute Auto 1.7 X10*3/uL (1.2-4.9); Lymphocytes Percent Auto 18.2 % (20-40); Mean Corpuscular HGB Conc 32.4 g/dl (31.0-35.0); Mean Corpuscular Hemoglobin 28.8 pg (27.0-33.0); Mean Platelet Volume 9.9 fL (9.4-12.3); Monocytes Absolute Auto 0.7 X10*3/uL (0.1-1.2); Monocytes Percent Auto 7.1 % (2-11); Neutrophils Absolute Auto 6.7 x10*3/uL (2.0-8.3); Neutrophils Percent Auto 72.2 % (45-73); Platelet Count 207 X10*3/uL (160-400); Red Blood Count 4.44 X10*6/uL (4.20-5.50); Red Cell Distribution Width 12.9 % (11.0-16.0); White Blood Count 9.2 X10*3/uL (4.8-10.8)
[2024-03-09 18:29] LABS: Alanine Aminotransferase 22 U/L (0-31); Albumin Level 3.8 g/dL (3.5-5.0); Alkaline Phosphatase 48 U/L (39-117); Anion Gap 16 (12-20); Aspartate Amino Transferase 26 U/L (5-31); Bilirubin Total 0.4 mg/dL (0.0-1.0); Blood Urea Nitrogen 14 mg/dL (9-16); Calcium 10.1 mg/dL (8.4-10.2); Carbon Dioxide 21 mmol/L (22-29); Chloride 108 mmol/L (96-108); Creatinine Clr Calc Pharmacy 40.4; Estimated Glomerular Filt Rate 57; Glucose Random 131 mg/dL (60-115); Magnesium 1.9 mg/dL (1.6-2.6); Potassium 4.6 mmol/L (3.3-5.1); Sodium 140 mmol/L (135-145); Total Protein 6.9 g/dL (6.5-8.0)
[2024-03-09 18:39] VITALS: BP 146/69; PULSE 112; RESP 22; TEMP 36.4; O2SAT 94
[2024-03-09 18:43] LABS: Troponin-I High Sensitivity < 2.7 ng/L (<3.5-17.0)
--- NOTE | 2024-03-09 18:46 | MHC.EDTECH ---
EKG deley due to all EKG Machine being used. nurse aware
[2024-03-09 18:55] LABS: Influenza A PCR NEGATIVE (Negative); Influenza B PCR NEGATIVE (Negative); Resp Syncy Virus RNA Qual PCR NEGATIVE (Negative); SARS COV2 PCR INHOUSE NEGATIVE (Negative)
[2024-03-09 18:58] LABS: Phosphorus 2.9 mg/dL (2.7-4.5)
[2024-03-09 19:35] VITALS: BP 129/81; PULSE 96; RESP 19; TEMP 36.5; O2SAT 97
--- NOTE | 2024-03-09 19:59 | MHC.EDTECH ---
This tech took over care of pt at 1900,rounded and introduced self to pt,vitals taken,pt ambulated to the bathroom with a slow steady gait,urine sample collected sent to lab,pt was given a can of salvador miky and warm blanket,family at bedside,call omer in reach
[2024-03-09 20:05] LABS: Appearance Urine Cloudy; Color Urine Yellow; Glucose Urine UA Negative (Negative); Leukocyte Esterase Urine Small (1+) (Negative); Nitrite Urine Negative (Negative); PH 5.5 (5.0-9.0); Specific Gravity - Urine 1.015 (1.005-1.025); UMIC TRIGGER UACC YES; Urine Blood Trace (Negative); Urine Ketones Negative (Negative); Urine Protein Negative (Neg-Trace)
[2024-03-09 20:17] LABS: Bacteria Urine 1+ (None Seen); Squamous Epithelial Cell Urine 0-2 /HPF (0-2); UACC Culture Trigger YES
--- NOTE | 2024-03-09 20:26 | ED.GENADULT ---
HPI - General Adult General Chief complaint: Arrhythmia/Palpitations Stated complaint: dizzy, weakness Time Seen by Provider: 03/09/24 17:49 Source: patient History of Present Illness ED Provider: Tanmay WISE narrative: 78-year-old female with past medical history of AFib on thinners presenting for lightheadedness. Patient states that she has been experiencing lightheadedness since this morning and later today she began experiencing palpitations. She denies chest pain, sob, fevers, chills Related Data Home Medications ?Medication ?Instructions ?Recorded ?Confirmed multivitamin,ky-wikg-lchjtxst 1 tab PO DAILY 03/17/20 01/31/24 (Complete Multivitamin tablet) vitamins A,C,Y-vmrh-zacygt 4,296 1 cap PO BID 05/06/22 01/31/24 mcg-226 mg-90 mg capsule (PreserVision AREDS) fluoride (sodium) 1.1 % dental 1 appl PO BEDTIME 07/28/22 01/31/24 paste biotin 1,000 mcg chewable tablet 1,000 mcg PO DAILY 04/12/23 01/31/24 calcium 500 mg (as 2 tab PO DAILY 07/20/23 01/31/24 carbonate)-vitamin D3 10 mcg (400 unit) tablet (Calcium 500 + D) alendronate 70 mg tablet 70 mg PO QWEEK 09/06/23 01/31/24 Previous Rx's ?Medication ?Instructions ?Recorded polyethylene glycol 3350 17 17 g PO DAILY #510 grams 08/27/21 gram/dose oral powder (Miralax) dabigatran etexilate 150 mg capsule 150 mg PO BID 90 days #180 caps 09/06/23 lovastatin 20 mg tablet 20 mg PO DAILY #90 tabs 09/06/23 pantoprazole 40 mg tablet,delayed 40 mg PO DAILY #90 tabs 09/06/23 release metoprolol succinate 50 mg 50 mg PO DAILY #90 tabs 12/12/23 tablet,extended release 24 hr cephalexin 500 mg capsule 500 mg PO QID 5 days #20 caps 03/09/24 Allergies Allergy/AdvReac Type Severity Reaction Status Date / Time dronedarone [Multaq] Allergy Severe syncope Verified 03/09/24 17:47 flecainide Allergy Severe vertigo,blurry Verified 03/09/24 17:47 vision lisinopril [LISINOPRIL] Allergy Severe ANGIOEDEMA, Verified 03/09/24 17:47 bad cough, throat closing, tingling of head, cough losartan Allergy Intermediate dry cough, Verified 03/09/24 17:47 pruritus hydromorphone [Dilaudid] AdvReac Severe unresponsiv Verified 03/09/24 17:47 eness Review of Systems Review of Systems: patient endorses lightheadedness and palpitation Yes all other systems are reviewed and are negative [facility] Past Medical History Medical History (Updated 03/09/24 @ 20:36 by Eleazar Donato MD) Active Meniere's disease Tubular adenoma Positive colorectal cancer screening using Cologuard test Hypercalcemia Diverticulosis Hiatal hernia GERD (gastroesophageal reflux disease) Epigastric pain Dysphagia JESU (obstructive sleep apnea) Hyperparathyroidism Osteoporosis Dyslipidemia Heart failure Paroxysmal atrial fibrillation Cardiac pacemaker in situ Sick sinus syndrome COPD (chronic obstructive pulmonary disease) Surgical History H/O bilateral cataract extraction History of esophagogastroduodenoscopy (EGD) Hx of colonoscopy History of total abdominal hysterectomy and bilateral salpingo-oophorectomy History of total left knee replacement History of pacemaker History of laparoscopic cholecystectomy Family History Family History Father COPD (chronic obstructive pulmonary disease) Mother CAD (coronary artery disease) CVD (cardiovascular disease) Daughter No problems noted. Social History Social History Housing: House Alcohol intake: current Alcohol intake frequency: holidays/special occasions only Alcohol type: wine Patient Tobacco Use Status: Former Tobacco user Tobacco use type: Cigarette e-Cigarette/Vaping Use: Never Used Second Hand Smoke Exposure: No Advance Directives: No Advance Directives Information Provided: No Do you have a plan to hurt others: No Plan service: No Current occupational status: retired Cognitive needs: No Hearing needs: No Vision needs: No Physical Exam ED Vital Signs: Vital Signs - 24 hr 03/09/24 17:46 03/09/24 18:39 03/09/24 19:35 Temperature 97.7 F 97.5 F 97.7 F Pulse Rate 111 H 112 H 96 Respiratory Rate 18 22 H 19 Blood Pressure 149/68 H 146/69 H 129/81 Pulse Oximetry 98 94 97 Oxygen Delivery Method Room Air Room Air Room Air 03/09/24 20:49 Temperature Pulse Rate 120 H Respiratory Rate 18 Blood Pressure 119/77 Pulse Oximetry Oxygen Delivery Method BMI result Body Mass Index 28.3 Well-appearing female in no acute distress; A&O x4; no focal neurologic deficits appreciated Lungs clear to auscultation bilaterally; normal S1-S2 regular rate with a regular rate Abdomen is soft nontender nondistended No lower extremity edema appreciated Medications Administered Discontinued Medications Generic Name Dose Route Start Last Admin Trade Name Freq PRN Reason Stop Dose Admin Ceftriaxone Sodium 1 gm 03/09/24 20:35 03/09/24 20:48 Ceftriaxone Sodium 1 Gm Vial IVPUSH 03/09/24 20:36 1 gm ONCE ONE Administration Metoprolol Tartrate 5 mg 03/09/24 20:32 03/09/24 20:48 Metoprolol Tartrate 5 Mg/5 Ml Vial IVPUSH 03/09/24 20:33 5 mg ONCE ONE Administration Protocol Metoprolol Tartrate 25 mg 03/09/24 20:32 03/09/24 20:52 Metoprolol Tartrate 25 Mg Tablet PO 03/09/24 20:33 25 mg ONCE ONE Administration Protocol Medical Decision Making Medical Decision Making [facility] Narrative: 78-year-old female presenting for lightheadedness and palpitations. I am concerned for the following; AFib with RVR, electrolyte/metabolic disturbance, underlying infection (UTI, pneumonia) Pt states the she did experience dizziness today labs and imaging studies ordered IV and PO metoprolol ordered lab work notable for stable H&H, no white count, electrolytes within normal limits, negative troponin, normal creatinine UA with few WBCs; most likely not a UTI however will treat given symptoms of dizziness and lightheadedness CTA head and neck pending Pt signed out Lab Data 03/09/24 18:07 03/09/24 18:07 Labs: Lab Results 03/09/24 03/09/24 Range/Units 18:07 19:50 WBC 9.2 (4.8-10.8) X10*3/uL RBC 4.44 (4.20-5.50) X10*6/uL Hgb 12.8 (12.0-16.0) g/dl Hct 39.5 (37.0-47.0) % MCV 89.0 (80.0-98.0) fL MCH 28.8 (27.0-33.0) pg MCHC 32.4 (31.0-35.0) g/dl RDW 12.9 (11.0-16.0) % Plt Count 207 (160-400) X10*3/uL MPV 9.9 (9.4-12.3) fL Immature Gran % (Auto) 0.2 (0.0-0.4) % Neut % (Auto) 72.2 (45-73) % Lymph % (Auto) 18.2 L (20-40) % [place] % (Auto) 7.1 (2-11) % Eos % (Auto) 1.6 (0-4) % Baso % (Auto) 0.7 (0-2) % Lymph # (Auto) 1.7 (1.2-4.9) X10*3/uL [place] # (Auto) 0.7 (0.1-1.2) X10*3/uL Eos # (Auto) 0.2 (0.0-0.4) X10*3/uL Baso # (Auto) 0.1 (0.0-0.2) X10*3/uL Abs Immat Gran (auto) 0.02 (0.00-0.03) X10*3/uL Absolute Neuts (auto) 6.7 (2.0-8.3) x10*3/uL Absolute Nucleated RBC 0.000 (0.0-0.012) X10*3/uL Nucleated RBC % (auto) 0.0 (0.0-0.2) /100WBC Hold Blue Top SEE NOTE Sodium 140 (135-145) mmol/L Potassium 4.6 (3.3-5.1) mmol/L Chloride 108 (96-108) mmol/L Carbon Dioxide 21 L (22-29) mmol/L Anion Gap 16 (12-20) BUN 14 (9-16) mg/dL Creatinine 0.94 (0.5-1.4) mg/dL Estim Creat Clear Calc 40.4 Estimated GFR 57 Random Glucose 131 H (60-115) mg/dL Calcium 10.1 D (8.4-10.2) mg/dL Phosphorus 2.9 (2.7-4.5) mg/dL Magnesium 1.9 (1.6-2.6) mg/dL Total Bilirubin 0.4 (0.0-1.0) mg/dL AST 26 (5-31) U/L ALT 22 (0-31) U/L Alkaline Phosphatase 48 (39-117) U/L Troponin I High Sens < 2.7 (<3.5-17.0) ng/L Total Protein 6.9 (6.5-8.0) g/dL Albumin 3.8 (3.5-5.0) g/dL Urine Color Yellow Urine Appearance Cloudy Urine pH 5.5 (5.0-9.0) Ur Specific [place] 1.015 (1.005-1.025) Urine Protein Negative (Neg-Trace) mg/dL Urine Glucose (UA) Negative (Negative) mg/dL Urine Ketones Negative (Negative) mg/dL Urine Blood Trace H (Negative) Urine Nitrite Negative (Negative) Ur Leukocyte Esterase Small (1+) H (Negative) Urine RBC 6-10 H (0-2) /HPF Urine WBC 11-20 H (0-5) /HPF Ur Squamous Epith Cells 0-2 (0-2) /HPF Urine Bacteria 1+ (None Seen) Hyaline Casts 3-5 (0-2) /LPF Influenza Type A (PCR) NEGATIVE (Negative) Influenza Type B (PCR) NEGATIVE (Negative) RSV RNA Qual (PCR) NEGATIVE (Negative) SARS-CoV-2 RNA (RT-PCR) NEGATIVE (Negative) Discharge Plan Discharge Clinical Impression: Lightheadedness, Palpitations Patient Disposition: Still a Patient Prescriptions: New cephalexin 500 mg capsule 500 mg PO QID 5 Days Qty: 20 0RF No Action polyethylene glycol 3350 [Miralax] 17 gram/dose powder 17 g PO DAILY Qty: 510 2RF metoprolol succinate 50 mg tablet extended release 24 hr 50 mg PO DAILY Qty: 90 0RF alendronate 70 mg tablet 70 mg PO QWEEK dabigatran etexilate 150 mg capsule 150 mg PO BID 90 Days Qty: 180 1RF lovastatin 20 mg tablet 20 mg PO DAILY Qty: 90 3RF pantoprazole 40 mg tablet,delayed release (DR/EC) 40 mg PO DAILY Qty: 90 2RF Rx Instructions: take one tablet half an hour before breakfast Complete Multivitamin Tablet 1 tab PO DAILY fluoride (sodium) 1.1 % paste 1 appl PO BEDTIME PreserVision AREDS 14,320-226-200 innv-qv-xaut capsule 1 cap PO BID biotin 1,000 mcg tablet,chewable 1,000 mcg PO DAILY calcium carbonate-vitamin D3 [Calcium 500 + D] 500 mg-10 mcg (400 unit) tablet 2 tab PO DAILY Print Language: Turkish
[2024-03-09] MEDS: cefTRIAXone sodium 1 GM VIAL IVPUSH (20:48)
[2024-03-09] MEDS: Metoprolol Tartrate 5 MG/5 ML VIAL IVPUSH (20:48)
[2024-03-09 20:49] VITALS: BP 119/77; PULSE 120; RESP 18
[2024-03-09] MEDS: Metoprolol Tartrate 25 MG TABLET PO (20:52)
[2024-03-09] MEDS: iohexoL 350 MG/ML 100 ML INFUS..BTL 85 ML IV (22:03)
--- NOTE | 2024-03-09 22:03 | MHC.EDTECH ---
Delay in orthos.pt is in CT at this time
[2024-03-09 22:10] VITALS: BP 137/87; BP 142/89; BP 144/75; PULSE 102; PULSE 107; PULSE 89
[2024-03-09 22:11] VITALS: BP 142/89; PULSE 102; RESP 18; TEMP 36.6; O2SAT 97
--- NOTE | 2024-03-09 22:25 | MHC.EDTECH ---
Ortho's completed per order,pt ambulated with a steady gait to the bathroom,family at bedside,call omer in reach
--- NOTE | 2024-03-09 23:24 | MHC.EDTECH ---
Patient ambulating with lunchroom monitor in place,HR fluctuated from 138,to 97,patient is sitting on the side of stretcher,HR is 107 to 96 at this time, patient stated she feels better and is not dizzy RN and MD were made aware
[2024-03-10 00:10] VITALS: BP 142/89; PULSE 102; RESP 18; TEMP 36.6; O2SAT 97
== END 2024-03-09 23:50 | disposition still patient (30) ==
PROVIDERS: Physician Assistant Medical; Student in an Organized Health Care Education/Training Program; Emergency Provider Emergency Medicine
DX: R00.2 Palpitations (principal); R42 Dizziness and giddiness; I48.91 Unspecified atrial fibrillation; R94.31 Abnormal electrocardiogram [ECG] [EKG]; Z79.01 Long term (current) use of anticoagulants; Z79.899 Other long term (current) drug therapy; Z87.891 Personal history of nicotine dependence; Z03.818 Encounter for observation for suspected exposure to other biological agents ruled out
CPT/HCPCS: 0241U; 36415; 70496; 70498; 71045; 80053; 81001; 81003; 83735; 84100; 84484; 85025; 87086; 93005; 96374; 96375; 99284; 99285; J0696; Q9967

== ENCOUNTER → 2024-03-09 17:45 | Outpatient (BNV) | payer MEDICARE, SELFPAY | PROVIDERS: Emergency Provider Emergency Medicine; Visit Provider Internal Medicine Cardiovascular Disease | DX: R94.31 Abnormal electrocardiogram [ECG] [EKG] (principal) | CPT/HCPCS: 93010 ==

== ENCOUNTER → 2024-03-09 18:11 | Outpatient (BNV) | payer MEDICARE, SELFPAY | PROVIDERS: Emergency Provider Student in an Organized Health Care Education/Training Program; Visit Provider Specialist | DX: R00.2 Palpitations (principal) | CPT/HCPCS: 71045 ==

== ENCOUNTER 2024-03-12 07:50 | Outpatient (AMB) | payer MEDICARE, SELFPAY ==
--- NOTE | 2024-03-12 08:10 | A.OFFVIS_ITS ---
Intake Visit Reasons: 2m/PVR Intake Note: Patient presents for follow up visit on: incontinence Urology Medications: none Blood Thinner: Pradaxa PVR: 37ml's Motion Picture Equipment Machinist Required: No Accompanied by: Self / Same As Patient Allergies dronedarone [Multaq] Allergy (Severe, Verified 03/12/24 08:38) syncope flecainide Allergy (Severe, Verified 03/12/24 08:38) vertigo,blurry vision lisinopril [LISINOPRIL] Allergy (Severe, Verified 03/12/24 08:38) ANGIOEDEMA, bad cough, throat closing, tingling of head, cough losartan Allergy (Intermediate, Verified 03/12/24 08:38) dry cough, pruritus hydromorphone [Dilaudid] Adverse Reaction (Severe, Verified 03/12/24 08:38) unresponsiveness Medication List - Last Reconciled 03/12/24 by MAR Robertson alendronate 70 mg PO QWEEK biotin 1,000 mcg PO DAILY calcium carbonate-vitamin D3 500 mg-10 mcg (400 unit) (Calcium 500 + D) 2 tabs PO DAILY dabigatran etexilate 150 mg PO BID 90 days fluoride (sodium) 1.1% 1 appl PO BEDTIME lovastatin 20 mg PO DAILY metoprolol succinate ER 50 mg PO DAILY metoprolol succinate ER 50 mg PO DAILY multivitamin,yb-uesa-wpcoxaot (Complete Multivitamin tablet) 1 tab PO DAILY pantoprazole 40 mg PO DAILY polyethylene glycol 3350 (Miralax) 17 grams PO DAILY vitamins A,C,W-wamd-ubpeij 4,296 mcg-226 mg-90 mg (PreserVision AREDS) 1 cap PO BID HPI Comments Details: Nancy is a very pleasant 78-year-old female patient of Dr. Goff. She has a past medical history of Meniere's disease, old hypercalcemia, diverticulosis, hiatal hernia, GERD, obstructive sleep apnea, hyperparathyroidism, osteoporosis, dyslipidemia, heart failure, paroxysmal AFib, sick sinus syndrome status post [place] pacemaker, and COPD. She presents to the office today for a follow up of her ongoing lower urinary tract symptoms. In discussion with the patient today she reports having seeked emergency room care services a proximally 3 days ago as she had been experiencing issues with her atrial fibrillation. She reports in ER she was also given a prescription for antibiotics as she was noted to have a urinary tract infection. However, in review of patient's chart it appears urine culture 03/06 Mixed bacterial reba characteristic of urogenital contamination. She reports she has not yet started antibiotic therapy as prescription was sent to mail away pharmacy. She reports no UTI like symptoms and is enquiring if she should even start the medication when she receives it. In office urinalysis results reviewed with the patient today. Negative leukocytes negative nitrates. PVR 37 mL. She reports having stopped low-dose VESIcare as she felt this was causing issues with her breathing. She continues to report episodes of mixed urinary incontinence. Previous workup has included a retroperitoneal ultrasound 10/04 noting bilateral kidneys with no hydronephrosis. Right kidney with mild diffuse renal cortical thickening multiple renal cysts largest 1.1 cm upper pole there is no specific indication for additional imaging follow-up per radiology report. Left kidney with multiple anechoic foci i in the left peripelvic region may be related to caliectasis and/or pelvic cysts. May represent parapelvic cysts, largest 1.1 cm. The bladder is moderately distended. Bladder ureteral jets are demonstrated. Pre void bladder volume is approximately 130 mL. Postvoid bladder volume is approximately 10 mL. She has previously trialed tolterodine, Myrbetriq, and oxybutynin with no improvement in urinary urgency, urinary frequency and mixed urinary incontinent episodes she continues to experience. She continues to dis cuss and inquire if she is a candidate for bladder lift and or suspension procedure. We discussed at length risks and benefits of further surgical intervention. When asked she does report a history of 2 vaginal births of average size babies. She reports labors were approximately 4-5 hours long. She reports continuing to utilize 2-3 Ayala pads per day. She otherwise denies hematuria, dysuria, foul smelling urine, changes to urinary stream, flank pain, fever, and or chills. Discussed further treatment options of mixed urinary incontinence.She otherwise offers no other issues or concerns at this time. [facility] Medical History Active Meniere's disease Tubular adenoma Positive colorectal cancer screening using Cologuard test Hypercalcemia Diverticulosis Hiatal hernia GERD (gastroesophageal reflux disease) Epigastric pain Dysphagia JESU (obstructive sleep apnea) Hyperparathyroidism Osteoporosis Dyslipidemia Heart failure Paroxysmal atrial fibrillation Cardiac pacemaker in situ Sick sinus syndrome COPD (chronic obstructive pulmonary disease) Surgical History H/O bilateral cataract extraction History of esophagogastroduodenoscopy (EGD) Hx of colonoscopy History of total abdominal hysterectomy and bilateral salpingo-oophorectomy History of total left knee replacement History of pacemaker History of laparoscopic cholecystectomy Family History Father COPD (chronic obstructive pulmonary disease) Mother CAD (coronary artery disease) CVD (cardiovascular disease) Daughter No problems noted. Social History Housing: House Alcohol intake: current Alcohol intake frequency: holidays/special occasions only Alcohol type: wine Patient Tobacco Use Status: Former Tobacco user Tobacco use type: Cigarette e-Cigarette/Vaping Use: Never Used Second Hand Smoke Exposure: No service: No Current occupational status: retired Cognitive needs: No Hearing needs: No Vision needs: No Physical Exam Const General: cooperative, healthy appearing, comfortable, no acute distress, well developed, alert and awake Orientation/consciousness: patient oriented x3 Limitations: no limitations HEENT Head: Yes normal to inspection, Yes normocephalic and Yes atraumatic Ears: hearing grossly normal bilaterally Eyes General: appearance normal, both eyes and all related structures Neck Neck: Yes normal visual inspection and Yes trachea midline Chest Chest palpation & inspection: normal inspection of the chest Resp Effort & Inspection: normal respiratory effort and able to speak in complete sentences Cardio Rate: regular rate GI Inspection: Yes normal to inspection General: Yes no CVA tenderness Back/Spine/Pelvis Back: no CVA tenderness Skin General skin exam: no rashes or lesions noted Neuro General: patient oriented x3 Extrem General: Yes normal to inspection Psych Appearance: grossly normal and well kempt Mental Status: mental status grossly normal Speech and movement: Normal speech and movement present and Clear speech present Affect: normal affect Attitude: cooperative Thought process: Normal thought process present Thought content: Normal thought content present Insight: Fair insight present (Psych) Judgement: Fair judgement present (Psych) Office Procedures Post Void Residual Post Residual Void Post Void Residual (PVR): 37 [id number] Void Residual by ultrasound Results AMB Urinalysis, Automated UA Leukoctes 0 Fredy/uL Last Edit by Wilfredo Crabtree on 03/12/24 08:30 UA Nitrite Last Edit by Wilfredo Crabtree on 03/12/24 08:30 UA Urobilinogen 0.2 mg/dL Last Edit by Eco[employer]gechaitanya Crabtree on 03/12/24 08:30 UA Protein 15 mg/dL Last Edit by [employer]gechaitanya [employer] on 03/12/24 08:30 UA pH 6.0 Last Edit by Wilfredo Crabtree on 03/12/24 08:30 UA Blood 80 Eyad/uL Last Edit by EcoSurgechaitanya Crabtree on 03/12/24 08:30 UA Specific [place] 1.020 Last Edit by Wilfredo Crabtree on 03/12/24 08:30 UA Ketone Last Edit by [employer]anya [employer] on 03/12/24 08:30 UA Bilirubin 0 mg/dL Last Edit by [employer] on 03/12/24 08:30 UA Glucose 0 mg/dL Last Edit by Wilfredo Crabtree on 03/12/24 08:30 Results Reviewed Results Reviewed: Laboratory Last Values Urine pH (Auto) 6.0 03/12/24 08:29 Specific [place] (Auto) 1.020 03/12/24 08:29 Urine Protein (Auto) 15 mg/dL 03/12/24 08:29 Glucose (UA)(Auto) 0 mg/dL 03/12/24 08:29 Urine Blood (Auto) 80 Eyad/uL 03/12/24 08:29 Urine Bilirubin (Auto) 0 mg/dL 03/12/24 08:29 Urine Urobilinogen (Auto) 0.2 mg/dL 03/12/24 08:29 Leukocyte Esterase (Auto) 0 Fredy/uL 03/12/24 08:29 Assessment & Plan Assessment & Plan (1) Lower urinary tract symptoms: Code(s): R39.9 - Unspecified symptoms and signs involving the genitourinary system Category: Medical (2) Nocturia: Code(s): R35.1 - Nocturia Category: Medical (3) Urinary incontinence, mixed: Code(s): N39.46 - Mixed incontinence Category: Medical (4) Urinary incontinence: Code(s): R32 - Unspecified urinary incontinence Category: Medical Plan In office urinalysis results reviewed with the patient today; as noted above. PVR 37 mL. Stop VESIcare. She currently denies any UTI like symptoms. We discussed further treatment options of mixed urinary incontinence given multiple failed medications. Discussed importance of timed/scheduled voiding. Will schedule for next available in office urodynamics. Follow-up per doctors orders; or sooner with any issues, concerns, and or questions. Orders: Orders AMB Post Void Residual by ultrasound Today R39.9 - Unspecified symptoms and signs involving the genitourinary system AMB Urinalysis Automated Today Z13.9 - Encounter for screening, unspecified Patient Instructions: The patient had an opportunity to ask questions regarding the treatment plan. All questions were answered. Physical exam, labs, and imaging were discussed and reviewed in detail. As well as risks, benefits, and discussion of treatment choices. No major barriers to understanding were identified. The patient expressed understanding and agreement with the above treatment plan. The patient was made aware they should contact our office by phone for worsening of their current condition, the appearance of new symptoms, or with any questions or concerns. Compliance is encouraged with any medications and follow up testing that is ordered. It is a privilege to be allowed the opportunity to participate in? your urological care.? Again, if you have any questions or concerns If you have any questions or concerns please do not hesitate to contact me. The office is [phone]. This note is constructed using voice recognition software. While every effort has been made to ensure accuracy sharepoint consultant errors may have been included. Yours sincerely, MAR Robertson Coding Level of Care Code Est Pt Level 3 (27468) Complex EM visit Add On G2211 Diagnoses Lower urinary tract symptoms R39.9 Nocturia R35.1 Urinary incontinence, mixed N39.46 Urinary incontinence R32 CPT Codes Post Residual Void - PVR CPT Code: 92088-Ugwh Void Residual by ultrasound ([id number])
== END 2024-03-12 08:34 | disposition home or self-care (01) ==
PROVIDERS: Visit Provider Nurse Practitioner Family
DX: R39.9 Unspecified symptoms and signs involving the genitourinary system (principal); R35.1 Nocturia; N39.46 Mixed incontinence; Z13.9 Encounter for screening, unspecified
CPT/HCPCS: 99213; G2211

== ENCOUNTER → 2024-03-12 07:50 | Outpatient (BNVA) | payer MEDICARE, SELFPAY | PROVIDERS: Visit Provider Nurse Practitioner Family | DX: R39.9 Unspecified symptoms and signs involving the genitourinary system (principal); R35.1 Nocturia; R32 Unspecified urinary incontinence; N39.46 Mixed incontinence | CPT/HCPCS: 51798; 81003; 99212 ==

== ENCOUNTER 2024-04-11 20:57 | Emergency (ER) | payer MEDICARE, SELFPAY ==
--- NOTE | ~2024-04-11 | XR_ITS ---
CLINICAL HISTORY: fall pain swelling 3 view right ankle Comparison: None Findings: A subtle lucency is identified of the distal tip of the medial malleolus. The ankle mortise and talar dome appear intact. No large ankle effusion. No radiopaque foreign body. IMPRESSION: 1. Subtle lucency identified of the distal tip of the medial malleolus of the right ankle which may represent a subtle nondisplaced fracture or a projectional finding. Recommend clinical correlation with any focal point tenderness at this site for further evaluation. No other radiographic evidence for an acute fracture or dislocation injury at the right ankle. This document has been electronically signed by: Jeffrey Geiger MD on 04/11/2024 22:39:37
--- NOTE | ~2024-04-11 | XR_ITS ---
CLINICAL HISTORY: fall swelling pain 3 view right foot Comparison: None Findings: There appears to be cortical irregularity along the lateral aspect of the anterior process of the calcaneus, only visualized on the AP image. Small plantar calcaneal spur. Moderate to severe degenerative changes are present at the 1st metatarsophalangeal joint. No radiopaque foreign body. IMPRESSION: 1. Vague cortical irregularity identified of the anterior process of the right calcaneus, only visualized along its lateral margin on the AP image, possibly consistent with a subtle fracture in this region. Recommend clinical correlation with any focal point tenderness at this site to evaluate for an acute injury. No other radiographic evidence for an acute fracture or dislocation injury identified at the right foot. This document has been electronically signed by: Jeffrey Geiger MD on 04/11/2024 22:42:42
--- NOTE | ~2024-04-11 | CT_ITS ---
CLINICAL HISTORY: trauma, ? fx on xray Right foot CT without contrast. Comparison: Comparison is made to right foot radiograph examination dated 04/11/2024. Findings: A fracture is present at the anterior process of the right calcaneus, along its lateral margin. There is overlying soft tissue swelling/edema in this region. There also appears to be subtle cortical irregularity of the base of the cuboid bone along its lateral margin on axial image number 220 of series 3, also suggesting a subtle fracture at this site. Degenerative changes are present at the 1st metatarsophalangeal joint. Impression: 1. Fractures present at the anterior process of the talus and base of the cuboid bone of the right foot, visualized along their lateral margins. This document has been electronically signed by: Jeffrey Geiger MD on 04/12/2024 01:59:25
[2024-04-11 21:14] VITALS: BP 140/76; PULSE 107; RESP 16; TEMP 36.6; O2SAT 100; BMI 24.1
[2024-04-11 23:36] VITALS: BP 142/80; PULSE 99; RESP 18; TEMP 36.4; O2SAT 96
--- NOTE | 2024-04-11 23:42 | MHC.EDTECH ---
at this time this tech performed a set of VS on the pt, wheelchair given to pt for visitors to assist pt into bathroom
[2024-04-12 02:34] VITALS: BP 127/73; PULSE 95; RESP 18; O2SAT 98
--- NOTE | 2024-04-12 02:38 | ED.FALL ---
HPI - Fall General Chief Complaint: Fall Stated Complaint: R foot injury s/p fall Time Seen by Provider: 04/12/24 00:27 Source: patient Limitations: no limitations History of Present Illness ED Provider: Vielka Jin PA-C HPI Narrative: 78-year-old female with a history of vertigo, frequent urinary tract infections, AFib on dabigatran, COPD, osteoporosis, osteoarthritis, hyperlipidemia, presents after fall. Patient states she was walking she subsequently tripped, falling forward in her right foot was caught behind her. There was no head strike. Patient complains of pain over the lateral top of the right foot. Related Data Home Medications ?Medication ?Instructions ?Recorded ?Confirmed multivitamin,nu-rfqr-rezppgvh 1 tab PO DAILY 03/17/20 03/12/24 (Complete Multivitamin tablet) vitamins A,C,M-wryw-bwzewf 4,296 1 cap PO BID 05/06/22 03/12/24 mcg-226 mg-90 mg capsule (PreserVision AREDS) fluoride (sodium) 1.1 % dental 1 appl PO BEDTIME 07/28/22 03/12/24 paste biotin 1,000 mcg chewable tablet 1,000 mcg PO DAILY 04/12/23 03/12/24 calcium 500 mg (as 2 tab PO DAILY 07/20/23 03/12/24 carbonate)-vitamin D3 10 mcg (400 unit) tablet (Calcium 500 + D) alendronate 70 mg tablet 70 mg PO QWEEK 09/06/23 03/12/24 Previous Rx's ?Medication ?Instructions ?Recorded polyethylene glycol 3350 17 17 g PO DAILY #510 grams 08/27/21 gram/dose oral powder (Miralax) lovastatin 20 mg tablet 20 mg PO DAILY #90 tabs 09/06/23 pantoprazole 40 mg tablet,delayed 40 mg PO DAILY #90 tabs 09/06/23 release dabigatran etexilate 150 mg capsule 150 mg PO BID 90 days #180 caps 03/20/24 metoprolol succinate 50 mg 50 mg PO DAILY 90 days #90 tabs 04/01/24 tablet,extended release 24 hr Allergies Allergy/AdvReac Type Severity Reaction Status Date / Time dronedarone [Multaq] Allergy Severe syncope Verified 04/11/24 21:18 flecainide Allergy Severe vertigo,blurry Verified 04/11/24 21:18 vision lisinopril [LISINOPRIL] Allergy Severe ANGIOEDEMA, Verified 04/11/24 21:18 bad cough, throat closing, tingling of head, cough losartan Allergy Intermediate dry cough, Verified 04/11/24 21:18 pruritus hydromorphone [Dilaudid] AdvReac Severe unresponsiv Verified 04/11/24 21:18 eness Review of Systems Review of Systems: Yes all other systems are reviewed and are negative Constitutional: Constitutional: Denies fatigue, Denies fever(s) and Denies headache(s) ENT: Denies headache(s) Cardiovascular: Cardiovascular: Denies chest pain and Denies dyspnea Respiratory: Respiratory: Denies dyspnea Gastrointestinal: Gastrointestinal: Denies nausea Musculoskeletal: Musculoskeletal: Reports arthralgias and Reports joint swelling Neurologic: Denies headache(s) Endocrine: Endocrine: Denies fatigue PMFSH Past Medical History Attestation statement: The following information was validated with the patient. Medical History Active Meniere's disease Tubular adenoma Positive colorectal cancer screening using Cologuard test Hypercalcemia Diverticulosis Hiatal hernia GERD (gastroesophageal reflux disease) Epigastric pain Dysphagia JESU (obstructive sleep apnea) Hyperparathyroidism Osteoporosis Dyslipidemia Heart failure Paroxysmal atrial fibrillation Cardiac pacemaker in situ Sick sinus syndrome COPD (chronic obstructive pulmonary disease) Surgical History H/O bilateral cataract extraction History of esophagogastroduodenoscopy (EGD) Hx of colonoscopy History of total abdominal hysterectomy and bilateral salpingo-oophorectomy History of total left knee replacement History of pacemaker History of laparoscopic cholecystectomy Family History Family History Father COPD (chronic obstructive pulmonary disease) Mother CAD (coronary artery disease) CVD (cardiovascular disease) Daughter No problems noted. Social History Social History Housing: House Alcohol intake: current Alcohol intake frequency: holidays/special occasions only Alcohol type: wine Patient Tobacco Use Status: Former Tobacco user Tobacco use type: Cigarette e-Cigarette/Vaping Use: Never Used Second Hand Smoke Exposure: No Advance Directives: No Advance Directives Information Provided: Yes Do you have a plan to hurt others: No Plan service: No Current occupational status: retired Cognitive needs: No Hearing needs: No Vision needs: No Physical Exam Vital Signs: Vital Signs: Last Vital Signs Temp 97.5 F 04/11/24 23:36 Pulse 95 04/12/24 02:34 Resp 18 04/12/24 02:34 BP 127/73 04/12/24 02:34 Pulse Ox 98 04/12/24 02:34 O2 Del Method Room Air 04/12/24 02:34 BMI result Body Mass Index 24.1 Const: Other: Alert well-appearing Orientation/consciousness: patient oriented x3 Resp: Effort & Inspection: normal respiratory effort Cardio: Other: Normal peripheral perfusion Skin: Other: Warm dry no rash Neuro: General: patient oriented x3, no focal motor deficits and CN's II-XI intact bilaterally Extrem: Other: Bruising and swelling noted over the dorsum of the right foot most prominent on the lateral aspect. She has palpable pain over the dorsum of the foot within this distribution able to flex and extend from the ankle Psych: Other: Cooperative Medical Decision Making Medical Decision Making MDM Narrative: 78-year-old female with a history of vertigo, frequent urinary tract infections, AFib on dabigatran, COPD, osteoporosis, osteoarthritis, hyperlipidemia, presents after fall. Patient states she was walking she subsequently tripped, falling forward in her right foot was caught behind her. There was no head strike. Patient complains of pain over the lateral top of the right foot. Problem: Anticoagulation, osteoporosis, osteoarthritis and age History: Per patient I have considered the following differential diagnoses: Fracture, dislocation Plan: X-rays of the foot and ankle were obtained from triage, the findings do not match with her exam. Obtaining a CT Scan Of the foot. I have independently reviewed the following tests: X-ray right foot: IMPRESSION: 1. Vague cortical irregularity identified of the anterior process of the right calcaneus, only visualized along its lateral margin on the AP image, possibly consistent with a subtle fracture in this region. Recommend clinical correlation with any focal point tenderness at this site to evaluate for an acute injury. No other radiographic evidence for an acute fracture or dislocation injury identified at the right foot. This document has been electronically signed by: Jeffrey Geiger MD on 04/11/2024 22:42:42 X-ray right ankle:IMPRESSION: 1. Subtle lucency identified of the distal tip of the medial malleolus of the right ankle which may represent a subtle nondisplaced fracture or a projectional finding. Recommend clinical correlation with any focal point tenderness at this site for further evaluation. No other radiographic evidence for an acute fracture or dislocation injury at the right ankle. This document has been electronically signed by: Jeffrey Geiger MD on 04/11/2024 22:39:37 CT right foot:mpression: 1. Fractures present at the anterior process of the talus and base of the cuboid bone of the right foot, visualized along their lateral margins. This document has been electronically signed by: Jeffrey Geiger MD on 04/12/2024 01:59:[address] the patient in a walking boot, she has a walker at home, both of her daughters at bedside, she can follow up with ortho. Discharge Plan Discharge Clinical Impression: Foot fracture, right Patient Disposition: Home, Self-Care Instructions: Foot Fracture in Adults (ED) Additional Instructions: You sustained a fracture of the talus and the cuboid bones of the right foot. See home care instructions. Keep the walking boot in place when you ambulate, minimize the amount of time that you actually bear weight on the right foot, use the walker always when you ambulate. Do so until you are cleared by the medical specialist. I am providing you with a contact. You can use [id number] Tylenol for your discomfort, 1000 mg taken every 8 hours. When the boot is off, elevate your leg and ice the area several times a day. Prescriptions: No Action polyethylene glycol 3350 [Miralax] 17 gram/dose powder 17 g PO DAILY Qty: 510 2RF dabigatran etexilate 150 mg capsule 150 mg PO BID 90 Days Qty: 180 1RF metoprolol succinate 50 mg tablet extended release 24 hr 50 mg PO DAILY 90 Days Qty: 90 1RF alendronate 70 mg tablet 70 mg PO QWEEK lovastatin 20 mg tablet 20 mg PO DAILY Qty: 90 3RF pantoprazole 40 mg tablet,delayed release (DR/EC) 40 mg PO DAILY Qty: 90 2RF Rx Instructions: take one tablet half an hour before breakfast Complete Multivitamin Tablet 1 tab PO DAILY fluoride (sodium) 1.1 % paste 1 appl PO BEDTIME PreserVision AREDS 14,320-226-200 [id number] capsule 1 cap PO BID biotin 1,000 mcg tablet,chewable 1,000 mcg PO DAILY calcium carbonate-vitamin D3 [Calcium 500 + D] 500 mg-10 mcg (400 unit) tablet 2 tab PO DAILY Referrals: Denilson Castillo MD [Physician] - (right foot fx, talus and cuboid,) Print Language: Kinyarwanda
[2024-04-12 03:00] VITALS: BP 127/73; PULSE 95; RESP 18; TEMP -17.7; TEMP 0; O2SAT 98
== END 2024-04-12 03:02 | disposition home or self-care (01) ==
PROVIDERS: Emergency Provider Emergency Medicine
DX: S92.901A Unspecified fracture of right foot, initial encounter for closed fracture (principal); M79.671 Pain in right foot; W01.0XXA Fall on same level from slipping, tripping and stumbling without subsequent striking against object, initial encounter; Y93.9 Activity, unspecified; Y92.9 Unspecified place or not applicable; Y99.8 Other external cause status; Z79.899 Other long term (current) drug therapy; Z87.891 Personal history of nicotine dependence
CPT/HCPCS: 73610; 73630; 73700; 99283; 99284

== ENCOUNTER → 2024-04-11 21:50 | Outpatient (BNV) | payer MEDICARE, SELFPAY | PROVIDERS: Visit Provider Radiology Diagnostic Radiology | DX: M25.571 Pain in right ankle and joints of right foot (principal); R22.41 Localized swelling, mass and lump, right lower limb; W19.XXXA Unspecified fall, initial encounter | CPT/HCPCS: 73610; 73630 ==

== ENCOUNTER → 2024-04-12 00:42 | Outpatient (BNV) | payer MEDICARE, SELFPAY | PROVIDERS: Emergency Provider Emergency Medicine; Visit Provider Radiology Diagnostic Radiology | DX: S92.191A Other fracture of right talus, initial encounter for closed fracture (principal); S92.211A Displaced fracture of cuboid bone of right foot, initial encounter for closed fracture | CPT/HCPCS: 73700 ==

== ENCOUNTER 2024-04-16 08:51 | Outpatient (REF) | payer MEDICARE, SELFPAY ==
--- NOTE | ~2024-04-16 | XR_ITS ---
EXAMINATION: XR FOOT 3 OR MORE VIEWS RIGHT HISTORY: S92.351A - Displaced fracture of fifth metatarsal bone, right foot COMPARISON: Comparison is made with the prior examination dated 04/11/2024. Correlation is also made with a CT of the right foot dated 04/12/2024. FINDINGS: Three views of the right foot are submitted. Osseous mineralization is normal. Osseous density lateral to the cuboid is consistent with the fracture noted on CT. The previously seen fracture of the anterior process of the calcaneus is not well visualized. 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 The soft tissues are unremarkable. XR/XR foot RT min 3V IMPRESSION: Fracture fragment lateral to the cuboid as noted on prior CT. The previously seen fracture of the anterior process of the calcaneus is not well visualized. Electronically signed by: Haider Gustafson MD 04/16/2024 03:50 PM [facility]
== END 2024-04-16 08:52 | disposition home or self-care (01) ==
LOC: HO.HOSX 08:51
DX: S92.001A Unspecified fracture of right calcaneus, initial encounter for closed fracture (principal)
CPT/HCPCS: 73630; 99202

== ENCOUNTER 2024-04-16 09:28 | Outpatient (AMB) | payer MEDICARE, SELFPAY ==
[2024-04-16 09:41] VITALS: BMI 24.1
--- NOTE | 2024-04-16 09:41 | A.OFFVIS_ITS ---
Vital Signs 04/16/24 09:41 Height 5 ft 5 in Weight 145 lb BMI 24.1 Intake Visit Reasons: FC-Foot fracture, right-DOI 04/11/24 Intake Note: Nancy is an 78 year old female who presents today as a new patient for ED follow up s/p right foot fracture, DOI 04/12/24. Patient states she was walking when she subsequently tripped, falling forward with her right foot caught behind her. Seen in ED same day where xrays were done and was placed in a cam walker boot. Currently states her pain is tolerable. States she removes her foot only when resting and going to sleep. Patient denies numbness or tingling. She is taking Tylenol for pain with relief. Denies previous injuries or surgeries to the right foot. Accompanied by: daughter Annalisa Allergies dronedarone [Multaq] Allergy (Severe, Verified 04/16/24 09:44) syncope flecainide Allergy (Severe, Verified 04/16/24 09:44) vertigo,blurry vision lisinopril [LISINOPRIL] Allergy (Severe, Verified 04/16/24 09:44) ANGIOEDEMA, bad cough, throat closing, tingling of head, cough losartan Allergy (Intermediate, Verified 04/16/24 09:44) dry cough, pruritus hydromorphone [Dilaudid] Adverse Reaction (Severe, Verified 04/16/24 09:44) unresponsiveness HPI HPI FC-Foot fracture, right-DOI 04/11/24: Details: velasquez is an 78 year old female who presents today as a new patient for ED follow up s/p right foot fracture, DOI 04/12/24. Patient states she was walking when she subsequently tripped, falling forward with her right foot caught behind her. Seen in ED same day where xrays were done and was placed in a cam walker boot. Currently states her pain is tolerable. States she removes her foot only when resting and going to sleep. Patient denies numbness or tingling. She is taking Tylenol for pain with relief. Denies previous injuries or surgeries to the right foot. ON LICENSE OF [facility] Medical History Active Meniere's disease Tubular adenoma Positive colorectal cancer screening using Cologuard test Hypercalcemia Diverticulosis Hiatal hernia GERD (gastroesophageal reflux disease) Epigastric pain Dysphagia JESU (obstructive sleep apnea) Hyperparathyroidism Osteoporosis Dyslipidemia Heart failure Paroxysmal atrial fibrillation Cardiac pacemaker in situ Sick sinus syndrome COPD (chronic obstructive pulmonary disease) Surgical History H/O bilateral cataract extraction History of esophagogastroduodenoscopy (EGD) Hx of colonoscopy History of total abdominal hysterectomy and bilateral salpingo-oophorectomy History of total left knee replacement History of pacemaker History of laparoscopic cholecystectomy Family History Father COPD (chronic obstructive pulmonary disease) Mother CAD (coronary artery disease) CVD (cardiovascular disease) Daughter No problems noted. 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 Cognitive needs: No Hearing needs: No Vision needs: No Review of Systems Const All systems reviewed & are unremarkable except as noted in HPI and below Physical Exam Vital Signs: BMI result Body Mass Index 24.1 Extrem Other: Patient's R foot edematous and ecchymotic to inspection No erythema noted No lacerations, abrasions, open areas No evidence of infection Patient reports tenderness to palpation of the proximal and lateral foot No tenderness of the medial foot, lateral malleolus, medial mallolus Distal sensation intact Capillary refill brisk Office Procedures AMB Fracture Care Details: Right calcaneus avulsion fracture Fracture Billing Code: Fracture Billing Code Results Reviewed Results Reviewed: X-rays obtained in the office today and independently reviewed by me, Raheem Alcala PA-C, demonstrate minimally displaced avulsion fracture of the anterior and lateral aspect of the right calcaneus. Assessment & Plan Assessment & Plan (1) Avulsion fracture of right calcaneus: Code(s): S92.001A - Unspecified fracture of right calcaneus, initial encounter for closed fracture Category: Medical Plan 1. Avulsion fracture of right calcaneus Extra-articular Patient is educated about this injury Patient is educated about the typical recovery course At this time patient is told she should continue wearing her boot whenever she is weight-bearing Patient can continue to weightbear as tolerated in the boot Patient was amenable to this plan Patient will follow-up in 3 weeks with repeat x-rays, sooner with any acute concerns Orders: Orders XR foot RT min 3V 04/16/24 S92.351A - Displaced fracture of fifth metatarsal bone, right foot, initial encounter for closed fracture Coding Level of Care Code New Pt Level 3 (47203) Diagnoses Avulsion fracture of right calcaneus S92.001A CPT Codes Fracture Care - Fracture Billing Code: Fracture Billing Code ([id number])
== END 2024-04-16 10:01 | disposition home or self-care (01) ==
DX: S92.001A Unspecified fracture of right calcaneus, initial encounter for closed fracture (principal)
CPT/HCPCS: 99203

== ENCOUNTER → 2024-04-16 09:31 | Outpatient (BNV) | payer MEDICARE, SELFPAY | PROVIDERS: Visit Provider Radiology Diagnostic Radiology | DX: S92.351A Displaced fracture of fifth metatarsal bone, right foot, initial encounter for closed fracture (principal); S92.214A Nondisplaced fracture of cuboid bone of right foot, initial encounter for closed fracture | CPT/HCPCS: 73630 ==

== ENCOUNTER 2024-05-09 09:35 | Outpatient (REF) | payer MEDICARE, SELFPAY ==
--- NOTE | ~2024-05-09 | XR_ITS ---
EXAMINATION: XR FOOT 3 OR MORE VIEWS RIGHT HISTORY: S92.351A - Displaced fracture of fifth metatarsal bone, right foot COMPARISON: Comparison is made with the prior examination dated 04/16/2024. FINDINGS: Three views of the right foot are submitted. Osseous mineralization is normal. The previously seen fracture fragment adjacent to the cuboid is less well visualized. 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 The soft tissues are unremarkable. XR/XR foot RT min 3V IMPRESSION: The previously seen fracture fragment adjacent to the cuboid is less well visualized. 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 Electronically signed by: Haider Gustafson MD 05/09/2024 01:01 PM [facility]
== END 2024-05-09 09:36 | disposition home or self-care (01) ==
LOC: HO.HOSX 09:35
DX: S92.351D Displaced fracture of fifth metatarsal bone, right foot, subsequent encounter for fracture with routine healing (principal)
CPT/HCPCS: 73630; 99212

== ENCOUNTER 2024-05-09 09:35 | Outpatient (AMB) | payer MEDICARE, SELFPAY ==
--- NOTE | 2024-05-09 09:55 | A.OFFVIS_ITS ---
Vital Signs 05/09/24 09:59 Height 5 ft 5 in Weight 145 lb BMI 24.1 Intake Visit Reasons: OV - Right Calcaneus Avulsion Fx 04/11/24 - W XR Intake Note: Nancy is an 78 year old female who presents today for a follow up of her right calcaneus Avulsion fracture 04/12/24. At her last visit she was instructed to continue wearing the boot provided and weight bear as tolerated. Patient reports she is doing well, states no pain. She has no concerns today. She continues to wear boot as instructed. Allergies dronedarone [Multaq] Allergy (Severe, Verified 05/09/24 10:00) syncope flecainide Allergy (Severe, Verified 05/09/24 10:00) vertigo,blurry vision lisinopril [LISINOPRIL] Allergy (Severe, Verified 05/09/24 10:00) ANGIOEDEMA, bad cough, throat closing, tingling of head, cough losartan Allergy (Intermediate, Verified 05/09/24 10:00) dry cough, pruritus hydromorphone [Dilaudid] Adverse Reaction (Severe, Verified 05/09/24 10:00) unresponsiveness HPI HPI OV - Right Calcaneus Avulsion Fx 04/11/24 - W XR: Details: Nancy is an 78 year old female who presents today for a follow up of her right calcaneus Avulsion fracture 04/12/24. At her last visit she was instructed to continue wearing the boot provided and weight bear as tolerated. Patient reports she is doing well, states no pain. She has no concerns today. She continues to wear boot as instructed. [facility] Medical History Active Meniere's disease Tubular adenoma Positive colorectal cancer screening using Cologuard test Hypercalcemia Diverticulosis Hiatal hernia GERD (gastroesophageal reflux disease) Epigastric pain Dysphagia JESU (obstructive sleep apnea) Hyperparathyroidism Osteoporosis Dyslipidemia Heart failure Paroxysmal atrial fibrillation Cardiac pacemaker in situ Sick sinus syndrome COPD (chronic obstructive pulmonary disease) Surgical History H/O bilateral cataract extraction History of esophagogastroduodenoscopy (EGD) Hx of colonoscopy History of total abdominal hysterectomy and bilateral salpingo-oophorectomy History of total left knee replacement History of pacemaker History of laparoscopic cholecystectomy Family History Father COPD (chronic obstructive pulmonary disease) Mother CAD (coronary artery disease) CVD (cardiovascular disease) Daughter No problems noted. 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 Cognitive needs: No Hearing needs: No Vision needs: No Review of Systems Const All systems reviewed & are unremarkable except as noted in HPI and below Physical Exam Vital Signs: BMI result Body Mass Index 24.1 Extrem Other: Patient's R foot edematous and ecchymotic to inspection No erythema noted No lacerations, abrasions, open areas No evidence of infection Patient reports no tenderness to palpation of the proximal and lateral foot No tenderness of the medial foot, lateral malleolus, medial mallolus Distal sensation intact Capillary refill brisk Results Reviewed Results Reviewed: X-rays obtained in the office today and independently reviewed by me, Raheem Alcala PA-C, demonstrate minimally displaced avulsion fracture of the anterior and lateral aspect of the right calcaneus with evidence of interval bony healing. Assessment & Plan Assessment & Plan (1) Avulsion fracture of right calcaneus: Code(s): S92.001A - Unspecified fracture of right calcaneus, initial encounter for closed fracture Category: Medical Plan 1. Avulsion fracture of right calcaneus Extra-articular Patient is educated about this injury Patient is educated about the typical recovery course At this time patient is told she should be wearing supportive foot wear whenever she is weight-bearing, but does no longer require a boot Patient can continue to weightbear as tolerated in supportive footwear Patient was amenable to this plan Patient will follow-up in 4-6 weeks with repeat x-rays, sooner with any acute concerns Orders: Orders XR foot RT min 3V Today S92.351A - Displaced fracture of fifth metatarsal bone, right foot, initial encounter for closed fracture Coding Level of Care Code Global (87396) Diagnoses Avulsion fracture of right calcaneus S92.001A
[2024-05-09 09:59] VITALS: BMI 24.1
== END 2024-05-09 10:22 | disposition home or self-care (01) ==
DX: S92.001A Unspecified fracture of right calcaneus, initial encounter for closed fracture (principal)
CPT/HCPCS: 99213

== ENCOUNTER → 2024-05-09 09:43 | Outpatient (BNV) | payer MEDICARE, SELFPAY | PROVIDERS: Visit Provider Radiology Diagnostic Radiology | DX: S92.351A Displaced fracture of fifth metatarsal bone, right foot, initial encounter for closed fracture (principal); M19.071 Primary osteoarthritis, right ankle and foot | CPT/HCPCS: 73630 ==

== ENCOUNTER → 2024-05-14 23:59 | Outpatient (BNV) | payer MEDICARE, SELFPAY ==
--- NOTE | 2024-05-16 17:49 | MHC.OFFVIS ---
Intake Visit Reasons: Remote Device Check- [facility] Allergies dronedarone [Multaq] Allergy (Severe, Verified 05/09/24 10:00) syncope flecainide Allergy (Severe, Verified 05/09/24 10:00) vertigo,blurry vision lisinopril [LISINOPRIL] Allergy (Severe, Verified 05/09/24 10:00) ANGIOEDEMA, bad cough, throat closing, tingling of head, cough losartan Allergy (Intermediate, Verified 05/09/24 10:00) dry cough, pruritus hydromorphone [Dilaudid] Adverse Reaction (Severe, Verified 05/09/24 10:00) unresponsiveness [facility] Medical History Active Meniere's disease Tubular adenoma Positive colorectal cancer screening using Cologuard test Hypercalcemia Diverticulosis Hiatal hernia GERD (gastroesophageal reflux disease) Epigastric pain Dysphagia JESU (obstructive sleep apnea) Hyperparathyroidism Osteoporosis Dyslipidemia Heart failure Paroxysmal atrial fibrillation Cardiac pacemaker in situ Sick sinus syndrome COPD (chronic obstructive pulmonary disease) Surgical History H/O bilateral cataract extraction History of esophagogastroduodenoscopy (EGD) Hx of colonoscopy History of total abdominal hysterectomy and bilateral salpingo-oophorectomy History of total left knee replacement History of pacemaker History of laparoscopic cholecystectomy Family History Father COPD (chronic obstructive pulmonary disease) Mother CAD (coronary artery disease) CVD (cardiovascular disease) Daughter No problems noted. 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 Pacemaker function is adequate. Increased burden of atrial fibrillation noted with total burden of 13% [id number] Cardiac Device Interrogation, pacemaker Procedure code (CPT) selection complete Assessment & Plan Assessment & Plan (1) Cardiac pacemaker in situ: Code(s): Z95.0 - Presence of cardiac pacemaker Category: Medical Plan: See above Coding Level of Care Code Procedure Only Diagnoses Cardiac pacemaker in situ Z95.0 CPT Codes Cardiac Device Check - Cardiac Device 12: [id number] Cardiac Device Interrogation, pacemaker ([id number])
== END ==
PROVIDERS: PCP Internal Medicine; Visit Provider Internal Medicine Cardiovascular Disease
DX: I48.91 Unspecified atrial fibrillation (principal); Z95.0 Presence of cardiac pacemaker
CPT/HCPCS: 93294

== ENCOUNTER 2024-05-16 10:33 | Outpatient (REF) | payer MEDICARE, SELFPAY ==
[2024-05-16 12:37] LABS: Alanine Aminotransferase 19 U/L (0-31); Albumin Level 3.9 g/dL (3.5-5.0); Alkaline Phosphatase 50 U/L (39-117); Anion Gap 8 (12-20); Aspartate Amino Transferase 25 U/L (5-31); Bilirubin Total 0.6 mg/dL (0.0-1.0); Blood Urea Nitrogen 10 mg/dL (9-16); Calcium 10.1 mg/dL (8.4-10.2); Carbon Dioxide 27 mmol/L (22-29); Chloride 108 mmol/L (96-108); Cholesterol 162 mg/dL (<200); Estimated Glomerular Filt Rate > 60; Glucose Fasting 88 mg/dL (60-99); HDL Cholesterol 49 mg/dL (>40); LDL Cholesterol Calculated 83 mg/dL (<100); Potassium 4.2 mmol/L (3.3-5.1); Sodium 139 mmol/L (135-145); Total Protein 7.3 g/dL (6.5-8.0); Triglycerides 151 mg/dL (<150)
[2024-05-20 17:44] LABS: NT-proBNP 228 pg/mL (<450)
== END 2024-05-16 10:34 | disposition home or self-care (01) ==
LOC: HO.LAB 10:33
PROVIDERS: PCP Internal Medicine; Visit Provider Internal Medicine
DX: I50.22 Chronic systolic (congestive) heart failure (principal); E78.5 Hyperlipidemia, unspecified
CPT/HCPCS: 36415; 80053; 80061; 83880

== ENCOUNTER 2024-05-24 08:47 | Outpatient (AMB) | payer MEDICARE, SELFPAY ==
--- NOTE | 2024-05-24 08:48 | MHC.OFFVIS ---
Vital Signs 05/24/24 08:49 Height 5 ft 5 in Weight 147 lb 11.355 oz BMI 24.6 BP 120/82 Blood Pressure Location Lt brachial Position Sitting Pulse 74 Intake Visit Reasons: 6mth f/up w/EKg/pacer check Intake Note: 6 month follow-up with [facility] pacer check c/o dizziness Passenger Car Inspector Required: No Allergies dronedarone [Multaq] Allergy (Severe, Verified 05/09/24 10:00) syncope flecainide Allergy (Severe, Verified 05/09/24 10:00) vertigo,blurry vision lisinopril [LISINOPRIL] Allergy (Severe, Verified 05/09/24 10:00) ANGIOEDEMA, bad cough, throat closing, tingling of head, cough losartan Allergy (Intermediate, Verified 05/09/24 10:00) dry cough, pruritus hydromorphone [Dilaudid] Adverse Reaction (Severe, Verified 05/09/24 10:00) unresponsiveness Medication List - Last Reconciled 05/24/24 by Saud Guzmán MD alendronate 70 mg PO QWEEK biotin 1,000 mcg PO DAILY calcium carbonate-vitamin D3 500 mg-10 mcg (400 unit) (Calcium 500 + D) 2 tabs PO DAILY dabigatran etexilate 150 mg PO BID 90 days fluoride (sodium) 1.1% 1 appl PO BEDTIME lovastatin 20 mg PO DAILY metoprolol succinate ER 25 mg PO DAILY multivitamin,ga-fuvx-fmybggxl (Complete Multivitamin tablet) 1 tab PO DAILY pantoprazole 40 mg PO DAILY polyethylene glycol 3350 (Miralax) 17 grams PO DAILY vitamins A,C,K-qamq-jcljuk 4,296 mcg-226 mg-90 mg (PreserVision AREDS) 1 cap PO BID HPI Comments Details: Nancy comes for follow-up. He has been having multiple episodes of dizziness. She says usually gets this dizziness when she was standing for some period time. She had injury to her ankle and injured it badly after 1 of these episodes when she fell down. She says she just collapses. She is not sure if she loses consciousness and that is very unclear at this point time. However these episodes do not happen when she changes position but usually after she has been up and about. She says she was to usually sit down when these episodes happen. She was seen Neurology and has had EEG. She was told to have increase fluid intake which she was increased to about 40-50 oz and also the metoprolol was changed to nighttime. She says with these interventions her symptoms are better. She had 1 episode in February when she came to the hospital with chest tightness and was noted to be in atrial fibrillation rapid ventricular response. However she has had atrial fibrillation at other times without any of these symptoms of dizziness or chest tightness. Her burden of atrial fibrillation has increased to about 12%. She occasionally feels palpitation but he was not very symptomatic with this. Denies any bleeding issues or neurologic events. [facility] Medical History (Updated 05/24/24 @ 09:16 by Saud Guzmán MD) Paroxysmal atrial fibrillation Persistent atrial fibrillation Active Meniere's disease Tubular adenoma Positive colorectal cancer screening using Cologuard test Hypercalcemia Diverticulosis Hiatal hernia GERD (gastroesophageal reflux disease) Epigastric pain Dysphagia JESU (obstructive sleep apnea) Hyperparathyroidism Osteoporosis Dyslipidemia Heart failure Cardiac pacemaker in situ Sick sinus syndrome COPD (chronic obstructive pulmonary disease) Surgical History H/O bilateral cataract extraction History of esophagogastroduodenoscopy (EGD) Hx of colonoscopy History of total abdominal hysterectomy and bilateral salpingo-oophorectomy History of total left knee replacement History of pacemaker History of laparoscopic cholecystectomy Family History Father COPD (chronic obstructive pulmonary disease) Mother CAD (coronary artery disease) CVD (cardiovascular disease) Daughter No problems noted. 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 Cognitive needs: No Hearing needs: No Vision needs: No Review of Systems Const Denies chills, Denies fatigue, Denies fever(s), Denies frequent falls, Denies weakness, Denies weight gain and Denies weight loss ENT Denies dizziness Card Denies chest pain, Denies leg edema, Denies lightheadedness, Denies palpitations, Denies dyspnea, Denies dyspnea on exertion, Denies orthopnea and Denies other (loss of consciousness) Resp Denies cough, Denies dyspnea and Denies dyspnea on exertion GI Denies hematochezia and Denies change in stool character Musc Denies abnormal gait, Denies muscle weakness, Denies numbness, Denies radiating pain into limb and Denies tingling Neuro Denies abnormal gait, Denies dizziness, Denies frequent falls, Denies numbness, Denies tingling and Denies weakness Endo Denies fatigue and Denies palpitations Physical Exam Vital Signs: Last Vital Signs Pulse 74 05/24/24 08:49 BP 120/82 05/24/24 08:49 BMI result Body Mass Index 24.6 Const General: cooperative, comfortable, no acute distress, alert, awake and well groomed Nutritional Appearance: average body habitus Orientation/consciousness: patient oriented x3 Limitations: no limitations Neck Neck: Yes trachea midline, Yes supple and Yes no JVD Resp Effort & Inspection: normal respiratory effort Auscultation: clear to auscultation bilaterally Cardio Jugular venous distension: no JVD Palpation: normal PMI Rhythm: abnormal rhythm irregularly irregular Heart sounds: S1 normal heart sound present, S2 normal heart sound present, no click, no gallops and no murmurs GI Auscultation: normal bowel sounds Skin General skin exam: no rashes or lesions noted Neuro General: patient oriented x3 and no focal motor deficits Extrem General: Yes no clubbing, cyanosis or edema Psych Appearance: grossly normal Office Procedures Cardiac Device Check Cardiac Device Check Details: Dual-chamber [facility] pacemaker in place. Programmed in DDDR at 70 beats per minute. Atrial pacing 73% time. Total burden of atrial fibrillation about 12%. Atrial and ventricular pacing thresholds are stable. Atrial ventricular sensing is adequate. Pacing lead impedance is stable. Battery life is 2.9 years [id number] Cardiac Device Check, pacemaker dual lead Procedure code (CPT) selection complete Assessment & Plan Assessment & Plan (1) Chest tightness: Code(s): R07.89 - Other chest pain Plan: Patient with presentation with chest tightness and at that time incidentally was noted to be in atrial fibrillation although she has had atrial fibrillation other times without chest tightness. Concerned about myocardial ischemia. Will suggest exercise myocardial perfusion imaging to evaluate for myocardial ischemia in the near future. (2) Near syncope: Code(s): R55 - Syncope and collapse Plan: Episode of severe dizziness with the injury. She has had multiple workup. Symptoms sound like delayed orthostatic hypotension. She was improved with increase fluid intake and also changing her metoprolol to nighttime. At this point time I suggested to increase her fluid intake further and orthostatic precautions were discussed. Will suggest a tilt-table test to confirm diagnosis in the the near future. (3) Cardiac pacemaker in situ: Code(s): Z95.0 - Presence of cardiac pacemaker Category: Medical Plan: Cardiac pacemaker in-situ for sick sinus syndrome. Pacemaker is working well. Will continue follow remotely. (4) Paroxysmal atrial fibrillation: Code(s): I48.0 - Paroxysmal atrial fibrillation Category: Medical Plan: Higher burden of atrial fibrillation paroxysmal although I do not think these correlated with her symptoms of either chest tightness dizziness. She was in tolerated antiarrhythmic drug therapy in the past. If she clearly gets any significant symptoms will pursue further rhythm control approach alternative drugs including amiodarone and/or ablation. Continue full oral anticoagulation, currently on dabigatran 150 mg b.i.d.. Semi annual renal function test should be pursued. Will follow up in the clinic in 6 months time, sooner p.r.n.. Thank you for allowing me to partake in her care Coding Level of Care Code Est Pt Level 4 (37034) Complex EM visit Add On G2211 Diagnoses Chest tightness R07.89 Near syncope R55 Cardiac pacemaker in situ Z95.0 Paroxysmal atrial fibrillation I48.0 CPT Codes Cardiac Device Check - Cardiac Device 2: [id number] Cardiac Device Check, pacemaker dual lead ([id number])
[2024-05-24 08:49] VITALS: BP 120/82; PULSE 74; BMI 24.6
== END 2024-05-24 09:16 | disposition home or self-care (01) ==
PROVIDERS: PCP Internal Medicine; Visit Provider Internal Medicine Cardiovascular Disease
DX: R07.89 Other chest pain (principal); R55 Syncope and collapse; Z95.0 Presence of cardiac pacemaker; I48.0 Paroxysmal atrial fibrillation
CPT/HCPCS: 93280; 99214; G2211

== ENCOUNTER → 2024-05-24 08:47 | Outpatient (BNVA) | payer MEDICARE, SELFPAY | PROVIDERS: PCP Internal Medicine; Visit Provider Internal Medicine Cardiovascular Disease | DX: I48.0 Paroxysmal atrial fibrillation (principal); R07.89 Other chest pain; R55 Syncope and collapse; Z45.018 Encounter for adjustment and management of other part of cardiac pacemaker; Z87.891 Personal history of nicotine dependence | CPT/HCPCS: 93280; 99212 ==

== ENCOUNTER 2024-05-25 10:51 | Outpatient (RCR) | payer MEDICARE, SELFPAY ==
[2024-05-25 10:56] VITALS: BP 132/86; PULSE 75; O2SAT 97
--- NOTE | 2024-05-25 12:39 | MHC.PT.EP ---
[facility] [place] [facility] [place] [facility] [place] [facility] [address] Maria Eugenia Pelletier [address] [phone] F: [phone] F: [phone] F: [phone] F: [phone] Physical Therapy Plan of Care Date of Evaluation: 05/25/24 Date of Surgery: Diagnosis: This is an 78 yo female presenting to skilled PT with a script for BPPV, unspecified ear. Assessment: This is an 78 yo female presenting to skilled PT with a script for BPPV, unspecified ear. 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 The last note states that she has been having multiple episodes of dizziness that occur when she has been standing for longer periods of time where she just collapses. She is not sure if she loses consciousness however these episodes do not happen when she changes position like traditional BPPV. She was seen Neurology and has had EEG. She was told to have increase fluid intake which she was increased to about 40-50 oz and also the metoprolol was changed to nighttime which has helped her some. Per cardiology note again, symptoms sound like delayed orthostatic hypotension. Of note, she had 1 episode in February when she came to the hospital with chest tightness and was noted to be in atrial fibrillation rapid ventricular response. She also ended up in the ED recently with an injury to her ankle after one of these episodes/fell down. Also of note, previously, she experienced severe vertigo linked to Meniere's Disease five years ago, resulting in wrist and clavicle fractures however her current dizziness differs from this. She has tried Meclizine without improvements and was referred to neurology as well. She is here today reporting the same as above. Her symptoms have been ongoing since November. Symptoms are more lightheaded and lasts for about 10-15 mins once she sits down. Symptoms only occur in standing. Examination shows - oculomotor tests with saccades, (-) VBI B, and slightly decreased cervical AROM. She was (-) for BPPV with mahendra-hallpike B and B roll test. Static balance was somewhat decreased due to ankle fracture and knee OA and she has a history of multiple falls due to symptoms. Dynamic balance was not formally tested due to time. S/S are not consistent with BPPV at this time and per cardiology notes she has some further tests already in place. I recommended she continue with her cardiology tests and once cleared to do PT for balance to return for PT. If symptoms change and patient tests positive for BPPV she would benefit from PT 2x/wk for 4wks to address impairments, implement HEP and optimize functional mobility. Frequency and Duration: The patient will be seen Short Term Goals: NA - referring back to MD [employer]ctor Goals: (if symptoms change and she returns) I in HEP Negative in all 6 canals for dizziness and nystagmus Return to normal gait pattern without reports fo LOB due to dizziness Treatment Plan: Modalities to reduce pain, spasms and effusion. Manual therapy to restore motion and function. Therapeutic exercise to improve strength and flexibility. Neuromuscular re-education for posture and balance. Therapeutic activities to return to functional activities of daily living. Electronically signed by: Danette Peoples, PT Please sign and return to therapist. Thank you for your referral.
--- NOTE | 2024-06-22 07:44 | MHC.PT.DC ---
[facility] [place] [facility] [place] [facility] [place] [facility] [address] Maria Eugenia Pelletier [address] [phone] F: [phone] F: [phone] F: [phone] F: [phone] Physical Therapy Discharge Report Diagnosis: This is an 78 yo female presenting to skilled PT with a script for BPPV, unspecified ear. Date of Surgery: Date of Evaluation: 05/25/24 Date of Discharge: 06/22/24 Treatments to Date: 1 Cancellations to Date: 0 No Shows to Date: 0 Discharge Status: Recommend MD Follow-up Discharge Summary: This is an 78 yo female presenting to skilled PT with a script for BPPV, unspecified ear. 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 The last note states that she has been having multiple episodes of dizziness that occur when she has been standing for longer periods of time where she just collapses. She is not sure if she loses consciousness however these episodes do not happen when she changes position like traditional BPPV. She was seen Neurology and has had EEG. She was told to have increase fluid intake which she was increased to about 40-50 oz and also the metoprolol was changed to nighttime which has helped her some. Per cardiology note again, symptoms sound like delayed orthostatic hypotension. Of note, she had 1 episode in February when she came to the hospital with chest tightness and was noted to be in atrial fibrillation rapid ventricular response. She also ended up in the ED recently with an injury to her ankle after one of these episodes/fell down. Also of note, previously, she experienced severe vertigo linked to Meniere's Disease five years ago, resulting in wrist and clavicle fractures however her current dizziness differs from this. She has tried Meclizine without improvements and was referred to neurology as well. She is here today reporting the same as above. Her symptoms have been ongoing since November. Symptoms are more lightheaded and lasts for about 10-15 mins once she sits down. Symptoms only occur in standing. Examination shows - oculomotor tests with saccades, (-) VBI B, and slightly decreased cervical AROM. She was (-) for BPPV with mahendra-hallpike B and B roll test. Static balance was somewhat decreased due to ankle fracture and knee OA and she has a history of multiple falls due to symptoms. Dynamic balance was not formally tested due to time. S/S are not consistent with BPPV at this time and per cardiology notes she has some further tests already in place. I recommended she continue with her cardiology tests and once cleared to do PT for balance to return for PT. If symptoms change and patient tests positive for BPPV she would benefit from PT 2x/wk for 4wks to address impairments, implement HEP and optimize functional mobility. Electronically signed by: Jessy Peoples, PT Please sign and return to therapist. Thank you for your referral.
== END 2024-06-22 07:44 | disposition home or self-care (01) ==
LOC: HO.PTCHIC 10:51
PROVIDERS: PCP Internal Medicine; Visit Provider Internal Medicine
DX: H81.10 Benign paroxysmal vertigo, unspecified ear (principal)
CPT/HCPCS: 97110; 97162

== ENCOUNTER 2024-05-29 09:34 | Outpatient (REF) | payer MEDICARE, SELFPAY | END 2024-05-29 09:35 | disposition home or self-care (01) | LOC: HO.LAB 09:34 | PROVIDERS: Visit Provider Urology | DX: R39.9 Unspecified symptoms and signs involving the genitourinary system (principal); R31.29 Other microscopic hematuria; R35.1 Nocturia; N39.46 Mixed incontinence | CPT/HCPCS: 87086 ==

== ENCOUNTER 2024-06-07 07:54 | Outpatient (AMB) | payer MEDICARE, SELFPAY ==
[2024-06-07 08:00] VITALS: BP 122/80; BMI 24.6
--- NOTE | 2024-06-07 08:00 | MHC.PC.OV ---
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 Required: No Accompanied by: Self / Same As Patient Allergies dronedarone [Multaq] Allergy (Severe, Verified 06/07/24 08:15) syncope flecainide Allergy (Severe, Verified 06/07/24 08:15) vertigo,blurry vision lisinopril [LISINOPRIL] Allergy (Severe, Verified 06/07/24 08:15) ANGIOEDEMA, bad cough, throat closing, tingling of head, cough losartan Allergy (Intermediate, Verified 06/07/24 08:15) dry cough, pruritus hydromorphone [Dilaudid] Adverse Reaction (Severe, Verified 06/07/24 08:15) unresponsiveness Medication List - Last Reconciled 06/07/24 by Homa Jones MD alendronate 70 mg PO QWEEK biotin 1,000 mcg PO DAILY calcium carbonate-vitamin D3 500 mg-10 mcg (400 unit) (Calcium 500 + D) 2 tabs PO DAILY dabigatran etexilate 150 mg PO BID 90 days fluoride (sodium) 1.1% 1 appl PO BEDTIME lovastatin 20 mg PO DAILY metoprolol succinate ER 25 mg PO DAILY multivitamin,ec-homz-mlhvxxch (Complete Multivitamin tablet) 1 tab PO DAILY pantoprazole 40 mg PO DAILY polyethylene glycol 3350 (Miralax) 17 grams PO DAILY vitamins A,C,H-gohl-ibetwx 4,296 mcg-226 mg-90 mg (PreserVision AREDS) 1 cap PO BID Tobacco use date assessed: 06/07/24 Fall risk assessment: 2 + Falls in past year Last assessed Fall Risk: 06/07/24 Dental Screening Dental Screen Date: 06/07/24 Did you have a dental visit in the last 12 months?: Yes Did you have a dental problem in the last 6 months where you did not have access to dental care?: No Was dental information given to patient?: Patient has dentist HPI HPI Comments History of Present Illness Details The patient is an 78-year-old female presenting with a follow-up of her chronic medical conditions, primarily congestive heart failure, atrial fibrillation, and chronic obstructive pulmonary disease. Her heart failure is stable, supported by a recent NT-proBNP level of 225. An episode of atrial fibrillation at the end of February caused significant concern as it persisted into the next day, although currently, her heart condition is quiescent. Her COPD is well controlled with no recent exacerbations. She also has osteoporosis and hyperparathyroidism follow by Endocrinology. She has a recent history of a right foot fracture and severe arthritis, causing mobility issues and pain. She reports frequent falls and possible syncope when walking or standing, possibly linked to orthostatic hypotension or dehydration, which she attributed to limiting her fluid intake incorrectly. Her issues with common antihypertensives and pain medications have led to specific alternative management strategies. Her significant urinary incontinence ties with her increased fluid consumption, complicating but essentially necessary to combat dehydration-related symptoms. Non-surgical options have been discussed to manage her incontinence, supporting lifestyle adaptions over surgical solutions. [facility] Medical History (Updated 06/07/24 @ 08:30 by Homa Jones MD) Paroxysmal atrial fibrillation Persistent atrial fibrillation Active Meniere's disease Tubular adenoma Positive colorectal cancer screening using Cologuard test Hypercalcemia Diverticulosis Hiatal hernia GERD (gastroesophageal reflux disease) Epigastric pain Dysphagia JESU (obstructive sleep apnea) Hyperparathyroidism Osteoporosis Dyslipidemia Heart failure Cardiac pacemaker in situ Sick sinus syndrome COPD (chronic obstructive pulmonary disease) Surgical History H/O bilateral cataract extraction History of esophagogastroduodenoscopy (EGD) Hx of colonoscopy History of total abdominal hysterectomy and bilateral salpingo-oophorectomy History of total left knee replacement History of pacemaker History of laparoscopic cholecystectomy Family History Father COPD (chronic obstructive pulmonary disease) Mother CAD (coronary artery disease) CVD (cardiovascular disease) Daughter No problems noted. 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 1. Little interest or pleasure in doing things: not at all 2. Feeling down, depressed, or hopeless: not at all 3. Trouble falling or staying asleep, or sleeping too much: not at all 4. Feeling tired or having little energy: not at all 5. Poor appetite or overeating: not at all 6. Feeling bad about yourself - or that you are a failure or have let yourself or your family down: not at all 7. Trouble concentrating on things, such as reading the newspaper or watching television: not at all 8. Moving or speaking so slowly that other people could have noticed. Or the opposite - being so fidgety or restless that you have been moving around a lot more than usual: not at all 9. Thoughts that you would be better off or of hurting yourself in some way: not at all Total score: 0 Depression Screening Interpretation: Negative Depression Screening Done: Yes 49722 - PHQ-9 Billing: Yes Source: Developed by Drs. Haider Lake, Keyonna Fernando, Remi Heath and colleagues, with an educational omi from [employer]. Thrive Questionnaire Date Thrive assessed: 06/07/24 I am a: Patient What is your living situation today?: I have a steady place to live Within the past 12 months, did the food you bought not last and you didn't have the money to get more?: Never true Within the past 12 months, did you worry whether your food would run out before you got money to buy more?: Never true Do you have trouble paying for medicines?: No Do you have trouble getting transportation to medical appointments?: No Do you have trouble paying your heating and electricity bill?: No Do you have trouble taking care of your child, family member or friend?: No Do you have trouble with day-to-day activities such as bathing, preparing meals, shopping, managing finances, etc.?: No Are you currently unemployed and looking for a job?: No Are you interested in more education?: No Please select the resources that you would like help with: None Currently or been in a relationship where the following occur: No concerns reported THRIVE Score: 0 AUDIT C Alcohol Use Questionnaire (AUDIT-C) 1. How often do you have a drink containing alcohol?: Monthly or less 2. How many drinks containing alcohol do you have on a typical day when you are drinking?: 1 or 2 3. How often do you have six or more drinks on one occasion?: Never Total Score: 1 Score Reviewed/Action Taken: No FELICITAS-7 AMB Questionnaire FELICITAS-7 Date FELICITAS - 7 assessed: 06/07/24 Feeling nervous, anxious, or on edge: 0 = Not at all Not being able to stop or control worryin = Not at all Worrying too much about different things: 0 = Not at all Trouble relaxin = Not at all Being so restless that it is hard to sit still: 0 = Not at all Becoming easily annoyed or irritable: 0 = Not at all Feeling afraid as if something awful might happen: 0 = Not at all Total FELICITAS-7 score (0-4 normal; 5-9 mild; 10-14 moderate; 15-21 severe): 0 Source: Developed by Drs. Haider Lake, Keyonna Fernnado, Remi Heath and colleagues, with an educational omi from [employer]. FELICITAS-7 Assessment Billing FELICITAS-7 Assessment Tool: FELICITAS-7 Assessment 39243 Review of Systems Const All systems reviewed & are unremarkable except as noted in HPI and below Card Denies chest pain at rest, Denies chest pain with activity, Denies edema, Denies irregular heart rhythm, Denies claudication, Denies dyspnea, Denies dyspnea on exertion, Denies orthopnea, Denies paroxysmal nocturnal dyspnea and Denies slow heart rate Resp Denies cough, Denies dyspnea and Denies dyspnea on exertion GI Denies abdominal pain, Denies change in bowel habits, Denies excessive flatus, Denies nausea and Denies vomiting Physical exam (Primary Care) Vital Signs: Last Vital Signs BP 122/80 06/07/24 08:00 BMI result Body Mass Index 24.6 Tobacco/Smoking Status: Tobacco use Status Tobacco use date assessed 06/07/24 06/07/24 08:07 Patient Tobacco Use Status Former Tobacco user 06/07/24 08:07 Tobacco use type Cigarette 06/07/24 08:07 e-Cigarette/Vaping Use Never Used 06/07/24 08:07 PHQ-9: PHQ-9 Score PHQ-9: Total score 0 06/07/24 08:18 Depression Screening Interpretation: Negative Thrive Assessment: Date of Thrive Assessment Date Thrive assessed 06/07/24 06/07/24 08:07 Currently or been in a relationship where the following occur: No concerns reported Resp Effort & Inspection: normal respiratory effort Auscultation: clear to auscultation bilaterally Cardio Jugular venous distension: no JVD Rate: regular rate Rhythm: regular rhythm Heart sounds: S1 normal heart sound present and S2 normal heart sound present Extrem General: Yes full ROM Coding Level of Care Code Est Pt Level 4 (54869) Complex EM visit Add On G2211 Diagnoses Chronic obstructive pulmonary disease, unspecified COPD type J44.9 COPD type: unspecified COPD Urge urinary incontinence N39.41 Paroxysmal atrial fibrillation I48.0 Chronic systolic heart failure I50.22 Heart failure type: systolic Heart failure chronicity: chronic Age-related osteoporosis without current pathological fracture M81.0 Osteoporosis type: age-related Presence of current pathological fracture: without current pathological fracture Hyperparathyroidism E21.3 Additional Codes EFLICITAS-7 Assessment Billing - FELICITAS-7 Assessment Tool: FELICITAS-7 Assessment 85182 ([id number]) PHQ-9 - 55380 - PHQ-9 Billing: Yes ([id number]) Time Spent (min) 25 Assessment & Plan Assessment & Plan (1) COPD (chronic obstructive pulmonary disease): Code(s): J44.9 - Chronic obstructive pulmonary disease, unspecified Category: Medical Qualifiers: COPD type: unspecified COPD Qualified Code(s): J44.9 - Chronic obstructive pulmonary disease, unspecified (2) Urge urinary incontinence: Code(s): N39.41 - Urge incontinence Category: Medical (3) Paroxysmal atrial fibrillation: Code(s): I48.0 - Paroxysmal atrial fibrillation Category: Medical (4) Heart failure: Code(s): I50.9 - Heart failure, unspecified Category: Medical Qualifiers: Heart failure type: systolic Heart failure chronicity: chronic Qualified Code(s): I50.22 - Chronic systolic (congestive) heart failure (5) Osteoporosis: Code(s): M81.0 - Age-related osteoporosis without current pathological fracture Category: Medical Qualifiers: Osteoporosis type: age-related Presence of current pathological fracture: without current pathological fracture Qualified Code(s): M81.0 - Age-related osteoporosis without current pathological fracture (6) Hyperparathyroidism: Code(s): E21.3 - Hyperparathyroidism, unspecified Category: Medical Plan The management plan includes maintaining and reassessing existing treatments for heart failure, atrial fibrillation, and chronic pulmonary conditions. Medication prescriptions for Pradaxa, lovastatin, and metoprolol have been updated, with mail delivery arrangements made. Four-month intervals for fasting blood work, including NT-proBNP and cholesterol checks, are scheduled. In light of the fall risk, potential physical therapy is deferred pending cardiology approval, with alternative balance programs recommended. Incontinence management strategies prioritize non-surgical options, relying on liners for public settings. Adequate hydration is encouraged to prevent orthostatic symptoms and increase patient safety. Continued cooperation with cardiology and pulmonology specialists, alongside scheduled endocrinology appointments, ensures multi-disciplinary oversight of health concerns. Patient was informed and verbally consented to the use of an ambient scribe for clinic note documentation during this visit. I extensively discussed congruent management of congestive heart failure, atrial fibrillation, and COPD with the patient. Current medications, including Pradaxa, lovastatin, and metoprolol, remain vital to manage these conditions, and I ensured the patient understood their prescriptions. I emphasized the importance of routine lab monitoring to track treatment progress, particularly NT-proBNP and cholesterol levels. I discussed concerns about urinary incontinence with suggestions for mitigation strategies using non-surgical aids like liners. Also discussed the potential hazards of falls and advocated for structured balance improvement activities further supported by procedural guidance and confirmation from cardiology on physical therapy limits. Anticipatory guidance covered fluid balance strategies to manage dehydration versus edema and avoidance of unnecessary surgeries due to underlying health risks. Interactions with endocrinology and other specialists remain crucial. Orders: Orders Comprehensive [place]. Panel Fast 4 Months I50.22 - Chronic systolic (congestive) heart failure Lipid Panel 4 Months E78.5 - Hyperlipidemia, unspecified Vitamin D 25-OH Total 4 Months E55.9 - Vitamin D deficiency, unspecified NT-proBNP 4 Months I50.22 - Chronic systolic (congestive) heart failure Medications: New incontinence pad, liner, disp Use 3 pads per day 90 ea 11RF N39.41 - Urge incontinence, R35.1 - Nocturia, R39.9 - Unspecified symptoms and signs involving the genitourinary system Changed From metoprolol succinate ER 25 mg PO DAILY To metoprolol succinate ER 25 mg (1/2 x 50 mg) PO DAILY 45 tabs 1RF 90 days Refilled lovastatin 20 mg PO DAILY 90 tabs 3RF I50.22 - Chronic systolic (congestive) heart failure Patient Instructions: - Continue current medications as prescribed, specifically Pradaxa twice daily, lovastatin, and metoprolol daily. - Expect updated medication prescription deliveries by mail. - Drink adequate fluids, aiming for six 10-ounce bottles of water daily unless otherwise instructed. - Use provided incontinence liners as needed in public; advise follow-up if symptoms persist or worsen. - Engage in balance and strength activities at the [facility], with physical therapy as determined by cardiology input. - Attend scheduled appointments with cardiology, pulmonology, and upcoming endocrinology consultation. - Seek immediate medical attention for worsening heart symptoms, severe shortness of breath, or new onset of consistent chest pain. - Return for fasting bloodwork in four months to monitor NT-proBNP and cholesterol levels.
== END 2024-06-07 08:36 | disposition home or self-care (01) ==
LOC: HO.HMCH 07:54
PROVIDERS: PCP Internal Medicine; Visit Provider Internal Medicine
DX: J44.9 Chronic obstructive pulmonary disease, unspecified (principal); I48.0 Paroxysmal atrial fibrillation; I50.22 Chronic systolic (congestive) heart failure; E21.3 Hyperparathyroidism, unspecified; N39.41 Urge incontinence; M81.0 Age-related osteoporosis without current pathological fracture

== ENCOUNTER → 2024-06-07 07:54 | Outpatient (BNVA) | payer MEDICARE, SELFPAY | PROVIDERS: PCP Internal Medicine; Visit Provider Internal Medicine | DX: J44.9 Chronic obstructive pulmonary disease, unspecified (principal); I48.0 Paroxysmal atrial fibrillation; I50.22 Chronic systolic (congestive) heart failure; I50.9 Heart failure, unspecified; M81.0 Age-related osteoporosis without current pathological fracture; N39.41 Urge incontinence; E21.3 Hyperparathyroidism, unspecified; E78.5 Hyperlipidemia, unspecified; E55.9 Vitamin D deficiency, unspecified; R35.1 Nocturia | CPT/HCPCS: 96127; 99212 ==

== ENCOUNTER 2024-06-08 08:16 | Outpatient (REF) | payer MEDICARE, SELFPAY ==
--- NOTE | ~2024-06-08 | XR_ITS ---
EXAMINATION: XR FOOT 3 OR MORE VIEWS RIGHT HISTORY: S92.351A - Displaced fracture of fifth metatarsal bone, right foot. COMPARISON: There is an is made with prior examinations dated 05/09/2024 and 04/16/2024. FINDINGS: Three views of the right foot are submitted. Osseous mineralization is normal. Again seen is a fracture fragment adjacent to the cuboid. The fracture line remains visible. There is severe osteoarthritis of the 1st MTP joint with joint space narrowing and osteophyte formation. The soft tissues are unremarkable. XR/XR foot RT min 3V IMPRESSION: Fracture fragment adjacent to the cuboid without change. Electronically signed by: Haider Gustafson MD 06/08/2024 12:15 PM EDT
== END 2024-06-08 08:17 | disposition home or self-care (01) ==
LOC: HO.HOSX 08:16
DX: S92.001A Unspecified fracture of right calcaneus, initial encounter for closed fracture (principal)
CPT/HCPCS: 73630; 99212

== ENCOUNTER 2024-06-08 11:18 | Outpatient (AMB) | payer MEDICARE, SELFPAY ==
--- NOTE | 2024-06-08 11:44 | MHC.OFFVIS ---
Vital Signs 06/08/24 11:47 Height 5 ft 5 in Weight 148 lb BMI 24.6 Intake Visit Reasons: OV - Right Calcaneus Avulsion Fx 04/11/24 - W XR Intake Note: Nancy is an 78 year old female who presents today for a follow up of her right heel about 3 months s/p right calcaneus Avulsion fracture 04/12/24. At her last visit she was informed that she may discontinue boot and transition into a supportive sneaker, with WBAT. Allergies dronedarone [Multaq] Allergy (Severe, Verified 06/08/24 11:48) syncope flecainide Allergy (Severe, Verified 06/08/24 11:48) vertigo,blurry vision lisinopril [LISINOPRIL] Allergy (Severe, Verified 06/08/24 11:48) ANGIOEDEMA, bad cough, throat closing, tingling of head, cough losartan Allergy (Intermediate, Verified 06/08/24 11:48) dry cough, pruritus hydromorphone [Dilaudid] Adverse Reaction (Severe, Verified 06/08/24 11:48) unresponsiveness HPI HPI OV - Right Calcaneus Avulsion Fx 04/11/24 - W XR: Details: Nanyc is an 78 year old female who presents today for a follow up of her right heel about 3 months s/p right calcaneus Avulsion fracture 04/12/24. At her last visit she was informed that she may discontinue boot and transition into a supportive sneaker, with WBAT. Patient expresses no concerns at this time, feel she has recovered very well. No pain at this time. [facility] Medical History Paroxysmal atrial fibrillation Persistent atrial fibrillation Active Meniere's disease Tubular adenoma Positive colorectal cancer screening using Cologuard test Hypercalcemia Diverticulosis Hiatal hernia GERD (gastroesophageal reflux disease) Epigastric pain Dysphagia JESU (obstructive sleep apnea) Hyperparathyroidism Osteoporosis Dyslipidemia Heart failure Cardiac pacemaker in situ Sick sinus syndrome COPD (chronic obstructive pulmonary disease) Surgical History H/O bilateral cataract extraction History of esophagogastroduodenoscopy (EGD) Hx of colonoscopy History of total abdominal hysterectomy and bilateral salpingo-oophorectomy History of total left knee replacement History of pacemaker History of laparoscopic cholecystectomy Family History Father COPD (chronic obstructive pulmonary disease) Mother CAD (coronary artery disease) CVD (cardiovascular disease) Daughter No problems noted. 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 Cognitive needs: No Hearing needs: No Vision needs: No Review of Systems Const All systems reviewed & are unremarkable except as noted in HPI and below Physical Exam Vital Signs: BMI result Body Mass Index 24.6 Extrem Other: Patient's R foot normal to inspection No edema, ecchymosis, erythema noted No lacerations, abrasions, open areas No evidence of infection Patient reports no tenderness to palpation of the proximal and lateral foot No tenderness of the medial foot, lateral malleolus, medial mallolus Patient is able to plantar flex and dorsiflex right foot fully and without difficulty Distal sensation intact Capillary refill brisk Results Reviewed Results Reviewed: X-rays obtained in the office today and independently reviewed by me, Raheem Alcala PA-C, demonstrate minimally displaced avulsion fracture of the anterior and lateral aspect of the right calcaneus with evidence of interval bony healing. Assessment & Plan Assessment & Plan (1) Avulsion fracture of right calcaneus: Code(s): S92.001A - Unspecified fracture of right calcaneus, initial encounter for closed fracture Category: Medical Plan 1. Avulsion fracture of right calcaneus Extra-articular Patient is educated about this injury Patient is educated about the typical recovery course At this time patient is told she should be wearing supportive foot wear whenever she is weight-bearing, but does no longer require a boot Patient can continue to weightbear as tolerated in supportive footwear Patient was amenable to this plan Patient will follow-up as needed with any acute concerns Orders: Orders XR foot RT min 3V Today S92.351A - Displaced fracture of fifth metatarsal bone, right foot, initial encounter for closed fracture Coding Level of Care Code Global (19116) Diagnoses Avulsion fracture of right calcaneus S92.001A
[2024-06-08 11:47] VITALS: BMI 24.6
== END 2024-06-08 11:59 | disposition home or self-care (01) ==
LOC: HO.HOS 11:19
DX: S92.001A Unspecified fracture of right calcaneus, initial encounter for closed fracture (principal)
CPT/HCPCS: 99213

== ENCOUNTER → 2024-06-08 11:36 | Outpatient (BNV) | payer MEDICARE, SELFPAY | PROVIDERS: Visit Provider Radiology Diagnostic Radiology | DX: S92.351A Displaced fracture of fifth metatarsal bone, right foot, initial encounter for closed fracture (principal) | CPT/HCPCS: 73630 ==

== ENCOUNTER 2024-07-05 09:36 | Outpatient (AMB) | payer MEDICARE, SELFPAY ==
--- NOTE | 2024-07-05 09:41 | A.OFFVIS_ITS ---
Vital Signs 07/05/24 09:42 Height 5 ft 5 in Weight 147 lb 11.355 oz BMI 24.6 BP 154/72 H Blood Pressure Location Lt brachial Position Sitting Pulse 70 Pulse Source Pulse Oximeter Pulse Oximetry (%) 98 Oxygen Delivery Method Room Air Intake Visit Reasons: Obstructive sleep apnea Real Estate Rental Agent Required: No Accompanied by: Self / Same As Patient Allergies dronedarone [Multaq] Allergy (Severe, Verified 07/05/24 09:44) syncope flecainide Allergy (Severe, Verified 07/05/24 09:44) vertigo,blurry vision lisinopril [LISINOPRIL] Allergy (Severe, Verified 07/05/24 09:44) ANGIOEDEMA, bad cough, throat closing, tingling of head, cough losartan Allergy (Intermediate, Verified 07/05/24 09:44) dry cough, pruritus hydromorphone [Dilaudid] Adverse Reaction (Severe, Verified 07/05/24 09:44) unresponsiveness HPI Comments Details: She pis a 78 y/o woman with a history of COPD and JESU not on CPAP. Overall she has been doing well. She has not been using her inhalers regularly. She has not noticed any significant difference. Her major issue right now is having significant balance issues and falls. She did fracture her clavicle. She was diagnosed with Meniere's. She has not had any recent imaging studies to rule out any potential pulmonary process. She denies any weight loss or night sweats. She denies any anorexia. Denies any hemoptysis. BAsed on her h/o afib and neurological symptoms she should consider having a repeat PSG. 09/04/2019. The patient is here for pulmonary follow-up visit. She has been having issues with heart rate more often. Her antiarrhythmic medications was going to be changed due to her irregular heart rate due to her AFib. She continues to have daytime drowsiness with an elevated [place] score of 12/24. In the meantime she is also complaining of some lightheadedness and dizziness as well as some shortness of breath with activity. She has been using her inhalers more often. Her symptoms are [id number] severity. She had been using CPAP in the past but then she developed a skin cancer and could not wear the mask. At this point would like to try to get her back on CPAP because of her cardiovascular risks and her ongoing daytime I will recent mid prescription for supplies to her [employer] company. I will also request a sleep study in case she needs 1 to get reactivated. We did review her chest x-ray demonstrating no acute disease. 05/31/2022 the patient is here for a pulmonary follow-up visit. Overall the patient is doing well from a respiratory status. She is not using any inhalers. Although, she has a planned trip to [place] and she is wondering if she could have something available. Sometimes after exerting herself she does get shortness of breath and also get some fatigue. She does have a history atrial fibrillation. Therefore I did explain to her that she needs to be careful not to over use the inhaler in view of worsening her heart rate and tachyarrhythmia. I also want to try the inhaler before she goes to [place] to make sure that she is tolerating it. Otherwise the patient is sleeping well. She had significant weight loss. She is no longer using CPAP. She is waking up rested with an [place] score of 6/24. Therefore this point she does not need to continue using her CPAP and will continue positional therapy. She is complaining of significant abdominal discomfort. Last 3 days she had a hard time getting around because her significant discomfort. She will follow-up with the GI doctor. I did advise her to call the GI office to get an earlier evaluation. 11/08/2022 patient is here for pulmonary follow-up visit. The patient overall is doing well off status. She had not used her rescue inhaler. She is concerned about atrial fibrillation. She recently got a call from her credentials specialist to increase her metoprolol because he was having more episodes. As far as the sleep she is doing well. He is sleeping prone. She denies any daytime drowsiness. Her [place] score is decreased down to 5/24. She does not have any significant snoring and denies any apneic episodes that she has been told about. The patient therefore does not need CPAP at this time. Although with her cardiac history I did bring that up. She is having episodes of dizziness. She has only had about couple episodes but there concerning to her. One day she could not get up. She denies any vertigo. She denies positional changes with dizziness. I did recommend she can take a baby aspirin and then if it happens again to go to the ER to be evaluated for TIA. I also did send a message to her credentials specialist to make sure that she can take a baby aspirin along with Pradaxa she did have a chest x-ray back in August which is reassuring. No acute disease. 06/21/2023 the patient is here for a pulmonary follow-up visit. Overall the patient has been doing well. She no longer has any dizziness. It was felt to be related to dehydration. She continues on her cardiac medications. The patient also has been sleeping well. Her [place] score continues to be well at 5/24. She has not using CPAP and she tries to continue using positional therapy. As far as imaging studies last chest x-ray was last year which was without any acute disease. She denies any respiratory symptoms and denies having to use any respiratory medications. At this point will follow the patient in a year's time. She will get the pneumonia vaccine today before she goes. 07/05/2024 the patient is here for pulmonary follow-up visit. Overall the patient has been doing okay. Seems like she still goes in and out of the atrial fibrillation. She does not feel it. She does have underlying daytime drowsiness. She does have CPAP although sometimes she has a hard time tolerating it. She did start taking it but she felt like she was getting irritation with the nasal pillows. I did have a N 30 I air touch mask that she tried and fit well. Therefore she will try that to see if she can tolerate that mask. We can get it to tolerate a mask and knows she will continue to use it regularly. She understands that using her CPAP is basically treating her underlying cardiovascular risk factors including cardiac arrhythmias. In addition to that, the patient states that she has been having more episodes of cough and chest tightness and she has had to use her rescue medication. She is concerned because the rescue medication, albuterol, can make her heart race. Therefore, will start her on a small dose of inhaled cortical steroids that she can not tolerate without precipitating any tachyarrhythmias. [facility] Medical History Paroxysmal atrial fibrillation Persistent atrial fibrillation Active Meniere's disease Tubular adenoma Positive colorectal cancer screening using Cologuard test Hypercalcemia Diverticulosis Hiatal hernia GERD (gastroesophageal reflux disease) Epigastric pain Dysphagia JESU (obstructive sleep apnea) Hyperparathyroidism Osteoporosis Dyslipidemia Heart failure Cardiac pacemaker in situ Sick sinus syndrome COPD (chronic obstructive pulmonary disease) Surgical History H/O bilateral cataract extraction History of esophagogastroduodenoscopy (EGD) Hx of colonoscopy History of total abdominal hysterectomy and bilateral salpingo-oophorectomy History of total left knee replacement History of pacemaker History of laparoscopic cholecystectomy Family History Father COPD (chronic obstructive pulmonary disease) Mother CAD (coronary artery disease) CVD (cardiovascular disease) Daughter No problems noted. 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 Cognitive needs: No Hearing needs: No Vision needs: No Review of Systems Const Denies chills, Denies fatigue and Denies fever(s) ENT Denies dizziness Card Denies chest pain, Denies leg edema, Denies lightheadedness, Denies palpitations, Denies dyspnea on exertion, Denies orthopnea and Denies other Resp Denies cough and Denies dyspnea on exertion GI Denies hematochezia and Denies change in stool character Musc Denies abnormal gait, Denies muscle weakness, Denies numbness, Denies radiating pain into limb and Denies tingling Neuro Denies abnormal gait, Denies dizziness, Denies numbness and Denies tingling Endo Denies fatigue and Denies palpitations Physical Exam Vital Signs: Last Vital Signs Pulse 70 07/05/24 09:42 BP 154/72 H 07/05/24 09:42 Pulse Ox 98 07/05/24 09:42 Oxygen Delivery Method Room Air 07/05/24 09:42 BMI result Body Mass Index 24.6 Const General: alert Neck Neck: Yes normal visual inspection, Yes full ROM and Yes no lymphadenopathy Chest Chest palpation & inspection: normal inspection of the chest Resp Auscultation: diminished lung sounds Cardio Rate: regular rate Rhythm: regular rhythm Heart sounds: S1 normal heart sound present and S2 normal heart sound present GI Palpation (GI): Soft to palpation, nontender and Guarding due to palpation present (GI) in the LLQ and in the RLQ Auscultation: normal bowel sounds Skin General skin exam: rashes and/or lesions noted Assessment & Plan Assessment & Plan (1) COPD (chronic obstructive pulmonary disease): Code(s): J44.9 - Chronic obstructive pulmonary disease, unspecified Category: Medical Qualifiers: COPD type: unspecified COPD Qualified Code(s): J44.9 - Chronic obstructive pulmonary disease, unspecified (2) JESU (obstructive sleep apnea): Comment: borderline, not using CPAP Code(s): G47.33 - Obstructive sleep apnea (adult) (pediatric) Category: Medical (3) Paroxysmal atrial fibrillation: Code(s): I48.0 - Paroxysmal atrial fibrillation Category: Medical Plan startArnuity daily LIGIA as needed restart APAP, trial n30i airtouch follow-up in 6-8 months Medications: New fluticasone furoate 100 mcg/actuation (Arnuity Ellipta) 1 inh inhalation DAILY 30 ea 11RF 30 days Coding Level of Care Code Est Pt Level 4 (97899) Complex EM visit Add On G2211 Diagnoses Chronic obstructive pulmonary disease, unspecified COPD type J44.9 COPD type: unspecified COPD JESU (obstructive sleep apnea) G47.33 Paroxysmal atrial fibrillation I48.0 Time Spent (min) 18
[2024-07-05 09:42] VITALS: BP 154/72; PULSE 70; O2SAT 98; BMI 24.6
--- OUTSIDE RECORDS SUMMARY | 2024-07-05 10:37 | XMS_ITS | Clinical Summary ---
Author Organization [facility] Address [address] [place] [address] Care Team Providers Care Food Cart Attendant Name Role Phone Jose Kimbrough MD Primary Care Provider Surgical History Surgery Date Site/Laterality Comments HYSTERECTOMY PROCEDURE: HISTORICAL HYSTERECTOMY CHOLECYSTECTOMY PROCEDURE: HISTORICAL CHOLECYSTECTOMY CATARACT EXTRACTION PROCEDURE: HISTORICAL CATARACT REMOVAL TOTAL KNEE ARTHROPLASTY 2009 Left PROCEDURE: HISTORICAL TOTAL KNEE REPLACE PACEMAKER IMPLANT 03/2011 PROCEDURE: HISTORICAL PACEMAKER Medical History Medical History Date Comments HTN (hypertension) DX:HTN (hyper tension) Paroxysmal A-fib (CMS/HCC V2 4, CMS/HCC V28) 04/19/2011 DX:Paroxysmal A-fib (HCC) Sick sinus syndrome (CMS/HCC V24, CMS/HCC V28) 04/19/2011 DX:Sick sinus syndrome (HCC) JESU (obstructive sleep apnea) 02/06/2017 DX :JESU (obstructive sleep apnea) Lung nodule 02/06/2017 DX:Lung nodule GERD (gastroesophageal reflux disease) 7 DX:GERD (gastroesophageal reflux disease) Pacemaker 02/06/2017 DX:Pacemaker S/P total knee replacement, left 03/15/2017 DX:S/P total knee replacement, left; COMMENT: 2009 Essential hypertension, benign 04/19/2011 D X:Essential hypertension, benign Social History Tobacco Use Types Packs/Day Years Used Date Smoking Tobacco: Former Cigarettes Q uit: 04/19/1996 Smokeless Tobacco: Never Alcohol Use Standard Drinks/Week Comments Not Asked 0 (1 standard drink = 0.6 oz pur e alcohol) Comments Unknown Sex and Gender Information Value Date Recorded Sex Assigned at Not on file Legal Sex Female 10:20 PM EST Gender Identity Not on file Sexual Orientation Not on file Obstetrics History Plan of Treatment Upcoming Encounters Date Type Department Care Team (Late st Contact Info) Description 07/31/2024 1:45 PM EDT Appointment [facility] Xray [address] [place] [id number] Health Maintenance Due Date Last Done Comments DTaP,Tdap,and Td Vaccines (1 - Tdap) 12/06/1962 Pneumococcal Vaccine: 50+ Ye ars (1 of 2 - PCV) 12/06/1962 Zoster Vaccines (1 of 2) 12/06/1993 RSV Immunization Adult Patie nts (1 - 1-dose 75+ series) 12/06/2018 COVID-19 Vaccine ( - 2023-2 5 season) 2023 Cholesterol Screening (Lipid Panel) 05/24/2024 Depression Screening 05/24/2024 Falls Risk Assessment 05/24/2024 Hypertension/CHF/CAD Annual BMP Blood Test 05/24/2024 Medicare Annual Wellness Visit 05/24/2024 Osteoporosis Screening (Bone Density Screening) 05/24/2024 Social Influencers of Health Screening 05/24/2024 Influenza Vaccine (Season Ended) 2024 01/04/20 18 HIB Vaccines Aged Out No longer eligi ble based on patient's age to complete this topic HPV Vaccines Aged Out No longer eligi ble based on patient's age to complete this topic Hepatitis A Vaccines Aged Out No long er eligible based on patient's age to complete this topic Hepatitis B Vaccines Aged Out No long er eligible based on patient's age to complete this topic IPV Vaccines Aged Out No longer eligi ble based on patient's age to complete this topic MMR Vaccines Aged Out No longer eligi ble based on patient's age to complete this topic Meningococcal ACWY Vaccine Aged Out N o longer eligible based on patient's age to complete this topic Meningococcal B Vaccine Aged Out No l onger eligible based on patient's age to complete this topic RSV Immunization Patients Un yary 20 months Aged Out No longer eligible b ased on patient's age to complete this topic Varicella Vaccines Aged Out No longer eligible based on patient's age to complete this topic Insurance MEDICARE Care Teams Food Cart Attendant Relationship Specialty Start Date End Date Jose Kimbrough MD [address] [phone] PCP - General Otolaryngology 04/05/17
== END 2024-07-05 10:11 | disposition home or self-care (01) ==
LOC: HO.HPS 09:37
PROVIDERS: PCP Internal Medicine; Visit Provider Hospitalist
DX: J44.9 Chronic obstructive pulmonary disease, unspecified (principal); G47.33 Obstructive sleep apnea (adult) (pediatric); I48.0 Paroxysmal atrial fibrillation
CPT/HCPCS: 99214; G2211

== ENCOUNTER → 2024-07-05 09:36 | Outpatient (BNVA) | payer MEDICARE, SELFPAY | PROVIDERS: PCP Internal Medicine; Visit Provider Hospitalist | DX: G47.33 Obstructive sleep apnea (adult) (pediatric) (principal); J44.9 Chronic obstructive pulmonary disease, unspecified; I48.0 Paroxysmal atrial fibrillation | CPT/HCPCS: 99212 ==

== ENCOUNTER → 2024-07-16 09:54 | Outpatient (REF) | payer MEDICARE, SELFPAY ==
--- NOTE | ~2024-07-16 | NM_ITS ---
EXERCISE MYOCARDIAL PERFUSION STUDY INDICATION: Chest pain TECHNIQUE: The patient was brought in for an exercise perfusion study on 07/16/2024. Patient performed exercise as per Rod protocol and was injected 25 mCi of sestamibi once target heart rate was achieved. Images were obtained using the SPECT gamma camera interlaced with the gating device. Images were obtained in supine position. Resting perfusion study was performed on 07/18/2024. Patient was administered 25 mCi of sestamibi intravenously at rest. Images were then obtained in supine position. Total DLP 114 mGy-cm. Images were processed with the software and compared side to side in short axis, horizontal long axis and vertical long axis views. FINDINGS: Raw aquisition reviewed. The stress perfusion study showed no significant perfusion abnormalities. Both uncorrected as well as CT attenuation corrected images were reviewed. The gated study shows normal LV systolic function with calculated LVEF of >70%. LV cavity is normal in size. The gated study shows normal wall thickening and contraction of segments. Resting study shows no significant perfusion abnormality. Gating at rest reveals normal wall motion with ejection fraction at >70%. The findings are consistent with no clear reversible or fixed perfusion abnormality. NM/NM cardiolite stress test IMPRESSION: 1. Myocardial perfusion imaging study shows probably normal myocardial perfusion. 2. Gated LVEF is > 70% during stress and rest. 3. Transient ischemic dilatation not present. EKG component of the test reported separately. Electronically signed by: Uriel Delong MD 07/18/2024 03:20 PM EDT
--- NOTE | 2024-07-16 10:04 | CA_ITS ---
Acquisition Time: 2024-07-16 10:25:09 Total Exercise Time: 00:05:00 Test Indications: CPAFIB Medications: SEE H&P Protocol: RYAN Max HR: 120 BPM 85% of Pred: 140 BPM Max BP: 160/86 mmHG Max Work Load: 4.9 METS Exercise stress test with exercise 5 mins of Ryan Protocol, held at stage 1 with increased incline to 12%, achieving 85% MPHR, with reported symptoms of SOB and leg tiredness, no chest pain, with isolated PVCs, with normotensive response to exercise. Without EKG changes meeting criteria for ischemia. In recovery, breathing returned to baseline. Nuclear images pending. Test reviewed with Dr. Delong. Referred By: Saud Guzmán Electronically Signed By: Juan Pablo Downey
--- OUTSIDE RECORDS SUMMARY | 2024-07-16 11:03 | XMS_ITS | Clinical Summary ---
Author Organization [facility] Address [address] [place] [address] Care Team Providers Care Core Java Software Engineer Name Role Phone Jose Kimbrough MD Primary Care Provider [phone] Surgical History Surgery Date Site/Laterality Comments HYSTERECTOMY [...] Info) Description 07/31/2024 1:45 PM EDT Appointment [facility] Xray [address] [place] [phone] Health Maintenance Due Date Last Done Comments [...] complete this topic Insurance MEDICARE Care Teams Core Java Software Engineer Relationship Specialty Start Date End Date Jose Kimbrough MD [address] [place] [phone] PCP - General Otolaryngology 04/05/17
== END ==
LOC: HO.CARD 09:54
PROVIDERS: Visit Provider Internal Medicine Cardiovascular Disease
DX: R07.89 Other chest pain (principal)
CPT/HCPCS: 78452; 93017; A9500; J0280; J2785

== ENCOUNTER → 2024-07-16 10:04 | Outpatient (BNV) | payer MEDICARE, SELFPAY | DX: R06.02 Shortness of breath (principal); I49.3 Ventricular premature depolarization | CPT/HCPCS: 78452; 93016; 93018 ==

== ENCOUNTER 2024-08-03 08:28 | Outpatient (AMB) | payer MEDICARE, SELFPAY ==
--- OUTSIDE RECORDS SUMMARY | 2024-08-03 08:35 | XMS_ITS | Encounter Summary ---
Author Organization [facility] Address [address] [place] [address] Care Team Providers Care Acid Patroller Name Role Phone Jose Kimbrough MD Primary Care Provider [phone] Reason for Referral * Cardiac Stress Testing (Routine) - Authorized Specialty Diagnoses / Procedures Referred By Maria Fernanda t Referred To Contact Cardiology Diagnoses Syncope, near Procedures Tilt table Saud Guzmán MD [facility] [address] [address] Phone: tel: fax: [facility] Referral ID Status Reason Start Date Expiration Date V isits Requested Visits Authorized [id number] Authorized 05/24/2024 05/24/2025 1 1 Reason for Visit * Cardiac Stress Testing (Routine) - Authorized Specialty Diagnoses / Procedures Referred By Contbalaji t Referred To Contact Cardiology Diagnoses Syncope, near Procedures Tilt table Saud Guzmán MD [facility] [address] [place] [address] Phone: tel: fax: [facility] Referral ID Status Reason Start Date Expiration Date V isits Requested Visits Authorized [id number] Authorized 05/24/2024 05/24/2025 1 1 Encounter Details Date Type Department Care Team (Latest Contact Info) Description 07/31/2024 1:08 PM EDT - 07/31/2024 11:59 PM EDT Hospital Encounter [facility] Xray [address] [place] [address] Syncope, near Discharge Disposition: Home or Self Care Social History Tobacco Use Types Packs/Day Years [...] on file Sexual Orientation Not on file documented as of this encounter Discharge Disposition Disposition Code Departure Means Destination Home or Self Care documented in this encounter Plan of Treatment Not on file documented as of this encounter Procedures Procedure Name Priority Date/Time Associated Diagnosis Comments TILT TABLE Routine 07/31/2024 2:08 PM EDT Syncope, near documented in this encounter Results * Tilt table (07/31/2024 2:08 PM EDT) Anatomical Region Laterality Modality Radiographic Estee ging Narrative 07/31/2024 2:42 PM EDT 500 cc IVNS given, SBP still 70's when sitting up from lying position and she was dizzy. After 1000 cc IVNS, 'SBP stable with position changes. Pt has been feeling better at home with increased fluid intake. Tilt Table The patient was brought to lab in fasting state. Patient lied supine for 5 minutes for equilibrium. Baseline ECG showed normal sinus rhythm. Baseline supine minimum BP: 112/76 mmHg Baseline supine minimum HR: 69 bpm Patient tilted to 70 degrees. Tilt maintained for 2 minutes. Minimum BP during tilt: 68/49 mmHg Maximum BP during tilt: 116/84 mmHg Minimum heart rate during tilt: 68 bpm Maximum heart rate during tilt: 70 bpm Rhythm during tilt: normal sinus rhythm There was a clear orthostatic response noted. Patient experienced no HR increase with tilt. Symptoms seen on tilt include: dizziness. Premonitory symptoms were reproduced. Syncope/presyncope symptoms were reproduced. Conclusion: Abnormal tilt test with findings consistant with orthostatic hypotension. us Saud Guzmán MD [facility] PROCEDURES F inal Result documented in this encounter Visit Diagnoses Diagnosis Syncope, near documented in this encounter Care Teams Acid Patroller Relationship Specialty Start Date End Date Luis E, Jose W, MD [address] [place] [address] PCP - General Otolaryngology 04/05/17 documented as of this encounter
--- NOTE | 2024-08-03 09:05 | A.OFFVIS_ITS ---
Intake Visit Reasons: UDS Allergies dronedarone [Multaq] Allergy (Severe, Verified 07/05/24 09:44) syncope flecainide Allergy (Severe, Verified 07/05/24 09:44) vertigo,blurry vision lisinopril [LISINOPRIL] Allergy (Severe, Verified 07/05/24 09:44) ANGIOEDEMA, bad cough, throat closing, tingling of head, cough losartan Allergy (Intermediate, Verified 07/05/24 09:44) dry cough, pruritus hydromorphone [Dilaudid] Adverse Reaction (Severe, Verified 07/05/24 09:44) unresponsiveness Medication List - Last Reconciled 08/03/24 by Danica An MD alendronate 70 mg PO QWEEK biotin 1,000 mcg PO DAILY calcium carbonate-vitamin D3 500 mg-10 mcg (400 unit) (Calcium 500 + D) 2 tabs PO DAILY dabigatran etexilate 150 mg PO BID 90 days fluoride (sodium) 1.1% 1 appl PO BEDTIME fluticasone furoate 100 mcg/actuation (Arnuity Ellipta) 1 inh inhalation DAILY 30 days incontinence pad, liner, disp Use 3 pads per day lovastatin 20 mg PO DAILY metoprolol succinate ER 25 mg (1/2 x 50 mg) PO DAILY 90 days multivitamin,ar-vvtw-rgibmjyl (Complete Multivitamin tablet) 1 tab PO DAILY pantoprazole 40 mg PO DAILY polyethylene glycol 3350 (Miralax) 17 grams PO DAILY vitamins A,C,C-plzi-kkvftl 4,296 mcg-226 mg-90 mg (PreserVision AREDS) 1 cap PO BID HPI Comments Details: 08/03/24--78-year-old female presenting with urinary incontinence. She reports that her symptoms have significantly worsened over the past two years, adversely affecting her quality of life. The presentation includes frequent episodes of bladder spasms causing incontinence, particularly triggered by stimuli such as running water. The incontinence has become distressingly embarrassing and inconvenient, particularly in public settings. She notes a history of taking Vesicare leading to adverse effects like edema and weight gain, thus ceased. The patient recalls undergoing a hysterectomy but without concurrent bladder suspension, which she believes might have contributed to escalating incontinence issues over time. Her primary goal is to manage these symptoms effectively, shown through her consideration of Botox bladder injections after unsuccessful pharmacological intervention. She is aware of the risk of hematuria and potential UTI after the procedure and consents to follow the necessary pre- procedural and post-procedural protocols. Urinary Symptoms Review - Frequent urge to urinate, often unable to reach the bathroom in time - Incontinence mostly occurs with auditory stimuli (e.g., running water) - Incontinence results in embarrassing public accidents - Prior use of Vesicare caused edema and weight gain Discussion Notes I discussed in detail the management of urinary incontinence primarily due to bladder spasms. Primary recommendation includes botulinum toxin (Botox) injections directly into the bladder, which are intended to reduce spasticity and improve urinary retention capabilities. We discussed this would require repeated administrations approximately every six months, with potential increased frequency based on individual response. The procedure involves mild discomfort and potential side effects such as minor hematuria and an increased risk of urinary tract infections. However, these are mitigated by pre-and post- procedure antibiotic prophylaxis. It was agreed upon to move forward with securing insurance authorization for the procedure and to arrange scheduling through the office team. Consent was granted with full awareness of the procedure?s scope, potential risks, benefits, and alternatives. Plan The plan involves proceeding with Botox injections to manage bladder spasms and subsequent urinary incontinence. Initial treatments will begin at a lower dose, reviewing effectiveness after a couple of sessions before considering higher doses if necessary. Consent has been obtained, with full understanding of the injection procedure, potential mild hematuria, and increased risk of UTI. Prophylactic antibiotics will be administered before and after the procedure. Follow-up to focus on symptom management and urinary function post-intervention. Insurance authorization procedures are to be initiated, with the office responsible for scheduling. 06/07/24--Nancy is a very pleasant 78-year-old female patient of Dr. Goff. She has a past medical history of Meniere's disease, old hypercalcemia, diverticulosis, hiatal hernia, GERD, obstructive sleep apnea, hyperparathyroidism, osteoporosis, dyslipidemia, heart failure, paroxysmal AFib, sick sinus syndrome status post [place] pacemaker, and COPD. She presents to the office today for a follow up of her ongoing lower urinary tract symptoms. In discussion with the patient today she reports having seeked emergency room care services a proximally 3 days ago as she had been experiencing issues with her atrial fibrillation. She reports in ER she was also given a prescription for antibiotics as she was noted to have a urinary tract infection. However, in review of patient's chart it appears urine culture 03/06 Mixed bacterial reba characteristic of urogenital contamination. She reports she has not yet started antibiotic therapy as prescription was sent to mail away pharmacy. She reports no UTI like symptoms and is enquiring if she should even start the medication when she receives it. In office urinalysis results reviewed with the patient today. Negative leukocytes negative nitrates. PVR 37 mL. She reports having stopped low-dose VESIcare as she felt this was causing issues with her breathing. She continues to report episodes of mixed urinary incontinence. Previous workup has included a retroperitoneal ultrasound 10/04 noting bilateral kidneys with no hydronephrosis. Right kidney with mild diffuse renal cortical thickening multiple renal cysts largest 1.1 cm upper pole there is no specific indication for additional imaging follow-up per radiology report. Left kidney with multiple anechoic foci i in the left peripelvic region may be related to caliectasis and/or pelvic cysts. May represent parapelvic cysts, largest 1.1 cm. The bladder is moderately distended. Bladder ureteral jets are demonstrated. Pre void bladder volume is approximately 130 mL. Postvoid bladder volume is approximately 10 mL. She has previously trialed tolterodine, Myrbetriq, and oxybutynin with no improvement in urinary urgency, urinary frequency and mixed urinary incontinent episodes she continues to experience. She continues to discuss and inquire if she is a candidate for bladder lift and or suspension procedure. We discussed at length risks and benefits of further surgical intervention. When asked she does report a history of 2 vaginal births of average size babies. She reports labors were approximately 4-5 hours long. She reports continuing to utilize 2-3 Ayala pads per day. She otherwise denies hematuria, dysuria, foul smelling urine, changes to urinary stream, flank pain, fever, and or chills. Discussed further treatment options of mixed urinary incontinence.She otherwise offers no other issues or concerns at this time. [facility] Medical History Paroxysmal atrial fibrillation Persistent atrial fibrillation Active Meniere's disease Tubular adenoma Positive colorectal cancer screening using Cologuard test Hypercalcemia Diverticulosis Hiatal hernia GERD (gastroesophageal reflux disease) Epigastric pain Dysphagia JESU (obstructive sleep apnea) Hyperparathyroidism Osteoporosis Dyslipidemia Heart failure Cardiac pacemaker in situ Sick sinus syndrome COPD (chronic obstructive pulmonary disease) Surgical History H/O bilateral cataract extraction History of esophagogastroduodenoscopy (EGD) Hx of colonoscopy History of total abdominal hysterectomy and bilateral salpingo-oophorectomy History of total left knee replacement History of pacemaker History of laparoscopic cholecystectomy Family History Father COPD (chronic obstructive pulmonary disease) Mother CAD (coronary artery disease) CVD (cardiovascular disease) Daughter No problems noted. 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 Cognitive needs: No Hearing needs: No Vision needs: No Review of Systems Const All systems reviewed & are unremarkable except as noted in HPI and below Reports no additional complaints Eyes Reports no additional complaints ENT Reports no additional complaints Card Reports no additional complaints Resp Reports no additional complaints GI Reports no additional complaints Reports as per HPI Musc Reports no additional complaints Skin/Breast Reports system reviewed and no additional complaints, except as documented Neuro Reports no additional complaints Psych Reports no additional complaints Endo Reports no additional complaints Kvng/Lymph Reports no additional complaints Aller/Immun Reports no additional complaints Office Procedures Urodynamic Studies Consent Discussed risk and benefit or proposed procedure with the patient. Information consent for procedure given to the patient. Discussed technical aspects, risks, benefits and alternatives in full. Addressed all of the patient's questions and concerns regarding the procedure. The patient demonstrated knowledge and understanding. They wish to proceed with this procedure. Preparation The patient was prepped in the usual manner. A cycling instructor was present and in the room. Genitalia was prepped with betadine solution in a sterile manner. Procedure Complex Uroflow Unable to perform, patient had no urge to void. Straight cath amount 40ml Cystometrogram ? Vaginal/rectal catheter type: _Vaginal First sensation at (mL): 3ml First desire at (mL): 3mL Strong desire to void occurred at (mL): 68mL Strong desire detrusor pressure (cm H2O): 13 Maximum Capacity (mL): Did not reach due to severe DO Voiding Summary Voided with max detrusor pressure of (cm H2O): 60 Maximum flow rate (mL/second): 9.5 mL/s Voided volume (mL): ? 66ml Calculated PVR: 0 mL Stress Testing Unable to perform stress testing due to severe DO activity DO Dry:Absent DO Wet: Patient leaked throughout the whole test. Patient with severe DO, unable to hold much water before she starting having uncontrolled leaking. Attempted to fill a couple times, but patient continued to leak. Prep: The patient was prepped in the usual manner. A cycling instructor was present and in the room. Genitalia was prepped with betadine solution in a sterile manner. 98646-Xksztpzszoojvu w/ LOG COOKER 36809-Fhbn/Urinary Muscle Study 16424-Xdfta-Vbjdbzyqm Pressure Test Procedure code (CPT) selection complete Office Meds nitrofurantoin monohydrate/macrocrystals 100 mg capsule Performing Provider: Danica An MD Performing Location[facility] [place] [facility] Administered by: Vielka Osei RN on 08/03/24 09:05 Dose Route Admin Location Dispensed Lot Number Expiration Date [facility] Lending Consultant 100 mg PO 1 cap Results AMB Urinalysis, Automated UA Leukoctes 0 Fredy/uL Last Edit by Vielka Osei RN on 08/03/24 09:13 UA Nitrite Negative Last Edit by Vielka Osei RN on 08/03/24 09:13 UA Urobilinogen 3.5 mg/dL Last Edit by Vielka Osei RN on 08/03/24 09: 13 UA Protein 0 mg/dL Last Edit by Vielka Osei RN on 08/03/24 09:13 UA pH 6.0 Last Edit by Vielka Osei RN on 08/03/24 09:13 UA Blood 25 Eyad/uL Last Edit by Vielka Osei RN on 08/03/24 09:13 UA Specific [place] 1.0 Last Edit by Vielka Osei RN on 08/03/24 09:1 3 UA Ketone Negative Last Edit by Vielka Osei RN on 08/03/24 09:13 UA Bilirubin 0 mg/dL Last Edit by Vielka Osei RN on 08/03/24 09:13 UA Glucose 0 mg/dL Last Edit by Vielka Osei RN on 08/03/24 09:13 Results Reviewed Results Reviewed: Laboratory Last Values Urine pH (Auto) 6.0 08/03/24 09:12 Specific [place] (Auto) 1.0 08/03/24 09:12 Urine Protein (Auto) 0 mg/dL 08/03/24 09:12 Glucose (UA)(Auto) 0 mg/dL 08/03/24 09:12 Urine Ketones (Auto) Negative 08/03/24 09:12 Urine Blood (Auto) 25 Eyad/uL 08/03/24 09:12 Urine Nitrite (Auto) Negative 08/03/24 09:12 Urine Bilirubin (Auto) 0 mg/dL 08/03/24 09:12 Urine Urobilinogen (Auto) 3.5 mg/dL 08/03/24 09:12 Leukocyte Esterase (Auto) 0 Fredy/uL 08/03/24 09:12 Assessment & Plan Assessment & Plan (1) Lower urinary tract symptoms: Code(s): R39.9 - Unspecified symptoms and signs involving the genitourinary system Category: Medical (2) Urinary incontinence, mixed: Code(s): N39.46 - Mixed incontinence Category: Medical (3) Detrusor overactivity: Code(s): N32.81 - Overactive bladder Category: Medical Orders: Orders AMB Urodynamics Studies Today N39.41 - Urge incontinence AMB Urinalysis Automated Today Z13.9 - Encounter for screening, unspecified Patient Instructions: The patient had an opportunity to ask questions regarding treatment plan. The patient expressed understanding and agreement with the above treatment plan. The patient is aware they should contact our office by phone for worsening of their current condition or the appearance of new symptoms. Compliance is encouraged with any medications and followup testing that is ordered. It is a privilege to be allowed the opportunity to participate in the urologic care of your patient. If you have any questions or concerns regarding treatment for the above conditions please do not hesitate to contact me. The office telephone contact is [phone]. This note is constructed in part using voice recognition software. While every effort has been made to ensure accuracy management internship errors may have been included. Yours sincerely, Danica An MD Scribe Plan - Not visible on output: Patient was informed and verbally consented to the use of an ambient scribe for clinic note documentation during this visit. Coding Level of Care Code Est Pt Level 4 (44144) Diagnoses Lower urinary tract symptoms R39.9 Urinary incontinence, mixed N39.46 Detrusor overactivity N32.81 CPT Codes Urodynamic Studies - CPT: 83039-Ywhrtbdtqzondv w/ LOG COOKER ([id number]) Urodynamic Studies - CPT: 61053-Yxmf/Urinary Muscle Study ([id number]) Urodynamic Studies - CPT: 93631-Lprmg-Lzklbivps Pressure Test ([id number])
== END 2024-08-03 09:33 | disposition home or self-care (01) ==
LOC: HO.HUSH 08:29
PROVIDERS: Visit Provider Urology
DX: N39.41 Urge incontinence (principal)
CPT/HCPCS: 51728; 51784; 51797

== ENCOUNTER → 2024-08-03 08:28 | Outpatient (BNVA) | payer MEDICARE, SELFPAY | PROVIDERS: Visit Provider Urology | DX: N32.81 Overactive bladder (principal); R39.9 Unspecified symptoms and signs involving the genitourinary system; N39.41 Urge incontinence | CPT/HCPCS: 51728; 51784; 51797; 81003; 99212 ==

== ENCOUNTER 2024-08-08 13:40 | Outpatient (AMB) | payer MEDICARE, SELFPAY ==
[2024-08-08 13:45] VITALS: BP 159/74; PULSE 73; BMI 23.9
--- NOTE | 2024-08-08 13:45 | MHC.OFFVIS ---
Vital Signs 08/08/24 13:45 08/08/24 13:48 08/08/24 13:48 Height 5 ft 5 in Weight 143 lb 11.862 oz BMI 23.9 BP 159/74 H 150/73 H 136/65 Blood Pressure Location Lt brachial Lt brachial Lt brachial Position Sitting Standing Supine Pulse 73 76 71 Pulse Source Pulse Oximeter Pulse Oximeter Pulse Oximeter Intake Visit Reasons: fu req Dr Guzmán Storekeeper Steward Required: No Allergies dronedarone [Multaq] Allergy (Severe, Verified 08/08/24 13:46) syncope flecainide Allergy (Severe, Verified 08/08/24 13:46) vertigo,blurry vision lisinopril [LISINOPRIL] Allergy (Severe, Verified 08/08/24 13:46) ANGIOEDEMA, bad cough, throat closing, tingling of head, cough losartan Allergy (Intermediate, Verified 08/08/24 13:46) dry cough, pruritus hydromorphone [Dilaudid] Adverse Reaction (Severe, Verified 08/08/24 13:46) unresponsiveness HPI Comments Details: Nancy comes for follow-up after recent tilt-table test which shows significant orthostatic hypotension with reproduce symptoms on the tilt-table test. Significant symptoms while she is upright which leads to significant lightheadedness and dizziness. If she does not sit down she would pass out. She had a lower extremity fracture related to the same. She has no associated palpitations with it. She said his symptoms are somewhat better since increasing her fluid intake although not completely dissipated. She is very limited in his lifestyle because of the same. [facility] Medical History Paroxysmal atrial fibrillation Persistent atrial fibrillation Active Meniere's disease Tubular adenoma Positive colorectal cancer screening using Cologuard test Hypercalcemia Diverticulosis Hiatal hernia GERD (gastroesophageal reflux disease) Epigastric pain Dysphagia JESU (obstructive sleep apnea) Hyperparathyroidism Osteoporosis Dyslipidemia Heart failure Cardiac pacemaker in situ Sick sinus syndrome COPD (chronic obstructive pulmonary disease) Surgical History H/O bilateral cataract extraction History of esophagogastroduodenoscopy (EGD) Hx of colonoscopy History of total abdominal hysterectomy and bilateral salpingo-oophorectomy History of total left knee replacement History of pacemaker History of laparoscopic cholecystectomy Family History Father COPD (chronic obstructive pulmonary disease) Mother CAD (coronary artery disease) CVD (cardiovascular disease) Daughter No problems noted. 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 Cognitive needs: No Hearing needs: No Vision needs: No Review of Systems ENT Reports dizziness Card Denies chest pain, Denies chest pain at rest, Denies chest pain with activity, Denies rapid heart rate, Denies pedal edema, Denies edema, Denies leg edema, Denies lightheadedness, Denies palpitations, Denies dyspnea, Denies dyspnea on exertion and Denies orthopnea Resp Denies cough, Denies dyspnea and Denies dyspnea on exertion GI Denies hematochezia and Denies change in stool character Musc Denies abnormal gait, Reports limited range of motion, Reports muscle cramps, Denies muscle weakness, Denies numbness, Denies radiating pain into limb, Denies stiffness and Denies tingling Neuro Denies abnormal gait, Reports dizziness, Denies numbness and Denies tingling Endo Denies palpitations Physical Exam Vital Signs: Last Vital Signs Pulse 71 08/08/24 13:48 BP 136/65 08/08/24 13:48 BMI result Body Mass Index 23.9 Const General: cooperative, comfortable, no acute distress, alert, awake and well groomed Nutritional Appearance: average body habitus Orientation/consciousness: patient oriented x3 Limitations: no limitations Neck Neck: Yes trachea midline, Yes supple and Yes no JVD Resp Effort & Inspection: normal respiratory effort Auscultation: clear to auscultation bilaterally Cardio Jugular venous distension: no JVD Palpation: normal PMI Rhythm: abnormal rhythm irregularly irregular Heart sounds: S1 normal heart sound present, S2 normal heart sound present, no click, no gallops and no murmurs GI Auscultation: normal bowel sounds Skin General skin exam: no rashes or lesions noted Neuro General: patient oriented x3 and no focal motor deficits Extrem General: Yes no clubbing, cyanosis or edema Psych Appearance: grossly normal Office Procedures Cardiac Device Check Cardiac Device Check Details: Dual-chamber [place] pacemaker in place. Programmed in DDDR at 70 beats per minute. Intermittent episodes of atrial fibrillation noted with total burden of 17%. Atrial and ventricular sensing is excellent. Pacing lead impedance is stable. Battery life is at about 2.9 years [id number] Cardiac Device Check, pacemaker dual lead Procedure code (CPT) selection complete Assessment & Plan Assessment & Plan (1) Orthostatic hypotension: Code(s): I95.1 - Orthostatic hypotension Category: Medical Plan: Orthostatic hypotension which is causing her disabling symptoms with very limitations to her lifestyle. At this point time we discussed about management of orthostatic hypotension. Clinically difficulty in managing orthostatic hypotension was discussed. I have advised to increase her fluid intake to up to 60 oz. She is worried about her bladder function. High think she would benefit from local therapy for bladder with Botox injections. I have also taken the liberty to prescribe her midodrine 2.5 mg t.i.d. before meals. Mechanism of action of midodrine was discussed. Potential side effects were discussed especially development of supine hypertension. I have strongly advised her to monitor blood pressure multiple times a day and maintain a log. Will follow up in 2 weeks for blood pressure and orthostatic checks her medication to see if her symptoms have improved. (2) Paroxysmal atrial fibrillation: Code(s): I48.0 - Paroxysmal atrial fibrillation Category: Medical Plan: Paroxysmal atrial fibrillation with intermittent persistent episodes. She has not tolerated rhythm control in the past with antiarrhythmic drug therapy. With the episodes of atrial fibrillation she has not had actual any symptoms. Continue to monitor by pacer telemetry. Continue metoprolol therapy. Continue full oral anticoagulation, currently on dabigatran which she has been on for many years and tolerated well. Semi annual renal function test should be pursued. Avoidance of stimulants was discussed. (3) Cardiac pacemaker in situ: Code(s): Z95.0 - Presence of cardiac pacemaker Category: Medical Plan: Cardiac pacemaker in-situ for sick sinus syndrome. Pacemaker is working well. Will follow remotely. Follow up in the clinic in 2 months time, sooner p.r.n.. Thank you for allowing me to partake in her care Coding Level of Care Code Est Pt Level 4 (01343) Complex EM visit Add On G2211 Diagnoses Orthostatic hypotension I95.1 Paroxysmal atrial fibrillation I48.0 Cardiac pacemaker in situ Z95.0 CPT Codes Cardiac Device Check - Cardiac Device 2: [id number] Cardiac Device Check, pacemaker dual lead ([id number])
[2024-08-08 13:48] VITALS: BP 136/65; BP 150/73; PULSE 71; PULSE 76
--- OUTSIDE RECORDS SUMMARY | 2024-08-08 14:36 | XMS_ITS | Clinical Summary ---
Author Organization [facility] Address [address] [place] [address] Phone Care Team Providers Care Tone Cabinet Assembler Name Role Phone Jose Kimbrough MD Primary Care Provider [phone] Encounters Date Type Department Care Team Description 07/31/2024 1:08 PM EDT - 07/31/2024 11:59 PM EDT Hospital Encounter [facility] Xray [address] [place] [address] Syncope, near Discharge Disposition: Home or Self Care from Last 3 Months Surgical History Surgery Date Site/Laterality Comments HYSTERECTOMY [...] on file Obstetrics History Plan of Treatment Health Maintenance Due Date Last Done Comments DTaP,Tdap,and Td Vaccines (1 - Tdap) 12/06/1962 Zoster Vaccines (1 of 2) 12/06/1993 RSV Immunization Adult Patients (1 - 1-dose 75+ series) 12/06/2018 COVID-19 Vaccine (5 - season) 2023 03/22/2022, 02/03/2021, 05/09/2020, Additional history exists Cholesterol Screening (Lipid Panel) 05/24/2024 Depression Screening 05/24/2024 Falls Risk Assessment 05/24/2024 Hypertension/CHF/CAD Annual BMP Blood Test 05/24/2024 Medicare Annual Wellness Visit 05/24/2024 Osteoporosis Screening (Bone Density Screening) 05/24/2024 Social Influencers of Health Screening 05/24/2024 Pneumococcal Vaccine: 50+ Years Completed 06/21/2023 Influenza Vaccine Completed 12/18/2023, , 02/08/2022, Additional history exists HIB Vaccines Aged Out No longer eligi [...] to complete this topic RSV Immunization Patients Under 20 months Aged Out No longer eligible based on patient's age to complete this topic Varicella Vaccines Aged Out No longer eligible based on patient's age to complete this topic Procedures Procedure Name Priority Date/Time Associated Diagnosis Comments TILT TABLE Routine 07/31/2024 2:08 PM EDT Syncope, near from Last 3 Months Results * Tilt table (07/31/2024 2:08 PM [...] test with findings consistant with orthostatic hypotension. Saud Guzmán MD [facility] PROCEDURES F inal Result from Last 3 Months Insurance MEDICARE [facility] Care Teams Tone Cabinet Assembler Relationship Specialty Start Date End Date Jose Kimbrough MD [address] [place] [address] PCP - General Otolaryngology 04/05/17
== END 2024-08-08 14:14 | disposition home or self-care (01) ==
LOC: HO.HCS 13:41
PROVIDERS: Visit Provider Internal Medicine Cardiovascular Disease
DX: I95.1 Orthostatic hypotension (principal); I48.0 Paroxysmal atrial fibrillation; Z95.0 Presence of cardiac pacemaker
CPT/HCPCS: 93280; 99214; G2211

== ENCOUNTER → 2024-08-08 13:40 | Outpatient (BNVA) | payer MEDICARE, SELFPAY | PROVIDERS: Visit Provider Internal Medicine Cardiovascular Disease | DX: I95.1 Orthostatic hypotension (principal); I48.0 Paroxysmal atrial fibrillation; Z45.09 Encounter for adjustment and management of other cardiac device | CPT/HCPCS: 93280; 99212 ==

== ENCOUNTER → 2024-08-13 23:59 | Outpatient (BNV) | payer MEDICARE, SELFPAY ==
--- NOTE | 2024-08-14 13:19 | MHC.OFFVIS ---
Intake Visit Reasons: Remote Device Check- [facility] Allergies dronedarone [Multaq] Allergy (Severe, Verified 08/08/24 13:46) syncope flecainide Allergy (Severe, Verified 08/08/24 13:46) vertigo,blurry vision lisinopril [LISINOPRIL] Allergy (Severe, Verified 08/08/24 13:46) ANGIOEDEMA, bad cough, throat closing, tingling of head, cough losartan Allergy (Intermediate, Verified 08/08/24 13:46) dry cough, pruritus hydromorphone [Dilaudid] Adverse Reaction (Severe, Verified 08/08/24 13:46) unresponsiveness [facility] Medical History Paroxysmal atrial fibrillation Persistent atrial fibrillation Active Meniere's disease Tubular adenoma Positive colorectal cancer screening using Cologuard test Hypercalcemia Diverticulosis Hiatal hernia GERD (gastroesophageal reflux disease) Epigastric pain Dysphagia JESU (obstructive sleep apnea) Hyperparathyroidism Osteoporosis Dyslipidemia Heart failure Cardiac pacemaker in situ Sick sinus syndrome COPD (chronic obstructive pulmonary disease) Surgical History H/O bilateral cataract extraction History of esophagogastroduodenoscopy (EGD) Hx of colonoscopy History of total abdominal hysterectomy and bilateral salpingo-oophorectomy History of total left knee replacement History of pacemaker History of laparoscopic cholecystectomy Family History Father COPD (chronic obstructive pulmonary disease) Mother CAD (coronary artery disease) CVD (cardiovascular disease) Daughter No problems noted. 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 Pacemaker function is adequate [id number] Cardiac Device Interrogation, pacemaker Procedure code (CPT) selection complete Assessment & Plan Assessment & Plan (1) Cardiac pacemaker in situ: Code(s): Z95.0 - Presence of cardiac pacemaker Category: Medical Plan: See above Coding Level of Care Code Procedure Only Diagnoses Cardiac pacemaker in situ Z95.0 CPT Codes Cardiac Device Check - Cardiac Device 12: [id number] Cardiac Device Interrogation, pacemaker ([id number])
== END ==
PROVIDERS: Visit Provider Internal Medicine Cardiovascular Disease
DX: Z45.018 Encounter for adjustment and management of other part of cardiac pacemaker (principal)
CPT/HCPCS: 93294

== ENCOUNTER → 2024-08-24 08:29 | Outpatient (BNVA) | payer MEDICARE, SELFPAY | PROVIDERS: Visit Provider Internal Medicine Cardiovascular Disease | DX: Z13.89 Encounter for screening for other disorder (principal) ==

== ENCOUNTER 2024-09-10 09:46 | Outpatient (REF) | payer MEDICARE, SELFPAY ==
[2024-09-10 11:00] VITALS: BP 140/69; PULSE 70; RESP 16; TEMP 36.1; O2SAT 98; BMI 28.3
== END 2024-09-10 09:47 | disposition home or self-care (01) ==
LOC: HO.MS 09:46
PROVIDERS: Visit Provider Ophthalmology
PROC: (CPT 66821; principal; 2024-09-10 13:30)
DX: H26.492 Other secondary cataract, left eye (principal)
CPT/HCPCS: 66821

== ENCOUNTER 2024-09-18 09:38 | Outpatient (AMB) | payer MEDICARE, SELFPAY ==
--- NOTE | 2024-09-18 10:01 | MHC.OFFWIV ---
Intake Vital Signs 09/18/24 10:04 Height 5 ft Weight 144 lb BMI 28.1 BP 136/70 Blood Pressure Location Lt brachial Position Sitting Pulse 74 Pulse Source Pulse Oximeter Temp 98.1 F Temp Source Oral Pulse Oximetry (%) 98 Oxygen Delivery Method Room Air Intake Visit Reasons: EP Rt knee painful, swollen Intake Note: presents with right knee pain and swelling for 4 days after playing [employer] Patient Tobacco Use Status: Former Tobacco user Allergies dronedarone (Multaq) Allergy (Severe, Verified 09/18/24 10:05) syncope flecainide Allergy (Severe, Verified 09/18/24 10:05) vertigo,blurry vision lisinopril (LISINOPRIL) Allergy (Severe, Verified 09/18/24 10:05) ANGIOEDEMA, bad cough, throat closing, tingling of head, cough losartan Allergy (Intermediate, Verified 09/18/24 10:05) dry cough, pruritus hydromorphone (Dilaudid) Adverse Reaction (Severe, Verified 09/18/24 10:05) unresponsiveness Do you need a note to return to daycare/school/sports/work: No HPI HPI Comments History of Present Illness Details History - The patient is an 78-year-old female presenting with right knee pain and swelling following physical activity x 5 days ago. - She has received a cortisone injection in the knee, by her Ortho doc at [facility], which had resolved her chronic knee pain. - Engaged in light physical activity, leading to increased pain and swelling an hour later. - Pain persisted for four days, with some relief from ice application. - On dabigatran, limiting NSAID use, with minimal relief from Tylenol. - [place] wrap worsened the condition, likely due to bursitis. Physical Exam General: Cooperative, healthy appearing, comfortable, no acute distress and well developed Orientation: Patient oriented x3 Limitations: Painful right knee when walking Head: Normal to inspection Ears: Hearing grossly normal bilaterally Nose: Normal External nose present Face and sinus: Normal facial exam Mouth: normal, moist oral mucosa Eyes: Appearance normal, both eyes and all related structures Neck: Normal visual inspection and Yes full ROM Respiratory: Normal respiratory effort and able to speak in complete sentences. Skin: no rashes or lesions noted Neuro: Patient oriented x3 Extremities: moving all extremities normally. Right knee, TTP infrapatellar area, negative patellar ballottement, with no joint laxity noted. [facility] Medical History Paroxysmal atrial fibrillation Persistent atrial fibrillation Active Meniere's disease Tubular adenoma Positive colorectal cancer screening using Cologuard test Hypercalcemia Diverticulosis Hiatal hernia GERD (gastroesophageal reflux disease) Epigastric pain Dysphagia JESU (obstructive sleep apnea) Hyperparathyroidism Osteoporosis Dyslipidemia Heart failure Cardiac pacemaker in situ Sick sinus syndrome COPD (chronic obstructive pulmonary disease) Surgical History H/O bilateral cataract extraction History of esophagogastroduodenoscopy (EGD) Hx of colonoscopy History of total abdominal hysterectomy and bilateral salpingo-oophorectomy History of total left knee replacement History of pacemaker History of laparoscopic cholecystectomy Family History Father COPD (chronic obstructive pulmonary disease) Mother CAD (coronary artery disease) CVD (cardiovascular disease) Daughter No problems noted. 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 Cognitive needs: No Hearing needs: No Vision needs: No Review of Systems Const All systems reviewed & are unremarkable except as noted in HPI and below Physical Exam Vital Signs: Last Vital Signs Temp 98.1 F 09/18/24 10:04 Pulse 74 09/18/24 10:04 BP 136/70 09/18/24 10:04 Pulse Ox 98 09/18/24 10:04 Oxygen Delivery Method Room Air 09/18/24 10:04 BMI result Body Mass Index 28.1 Assessment & Plan Assessment & Plan (1) Acute pain of right knee: Code(s): M25.561 - Pain in right knee Plan: Patient was informed and verbally consented to the use of an ambient scribe for clinic note documentation during this visit Acute Right Knee Pain - Prescribed prednisone 40 mg daily for 5 days to reduce inflammation as pt cannot use NSAIDS with blood thinner. - Advised to apply ice to the affected area for symptomatic relief. - Recommended follow-up with [facility] if symptoms persist. - Identified bursitis as a contributing factor to knee pain and swelling. Medications: New prednisone 40 mg (2 x 20 mg) PO QAM 10 tabs 0RF Coding Level of Care Code New Pt Level 3 (02521) Diagnoses Acute pain of right knee M25.561
[2024-09-18 10:04] VITALS: BP 136/70; PULSE 74; TEMP 36.7; O2SAT 98; BMI 28.1
--- OUTSIDE RECORDS SUMMARY | 2024-09-18 10:07 | XMS_ITS | Data Portability ---
Author Organization [facility], [facility] Address [address] [place] [address] Care Team Providers Care Dining Services Director Name Role Phone KEELEY SHAFFER Primary Care Provider [phone] Assessment Encounter Date Assessment Date Assessment LastModified by Organization Details LastModified Time 12/20/2023 12/20/2023 Patient seen und er general supervision of Dr. Lujan who was available but who did not see the patient. HPI: 78-year-old female seen today for follow-up regarding right knee arthritis. Patient has received corticosteroid injections in the past which had provided some relief, not as much as they had previously. Denies any recent falls or trauma. Reports pain with ambulation, denies numbness or tingling right lower extremity. Examination: 78-year-old female no acute distress alert and oriented. On examination of the right knee no effusion erythema or warmth are noted. Varus angulation appreciated. Tenderness to palpation about the medial joint line noted. Range of motion 5-115 . Calf is soft. Right lower extremity neurovascularly intact. X-rays ordered, obtained and reviewed at [facility] 4 views of the right knee reveal severe medial compartment arthritis. No evidence of acute fracture or dislocation noted. Calf is soft and nontender. Right lower extremity neurovascularly intact. Impression: Right knee arthritis Plan: Treatment options are reviewed. Role of repeat corticosteroid injection, possibility of Visco supplementation as well as possibility of total knee arthroplasty reviewed. Patient reports significant difficulty with her previous recovery therefore like to avoid any type of surgical intervention and has not had as much relief that is she had received previously with more recent corticosteroid injections therefore would like to try Visco supplementation. We will submit for approval. Patient will follow up once his obtained. Follow-up sooner if further difficulty. [facility] speech recognition company manager software was used to create portions of this document. An attempt at proofreading has been made to minimize errors. Please call for corrections. Not available 12/20/2023 15:25:34 02/16/2024 02/16/2024 Patient is seen under the supervision of Radhika who was available but did not see the patient today. REASON FOR VISIT Edit Text Patient is here today for gel one injections of right knees. Patient reports no adverse reaction from previous injections. PHYSICAL FINDINGS Edit Text Evaluation of the knees reveals no evidence of infection, no significant joint effusion, no warmth, or erythema. The injection sites are benign. Calves are supple and nontender. 5/5 strength. Some discomfort with range of motion. ASSESSMENT Osteoarthritis of knee -right knees PLAN After meticulous sterile preparation, knee were injected with gel one. Post-injection precautions were reviewed. I recommend ice, restriction of activities and re-evaluation next week for follow up injection. Not available 02/16/2024 16:13:52 08/21/2024 08/21/2024 Patient seen und er general supervision of Dr. Lujan who was available but who did not see the patient. HPI: 78-year-old seen today for follow-up regarding right knee arthritis. Patient received previous injection which worked well until recently. Has had recurrence of pain. Denies any injuries, falls or trauma. Examination: 78-year-old no acute distress alert and oriented. On examination of the right knee no erythema or warmth noted. Tenderness to palpation appreciated. Calf is soft Impression: Right Knee arthritis Plan: Treatment options are discussed. Role of total knee arthroplasty reviewed. Patient has been doing well with conservative management therefore was offered repeat injection which they accepted, following sterile preparation and informed consent 40 mg Kenalog and 5 cc 1% lidocaine injected into the knee. Patient tolerated procedure well. Postinjection precautions reviewed. Follow-up on a p.r.n. basis. [facility] speech recognition company manager software was used to create portions of this document. An attempt at proofreading has been made to minimize errors. Please call for corrections. [email or web address] Not available 08/21/2024 15:25:35 Plan of Treatment Reminders Order Date Submit Date Provider Last Modified By Organization Details Last Modified Time Details Appointments NEW PATIENT 15 2024 09:00A Rogelio Main PA-C Not available Not available Not available Lab None recorded . Referral None recorded . Procedures None recorded . Surgeries None recorded . Imaging XR, knee, 4 or more view - room 119 4V R knee 2023 024 pari [facility] Office, [address], [address], [place], [address], 01/05/2024 15:19:54 Medication Orders None recorded . Patient TargetsNo targets recorded. Patient InstructionsNo instructions recorded. Reason for Referral None Reported. Results Created Date Observation Date Name Description Value Unit Range Abnormal Flag Note LastModifiedBy Organization Detail LastModifiedTime 12/20/1912/20/2023 XR, knee, 4 or more view http:/ [email or web address] ?Encry pted=s hAaTro YD8dLq bEUv6g %2BXZw aYqtaq 0bqfl% 2Fg9IQ a4ajBk vP9nXo QUaueC m3YtLR FvZl JJ8mAn HZtai3 1f9284 AC0Kqa 3mHUqG hKiQtr MwF INTERFACE [facility] Office [address] [facility] [address], [place], [address], 12/20/2023 15:01:23 12/20/19 24 12/20/2023 XR, knee, 4 or more view http:/ [email or web address] ?Encry pted=s hAaTro YD8dLq bEUv6g %2BXZw aYqtaq 0bqfl% 2Fg9IQ a4ajBk vP9nXo QUaueC m3YtLR Zl J8mAn HZtai3 4r7422 AC0Kqa 3mHUqG hKiQtr MwF INTERFACE [facility] [address] [facility] [address], [place], [address], 12/20/2023 15:01:25 Result Notes Documentation Provider Name and Address Organization Details Recorded Time Xr, Knee, 4 Or More View : [email or web address] Encrypted=mwHdPenPS8jNxhE Uv6g%2PHNrrHrpuc6absm%2Fg 7XFy7sdCemH5cMfOVnwoUw3Dt IPIlEvsMRE4aDmGQujm34s309 5FT9Oqs4pUAdAfQvUwsMdE Not Available [facility] 12/20/2023 15:01: 24 Xr, Knee, 4 Or More View : [email or web address] Encrypted=drKkQjaOZ8eKypZ Uv6g%4UDSrtOymbh0meki%2Fg 1NXm9vsLafT5lQuTDmniZy1Rq XNSyEfrPMP5iKgRNavp08h503 0UL1Wif3yRWuKfLpOriJyW Not Available [facility] 12/20/2023 15:01: 26 Problems Name Problem SNOMED Code Status Onset Date Resolution Date Notes Provider Name and Address Organization Details Recorded Time No complaints 506848271 Active Status : 'A'; Not Available [facility] 09:24:54 Problem Notes None recorded. Procedures Surgical History Date Name Laterality Status Provider Name and Address Organization Details Recorded Time 5 JZKNEE INJ completed Alberto Reynolds PA-C [address] [place] [address], [address], [facility] 08/21/2024 15:25:01 4 Gel-One Knee Injection completed Alberto Reynolds PA-C [address], [place], [address], [facility] 02/16/2024 16:13:05 Imaging Results None recorded. Procedure Notes None recorded. Medical Equipment None Reported. Allergies Allergen ID Allergen Name Allergen Category Reaction Reaction Severity Criticality Documentation Date Start Date Code Code System Note Provider Name and Address Organization Details Recorded Time 405020 Dilaudid medicatio n Not available Not available Not available 05/16/20232018 41667 3 RxNorm Not Available [facility] 16:01:29 007444 amlodipin e besylate medicatio n Not available Not available Not available 05/16/20232015 49037 6 RxNorm Not Available [facility] 4 16:01:29 754345 lisinopri l medicatio n Not available Not available Not available 05/16/20232015 74339 RxNorm Not Available [facility] 4 16:01:29 Medications Name Sig Start Date Stop Date Status Note LastModified by Organization Details LastModified Time tolterodine ER 2 mg capsule,exte nded release 24 hr TAKE 1 CAPSULE BY MOUTH EVERY DAY active Not Available Not Available No t Available amoxicillin 500 mg capsule TAKE 4 CAPSULES BY MOUTH 1 HOUR PRIOR TO DENTAL VISIT active Not Available Not Available No t Available azithromycin 250 mg tablet TAKE 2 TABLETS BY MOUTH TODAY, THEN TAKE 1 TABLET DAILY FOR 4 DAYS DIRECTED active Not Available Not Available No t Available metoprolol succinate ER 50 mg tablet,exten ded release 24 hr TAKE 1/2 TABLET DAILY active Not Available Not Available No t Available tolterodine ER 4 mg capsule,exte nded release 24 hr active Not Available Not Available Not Available alendronate 70 mg tablet TAKE 1 TABLET BY MOUTH WEEKLY active Not Available Not Available No t Available pantoprazole 40 mg tablet,delay ed release TAKE 1 TABLET BY MOUTH DAILY 30 MINUTES BEFORE BREAKFAST. active Not Available Not Available N ot Available nitrofuranto in macrocrystal 100 mg capsule TAKE 1 CAPSULE TWICE DAILY FOR 5 DAYS WITH A MEAL/FOOD. active Not Available Not Available N ot Available midodrine 2.5 mg tablet TAKE 1 TAB BY MOUTH 3 TIMES A DAY DO NOT GIVE LAST DOSE OF DAY AFTER 6PM OR WITHIN 4 HRS OF BEDTIME active Not Available Not Available No t Available lovastatin 20 mg tablet TAKE 1 TABLET DAILY active Not Available Not Available No t Available oxybutynin chloride 5 mg tablet active Not Available Not Available No t Available DentaGel 1.1 % USE TO BRUSH TEETH DAILY BEFORE BED,DO NOT EAT OR RINSE FOR 30 MINUTES AFTER USE active Not Available Not Available No t Available solifenacin 5 mg tablet TAKE 1 TABLET DAILY MAY INCREASE TO 2 TABLETS IN 2 TO 3 WEEKS IF SYMPTOMS CONTINUE active Not Available Not Available No t Available oxycodone HCl-oxycodon e-ASA 1-2 q [address] WHILE TAKING THIS MEDICATION 2016 active Statu s: 'Curr ent'; Not Available Not Available Not Available dabigatran etexilate 150 mg capsule TAKE 1 CAPSULE TWICE DAILY active Not Available Not Available Not Available Myrbetriq 25 mg tablet,exten ded release TAKE 1 TABLET BY MOUTH EVERY DAY FOR 30 DAYS active Not Available Not Available No t Available Arnuity Ellipta 100 mcg/actuatio n powder for inhalation INHALE 1 PUFF DAILY FOR 30 DAYS active Not Available Not Available Not Available Vitals Date Recorded Body height Body mass index (BMI) Body weight Provider Name and Address Organization Details Last Updated DateTime 08/21/2024 152.4 cm 27.9 kg/m2 61170.71 g [facility] 08/21/2024 14:40:30 Date Recorded Body height Body mass index (BMI) Body weight Provider Name and Address Organization Details Last Updated DateTime 12/20/2023 152.4 cm 28.3 kg/m2 39695.89 g [facility] 12/20/2023 14:53:59 Date Recorded Body height Body mass index (BMI) Body weight Provider Name and Address Organization Details Last Updated DateTime 02/16/2024 152.4 cm 27.9 kg/m2 67864.71 g [facility] 02/16/2024 15:32:24 Social History None recorded. Functional Status None recorded. Mental Status None recorded. Family History Nothing Reported. Medical History No medical history recorded. Gynecological HistoryNo gynecological history recorded. Obstetrics History GPAL:G 0 P 0 0 0 0 Past Encounters Encounter ID Performer Location Encounter Start Date Encounter Closed Date Diagnosis/Indication Diagnosis SNOMED-CT Code Diagnosis ICD10 Code Diagnosis Note [id number] EDEN Sharif [address] [place] [address] 12/20/2023 14:21:48 01/05/2024 15:19:54 Pain of right knee joint 3742210183 87114 M25.561 Osteoarthr itis of knee 000469564 M17.9 [id number] EDEN Sharif [address] [place] [address] 02/16/2024 14:56:20 03/05/2024 08:45:01 Osteoarthritis of right knee joint 9281365939 11868 M17.11 [id number] EDEN Sharif [address] [place] [address] 08/21/2024 14:32:13 08/30/2024 13:32:28 Osteoarthritis of right knee joint 8483904002 08576 M17.11 Health Concerns Section Related Observation LastModified by Organization Detai ls LastModified Time None Recorded Concern Status LastModified by Organization Details LastModified Time None Recorded Advance Directives Directive None Recorded Payers Insurance Date Sequence Insurance Name Policy Number Policy Mendze Covered Member ID Mendez Member ID Guarantor Name 08/21/2024 1 [place] [employer] Nancy Alvaresrancois [id number] Nancy Rashaun Lefrancois 08/30/2024 2 [place] [id number] Nancy E Lefrancois [id number] Nancy E Lefrancois OBGyn Episode No OBEpisode recorded.
--- OUTSIDE RECORDS SUMMARY | 2024-09-18 10:08 | XMS_ITS | Patient Health Record ---
Author Organization [facility] Address [address] [place] [address] Care Team Providers Care Frame Stripper Name Role Phone Marcio CASSIDY, Homa Primary Care Provider Unavail able Mark Ac Unavailable [phone] Allergies Allergen (clinical drug ingredient) Drug/Non Drug Allergy documented on EMR Reaction Allergy Type Onset Date Status All opiods (uncoded) Unknown Allergy Active codeine Codeine anaphylaxis Drug Allergy Activ e morphine Morphine anaphylaxis Drug Allergy Activ e Reason For Referral No Information Medications Medication SIG (Take, Route, Frequency, Duration) Notes Start Date End Date Status Night Splint AFO - L1930 as directed 07/20/2017 Active Vitamin D2 Active ProAir HFA 108 (90 Base) MCG/ACT 2 puffs as needed Inhalation every 6 hrs Active Omeprazole 40 MG 1 capsule Orally Onc e a day Active Losartan Potassium 50 MG 1 tablet Orally Once a day Active Pradaxa 150 MG 1 capsule Orally Twi ce a day Active Lovastatin 10 MG 1 tablet with a meal Orally Once a day Active Flecainide Acetate 100 MG Orally Active Metoprolol Succinate ER 25 MG 1 tablet Orally Once a day A ctive Raloxifene HCl 60 MG 1 tablet Orally Once a day Active Social History Tobacco Use: Social History Observation Description Date Details (start date - stop date) Former Smoker NA - NA Tobacco Use/Smoking Question Answer Notes Are you a: former smoker Additional Findings: Tobacco Non-User Current no n-smoker Alcohol Screen Question Answer Notes Did you have a drink contain ing alcohol in the past year? Yes How often did you have a dri nk containing alcohol in the past year? Monthly or less (1 point) Points 1 Interpretation Negative Tobacco use other than smoking: Question Answer Notes Are you an other tobacco user? No Problems Problem Type SNOMED Code ICD Code Onset Dates Problem Status W/U Status Risk Notes Problem Hallux rigidus, right foot (M20.21) Active confirmed Plan Of Treatment Pending Test Test Name Order Date X ray : Foot, left 2V 07/20/2017 X ray : Foot, right 2V 07/20/201764134,I3056-ITT TENDON SHEATH/LIGAMENT 0 07/20/201783209,Z2874-AZR TENDON SHEATH/LIGAMENT 0 08/22/2017 Insurance Providers Payer Name Payer Address Payer Phone Subscriber Number Group Number Insured Name Patient Relationship to Insured Coverage Start Date Coverage End Date Medicare National Govt Sv[employer] [address] [place] [id number] Nancy Erickson Self - patient is the insured 4 [employer] Blue Shield [address] [place] [address] [id number] Roderick isNancy Self - patient is the insured Medical (General) History Medical History History ICD Code Arthritis Back,Hip,and Knee pain CAD (Cholesterol) Cataracts Gall bladder problems Heart disease High blood pressure Lung disease Lyme disease Menieres disease Osteoporosis Measles Mumps Chicken pox Joint implants/screws Pacemaker for Atrial fibrillation Surgical History Surgery Date(Month/Year) hysterectomy gall bladder knee replacement
--- OUTSIDE RECORDS SUMMARY | 2024-09-18 10:08 | XMS_ITS | Patient Health Record ---
Author Organization [facility] Address [address] [place] [address] Care Team Providers Care Stem Lead Former Name Role Phone Homa Del Rio Primary Care Provider Haider Kelley Unavailable [phone] Allergies Allergen (clinical drug ingredient) Drug/Non Drug Allergy documented on EMR Reaction Allergy Type Onset Date Status Lisinopril Unknown Drug Allergy Active hydromorphone Dilaudid Unknown Drug Allergy Act wesley Reason For Referral No Information Medications Medication SIG (Take, Route, Frequency, Duration) Notes Start Date End Date Status Losartan Potassium 50 MG 1 tablet Orally Once a day Active Pradaxa 150 MG 1 capsule Orally Twi ce a day Active Metoprolol Succinate 25 mg 1 tablet oral ly once a day Active Flecainide Acetate 100 MG po Orally twice a day Active Multivitamin Adults - Orally Active ProAir HFA 108 (90 Base) MCG/ACT 2 puffs as needed Inhalation every 6 hrs/ as needed Active Raloxifene HCl 60 MG 1 tablet Orally Onc e a day Active Omeprazole 20 MG 1 capsule Orally Onc e a day Active Lovastatin 10 MG 1 tablet with a meal Orally Once a day Active Vitamin D3 81953 UNIT 1 capsule Orally O nce a day Active Glucosamine 500 MG 1 capsule with a david l Orally Three times a day Active Tylenol 1 tab Oral as needed Active Immunizations Vaccine Route Administration Date Status Comme nts Influenza Unknown 11/12/2016 Administered Social History Tobacco Use: Social History Observation Description Date Details (start date - stop date) Former Smoker NA - NA Tobacco Use/Smoking Question Answer Notes Patient is a former smoker When did you stop smoking? 1998 Section Notes: Nonsmoker; no sig alcohol Nonsmoker; no sig alcohol Problems Problem Type SNOMED Code ICD Code Onset Dates Problem Status W/U Status Risk Notes Problem 518704457 Encounter for screening for malignant neoplasm of colon (Z12.11) Active confirmed Problem 490423278 History of adenomatous polyp of colon (Z86.010) Active confirmed Problem 822366470 Gastroesophageal reflux disease without esophagitis (K21.9) Active confirmed Problem 85650777 Irritable bowel syndrome, unspecified type (K58.9) Active confirmed Plan Of Treatment Future Test Test Name Order Date COLONOSCOPY 05/31/2017 Insurance Providers Payer Name Payer Address Payer Phone Subscriber Number Group Number Insured Name Patient Relationship to Insured Coverage Start Date Coverage End Date MEDICARE OF [place] [address] [place] [address] [id number] MERESANTOSH ISFORTINO Self - patient is the insured MEDEX ATTN CLAIMS [address] [place] [address] [id number] MERERANCO ISPATRICIAFORTINO Self - patient is the insured Medical (General) History Medical History History ICD Code Colonoscopy 03-24-2010--only hyperplastic polyps-biopsies neg for microscopic colitis--she was noted to have diverticulosis and internal hemorrhoids Tubular adenomas removed in 2005 Hyperlipidemia COPD Neg. celiac labs in 2005 Denies MS,DM,CVA,renal disease Pacemaker- Dr. Guzmán Atrial fib HTN GERD --she had an upper endo scopy in 2005 with the finding of some signs of reflux and a hiatal hernia--there was no Son's esophagus Sleep apnea--uses CPAP Surgical History Surgery Date(Month/Year) Hysterectomy and removal of 1 ovary Pacemaker CCY Left knee replacement-- [facility]-Dr. Segura--04/2016--she describes being told of a difficult intubation and a sensitivity to opiates at that time Bilateral cataracts
--- OUTSIDE RECORDS SUMMARY | 2024-09-18 10:08 | XMS_ITS | Clinical Summary ---
Author Organization [facility] Address [address] [place] [address] Phone Care Team Providers Care Clothing Busheler Name Role Phone Jose Kimbrough MD Primary Care Provider [phone] Encounters Date Type Department Care Team Description 07/31/2024 1:08 PM EDT - 07/31/2024 11:59 PM EDT Hospital Encounter [facility] Xray [address] [place] [address] Syncope, near Discharge Disposition: Home [...] Influencers of Health Screening 05/24/2024 Influenza Vaccine (#1) 2024 , 12/30/2022, 02/08/2022, Additional history exists Pneumococcal Vaccine: 50+ Years Completed 06/21/2023 HIB Vaccines Aged Out No longer eligi [...] Result from Last 3 Months Insurance MEDICARE [facility] Care Teams Clothing Busheler Relationship Specialty Start Date End Date Jose Kimbrough MD [address] [place] [address] PCP - General Otolaryngology 04/05/17
== END 2024-09-18 10:41 | disposition home or self-care (01) ==
PROVIDERS: Visit Provider Physician Assistant
DX: M25.561 Pain in right knee (principal)

== ENCOUNTER → 2024-09-18 09:38 | Outpatient (BNVA) | payer MEDICARE, SELFPAY | PROVIDERS: Visit Provider Physician Assistant | DX: M25.561 Pain in right knee (principal) | CPT/HCPCS: 99202 ==

== ENCOUNTER 2024-10-02 08:10 | Outpatient (REF) | payer MEDICARE, SELFPAY ==
[2024-10-02 09:24] LABS: Alanine Aminotransferase 28 U/L (0-31); Albumin Level 4.0 g/dL (3.5-5.0); Alkaline Phosphatase 56 U/L (39-117); Anion Gap 10 (12-20); Aspartate Amino Transferase 19 U/L (5-31); Blood Urea Nitrogen 11 mg/dL (9-16); Calcium 9.5 mg/dL (8.4-10.2); Carbon Dioxide 27 mmol/L (22-29); Chloride 108 mmol/L (96-108); Cholesterol 176 mg/dL (<200); Estimated Glomerular Filt Rate 59; HDL Cholesterol 43 mg/dL (>40); Potassium 4.2 mmol/L (3.3-5.1); Sodium 141 mmol/L (135-145); Total Protein 7.2 g/dL (6.5-8.0); Triglycerides 166 mg/dL (<150)
== END 2024-10-02 08:11 | disposition home or self-care (01) ==
LOC: HO.LAB 08:10
PROVIDERS: PCP Internal Medicine; Visit Provider Internal Medicine
DX: I50.22 Chronic systolic (congestive) heart failure (principal); E78.5 Hyperlipidemia, unspecified; E55.9 Vitamin D deficiency, unspecified
CPT/HCPCS: 36415; 80053; 80061; 82306; 83880

== ENCOUNTER 2024-10-08 08:05 | Outpatient (REF) | payer MEDICARE, SELFPAY ==
--- OUTSIDE RECORDS SUMMARY | 2024-10-08 08:08 | XMS_ITS | Patient Health Record ---
[facility] Address [address] [place] [address] Care Team Providers Care Shed Workers Supervisor Name Role Phone Marcio CASSIDY, Homa Primary Care Provider Unavail able Mark cA Unavailable [phone] Allergies Allergen (clinical drug ingredient) Drug/Non Drug [...] 07/20/2017 X ray : Foot, right 2V 07/20/201706638,[id number] TENDON SHEATH/LIGAMENT 0 07/20/201738423,[id number]-[id number] TENDON SHEATH/LIGAMENT 0 08/22/2017 Insurance Providers Payer Name Payer Address Payer Phone Subscriber Number Group Number Insured Name Patient Relationship to Insured Coverage Start Date Coverage End Date Medicare National Govt Svcs Inc [address] [place] [id number] Nancy Erickson Self - patient is the insured 4 Medex Blue Shield [address] [place] [address] [id number] Roderick isNancy Self - patient is the [...]
--- OUTSIDE RECORDS SUMMARY | 2024-10-08 08:08 | XMS_ITS | Clinical Summary ---
Author Organization [facility] Address [address] [place] [address] Phone Care Team Providers Care Sizing Machine And Drier Operator Name Role Phone Jose Kimbrough MD Primary Care Provider [phone] Encounters Date Type Department Care Team Description 07/31/2024 1:08 PM EDT - 07/31/2024 11:59 PM EDT Hospital Encounter [facility] Xray [address] [place] [address] Syncope, near Discharge Disposition: Home [...] 2023 03/22/2022, 02/03/2021, 05/09/2020, Additional history exists Depression Screening 03/14/2024 Cholesterol Screening (Lipid Panel) 05/24/2024 Falls Risk Assessment 05/24/2024 Hypertension/CHF/CAD Annual [...] Result from Last 3 Months Insurance MEDICARE [facility] Care Teams Sizing Machine And Drier Operator Relationship Specialty Start Date End Date Jose Kimbrough MD [address] [place] [address] PCP - General Otolaryngology 04/05/17
--- OUTSIDE RECORDS SUMMARY | 2024-10-08 08:08 | XMS_ITS | Patient Health Record ---
Author Organization [facility] Address [address] [place] [address] Care Team Providers Care Fleet Driver Name Role Phone Homa Del Rio Primary Care Provider UnavailHaider Merrill Unavailable [phone] Allergies Allergen (clinical drug ingredient) Drug/Non Drug Allergy documented on EMR Reaction Allergy Type Onset Date Status lisinopril Lisinopril Unknown Drug Allergy Activ e hydromorphone Dilaudid Unknown Drug Allergy Act wesley [...] Orally Once a day Active Vitamin D3 50984 UNIT 1 capsule Orally O nce a [...] Problem Status W/U Status Risk Notes Problem 275216676 Encounter for screening for malignant neoplasm of colon (Z12.11) Active confirmed Problem 410183225 History of adenomatous polyp of colon (Z86.010) Active confirmed Problem 250320250 Gastroesophageal reflux disease without esophagitis (K21.9) Active confirmed Problem 74596213 Irritable bowel syndrome, unspecified type (K58.9) Active confirmed Plan Of Treatment Future Test Test Name Order Date COLONOSCOPY 05/31/2017 Insurance Providers Payer Name Payer Address Payer Phone Subscriber Number Group Number Insured Name Patient Relationship to Insured Coverage Start Date Coverage End Date MEDICARE OF [place] [address] [place] [address] [phone] [id number] SUZANNE IS FORTINO Self - patient is the insured MEDEX ATTN CLAIMS [address] [place] [address] [phone] [id number] LEFRANCO IS, FORTINO Self - patient is the insured Medical (General) History Medical History History ICD Code Colonoscopy 03-24-2010--only hyperplastic polyps-biopsies neg for microscopic colitis--she was noted to have diverticulosis and internal hemorrhoids Tubular adenomas removed in 2005 Hyperlipidemia COPD Neg. celiac labs in 2005 Denies [place],DM,CVA,renal disease Pacemaker- Dr. Guzmán Atrial fib HTN GERD --she had an upper endo scopy in 2005 with the finding of some signs of reflux and a hiatal hernia--there was no Son's esophagus Sleep apnea--uses CPAP Surgical History Surgery Date(Month/Year) Hysterectomy and removal of 1 ovary Pacemaker CCY Left knee replacement-- [facility]-Dr. Segura--04/2016--she describes being told of a difficult intubation and a sensitivity to opiates at that time Bilateral cataracts
--- OUTSIDE RECORDS SUMMARY | 2024-10-08 08:08 | XMS_ITS | Data Portability ---
Author Organization [facility] Address [address] [place] [address] Care Team Providers Care Machine Hostler Name Role Phone KEELEY SHAFFER Primary Care Provider Assessment Encounter Date Assessment Date Assessment LastModified [...] intact. X-rays ordered, obtained and reviewed at [facility] 4 views of the right knee reveal [...] his obtained. Follow-up sooner if further difficulty. [facility] speech recognition cruise consultant software was used to create portions of [...] precautions reviewed. Follow-up on a p.r.n. basis. [facility] speech recognition cruise consultant software was used to create portions of [...] 119 4V R knee 2023 024 pari [facility], [address], [place], [address], 01/05/2024 15:19:54 Medication Orders None recorded . [...] a4ajBk vP9nXo QUaueC m3YtLR FvZl JJ8mAn HZtai3 2g5823 AC0Kqa 3mHUqG hKiQtr MwF INTERFACE [facility] [address] [facility] [address], [place], [address], 12/20/2023 15:01:23 12/20/19 24 12/20/2023 XR, knee, 4 or more view http:/ [email or web address] ?Encry pted=s hAaTro YD8dLq bEUv6g %2BXZw aYqtaq 0bqfl% 2Fg9IQ a4ajBk vP9nXo QUaueC m3YtLR Zl J8mAn HZtai3 0i9303 AC0Kqa 3mHUqG hKiQtr MwF INTERFACE [facility] [address] [facility] [address], [place], [address], 12/20/2023 15:01:25 Result Notes Documentation Provider Name and Address Organization Details Recorded Time Xr, Knee, 4 Or More View : [email or web address]? Encrypted=baCxBsxDO8jPiuL Uv6g%4PCVmrGjxaw9nozs%2Fg 3JWy8vlWjbL2gYlPFnfkYn1Sz EWMnCxyIWX1rUjWDozu51r389 5BG6Krz4cULbVtIuUsuHsI Not Available [facility] 12/20/2023 15:01: 24 Xr, Knee, 4 Or More View : [email or web address] Encrypted=yoKiEbnIC4hKlyR Uv6g%4NFSrfNdpvf5afyf%2Fg 5AYw5ehDxnA9aHjISktyEc0Kh HLPrFvyIOR0yRuZRaan32x955 7BA6Nvu2iFArYuOpRxlBrS Not Available [facility] 12/20/2023 15:01: 26 Problems Name Problem SNOMED Code Status Onset Date Resolution Date Notes Provider Name and Address Organization Details Recorded Time No complaints 032764755 Active Status : 'A'; Not Available [facility] 09:24:54 Problem Notes None recorded. Procedures Surgical History Date Name Laterality Status Provider Name and Address Organization Details Recorded Time 5 JZKNEE INJ completed Alberto Reynolds PA-C [address] [place] [address], [address], [facility] 08/21/2024 15:25:01 4 Gel-One Knee Injection completed Alberto Reynolds PA-C [address], [place], [address], [facility] 02/16/2024 16:13:05 Imaging Results None recorded. Procedure Notes None recorded. Medical Equipment None Reported. Allergies Allergen ID Allergen Name Allergen Category Reaction Reaction Severity Criticality Documentation Date Start Date Code Code System Note Provider Name and Address Organization Details Recorded Time 486485 Dilaudid medicatio n Not available Not available Not available 05/16/20232018 97532 3 RxNorm Not Available [facility] 16:01:29 051104 amlodipin e besylate medicatio n Not available Not available Not available 05/16/20232015 30142 6 RxNorm Not Available [facility] 4 16:01:29 093179 lisinopri l medicatio n Not available Not available Not available 05/16/20232015 57834 RxNorm Not Available [facility] 4 16:01:29 Medications Name Sig Start Date [...] Updated DateTime 08/21/2024 152.4 cm 27.9 kg/m2 26187.71 g [facility] 08/21/2024 14:40:30 Date Recorded Body height Body mass index (BMI) Body weight Provider Name and Address Organization Details Last Updated DateTime 12/20/2023 152.4 cm 28.3 kg/m2 58145.89 g [facility] 12/20/2023 14:53:59 Date Recorded Body height Body mass index (BMI) Body weight Provider Name and Address Organization Details Last Updated DateTime 02/16/2024 152.4 cm 27.9 kg/m2 36950.71 g [facility] 02/16/2024 15:32:24 Social History None recorded. Functional Status None recorded. Mental Status None recorded. Family History Nothing Reported. Medical History No medical history recorded. Gynecological HistoryNo gynecological history recorded. Obstetrics History GPAL:G 0 P 0 0 0 0 Past Encounters Encounter ID Performer Location Encounter Start Date Encounter Closed Date Diagnosis/Indication Diagnosis SNOMED-CT Code Diagnosis ICD10 Code Diagnosis Note [id number] EDEN Sharif [address] [place] [address] 12/20/2023 14:21:48 01/05/2024 15:19:54 Pain of right knee joint 5671423236 15642 M25.561 Osteoarthr itis of knee 110388779 M17.9 [id number] EDEN Sharif [address] [place] [address] 02/16/2024 14:56:20 03/05/2024 08:45:01 Osteoarthritis of right knee joint 8372770592 83180 M17.11 [id number] EDEN Sharif [address] [place] [address] 08/21/2024 14:32:13 08/30/2024 13:32:28 Osteoarthritis of right knee joint 8436102418 32228 M17.11 Health Concerns Section Related Observation LastModified by Organization Detai ls LastModified Time None Recorded Concern Status LastModified by Organization Details LastModified Time None Recorded Advance Directives Directive None Recorded Payers Insurance Date Sequence Insurance Name Policy Number Policy Mendez Covered Member ID Mendez Member ID Guarantor Name 08/21/2024 1 [place] [employer] Nancy Alvaresrancois [id number] Nancy Rashaun Lefrancois 08/30/2024 2 [place] [id number] Nancy E Lefrancois [id number] Nancy E Lefrancois OBGyn Episode No OBEpisode recorded.
[2024-10-08 08:25] VITALS: BP 114/74; PULSE 85; RESP 16; O2SAT 98; BMI 28.3
== END 2024-10-08 08:06 | disposition home or self-care (01) ==
LOC: HO.MS 08:05
PROVIDERS: Visit Provider Ophthalmology
PROC: (CPT 66821; principal; 2024-10-08 12:00)
DX: H26.491 Other secondary cataract, right eye (principal)
CPT/HCPCS: 66821

== ENCOUNTER 2024-10-15 14:49 | Outpatient (AMB) | payer MEDICARE, SELFPAY ==
--- OUTSIDE RECORDS SUMMARY | 2024-10-15 14:54 | XMS_ITS | Patient Health Record ---
Author [facility] Address [address] [place] [address] Care Team Providers Care Market Developer Name Role Phone Marcio CASSIDY, Homa Primary Care Provider Unavail able Mark Ac Unavailable [phone] Allergies Allergen (clinical drug ingredient) Drug/Non Drug [...] Problem Status W/U Status Risk Notes Problem Acquired hallux rigidus (3552330) Hallux rigidus, right foot (M20.21) Active confirmed Plan Of Treatment Pending Test Test Name Order Date X ray : Foot, left 2V 07/20/2017 X ray : Foot, right 2V 07/20/2017 54862,[id number] TENDON SHEATH/LIGAMENT 0 07/20/2017 63421,H6793-[id number] TENDON SHEATH/LIGAMENT 0 08/22/2017 Insurance Providers Payer Name Payer Address Payer Phone Subscriber Number Group Number Insured Name Patient Relationship to Insured Coverage Start Date Coverage End Date Medicare National Govt Svcs Inc [address] [place] [id number] Roderick isNancy Self - patient is the insured 4 [employer]ex Blue Shield [address] [place] [address] [id number] Roderick isGovindNancy Self - patient is the insured Medical (General) History Medical History History ICD Code Arthritis Back,Hip,and Knee pain CAD (Cholesterol) Cataracts Gall bladder problems Heart disease High blood pressure Lung disease Lyme disease Menieres disease Osteoporosis Measles Mumps Chicken pox Joint implants/screws Pacemaker for Atrial fibrillation Surgical History Surgery Date(Month/Year) hysterectomy gall bladder knee replacement
--- OUTSIDE RECORDS SUMMARY | 2024-10-15 14:54 | XMS_ITS | Patient Health Record ---
Author Organization [facility] Address [address] [place] [address] Care Team Providers Care Ammunition Storage Superintendent Name Role Phone Homa Del Rio Primary Care Provider UnavailHaider Merrill Unavailable [phone] Allergies Allergen (clinical drug ingredient) Drug/Non Drug [...] Orally Once a day Active Vitamin D3 06601 UNIT 1 capsule Orally O nce a [...] Problem Status W/U Status Risk Notes Problem 407198168 Encounter for screening for malignant neoplasm of colon (Z12.11) Active confirmed Problem 434028633 History of adenomatous polyp of colon (Z86.010) Active confirmed Problem 370131410 Gastroesophageal reflux disease without esophagitis (K21.9) Active confirmed Problem 18175783 Irritable bowel syndrome, unspecified type (K58.9) Active confirmed Plan Of Treatment Future Test Test Name Order Date COLONOSCOPY 05/31/2017 Insurance Providers Payer Name Payer Address Payer Phone Subscriber Number Group Number Insured Name Patient Relationship to Insured Coverage Start Date Coverage End Date MEDICARE OF [place] [address] [place] [address] [phone] [id number] SUZANNE IS FORTINO Self - patient is the insured MEDEX ATTN CLAIMS [address] [place] [address] [phone] [id number] LEFRANCO IS, FORTINO Self - patient is the insured Medical (General) History Medical History History ICD Code Colonoscopy 03-24-2010--only hyperplastic polyps-biopsies neg for microscopic colitis--she was noted to have diverticulosis and internal hemorrhoids Tubular adenomas removed in 2005 Hyperlipidemia COPD Neg. celiac labs in 2005 Denies [place],DM,CVA,renal disease Pacemaker- Dr. Guzmán Atrial fib HTN GERD --she had an upper endo scopy in 2005 with the finding of some signs of reflux and a hiatal hernia--there was no Son's esophagus Sleep apnea--uses CPAP Surgical History Surgery Date(Month/Year) Hysterectomy and removal of 1 ovary Pacemaker CCY Left knee replacement-- [facility]-Dr. Segura--04/2016--she describes being told of a difficult intubation and a sensitivity to opiates at that time Bilateral cataracts
--- OUTSIDE RECORDS SUMMARY | 2024-10-15 14:54 | XMS_ITS | Clinical Summary ---
Author Organization [facility] Address [address] [place] [address] Phone Care Team Providers Care Business Analysis Analyst Name Role Phone Jose Kimbrough MD Primary Care Provider [phone] Encounters Date Type Department Care Team Description 07/31/2024 1:08 PM EDT - 07/31/2024 11:59 PM EDT Hospital Encounter [facility] Xray [address] [place] [address] Syncope, near Discharge Disposition: Home [...] Result from Last 3 Months Insurance MEDICARE [facility] Care Teams Business Analysis Analyst Relationship Specialty Start Date End Date Jose Kimbrough MD [address] [place] [address] PCP - General Otolaryngology 04/05/17
[2024-10-15 14:57] VITALS: BP 144/74; PULSE 73; BMI 27.1
--- NOTE | 2024-10-15 14:57 | A.OFFVIS_ITS ---
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: No Allergies dronedarone (Multaq) Allergy (Severe, Verified 09/18/24 10:05) syncope flecainide Allergy (Severe, Verified 09/18/24 10:05) vertigo,blurry vision lisinopril (LISINOPRIL) Allergy (Severe, Verified 09/18/24 10:05) ANGIOEDEMA, bad cough, throat closing, tingling of head, cough losartan Allergy (Intermediate, Verified 09/18/24 10:05) dry cough, pruritus hydromorphone (Dilaudid) Adverse Reaction (Severe, Verified 09/18/24 10:05) unresponsiveness Medication List - Last Reconciled 10/15/24 by Saud Guzmán MD alendronate 70 mg PO QWEEK biotin 1,000 mcg PO DAILY cephalexin 500 mg PO BID 4 days cholecalciferol (vitamin D3) 50 mcg PO DAILY dabigatran etexilate 150 mg PO BID 90 days fluoride (sodium) 1.1% 1 appl PO BEDTIME incontinence pad, liner, disp Use 3 pads per day lovastatin 20 mg PO DAILY metoprolol succinate ER 25 mg (1/2 x 50 mg) PO DAILY 90 days midodrine 1.25 mg PO BID multivitamin,xo-bjat-tswkicyu (Complete Multivitamin tablet) 1 tab PO DAILY pantoprazole 40 mg PO DAILY phenazopyridine (Pyridium) 200 mg PO BID 6 doses polyethylene glycol 3350 (Miralax) 17 grams PO DAILY vitamins A,C,Y-xidt-wtjnxv 4,296 mcg-226 mg-90 mg (PreserVision AREDS) 1 cap PO BID HPI Comments Details: Nancy comes for follow-up. She says she is feeling a lot better on midodrine therapy. Has noted elevated blood pressures at home although she says when she takes only 2.5 mg in the a.m. she feels a lot better with no episodes of even lightheadedness. When she takes it 1.25 mg twice a day she does have li ghtheadedness in the morning. Overall although functionality is improved significantly. She denies any overall significant palpitation irregular heartbeat. No syncopal episodes. [facility] Medical History Paroxysmal atrial fibrillation Persistent atrial fibrillation Active Meniere's disease Tubular adenoma Positive colorectal cancer screening using Cologuard test Hypercalcemia Diverticulosis Hiatal hernia GERD (gastroesophageal reflux disease) Epigastric pain Dysphagia JESU (obstructive sleep apnea) Hyperparathyroidism Osteoporosis Dyslipidemia Heart failure Cardiac pacemaker in situ Sick sinus syndrome COPD (chronic obstructive pulmonary disease) Surgical History H/O bilateral cataract extraction History of esophagogastroduodenoscopy (EGD) Hx of colonoscopy History of total abdominal hysterectomy and bilateral salpingo-oophorectomy History of total left knee replacement History of pacemaker History of laparoscopic cholecystectomy Family History Father COPD (chronic obstructive pulmonary disease) Mother CAD (coronary artery disease) CVD (cardiovascular disease) Daughter No problems noted. 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 Cognitive needs: No Hearing needs: No Vision needs: No Review of Systems Const Denies chills, Denies fatigue, Denies fever(s), Denies frequent falls, Denies weakness, Denies weight gain and Denies weight loss ENT Denies dizziness Card Denies chest pain, Denies leg edema, Denies lightheadedness, Denies palpitations, Denies dyspnea, Denies dyspnea on exertion, Denies orthopnea and Denies other (loss of consciousness) Resp Denies cough, Denies dyspnea and Denies dyspnea on exertion GI Denies hematochezia and Denies change in stool character Musc Denies abnormal gait, Denies muscle weakness, Denies numbness, Denies radiating pain into limb and Denies tingling Neuro Denies abnormal gait, Denies dizziness, Denies frequent falls, Denies numbness, Denies tingling and Denies weakness Endo Denies fatigue and Denies palpitations Physical Exam Vital Signs: Last Vital Signs Pulse 75 10/15/24 15:00 BP 148/72 H 10/15/24 15:00 BMI result Body Mass Index 27.1 Const General: cooperative, comfortable, no acute distress, alert, awake and well groomed Nutritional Appearance: average body habitus Orientation/consciousness: patient oriented x3 Limitations: no limitations Neck Neck: Yes trachea midline, Yes supple and Yes no JVD Resp Effort & Inspection: normal respiratory effort Auscultation: clear to auscultation bilaterally Cardio Jugular venous distension: no JVD Palpation: normal PMI Rhythm: abnormal rhythm irregularly irregular Heart sounds: S1 normal heart sound present, S2 normal heart sound present, no click, no gallops and no murmurs GI Auscultation: normal bowel sounds Skin General skin exam: no rashes or lesions noted Neuro General: patient oriented x3 and no focal motor deficits Extrem General: Yes no clubbing, cyanosis or edema Psych Appearance: grossly normal Assessment & Plan Assessment & Plan (1) Orthostatic hypotension: Code(s): I95.1 - Orthostatic hypotension Category: Medical Plan: Significantly symptomatic orthostatic hypotension doing very well on low-dose midodrine therapy. She feels like she would do best on once a day 2.5 mg daily which she has experimented in his done well. I will say that this palliative treatment is okay and can be tailored to patient's needs. Will change it to 2.5 mg once a day. Advised to maintain adequate hydration. Orthostatic precautions were discussed. She understands them well. Close follow-up of blood pressure to be pursued. She is noticing elevated blood pressure. If he is consistently elevated above 160 may require short-acting will antihypertensive at nighttime prior to going to sleep. This was discussed with her. Avoid salt intake. (2) Paroxysmal atrial fibrillation: Code(s): I48.0 - Paroxysmal atrial fibrillation Category: Medical Plan: Paroxysmal atrial fibrillation without any significant symptoms related to it. Had not tolerated antiarrhythmic drug therapy in the past. Has had increased burden on the pacer telemetry. Will continue monitor. Continue full oral anticoagulation, currently on dabigatran 150 mg b.i.d.. Semi annual renal function test should be pursued. (3) Cardiac pacemaker in situ: Code(s): Z95.0 - Presence of cardiac pacemaker Category: Medical Plan: Cardiac pacemaker in-situ being follow remotely working well. Will follow in the clinic in 3 months time. Follow up in the clinic in 3 months time, sooner p.r.n.. Thank you for allowing me to partake in her care Medications: Changed From midodrine do not give last dose of day after 6PM or within 4 hrs of bedtime 1.25 mg PO BID To midodrine do not give last dose of day after 6PM or within 4 hrs of bedtime 2.5 mg PO DAILY Coding Level of Care Code Est Pt Level 4 (11641) Complex EM visit Add On G2211 Diagnoses Orthostatic hypotension I95.1 Paroxysmal atrial fibrillation I48.0 Cardiac pacemaker in situ Z95.0
[2024-10-15 14:59] VITALS: BP 153/73; PULSE 69
[2024-10-15 15:00] VITALS: BP 148/72; PULSE 75
== END 2024-10-15 15:34 | disposition home or self-care (01) ==
LOC: HO.HCS 14:50
PROVIDERS: Visit Provider Internal Medicine Cardiovascular Disease
DX: I95.1 Orthostatic hypotension (principal); I48.0 Paroxysmal atrial fibrillation; Z95.0 Presence of cardiac pacemaker
CPT/HCPCS: 99214; G2211

== ENCOUNTER → 2024-10-15 14:49 | Outpatient (BNVA) | payer MEDICARE, SELFPAY | PROVIDERS: Visit Provider Internal Medicine Cardiovascular Disease | DX: I95.1 Orthostatic hypotension (principal); I48.0 Paroxysmal atrial fibrillation; Z95.0 Presence of cardiac pacemaker; Z79.899 Other long term (current) drug therapy | CPT/HCPCS: 99212 ==

== ENCOUNTER 2024-10-17 08:17 | Outpatient (AMB) | payer MEDICARE, SELFPAY ==
--- OUTSIDE RECORDS SUMMARY | 2024-10-17 08:20 | XMS_ITS | Patient Health Record ---
Author Organization [facility] Address [address] [place] [address] Care Team Providers Care Media Marketing Coordinator Name Role Phone Marcio CASSIDY, Homa Primary Care Provider Unavail able Mark Ac Unavailable [phone] Allergies Allergen (clinical drug ingredient) Drug/Non Drug [...] 07/20/2017 X ray : Foot, right 2V 07/20/[id number] TENDON SHEATH/LIGAMENT 0 07/20/[id number] TENDON SHEATH/LIGAMENT 0 08/22/2017 Insurance Providers Payer Name Payer Address Payer Phone Subscriber Number Group Number Insured Name Patient Relationship to Insured Coverage Start Date Coverage End Date Medicare National Govt Sv[employer] [address] [place] [id number] [phone] [id number] Nancy Erickson Self - patient is the insured 4 [employer] [address] [place] [address] [phone] [id number] Roderick isNancy Self - patient is the [...]
--- OUTSIDE RECORDS SUMMARY | 2024-10-17 08:20 | XMS_ITS | Clinical Summary ---
Author Organization [facility] Address [address] [place] [address] Phone Care Team Providers Care Underwear Trimmer Name Role Phone Jose Kimbrough MD Primary Care Provider [phone] Encounters Date Type Department Care Team Description 07/31/2024 1:08 PM EDT - 07/31/2024 11:59 PM EDT Hospital Encounter [facility] Xray [address] [place] [address] Syncope, near Discharge Disposition: Home [...] Result from Last 3 Months Insurance MEDICARE [facility] Care Teams Underwear Trimmer Relationship Specialty Start Date End Date Jose Kimbrough MD [address] [place] [address] PCP - General Otolaryngology 04/05/17
--- OUTSIDE RECORDS SUMMARY | 2024-10-17 08:20 | XMS_ITS | Patient Health Record ---
Author Organization [facility] Address [address] [place] [address] Care Team Providers Care First Coat Operator Name Role Phone Homa Del Rio Primary Care Provider UnavailHaider Merrill Unavailable [phone] Allergies Allergen (clinical drug ingredient) Drug/Non Drug [...] Orally Once a day Active Vitamin D3 38039 UNIT 1 capsule Orally O nce a [...] Problem Status W/U Status Risk Notes Problem 234501050 Encounter for screening for malignant neoplasm of colon (Z12.11) Active confirmed Problem 440819710 History of adenomatous polyp of colon (Z86.010) Active confirmed Problem 176460307 Gastroesophageal reflux disease without esophagitis (K21.9) Active confirmed Problem 03912414 Irritable bowel syndrome, unspecified type (K58.9) Active confirmed Plan Of Treatment Future Test Test Name Order Date COLONOSCOPY 05/31/2017 Insurance Providers Payer Name Payer Address Payer Phone Subscriber Number Group Number Insured Name Patient Relationship to Insured Coverage Start Date Coverage End Date MEDICARE OF [place] [address] [place] [address] [phone] [id number] SUZANNE IS FORTINO Self - patient is the insured [employer] ATT[employer] CLAIMS [address] [place] [address] [id number] LEFRANCO IS, FORTINO Self - patient is the insured Medical (General) History Medical History History ICD Code Colonoscopy 03-24-2010--only hyperplastic polyps-biopsies neg for microscopic colitis--she was noted to have diverticulosis and internal hemorrhoids Tubular adenomas removed in 2005 Hyperlipidemia COPD Neg. celiac labs in 2005 Denies GA,DM,CVA,renal disease Pacemaker- Dr. Guzmán Atrial fib HTN GERD --she had an upper endo scopy in 2005 with the finding of some signs of reflux and a hiatal hernia--there was no Son's esophagus Sleep apnea--uses CPAP Surgical History Surgery Date(Month/Year) Hysterectomy and removal of 1 ovary Pacemaker CCY Left knee replacement-- [facility]-Dr. Segura--04/2016--she describes being told of a difficult intubation and a sensitivity to opiates at that time Bilateral cataracts
--- NOTE | 2024-10-17 08:25 | A.OFFVIS_ITS ---
Vital Signs 10/17/24 08:39 Height 5 ft 0.43 in Weight 141 lb 15.643 oz BMI 27.3 BP 142/72 H Blood Pressure Location Rt brachial Position Sitting Pulse 76 Pulse Source Pulse Oximeter Pulse Oximetry (%) 97 Oxygen Delivery Method Room Air Intake Visit Reasons: Osteoporosis Intake Note: Patient present today for Osteoporosis follow up visit. Community Health Education Coordinator Required: No Accompanied by: Self / Same As Patient Allergies dronedarone (Multaq) Allergy (Severe, Verified 10/17/24 08:27) syncope flecainide Allergy (Severe, Verified 10/17/24 08:27) vertigo,blurry vision lisinopril (LISINOPRIL) Allergy (Severe, Verified 10/17/24 08:27) ANGIOEDEMA, bad cough, throat closing, tingling of head, cough losartan Allergy (Intermediate, Verified 10/17/24 08:27) dry cough, pruritus hydromorphone (Dilaudid) Adverse Reaction (Severe, Verified 10/17/24 08:27) unresponsiveness Medication List - Last Reconciled 10/17/24 by Haider Lowe MD alendronate 70 mg PO QWEEK biotin 1,000 mcg PO DAILY cephalexin 500 mg PO BID 4 days cholecalciferol (vitamin D3) 50 mcg PO DAILY dabigatran etexilate 150 mg PO BID 90 days fluoride (sodium) 1.1% 1 appl PO BEDTIME incontinence pad, liner, disp Use 3 pads per day lovastatin 20 mg PO DAILY metoprolol succinate ER 25 mg (1/2 x 50 mg) PO DAILY 90 days midodrine 2.5 mg PO DAILY multivitamin,dl-jarw-emtghcgi (Complete Multivitamin tablet) 1 tab PO DAILY pantoprazole 40 mg PO DAILY phenazopyridine (Pyridium) 200 mg PO BID 6 doses polyethylene glycol 3350 (Miralax) 17 grams PO DAILY vitamins A,C,K-pugb-wzcrjj 4,296 mcg-226 mg-90 mg (PreserVision AREDS) 1 cap PO BID HPI Comments Details: 78 yo female today for fup visit, for primary hyperparathyroidism and osteoporosis . She is feeling well. She has no complaints. She has h/o of vitamin D defficiency , B12 defficiency, osteoporosis, she has CKD 3. Afib on Pradaxa. She has FH of a brother with Hyperparathyroidism, he had exploratory parathryoidectomy 1 gland removed, he remains hypercalcemic after surgery last february. She had a right wrist fracture after tripped and falling at age 63. She had a L clavicle fx 2 yrs ago She had GERD on PPI's, negative FH of fractures or osteoporosis, no nephrolithiasis, no steroids used, ex smoker, quit 20 years ago, no anti seizures medications, Denies lithium use. She was on Evista , for about 10 years. Last visit I had discontinue the Evista and started the patient on alendronate 70 mg weekly. She stopped the alendronate 8 mos ago . 09/08/18 DEXA scan AP SPINE L1-L4: Current: BMD 0.978 g/cm2, Z-score 0.1, T-score -1.7, osteopenia, 2.2% decrease from previous, 2.1% decrease from baseline (<5% change is not significant). Prior: BMD 1.000 g/cm2. Baseline: BMD 0.999 g/cm2. LEFT FEMUR, NECK: Current: BMD 0.684 g/cm2, Z-score -0.6, T-score -2.5, osteoporosis. Prior: BMD 0.659 g/cm2. Baseline: BMD 0.747 g/cm2. LEFT FEMUR, TOTAL: Current: BMD 0.748 g/cm2, Z-score -0.3, T-score -2.1, osteopenia, 2.5% increase from previous, 10.2% decrease from baseline (<5% change is not significant). Prior: BMD 0.730 g/cm2. Baseline: BMD 0.833 g/cm2. 11/09/22 FINDINGS: LEFT FEMUR, NECK: Current: BMD 0.652 g/cm2, Z-score -0.7, T-score -2.8, osteoporosis. Prior: BMD 0.671 g/cm2. Baseline: BMD 0.747 g/cm2. LEFT FEMUR, TOTAL: Current: BMD 0.745 g/cm2, Z-score -0.1, T-score -2.1, osteopenia, 0.1% increase from previous, 10.6% decrease from baseline (<5% change is not significant). Prior: BMD 0.744 g/cm2. Baseline: BMD 0.833 g/cm2. AP SPINE L1-L2 (excluding L3 and L4): The data of L1-L4 has been changed to exclude the L3 and L4 vertebral bodies, because degenerative sclerosis at these levels may cause overestimation of lumbar spine density. Current: BMD 0.987 g/cm2, Z-score 0.3, T-score -1.5, osteopenia, 1.0% decrease from previous, 7.9% increase from baseline (<5% change is not significant). Prior: BMD 0.997 g/cm2. Baseline: BMD 0.915 g/cm2. IDENTIFIED RISK FACTORS: Early menopause, history of fracture (adult), hysterectomy, left oophorectomy, osteoporosis, secondary osteoporosis. HISTORY OF FRACTURE: Other. MEDICATIONS: Calcium, vitamin D. MM/XR DEXA axial skeleton IMPRESSION: 1. DIAGNOSIS: Osteoporosis based on the lowest T-score value of -2.8 in the femoral neck applying World Health Organization criteria. Prior important labs: calcium trended since 2006 to 2017 range from 9.0 to 10.2 mg/dl Albumin trended from 1995 to 2017 range 3.6 to 4.8 g/dl ALk phosphatase 1995 to 2017 ranges from 47 to 78 U/L phosphorous trned 2006 to 2010 2.8 to 3.0 mg/dl magnesium 2010 1.8 to 2 mg/dl. 07/04/06 24 h calcium urine 81 mg/dl 24h, creatinine was low. 01/14/17 PTH 78 pg/ml Calcium 9.6 mg/dl Albumin 3.6 g/dl Ionized calcium 5.6 mg/dl Vit D 25.7 ng/dl Vit D 2011 25.8 ng/dl 2016 25.7 ng.dl 2018 71.4 ng/dl after 10,000 Iu daily. 04/29/17 Creat 1.07 mg/dl GFR 50 ml/mimn Calcium 9.9 mg/dl albumin 3.8 g/dl Corrected calcium 10.1 mg/dl. Laboratory Tests 05/10/19 10/29/19 10/29/19 07:30 10:40 10:40 Sodium Potassium Creatinine Estimated GFR Calcium Alkaline Phosphatase Albumin N-Telopeptide X-linked 29 Collgn I C-Telopeptide 25-OH Vitamin D Total TSH 3rd Generation 1.91 PTH Intact Calcium (PTH Intact) Bone Specific Alk Phos 8.4 05/14/20 05/14/20 08:15 08:15 Sodium 142 Potassium 4.3 Creatinine 1.12 Estimated GFR 47 Calcium 9.8 Alkaline Phosphatase 43 Albumin 4.1 N-Telopeptide X-linked Collgn I C-Telopeptide 138 25-OH Vitamin D Total 44.0 TSH 3rd Generation PTH Intact 59 Calcium (PTH Intact) 10.1 Bone Specific Alk Phos Laboratory Tests 01/05/18 09/08/18 07:00 00:00 Ur 24 Hour Volume 1300 1225 Ur Creatinine 24 Hour 0.78 0.49 L Ur Calcium 24 Hr 44 61 Calcium/Creat 24 Hr 57 126 laboratory values indicate the presence of primary hyperparathyroidism . Patient opting for medical therapy would alendronate 70 mg Q weekly The patient is an 78-year-old female presenting with osteoporosis management. She has been taking alendronate 70 mg once a week and reports no hip or spine fractures since the last visit. However, she sustained a fracture in her right foot due to a fall caused by orthostatic hypotension. The patient experiences orthostatic hypotension, which has led to falls. She is currently on midodrine, which she reports is effective in managing her blood pressure. The patient has a history of hyperparathyroidism, which is being monitored. She is advised to stop taking biotin three days before any blood or urine tests to a void interference with results. [facility] Medical History Paroxysmal atrial fibrillation Persistent atrial fibrillation Active Meniere's disease Tubular adenoma Positive colorectal cancer screening using Cologuard test Hypercalcemia Diverticulosis Hiatal hernia GERD (gastroesophageal reflux disease) Epigastric pain Dysphagia JESU (obstructive sleep apnea) Hyperparathyroidism Osteoporosis Dyslipidemia Heart failure Cardiac pacemaker in situ Sick sinus syndrome COPD (chronic obstructive pulmonary disease) Surgical History H/O bilateral cataract extraction History of esophagogastroduodenoscopy (EGD) Hx of colonoscopy History of total abdominal hysterectomy and bilateral salpingo-oophorectomy History of total left knee replacement History of pacemaker History of laparoscopic cholecystectomy Family History Father COPD (chronic obstructive pulmonary disease) Mother CAD (coronary artery disease) CVD (cardiovascular disease) Daughter No problems noted. 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 Cognitive needs: No Hearing needs: No Vision needs: No Assessment & Plan Assessment & Plan (1) Osteoporosis: Code(s): M81.0 - Age-related osteoporosis without current pathological fracture Category: Medical Qualifiers: Osteoporosis type: age-related Presence of current pathological fract ure: without current pathological fracture Qualified Code(s): M81.0 - Age- related osteoporosis without current pathological fracture Plan: This is a 77-year-old white female with a history of osteoporosis and a distant wrist fracture was treated with Evista for 10 years and more recently alendronate for 3 years. . Recent DEXA bone density shows stability but in the osteoporotic range. Urine NTX was suppressed. Currently on alendronate 70 mg Q weekly for 2 yrs The plan is to continue alendronate. Will check urine NTX and repeat DEXA 1. Osteoporosis The patient continues on alendronate 70 mg weekly. A bone density test is scheduled to assess the effectiveness of the treatment. The patient is advised to continue calcium and vitamin D supplementation. willcheck Urine NTX 3. Hyperparathyroidism The condition is being monitored, and the patient is reminded to stop biotin three days before any tests to avoid interference with results. - Continue taking alendronate 70 mg weekly. - Schedule and attend the bone density test. - The patient was counseled to achieve a target A1C of 7% (154 avg). Fasting blood sugars should be 90-130 in the morning and less than 180 two hours after meals. Reviewed the relationship between poor diabetic control and the development of complications. Check your feet daily looking for any signs of infection, drainage, redness, ulceration and seek medical attention if this occurs. Break in shoes gradually and do not wear open-toed shoes or walk stocking footed or barefooted. The patient had an opportunity to ask questions regarding treatment plan. The patient expressed understanding and agreement with the above treatment plan. verbally consented to the use of an ambient scribe for clinic note documentation during this visit. (2) Hyperparathyroidism: Code(s): E21.3 - Hyperparathyroidism, unspecified Category: Medical Plan: Family history of primary hyperparathyroidism. Calcium is mildly elevated. Lab value from [facility] reference lab confirms the presence of primary hyperparathyroidism. Repeat calcium was normal As was outlined in the previous note, patient has chosen to go on medical therapy and not to proceed with surgical exploration. We will continue alendronate as above Orders: Orders Collagen Crosslinks NTX Today M81.0 - Age-related osteoporosis without current pathological fracture Coding Level of Care Code Est Pt Level 3 (50435) Diagnoses Age-related osteoporosis without current pathological fracture M81.0 Osteoporosis type: age-related Presence of current pathological fracture: without current pathological fracture Hyperparathyroidism E21.3
[2024-10-17 08:39] VITALS: BP 142/72; PULSE 76; O2SAT 97; BMI 27.3
== END 2024-10-17 08:53 | disposition home or self-care (01) ==
LOC: HO.ENCR 08:18
PROVIDERS: PCP Internal Medicine; Visit Provider Internal Medicine Endocrinology, Diabetes & Metabolism
DX: M81.0 Age-related osteoporosis without current pathological fracture (principal); E21.3 Hyperparathyroidism, unspecified
CPT/HCPCS: 99213

== ENCOUNTER → 2024-10-17 08:17 | Outpatient (BNVA) | payer MEDICARE, SELFPAY | PROVIDERS: PCP Internal Medicine; Visit Provider Internal Medicine Endocrinology, Diabetes & Metabolism | DX: M81.0 Age-related osteoporosis without current pathological fracture (principal); E21.3 Hyperparathyroidism, unspecified | CPT/HCPCS: 99212 ==

== ENCOUNTER 2024-10-17 08:57 | Outpatient (REF) | payer MEDICARE, SELFPAY ==
[2024-10-25 06:13] LABS: NTXCreaRU 145 mg/dL (20-275)
== END 2024-10-17 08:58 | disposition home or self-care (01) ==
LOC: HO.10HDLNP 08:57
PROVIDERS: Visit Provider Internal Medicine Endocrinology, Diabetes & Metabolism
DX: M81.0 Age-related osteoporosis without current pathological fracture (principal)
CPT/HCPCS: 82523

== ENCOUNTER 2024-10-24 07:58 | Outpatient (AMB) | payer MEDICARE, SELFPAY ==
--- NOTE | 2024-10-24 08:02 | A.OFFPC_ITS ---
Vital Signs 10/24/24 08:03 Height 5 ft Weight 144 lb 4 oz BMI 28.2 BP 130/76 Blood Pressure Location Lt brachial Position Sitting Pulse 83 Pulse Source Pulse Oximeter Temp 96.8 F Temp Source Temporal Artery Scan Pulse Oximetry (%) 93 Oxygen Delivery Method Room Air Intake Visit Reasons: chf Intake Note: Patient is here to follow up on CHF. First Line Supervisor Required: No Cafe Worker: Not Required per policy Accompanied by: Self / Same As Patient Allergies dronedarone (Multaq) Allergy (Severe, Verified 10/24/24 08:15) syncope flecainide Allergy (Severe, Verified 10/24/24 08:15) vertigo,blurry vision lisinopril (LISINOPRIL) Allergy (Severe, Verified 10/24/24 08:15) ANGIOEDEMA, bad cough, throat closing, tingling of head, cough losartan Allergy (Intermediate, Verified 10/24/24 08:15) dry cough, pruritus hydromorphone (Dilaudid) Adverse Reaction (Severe, Verified 10/24/24 08:15) unresponsiveness Medication List - Last Reconciled 10/24/24 by Homa Jones MD alendronate 70 mg PO QWEEK biotin 1,000 mcg PO DAILY cholecalciferol (vitamin D3) 50 mcg PO DAILY dabigatran etexilate 150 mg PO BID 90 days fluoride (sodium) 1.1% 1 appl PO BEDTIME incontinence pad, liner, disp Use 3 pads per day lovastatin 20 mg PO DAILY metoprolol succinate ER 25 mg (1/2 x 50 mg) PO DAILY 90 days midodrine 2.5 mg PO DAILY multivitamin,ur-qgsn-kmorbwwn (Complete Multivitamin tablet) 1 tab PO DAILY pantoprazole 40 mg PO DAILY phenazopyridine (Pyridium) 200 mg PO BID 6 doses polyethylene glycol 3350 (Miralax) 17 grams PO DAILY vitamins A,C,N-atgg-ttbogq 4,296 mcg-226 mg-90 mg (PreserVision AREDS) 1 cap PO BID Tobacco use date assessed: 10/24/24 Fall risk assessment: No Falls in past year Last assessed Fall Risk: 10/24/24 Dental Screening Dental Screen Date: 06/07/24 HPI HPI Comments History of Present Illness Details The patient is an 78-year-old female presenting with follow-up of chronic conditions including orthostatic hyportension, atrial fibrillation, con gestive heart failure, COPD, and osteoporosis. Has obstructive sleep apnea and is not compliant with CPAP machine. Atrial fibrillation is managed with Pradaxa 150 mg twice daily, with no reported active bleeding. Congestive heart failure is monitored by Dr. Parson, with an echocardiogram last year showing an ejection fraction of 60 to 65% and mild aortic regurgitation. The NT-proBNP level is 261, indicating stable heart failure management. COPD is well-controlled, with annual pulmonology visits and use of a CPAP machine for obstructive sleep apnea. The patient reports difficulty with CPAP us e but acknowledges its benefits in reducing mortality. Osteoporosis is treated with alendronate 70 mg weekly, with a pending DEXA scan scheduled for November 13. The patient is also on vitamin D supplementation and biotin. Osteoporosis is follow by Endocrinology. Orthostatic hypotension was diagnosed with a positive tilt table test in July, and midodrine 2.5 mg once daily has been effective in reducing dizziness and syncope. Urinary incontinence is managed with incontinence pads, and the patient is considering Botox injections for bladder control. [facility] Medical History Paroxysmal atrial fibrillation Persistent atrial fibrillation Active Meniere's disease Tubular adenoma Positive colorectal cancer screening using Cologuard test Hypercalcemia Diverticulosis Hiatal hernia GERD (gastroesophageal reflux disease) Epigastric pain Dysphagia JESU (obstructive sleep apnea) Hyperparathyroidism Osteoporosis Dyslipidemia Heart failure Cardiac pacemaker in situ Sick sinus syndrome COPD (chronic obstructive pulmonary disease) Surgical History H/O bilateral cataract extraction History of esophagogastroduodenoscopy (EGD) Hx of colonoscopy History of total abdominal hysterectomy and bilateral salpingo-oophorectomy History of total left knee replacement History of pacemaker History of laparoscopic cholecystectomy Family History Father COPD (chronic obstructive pulmonary disease) Mother CAD (coronary artery disease) CVD (cardiovascular disease) Daughter No problems noted. 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 1. Little interest or pleasure in doing things: not at all 2. Feeling down, depressed, or hopeless: not at all 3. Trouble falling or staying asleep, or sleeping too much: not at all 4. Feeling tired or having little energy: not at all 5. Poor appetite or overeating: not at all 6. Feeling bad about yourself - or that you are a failure or have let yourself or your family down: not at all 7. Trouble concentrating on things, such as reading the newspaper or watching television: not at all 8. Moving or speaking so slowly that other people could have noticed. Or the opposite - being so fidgety or restless that you have been moving around a lot more than usual: not at all 9. Thoughts that you would be better off or of hurting yourself in some way: not at all Total score: 0 Depression Screening Interpretation: Negative Depression Screening Done: Yes 65269 - PHQ-9 Billing: Yes Source: Developed by Drs. Haider Lake, Keyonna Fernando, Remi Heath and colleagues, with an educational omi from [employer]. Thrive Questionnaire Date Thrive assessed: 10/24/24 I am a: Patient What is your living situation today?: I have a steady place to live Within the past 12 months, did the food you bought not last and you didn't have the money to get more?: Never true Within the past 12 months, did you worry whether your food would run out before you got money to buy more?: Never true Do you have trouble paying for medicines?: No Do you have trouble getting transportation to medical appointments?: Yes Do you have trouble paying your heating and electricity bill?: No Do you have trouble taking care of your child, family member or friend?: No Do you have trouble with day-to-day activities such as bathing, preparing meals, shopping, managing finances, etc.?: No Are you currently unemployed and looking for a job?: No Are you interested in more education?: No Please select the resources that you would like help with: None Currently or been in a relationship where the following occur: No concerns reported THRIVE Score: 1 AUDIT C Alcohol Use Questionnaire (AUDIT-C) 1. How often do you have a drink containing alcohol?: Monthly or less 2. How many drinks containing alcohol do you have on a typical day when you are drinking?: 1 or 2 3. How often do you have six or more drinks on one occasion?: Never Total Score: 1 Score Reviewed/Action Taken: No FELICITAS-7 AMB Questionnaire FELICITAS-7 Date FELICITAS - 7 assessed: 06/07/24 Feeling nervous, anxious, or on edge: 0 = Not at all Not being able to stop or control worryin = Not at all Worrying too much about different things: 0 = Not at all Trouble relaxin = Not at all Being so restless that it is hard to sit still: 0 = Not at all Becoming easily annoyed or irritable: 0 = Not at all Feeling afraid as if something awful might happen: 0 = Not at all Total FELICITAS-7 score (0-4 normal; 5-9 mild; 10-14 moderate; 15-21 severe): 0 Source: Developed by Drs. Haider Lake, Keyonna Fernando, Remi Heath and colleagues, with an educational omi from [employer]. FELICITAS-7 Assessment Billing FELICITAS-7 Assessment Tool: FELICITAS-7 Assessment 30320 Review of Systems Const All systems reviewed & are unremarkable except as noted in HPI and below Card Denies chest pain at rest, Denies chest pain with activity, Denies edema, Denies irregular heart rhythm, Denies claudication, Denies dyspnea, Denies dyspnea on exertion, Denies orthopnea, Denies paroxysmal nocturnal dyspnea and Denies slow heart rate Resp Denies cough, Denies dyspnea and Denies dyspnea on exertion GI Denies abdominal pain, Denies change in bowel habits, Denies excessive flatus, Denies nausea and Denies vomiting Physical exam (Primary Care) Vital Signs: Last Vital Signs Temp 96.8 F 10/24/24 08:03 Pulse 83 10/24/24 08:03 BP 130/76 10/24/24 08:03 Pulse Ox 93 10/24/24 08:03 Oxygen Delivery Method Room Air 10/24/24 08:03 BMI result Body Mass Index 28.2 Tobacco/Smoking Status: Tobacco use Status Tobacco use date assessed 10/24/24 10/24/24 08:04 Patient Tobacco Use Status Former Tobacco user 10/24/24 08:04 Tobacco use type Cigarette 10/24/24 08:04 e-Cigarette/Vaping Use Never Used 10/24/24 08:04 PHQ-9: PHQ-9 Score PHQ-9: Total score 0 10/24/24 08:18 Depression Screening Interpretation: Negative Thrive Assessment: Date of Thrive Assessment Date Thrive assessed 10/24/24 10/24/24 08:04 Currently or been in a relationship where the following occur: No concerns reported Resp Effort & Inspection: normal respiratory effort Auscultation: clear to auscultation bilaterally Cardio Jugular venous distension: no JVD Rate: regular rate Rhythm: regular rhythm Heart sounds: S1 normal heart sound present and S2 normal heart sound present Extrem General: Yes full ROM Coding Level of Care Code Est Pt Level 4 (93705) Complex EM visit Add On G2211 Diagnoses Chronic systolic heart failure I50.22 Heart failure type: systolic Heart failure chronicity: chronic Orthostatic hypotension I95.1 Paroxysmal atrial fibrillation I48.0 Age-related osteoporosis without current pathological fracture M81.0 Osteoporosis type: age-related Presence of current pathological fracture: without current pathological fracture Dyslipidemia E78.5 Urinary incontinence, mixed N39.46 Chronic obstructive pulmonary disease, unspecified COPD type J44.9 COPD type: unspecified COPD JESU (obstructive sleep apnea) G47.33 Additional Codes FELICITAS-7 Assessment Billing - FELICITAS-7 Assessment Tool: FELICITAS-7 Assessment 20314 ([id number]) PHQ-9 - 41714 - PHQ-9 Billing: Yes ([id number]) Time Spent (min) 26 Assessment & Plan Assessment & Plan (1) Heart failure: Code(s): I50.9 - Heart failure, unspecified Category: Medical Qualifiers: Heart failure type: systolic Heart failure chronicity: chronic Qualified Code(s): I50.22 - Chronic systolic (congestive) heart failure (2) Orthostatic hypotension: Code(s): I95.1 - Orthostatic hypotension Category: Medical (3) Paroxysmal atrial fibrillation: Code(s): I48.0 - Paroxysmal atrial fibrillation Category: Medical (4) Osteoporosis: Code(s): M81.0 - Age-related osteoporosis without current pathological fracture Category: Medical Qualifiers: Osteoporosis type: age-related Presence of current pathological fracture: without current pathological fracture Qualified Code(s): M81.0 - Age- related osteoporosis without current pathological fracture (5) Dyslipidemia: Code(s): E78.5 - Hyperlipidemia, unspecified Category: Medical (6) Urinary incontinence, mixed: Code(s): N39.46 - Mixed incontinence Category: Medical (7) COPD (chronic obstructive pulmonary disease): Code(s): J44.9 - Chronic obstructive pulmonary disease, unspecified Category: Medical Qualifiers: COPD type: unspecified COPD Qualified Code(s): J44.9 - Chronic obstructive pulmonary disease, unspecified (8) JESU (obstructive sleep apnea): Comment: borderline, not using CPAP Code(s): G47.33 - Obstructive sleep apnea (adult) (pediatric) Category: Medical Plan The patient will continue with current management for hyportension, atrial fibrillation, and congestive heart failure, with regular follow-ups with Dr. Parson for cardiology care. COPD management includes annual pulmonology visits and continued use of the CPAP machine, despite discomfort, due to its mortality benefits. Osteoporosis treatment with alendronate will continue, with a DEXA scan scheduled to assess bone density and treatment efficacy. Orthostatic hypotension is managed with midodrine, and the patient reports improvement in symptoms with the current dosage. Urinary incontinence management includes the use of incontinence pads, and the patient is considering Botox injections for further control. Preventative care includes ensuring vaccinations are up to date, with a recent pneumonia vaccine administered. Patient was informed and verbally consented to the use of an ambient scribe for clinic note documentation during this visit. Orders: Orders Vitamin D 25-OH Total 6 Months E55.9 - Vitamin D deficiency, unspecified Lipid Panel 6 Months E78.5 - Hyperlipidemia, unspecified Comprehensive [place]. Panel Fast 6 Months I48.0 - Paroxysmal atrial fibrillation NT-proBNP 6 Months I50.22 - Chronic systolic (congestive) heart failure
[2024-10-24 08:03] VITALS: BP 130/76; PULSE 83; TEMP 36; O2SAT 93; BMI 28.2
--- OUTSIDE RECORDS SUMMARY | 2024-10-24 08:03 | XMS_ITS | Patient Health Record ---
[facility] Address [address] [place] [address] Care Team Providers Care Union Carpenter Name Role Phone Marcio CASSIDY, Homa Primary Care Provider Unavail able Mark Ac Unavailable [phone] Allergies Allergen (clinical drug ingredient) Drug/Non Drug [...] Status Risk Notes Problem Acquired hallux rigidus (2544247) Hallux rigidus, right foot (M20.21) Active confirmed Plan Of Treatment Pending Test Test Name Order Date X ray : Foot, left 2V 07/20/2017 X ray : Foot, right 2V 07/20/2017 [id number] TENDON SHEATH/LIGAMENT 0 07/20/2017 [id number] TENDON SHEATH/LIGAMENT 0 08/22/2017 Insurance Providers Payer Name Payer Address Payer Phone Subscriber Number Group Number Insured Name Patient Relationship to Insured Coverage Start Date Coverage End Date Medicare National Govt Svcs Inc [address] [place] [id number] Roderick isNancy Self - patient is the insured 4 [employer] Blue Shield [address] [place] [address] [phone] [id number] Roderick isGovindNancy Self - patient is the [...]
--- OUTSIDE RECORDS SUMMARY | 2024-10-24 08:03 | XMS_ITS | Patient Health Record ---
Author Organization [facility] Address [address] [place] [address] Care Team Providers Care Machine Rigger Name Role Phone Homa Del Rio Primary Care Provider UnavailHaider Merrill Unavailable [phone] Allergies Allergen (clinical drug ingredient) Drug/Non Drug [...] Orally Once a day Active Vitamin D3 49967 UNIT 1 capsule Orally O nce a [...] Problem Status W/U Status Risk Notes Problem 523717684 Encounter for screening for malignant neoplasm of colon (Z12.11) Active confirmed Problem 147284265 History of adenomatous polyp of colon (Z86.010) Active confirmed Problem 310881338 Gastroesophageal reflux disease without esophagitis (K21.9) Active confirmed Problem 21206342 Irritable bowel syndrome, unspecified type (K58.9) Active confirmed Plan Of Treatment Future Test Test Name Order Date COLONOSCOPY 05/31/2017 Insurance Providers Payer Name Payer Address Payer Phone Subscriber Number Group Number Insured Name Patient Relationship to Insured Coverage Start Date Coverage End Date MEDICARE OF [place] [address] [place] [address] [phone] [id number] SUZANNE IS FORTINO Self - patient is the insured MEDEX ATTN CLAIMS [address] [place] [address] [phone] [id number] LEFRANCO IS, FORTINO Self - patient is the insured Medical (General) History Medical History History ICD Code Colonoscopy 03-24-2010--only hyperplastic polyps-biopsies neg for microscopic colitis--she was noted to have diverticulosis and internal hemorrhoids Tubular adenomas removed in 2005 Hyperlipidemia COPD Neg. celiac labs in 2005 Denies [place],DM,CVA,renal disease Pacemaker- Dr. Guzmán Atrial fib HTN GERD --she had an upper endo scopy in 2005 with the finding of some signs of reflux and a hiatal hernia--there was no Son's esophagus Sleep apnea--uses CPAP Surgical History Surgery Date(Month/Year) Hysterectomy and removal of 1 ovary Pacemaker CCY Left knee replacement-- [facility]-Dr. Segura--04/2016--she describes being told of a difficult intubation and a sensitivity to opiates at that time Bilateral cataracts
--- OUTSIDE RECORDS SUMMARY | 2024-10-24 08:03 | XMS_ITS | Clinical Summary ---
Author Organization [facility] Address [address] [place] [address] Phone Care Team Providers Care Cashier And Waiter/Waitress Name Role Phone Jose Kimbrough MD Primary Care Provider [phone] Encounters Date Type Department Care Team Description 07/31/2024 1:08 PM EDT - 07/31/2024 11:59 PM EDT Hospital Encounter [facility] Xray [address] [place] [address] Syncope, near Discharge Disposition: Home [...] Result from Last 3 Months Insurance MEDICARE [facility] Care Teams Cashier And Waiter/Waitress Relationship Specialty Start Date End Date Jose Kimbrough MD [address] [place] [address] PCP - General Otolaryngology 04/05/17
== END 2024-10-24 08:31 | disposition home or self-care (01) ==
LOC: HO.HMCH 08:00
PROVIDERS: PCP Internal Medicine; Visit Provider Internal Medicine
DX: I50.22 Chronic systolic (congestive) heart failure (principal); I48.0 Paroxysmal atrial fibrillation; J44.9 Chronic obstructive pulmonary disease, unspecified; I95.1 Orthostatic hypotension; M81.0 Age-related osteoporosis without current pathological fracture; E78.5 Hyperlipidemia, unspecified; N39.46 Mixed incontinence; G47.33 Obstructive sleep apnea (adult) (pediatric)

== ENCOUNTER → 2024-10-24 07:58 | Outpatient (BNVA) | payer MEDICARE, SELFPAY | PROVIDERS: PCP Internal Medicine; Visit Provider Internal Medicine | DX: I50.22 Chronic systolic (congestive) heart failure (principal); I95.1 Orthostatic hypotension; I48.0 Paroxysmal atrial fibrillation; M81.0 Age-related osteoporosis without current pathological fracture; E78.5 Hyperlipidemia, unspecified; J44.9 Chronic obstructive pulmonary disease, unspecified; G47.33 Obstructive sleep apnea (adult) (pediatric); Z13.31 Encounter for screening for depression; Z13.30 Encounter for screening examination for mental health and behavioral disorders, unspecified | CPT/HCPCS: 96127; 99212 ==

== ENCOUNTER 2024-11-02 14:17 | Outpatient (AMB) | payer MEDICARE, SELFPAY ==
--- OUTSIDE RECORDS SUMMARY | 2024-11-02 14:20 | XMS_ITS | Patient Health Record ---
[facility] Address [address] [place] [address] Care Team Providers Care Cyber Security Instructor Name Role Phone Marcio CASSIDY, Homa Primary Care Provider Unavail able Mark Ac Unavailable [phone] Allergies Allergen (clinical drug ingredient) Drug/Non Drug [...] Status Risk Notes Problem Acquired hallux rigidus (0145048) Hallux rigidus, right foot (M20.21) Active confirmed Plan Of Treatment Pending Test Test Name Order Date X ray : Foot, left 2V 07/20/2017 X ray : Foot, right 2V 07/20/2017 [id number] TENDON SHEATH/LIGAMENT 0 07/20/2017 [id number] TENDON SHEATH/LIGAMENT 0 08/22/2017 Insurance Providers Payer Name Payer Address Payer Phone Subscriber Number Group Number Insured Name Patient Relationship to Insured Coverage Start Date Coverage End Date Medicare National Govt Svcs Inc [address] [place] [id number] [phone] [id number] Roderick isNancy Self - patient is the insured 4 [employer] Blue [employer] [address] [place] [address] [phone] [id number] Roderick isGovindNancy Self - patient is the [...]
--- OUTSIDE RECORDS SUMMARY | 2024-11-02 14:20 | XMS_ITS | Patient Health Record ---
Author Organization [facility] Address [address] [place] [address] Care Team Providers Care Store Consultant Name Role Phone Homa Del Rio Primary Care Provider UnavailHaider Merrill Unavailable [phone] Allergies Allergen (clinical drug ingredient) Drug/Non Drug [...] Orally Once a day Active Vitamin D3 04159 UNIT 1 capsule Orally O nce a [...] Problem Status W/U Status Risk Notes Problem 582205547 Encounter for screening for malignant neoplasm of colon (Z12.11) Active confirmed Problem 406114820 History of adenomatous polyp of colon (Z86.010) Active confirmed Problem 605858012 Gastroesophageal reflux disease without esophagitis (K21.9) Active confirmed Problem 94787330 Irritable bowel syndrome, unspecified type (K58.9) Active confirmed Plan Of Treatment Future Test Test Name Order Date COLONOSCOPY 05/31/2017 Insurance Providers Payer Name Payer Address Payer Phone Subscriber Number Group Number Insured Name Patient Relationship to Insured Coverage Start Date Coverage End Date MEDICARE OF [place] [address] [place] [address] [phone] [id number] SUZANNE IS FORTINO Self - patient is the insured MEDEX ATTN CLAIMS [address] [place] [address] [id number] LEFRANCO IS, FORTINO Self - patient is [...] 1 ovary Pacemaker CCY Left knee replacement-- [facility]-Dr. Segura--04/2016--she describes being told of a difficult intubation and a sensitivity to opiates at that time Bilateral cataracts
--- OUTSIDE RECORDS SUMMARY | 2024-11-02 14:20 | XMS_ITS | Clinical Summary ---
Author Organization [facility] Address [address] [place] [address] Phone Care Team Providers Care Refractory Technician Name Role Phone Jose Kimbrough MD Primary Care Provider [phone] Surgical History Surgery Date Site/Laterality Comments HYSTERECTOMY [...] 75+ series) 12/06/2018 COVID-19 Vaccine ( - season) 2023 03/22/2022, 02/03/2021, 05/09/2020, Additional [...] age to complete this topic Insurance MEDICARE [facility] Care Teams Refractory Technician Relationship Specialty Start Date End Date Jose Kimbrough MD [address] [place] [address] PCP - General Otolaryngology 04/05/17
--- NOTE | 2024-11-02 14:38 | A.OFFVIS_ITS ---
Intake Visit Reasons: Cysto/ Botox Intake Note: Patient presents for cysto/Botox Urology Medications: Pyridium Blood Thinner: Pradaxa Lot # [id number] Exp: 06/07/27 Airplane Electrician Required: No Accompanied by: Self / Same As Patient Allergies dronedarone (Multaq) Allergy (Severe, Verified 11/02/24 14:51) syncope flecainide Allergy (Severe, Verified 11/02/24 14:51) vertigo,blurry vision lisinopril (LISINOPRIL) Allergy (Severe, Verified 11/02/24 14:51) ANGIOEDEMA, bad cough, throat closing, tingling of head, cough losartan Allergy (Intermediate, Verified 11/02/24 14:51) dry cough, pruritus hydromorphone (Dilaudid) Adverse Reaction (Severe, Verified 11/02/24 14:51) unresponsiveness Medication List - Last Reconciled 11/02/24 by Danica An MD alendronate 70 mg PO QWEEK biotin 1,000 mcg PO DAILY cholecalciferol (vitamin D3) 50 mcg PO DAILY dabigatran etexilate 150 mg PO BID 90 days fluoride (sodium) 1.1% 1 appl PO BEDTIME incontinence pad, liner, disp Use 3 pads per day lovastatin 20 mg PO DAILY metoprolol succinate ER 25 mg (1/2 x 50 mg) PO DAILY 90 days midodrine 2.5 mg PO DAILY multivitamin,sb-vzjb-rcrxtiyr (Complete Multivitamin tablet) 1 tab PO DAILY pantoprazole 40 mg PO DAILY phenazopyridine (Pyridium) 200 mg PO BID 6 doses polyethylene glycol 3350 (Miralax) 17 grams PO DAILY vitamins A,C,D-uedo-bvrvfj 4,296 mcg-226 mg-90 mg (PreserVision AREDS) 1 cap PO BID HPI Comments Details: 11/02/24--Nancy is here for bladder Botox injection 100 units. Premedicated with Keflex and pyridium. Diagnosis overactive bladder PFSH Medical History Paroxysmal atrial fibrillation Persistent atrial fibrillation Active Meniere's disease Tubular adenoma Positive colorectal cancer screening using Cologuard test Hypercalcemia Diverticulosis Hiatal hernia GERD (gastroesophageal reflux disease) Epigastric pain Dysphagia JESU (obstructive sleep apnea) Hyperparathyroidism Osteoporosis Dyslipidemia Heart failure Cardiac pacemaker in situ Sick sinus syndrome COPD (chronic obstructive pulmonary disease) Surgical History H/O bilateral cataract extraction History of esophagogastroduodenoscopy (EGD) Hx of colonoscopy History of total abdominal hysterectomy and bilateral salpingo-oophorectomy History of total left knee replacement History of pacemaker History of laparoscopic cholecystectomy Family History Father COPD (chronic obstructive pulmonary disease) Mother CAD (coronary artery disease) CVD (cardiovascular disease) Daughter No problems noted. 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 Cognitive needs: No Hearing needs: No Vision needs: No Review of Systems Const All systems reviewed & are unremarkable except as noted in HPI and below Reports no additional complaints Eyes Reports no additional complaints ENT Reports no additional complaints Card Reports no additional complaints Resp Reports no additional complaints GI Reports no additional complaints Reports as per HPI Musc Reports no additional complaints Skin/Breast Reports system reviewed and no additional complaints, except as documented Neuro Reports no additional complaints Psych Reports no additional complaints Endo Reports no additional complaints Kvng/Lymph Reports no additional complaints Aller/Immun Reports no additional complaints Office Procedures Bladder/Catheter Procedure Details: 12 fr straight cath used to drain bladder and instill botox cocktail: 20 mls bupivicaine 5 mls lidocaine 2% 2 lidocaine urojets 15 minute timer set after botox cocktail Botox 100 units reconstituted with 0.9% sodium chloride preservative free - to be injected by Dr. Morales. [id number]-Xfjcosvuuj of Bladder Procedure code (CPT) selection complete Cystoscopy Consent Discussed risk and benefit or proposed procedure with the patient. Information consent for procedure given to the patient. Discussed technical aspects, risks, benefits and alternatives in full. Addressed all of the patient's questions and concerns regarding the procedure. The patient demonstrated knowledge and understanding. They wish to proceed with this procedure. Preparation The patient was prepped in the usual manner. A carton and can supply supervisor was present and in the room. Genitalia was prepped with betadine solution in a sterile manner. Lidocaine Jelly 2% was placed into the urethra and 16Fr flexible Olympus cystoscope was inserted into the meatus after adequate lubrication. Procedure PROCEDURE: CYSTOSCOPY, BLADDER BOTOX INJECTION 100 UNITS SURGEON: Danica An MD ANESTHESIA: Local Details of procedure: A 16 fr flexible cystoscope was placed transurethrally into the bladder. The right and left ureteral orifices were visualized. There were moderate trabeculations noted. The Botox 100 units was mixed with 10 cc of normal saline and transurethral injections were placed into the posterior wall of the bladder. Complications: None EBL: minimal (<5 mL) [id number]-Xqnulytgiq 36530 - Botox Injection, urethra or bladder DISPOSABLE SCOPE URO-N NEEDLE SCOPE Procedure code (CPT) selection complete Office Meds lidocaine HCl 2 % mucosal jelly in applicator Performing Provider: Danica An MD Performing Location: [facility] Administered by: Vielka Osei RN on 11/02/24 16:00 Dose Route Admin Location Dispensed Lot Number Expiration Date [facility] Manufacturing Controller 10 mL intra-urethral 20 mL onabotulinumtoxinA 100 unit solution for injection Performing Provider: Danica An MD Performing Location: [facility] Administered by: Vielka Osei RN on 11/02/24 16:00 Dose Route Admin Location Dispensed Lot Number Expiration Date [facility] Manufacturing Controller 100 unit transurethral bladder 100 units [id number] 12/12/26 [id number] ALLERGAN/BOTOX Total Dispensed Waste 100 units 0 % Assessment & Plan Assessment & Plan (1) OAB (overactive bladder): Code(s): N32.81 - Overactive bladder Category: Medical Plan Follow-up nurse visit in 3 weeks check PVR Follow-up with Dr. Morales in 3 months Orders: Orders AMB Cystoscopy Today N39.46 - Mixed incontinence AMB Urinalysis Automated Today Z13.9 - Encounter for screening, unspecified AMB Bladder/Catheter Procedure Today N39.46 - Mixed incontinence Patient Instructions: The patient had an opportunity to ask questions regarding treatment plan. The patient expressed understanding and agreement with the above treatment plan. The patient is aware they should contact our office by phone for worsening of their current condition or the appearance of new symptoms. Compliance is encouraged with any medications and followup testing that is ordered. It is a privilege to be allowed the opportunity to participate in the urologic care of your patient. If you have any questions or concerns regarding treatment for the above conditions please do not hesitate to contact me. The office telephone contact is [phone]. This note is constructed in part using voice recognition software. While every effort has been made to ensure accuracy media producer errors may have been included. Yours sincerely, Danica An MD Coding Level of Care Code Procedure Only Diagnoses OAB (overactive bladder) N32.81 CPT Codes Bladder/Catheter Procedure - CPT: 90080-Efwvlhohvh of Bladder ([id number]) Cystoscopy - CPT: 94426-Hbuacyhqvy ([id number]) Cystoscopy - CPT: 04733 - Botox Injection, urethra or bladder ([id number])
== END 2024-11-02 16:42 | disposition home or self-care (01) ==
LOC: HO.HUSH 14:18
PROVIDERS: Visit Provider Urology
DX: N39.46 Mixed incontinence (principal); N32.81 Overactive bladder; Z13.9 Encounter for screening, unspecified
CPT/HCPCS: 51700; 52287

== ENCOUNTER → 2024-11-02 14:17 | Outpatient (BNVA) | payer MEDICARE, SELFPAY | PROVIDERS: Visit Provider Urology | DX: N32.81 Overactive bladder (principal); N32.89 Other specified disorders of bladder; Z13.9 Encounter for screening, unspecified | CPT/HCPCS: 51700; 52287; 81003; J0585 ==

== ENCOUNTER → 2024-11-12 23:59 | Outpatient (BNV) | payer MEDICARE, SELFPAY ==
--- NOTE | 2024-11-14 14:51 | MHC.OFFVIS ---
Intake Visit Reasons: Remote Device Check- [facility] Allergies dronedarone (Multaq) Allergy (Severe, Verified 11/02/24 14:51) syncope flecainide Allergy (Severe, Verified 11/02/24 14:51) vertigo,blurry vision lisinopril (LISINOPRIL) Allergy (Severe, Verified 11/02/24 14:51) ANGIOEDEMA, bad cough, throat closing, tingling of head, cough losartan Allergy (Intermediate, Verified 11/02/24 14:51) dry cough, pruritus hydromorphone (Dilaudid) Adverse Reaction (Severe, Verified 11/02/24 14:51) unresponsiveness COUNT INCLUDES THE [facility] Medical History Paroxysmal atrial fibrillation Persistent atrial fibrillation Active Meniere's disease Tubular adenoma Positive colorectal cancer screening using Cologuard test Hypercalcemia Diverticulosis Hiatal hernia GERD (gastroesophageal reflux disease) Epigastric pain Dysphagia JESU (obstructive sleep apnea) Hyperparathyroidism Osteoporosis Dyslipidemia Heart failure Cardiac pacemaker in situ Sick sinus syndrome COPD (chronic obstructive pulmonary disease) Surgical History H/O bilateral cataract extraction History of esophagogastroduodenoscopy (EGD) Hx of colonoscopy History of total abdominal hysterectomy and bilateral salpingo-oophorectomy History of total left knee replacement History of pacemaker History of laparoscopic cholecystectomy Family History Father COPD (chronic obstructive pulmonary disease) Mother CAD (coronary artery disease) CVD (cardiovascular disease) Daughter No problems noted. 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 Cognitive needs: No Hearing needs: No Vision needs: No Office Procedures Cardiac Device Check Cardiac Device Check Details: Remote pacemaker report generated 11/12/2024. Ventricular pacing thresholds noted to be in high output mode. Will need to investigate in the office. Increased burden of atrial fibrillation noted at 16% [id number] Cardiac Device Interrogation, pacemaker Procedure code (CPT) selection complete Assessment & Plan Assessment & Plan (1) Cardiac pacemaker in situ: Code(s): Z95.0 - Presence of cardiac pacemaker Category: Medical Plan: See above Coding Level of Care Code Procedure Only Diagnoses Cardiac pacemaker in situ Z95.0 CPT Codes Cardiac Device Check - Cardiac Device 12: [id number] Cardiac Device Interrogation, pacemaker ([id number])
== END ==
PROVIDERS: PCP Internal Medicine; Visit Provider Internal Medicine Cardiovascular Disease
DX: I48.91 Unspecified atrial fibrillation (principal); Z95.0 Presence of cardiac pacemaker
CPT/HCPCS: 93294

== ENCOUNTER 2024-11-16 11:07 | Outpatient (AMB) | payer MEDICARE, SELFPAY ==
[2024-11-16 11:20] VITALS: BP 122/80; PULSE 70; BMI 27.6
--- NOTE | 2024-11-16 11:20 | A.OFFVIS_ITS ---
Vital Signs 11/16/24 11:20 Height 5 ft Weight 141 lb 1.533 oz BMI 27.6 BP 122/80 Blood Pressure Location Lt brachial Position Sitting Pulse 70 Intake Visit Reasons: f/u [facility] Intake Note: Follow-up [facility] check Manager Financial Services Required: No Allergies dronedarone (Multaq) Allergy (Severe, Verified 11/02/24 14:51) syncope flecainide Allergy (Severe, Verified 11/02/24 14:51) vertigo,blurry vision lisinopril (LISINOPRIL) Allergy (Severe, Verified 11/02/24 14:51) ANGIOEDEMA, bad cough, throat closing, tingling of head, cough losartan Allergy (Intermediate, Verified 11/02/24 14:51) dry cough, pruritus hydromorphone (Dilaudid) Adverse Reaction (Severe, Verified 11/02/24 14:51) unresponsiveness Medication List - Last Reconciled 11/16/24 by Saud Guzmán MD alendronate 70 mg PO QWEEK biotin 1,000 mcg PO DAILY cholecalciferol (vitamin D3) 50 mcg PO DAILY dabigatran etexilate 150 mg PO BID 90 days fluoride (sodium) 1.1% 1 appl PO BEDTIME incontinence pad, liner, disp Use 3 pads per day lovastatin 20 mg PO DAILY metoprolol succinate ER 25 mg (1/2 x 50 mg) PO DAILY 90 days midodrine 1.25 mg PO BID multivitamin,fv-emnr-rrdxmsti (Complete Multivitamin tablet) 1 tab PO DAILY pantoprazole 40 mg PO DAILY phenazopyridine (Pyridium) 200 mg PO BID 6 doses polyethylene glycol 3350 (Miralax) 17 grams PO DAILY vitamins A,C,Z-yets-dkxkxw 4,296 mcg-226 mg-90 mg (PreserVision AREDS) 1 cap PO BID HPI Comments Details: Nancy comes for an urgent follow-up visit as she has had recently increased burden of atrial fibrillation. She said the last episode was on November 12 when she in the morning around 09:00 felt dizzy and felt clammy with cold sweats. This is 1st time she has felt cold sweats. This correlated with presence of atrial fibrillation on the remote monitoring. This was discussed with the patient she comes for follow up visit today. She says she has never had cold sweats before. The prior episodes of orthostatic dizziness have significantly improved on low-dose midodrine therapy. She denies any exertional chest pain. No change in his shortness of breath. No orthopnea, PND, leg edema. No bleeding issues or neurologic events. She says she does not feel atrial fibrillation otherwise and has no increased palpitations. [facility] Medical History Paroxysmal atrial fibrillation Persistent atrial fibrillation Active Meniere's disease Tubular adenoma Positive colorectal cancer screening using Cologuard test Hypercalcemia Diverticulosis Hiatal hernia GERD (gastroesophageal reflux disease) Epigastric pain Dysphagia JESU (obstructive sleep apnea) Hyperparathyroidism Osteoporosis Dyslipidemia Heart failure Cardiac pacemaker in situ Sick sinus syndrome COPD (chronic obstructive pulmonary disease) Surgical History H/O bilateral cataract extraction History of esophagogastroduodenoscopy (EGD) Hx of colonoscopy History of total abdominal hysterectomy and bilateral salpingo-oophorectomy History of total left knee replacement History of pacemaker History of laparoscopic cholecystectomy Family History Father COPD (chronic obstructive pulmonary disease) Mother CAD (coronary artery disease) CVD (cardiovascular disease) Daughter No problems noted. 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 Cognitive needs: No Hearing needs: No Vision needs: No Review of Systems Const Denies chills, Denies fatigue, Denies fever(s), Denies frequent falls, Denies weakness, Denies weight gain and Denies weight loss ENT Denies dizziness Card Denies chest pain, Denies leg edema, Denies lightheadedness, Denies palpitations, Denies dyspnea, Denies dyspnea on exertion, Denies orthopnea and Denies other (loss of consciousness) Resp Denies cough, Denies dyspnea and Denies dyspnea on exertion GI Denies hematochezia and Denies change in stool character Musc Denies abnormal gait, Denies muscle weakness, Denies numbness, Denies radiating pain into limb and Denies tingling Neuro Denies abnormal gait, Denies dizziness, Denies frequent falls, Denies numbness, Denies tingling and Denies weakness Endo Denies fatigue and Denies palpitations Physical Exam Vital Signs: Last Vital Signs Pulse 70 11/16/24 11:20 BP 122/80 11/16/24 11:20 BMI result Body Mass Index 27.6 Const General: cooperative, comfortable, no acute distress, alert, awake and well groomed Nutritional Appearance: average body habitus Orientation/consciousness: patient oriented x3 Limitations: no limitations Neck Neck: Yes trachea midline, Yes supple and Yes no JVD Resp Effort & Inspection: normal respiratory effort Auscultation: clear to auscultation bilaterally Cardio Jugular venous distension: no JVD Palpation: normal PMI Rhythm: abnormal rhythm irregularly irregular Heart sounds: S1 normal heart sound present, S2 normal heart sound present, no click, no gallops and no murmurs GI Auscultation: normal bowel sounds Skin General skin exam: no rashes or lesions noted Neuro General: patient oriented x3 and no focal motor deficits Extrem General: Yes no clubbing, cyanosis or edema Psych Appearance: grossly normal Office Procedures Cardiac Device Check Cardiac Device Check Details: Dual-chamber [facility] pacemaker in place. Programmed in DDDR at 60 beats per minute. Noted episodes of atrial fibrillation November 12 that correlated with patient's symptoms lasted for about half an hour. Atrial pacing thresholds adequate. Ventricular pacing thresholds adequate. Atrial ventricular sensing is adequate. Pacing lead impedance is stable. Battery life is adequate [id number] Cardiac Device Check, pacemaker dual lead Procedure code (CPT) selection complete Assessment & Plan Assessment & Plan (1) Orthostatic hypotension: Code(s): I95.1 - Orthostatic hypotension Category: Medical Plan: Patient with orthostatic syncope with significant symptoms which has improved on current therapy with midodrine at a low-dose. Her blood pressure is currently well optimized. She is encouraged to maintain adequate fluid intake. Continue midodrine therapy. Continue monitor blood pressure at home and maintain a log. (2) Paroxysmal atrial fibrillation: Code(s): I48.0 - Paroxysmal atrial fibrillation Category: Medical Plan: Paroxysmal atrial fibrillation with increased burden recently. Most recently on November 12 she was quite symptomatic with dizziness and diaphoresis which is new for her. We discussed that her symptoms might be related to AFib although she says that other time she does not feel any other symptoms of atrial fibrillation. Said this is unusual. Will need to rule out underlying significant coronary artery disease and will suggest a coronary CTA as she recently had a myocardial perfusion imaging which was normal and could represent balanced ischemia. Also suggest repeat echocardiogram. She has limitations in his amount of medications that we can use in terms of rhythm control. She has not tolerated flecainide or Multaq in the past. She is willing not to go on amiodarone therapy. Will continue monitor by pacer telemetry and I have advised her to send us transmissions when she has symptoms so that we can correlated with atrial fibrillation. At that time we can consider using class 3 agent such as sotalol or Tikosyn which will require inpatient initiation. Continue full oral anticoagulation with dabigatran. She understands and agrees. (3) Cardiac pacemaker in situ: Code(s): Z95.0 - Presence of cardiac pacemaker Category: Medical Plan: Cardiac pacemaker in-situ, working well. Reprogrammed for adequate functioning. Will follow remotely and advised her to send transmissions when she is having symptoms. Follow up in the clinic otherwise in 3 months time, sooner p.r.n.. Thank you for allowing me to partake in her care Coding Level of Care Code Est Pt Level 4 (09760) Complex EM visit Add On G2211 Diagnoses Orthostatic hypotension I95.1 Paroxysmal atrial fibrillation I48.0 Cardiac pacemaker in situ Z95.0 CPT Codes Cardiac Device Check - Cardiac Device 2: [id number] Cardiac Device Check, pacemaker dual lead ([id number])
--- OUTSIDE RECORDS SUMMARY | 2024-11-16 12:14 | XMS_ITS | Patient Health Record ---
Author Organization [facility] Address [address] [place] [address] Care Team Providers Care Software Technical Lead Name Role Phone Homa Del Rio Primary Care Provider UnavailHaider Merrill Unavailable [phone] Allergies Allergen (clinical drug ingredient) Drug/Non Drug [...] Orally Once a day Active Vitamin D3 72567 UNIT 1 capsule Orally O nce a [...] Problem Status W/U Status Risk Notes Problem 198420251 Encounter for screening for malignant neoplasm of colon (Z12.11) Active confirmed Problem 156140474 History of adenomatous polyp of colon (Z86.010) Active confirmed Problem 632993623 Gastroesophageal reflux disease without esophagitis (K21.9) Active confirmed Problem 39053046 Irritable bowel syndrome, unspecified type (K58.9) Active confirmed Plan Of Treatment Future Test Test Name Order Date COLONOSCOPY 05/31/2017 Insurance Providers Payer Name Payer Address Payer Phone Subscriber Number Group Number Insured Name Patient Relationship to Insured Coverage Start Date Coverage End Date MEDICARE OF [place] [address] [place] [address] [id number] SUZANNE IS FORTINO Self - patient is the insured MEDEX ATTN CLAIMS [address] [place] [address] [id number] LEFRANCO IS, FORTINO Self - patient is the insured Medical (General) History Medical History History ICD Code Colonoscopy 03-24-2010--only hyperplastic polyps-biopsies neg for microscopic colitis--she was noted to have diverticulosis and internal hemorrhoids Tubular adenomas removed in 2005 Hyperlipidemia COPD Neg. celiac labs in 2005 Denies NC,DM,CVA,renal disease Pacemaker- Dr. Guzmán Atrial fib HTN GERD --she had an upper endo scopy in 2005 with the finding of some signs of reflux and a hiatal hernia--there was no Son's esophagus Sleep apnea--uses CPAP Surgical History Surgery Date(Month/Year) Hysterectomy and removal of 1 ovary Pacemaker CCY Left knee replacement-- [facility]-Dr. Segura--04/2016--she describes being told of a difficult intubation and a sensitivity to opiates at that time Bilateral cataracts
--- OUTSIDE RECORDS SUMMARY | 2024-11-16 12:14 | XMS_ITS | Patient Health Record ---
[facility] Organization [facility] Address [address] [place] [address] Care Team Providers Care Acetylene Torch Burner Name Role Phone Marcio CASSIDY, Homa Primary Care Provider Unavail able Mark Ac Unavailable [phone] Allergies Allergen (clinical drug ingredient) Drug/Non Drug [...] Status Risk Notes Problem Acquired hallux rigidus (6538502) Hallux rigidus, right foot (M20.21) Active confirmed Plan Of Treatment Pending Test Test Name Order Date X ray : Foot, left 2V 07/20/2017 X ray : Foot, right 2V 07/20/2017 [id number] TENDON SHEATH/LIGAMENT 0 07/20/2017 [id number] TENDON SHEATH/LIGAMENT 0 08/22/2017 Insurance Providers Payer Name Payer Address Payer Phone Subscriber Number Group Number Insured Name Patient Relationship to Insured Coverage Start Date Coverage End Date Medicare National Govt Svcs [employer] [address] [place] [id number] [phone] [id number] Roderick isNancy Self - patient is the insured 4 [employer] Blue Shield [address] [place] [address] [id number] Roderick isGovindNancy Self - patient is the [...]
--- OUTSIDE RECORDS SUMMARY | 2024-11-16 12:14 | XMS_ITS | Clinical Summary ---
Author Organization [facility] Address [address] [place] [address] Phone Care Team Providers Care Senior Systems Developer Name Role Phone Jose Kimbrough MD Primary [...] Patients (1 - 1-dose 75+ series) 12/06/2018 Depression Screening 03/14/2024 Cholesterol Screening (Lipid Panel) 05/24/2024 Falls Risk Assessment 05/24/2024 Hypertension/CHF/CAD Annual BMP Blood Test 05/24/2024 Medicare Annual Wellness Visit 05/24/2024 Osteoporosis Screening (Bone Density Screening) 05/24/2024 Social Influencers of Health Screening 05/24/2024 COVID-19 Vaccine ( season) 2024 03/22/2022, 02/03/2021, 05/09/2020, Additional history exists Influenza Vaccine (#1) 2024 , 12/30/2022, 02/08/2022, [...] age to complete this topic Insurance MEDICARE [id number] Care Teams Senior Systems Developer Relationship Specialty Start Date End Date Jose Kimbrough MD [address] [place] [address] PCP - General Otolaryngology 04/05/17
== END 2024-11-16 11:44 | disposition home or self-care (01) ==
LOC: HO.HCS 11:08
PROVIDERS: PCP Internal Medicine; Visit Provider Internal Medicine Cardiovascular Disease
DX: I95.1 Orthostatic hypotension (principal); I48.0 Paroxysmal atrial fibrillation; Z95.0 Presence of cardiac pacemaker
CPT/HCPCS: 93280; 99214; G2211

== ENCOUNTER → 2024-11-16 11:07 | Outpatient (BNVA) | payer MEDICARE, SELFPAY | PROVIDERS: PCP Internal Medicine; Visit Provider Internal Medicine Cardiovascular Disease | DX: I48.0 Paroxysmal atrial fibrillation (principal); Z95.0 Presence of cardiac pacemaker; I95.1 Orthostatic hypotension; R42 Dizziness and giddiness | CPT/HCPCS: 93280; 99212 ==

== ENCOUNTER → 2024-11-23 10:33 | Outpatient (BNVA) | payer MEDICARE, SELFPAY | PROVIDERS: Visit Provider Urology | DX: N32.81 Overactive bladder (principal); Z98.890 Other specified postprocedural states | CPT/HCPCS: 51798 ==

== ENCOUNTER → 2024-12-19 23:59 | Outpatient (BNV) | payer MEDICARE, SELFPAY ==
--- NOTE | 2024-12-19 12:05 | MHC.OFFVIS ---
Intake Visit Reasons: Remote device check- [facility] Allergies dronedarone (Multaq) Allergy (Severe, Verified 11/02/24 14:51) syncope flecainide Allergy (Severe, Verified 11/02/24 14:51) vertigo,blurry vision lisinopril (LISINOPRIL) Allergy (Severe, Verified 11/02/24 14:51) ANGIOEDEMA, bad cough, throat closing, tingling of head, cough losartan Allergy (Intermediate, Verified 11/02/24 14:51) dry cough, pruritus hydromorphone (Dilaudid) Adverse Reaction (Severe, Verified 11/02/24 14:51) unresponsiveness [facility] Medical History Paroxysmal atrial fibrillation Persistent atrial fibrillation Active Meniere's disease Tubular adenoma Positive colorectal cancer screening using Cologuard test Hypercalcemia Diverticulosis Hiatal hernia GERD (gastroesophageal reflux disease) Epigastric pain Dysphagia JESU (obstructive sleep apnea) Hyperparathyroidism Osteoporosis Dyslipidemia Heart failure Cardiac pacemaker in situ Sick sinus syndrome COPD (chronic obstructive pulmonary disease) Surgical History H/O bilateral cataract extraction History of esophagogastroduodenoscopy (EGD) Hx of colonoscopy History of total abdominal hysterectomy and bilateral salpingo-oophorectomy History of total left knee replacement History of pacemaker History of laparoscopic cholecystectomy Family History Father COPD (chronic obstructive pulmonary disease) Mother CAD (coronary artery disease) CVD (cardiovascular disease) Daughter No problems noted. 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 Pacemaker function is adequate. [place] of atrial fibrillation at 17% [id number] Cardiac Device Interrogation, pacemaker Procedure code (CPT) selection complete Assessment & Plan Assessment & Plan (1) Cardiac pacemaker in situ: Code(s): Z95.0 - Presence of cardiac pacemaker Category: Medical Plan: See above Coding Level of Care Code Procedure Only Diagnoses Cardiac pacemaker in situ Z95.0 CPT Codes Cardiac Device Check - Cardiac Device 12: [id number] Cardiac Device Interrogation, pacemaker ([id number])
== END ==
PROVIDERS: Visit Provider Internal Medicine Cardiovascular Disease
DX: I48.91 Unspecified atrial fibrillation (principal); Z95.0 Presence of cardiac pacemaker
CPT/HCPCS: 93294

== ENCOUNTER 2025-01-10 09:23 | Outpatient (AMB) | payer MEDICARE, SELFPAY ==
[2025-01-10 09:26] VITALS: BP 128/80; PULSE 81; BMI 27.8
--- NOTE | 2025-01-10 09:26 | A.OFFVIS_ITS ---
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 Battery Required: No Accompanied by: Self / Same As Patient Allergies dronedarone (Multaq) Allergy (Severe, Verified 01/10/25 09:30) syncope flecainide Allergy (Severe, Verified 01/10/25 09:30) vertigo,blurry vision lisinopril (LISINOPRIL) Allergy (Severe, Verified 01/10/25 09:30) ANGIOEDEMA, bad cough, throat closing, tingling of head, cough losartan Allergy (Intermediate, Verified 01/10/25 09:30) dry cough, pruritus hydromorphone (Dilaudid) Adverse Reaction (Severe, Verified 01/10/25 09:30) unresponsiveness Medication List - Last Reconciled 01/10/25 by JESSICA Lopez alendronate 70 mg PO QWEEK biotin 1,000 mcg PO DAILY cholecalciferol (vitamin D3) 50 mcg PO DAILY dabigatran etexilate 150 mg PO BID 90 days fluoride (sodium) 1.1% 1 appl PO BEDTIME incontinence pad, liner, disp Use 3 pads per day lovastatin 20 mg PO DAILY metoprolol succinate ER 25 mg (1/2 x 50 mg) PO DAILY 90 days midodrine 1.25 mg PO BID multivitamin,nl-xwrv-zidpvrgl (Complete Multivitamin tablet) 1 tab PO DAILY pantoprazole 40 mg PO DAILY polyethylene glycol 3350 (Miralax) 17 grams PO DAILY vitamins A,C,O-wpjz-ojxnym 4,296 mcg-226 mg-90 mg (PreserVision AREDS) 1 cap PO BID HPI HPI CTA results: Details: Nancy is an 79-year-old female with past medical history of hyperlipidemia, vertigo, sleep apnea, sick sinus syndrome status post pacemaker placement, paroxysmal atrial fibrillation, orthostatic hypotension who had reported an episode of dizziness with clamminess and underwent a CTA of the coronary arteries for further evaluation showing significant RCA stenosis. She now presents for follow-up. Today she reports that she has not had recurrent episodes with dizziness and clamminess. She has been feeling generally well. She is not having chest discomfort at rest or with activity. She does feel AFib on occasion but not frequently. No presyncope, syncope, falls. No concerning shortness of breath, PND, orthopnea or edema. Taking meds as directed. She tells me the use of midodrine has significantly helped with her prior dizziness. No bleeding issues reported with Pradaxa use. [facility] Medical History Paroxysmal atrial fibrillation Persistent atrial fibrillation Active Meniere's disease Tubular adenoma Positive colorectal cancer screening using Cologuard test Hypercalcemia Diverticulosis Hiatal hernia GERD (gastroesophageal reflux disease) Epigastric pain Dysphagia JESU (obstructive sleep apnea) Hyperparathyroidism Osteoporosis Dyslipidemia Heart failure Cardiac pacemaker in situ Sick sinus syndrome COPD (chronic obstructive pulmonary disease) Surgical History H/O bilateral cataract extraction History of esophagogastroduodenoscopy (EGD) Hx of colonoscopy History of total abdominal hysterectomy and bilateral salpingo-oophorectomy History of total left knee replacement History of pacemaker History of laparoscopic cholecystectomy Family History Father COPD (chronic obstructive pulmonary disease) Mother CAD (coronary artery disease) CVD (cardiovascular disease) Daughter No problems noted. 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 Cognitive needs: No Hearing needs: No Vision needs: No Review of Systems Const All systems reviewed & are unremarkable except as noted in HPI and below Denies daytime sleepiness, Denies difficulty sleeping, Denies snoring, Denies stops breathing during sleep and Denies weakness Card Denies chest pain, Reports rapid heart rate, Denies irregular heart rhythm, Denies claudication, Denies leg edema, Denies lightheadedness, Denies palpitations, Denies dyspnea, Denies dyspnea on exertion, Denies orthopnea, Denies paroxysmal nocturnal dyspnea and Denies slow heart rate Resp Denies cough, Denies dyspnea, Denies dyspnea on exertion and Denies snoring GI Reports no additional complaints, Denies hematochezia, Denies change in stool character and Denies dyspepsia Musc Denies abnormal gait, Denies muscle weakness and Denies numbness Neuro Denies abnormal gait, Denies numbness and Denies weakness Endo Denies palpitations Physical Exam Vital Signs: Last Vital Signs Pulse 81 01/10/25 09:26 BP 128/80 01/10/25 09:26 BMI result Body Mass Index 27.8 Const General: cooperative, healthy appearing, comfortable and no acute distress Orientation/consciousness: patient oriented x3 Neck Neck: Yes normal visual inspection Resp Effort & Inspection: normal respiratory effort Auscultation: clear to auscultation bilaterally, no rales, no rhonchi and no wheezes Cardio Rate: regular rate Rhythm: regular rhythm Heart sounds: S1 normal heart sound present, S2 normal heart sound present, no gallops, no murmurs and no rubs Neuro General: patient oriented x3 Extrem General: Yes normal to inspection and No no pedal edema Psych Appearance: grossly normal Mental Status: mental status grossly normal Speech and movement: Normal speech and movement present Office Procedures EKG Details: today, read by me, atria lpaced, ventricular sensed, rate 81, Qtc 408ms [id number]-Zqbewdqtwhovgxxnx, Complete Assessment & Plan Assessment & Plan (1) Coronary arteriosclerosis: Code(s): I25.10 - Atherosclerotic heart disease of telida coronary artery without angina pectoris Category: Medical Plan: CTA of the coronary arteries recently done to evaluate for coronary arteries disease and does show 80-90% RCA stenosis, Mild disease elsewhere. She had previously had an episode of lightheadedness with clamminess and has had no recurrent episodes. She is mostly sedentary due to orthopedic issues, which can help mask symptoms. EKG today showing atrial paced, ventricular sensed rhythm, rate 81. Discussed need for cardiac catheterization for further evaluation including risks and she is agreeable to proceed. Will arrange for left heart catheterization, question PCI. Will not use aspirin as she is on Pradaxa. Pradaxa will need to be held prior to her procedure, patient informed. Continue lovastatin with ideal LDL goal less than 70. Continue metoprolol. Cardiology follow-up 2 weeks post cardiac catheterization. (2) Abnormal cardiac CT angiography: Comment: 12/27/2024, left main normal, lad proximal less than 25% stenosis, RCA severe 80-90% noncalcified plaque the remainder of the RCA 25-40% stenosis. Code(s): R93.1 - Abnormal findings on diagnostic imaging of heart and coronary circulation Category: Medical Plan: As above (3) Paroxysmal atrial fibrillation: Code(s): I48.0 - Paroxysmal atrial fibrillation Category: Medical Plan: History of paroxysmal atrial fibrillation. Current burden 17% in the last month. She tells me she only feels PAF occasionally. She is currently on metoprolol XL 25 mg daily. She said when she was on a higher dose she had lightheadedness. Continue current metoprolol. Continue Pradaxa for a nticoagulation. (4) Cardiac pacemaker in situ: Code(s): Z95.0 - Presence of cardiac pacemaker Category: Medical Plan: [facility] pacemaker in place. Remote monitoring in use. Planning for office interrogation next visit. (5) Orthostatic hypotension: Code(s): I95.1 - Orthostatic hypotension Category: Medical Plan: History of orthostatic hypotension. Symptoms improve with use of low-dose midodrine. Reviewed good hydration, salt use, continue metoprolol. (6) Dyslipidemia: Code(s): E78.5 - Hyperlipidemia, unspecified Category: Medical Plan: LDL goal less than 70 in patient with CAD. Labs 10/02/24 showed LDL 100. Currently on Lovastatin. Will change to atorvastatin 40mg daily. Plan for fasting lipids around time of next visit. Plan Time spent on chart review, documentation, interview, assessment Orders: Orders Lipid Panel 6 Weeks E78.5 - Hyperlipidemia, unspecified Complete Blood Count Auto Diff Today I25.10 - Atherosclerotic heart disease of telida coronary artery without angina pectoris, I48.0 - Paroxysmal atrial fibrillation, R93.1 - Abnormal findings on diagnostic imaging of heart and coronary circulation, Z95.0 - Presence of cardiac pacemaker Basic Metabolic Panel Today I25.10 - Atherosclerotic heart disease of telida coronary artery without angina pectoris, I48.0 - Paroxysmal atrial fibrillation, R93.1 - Abnormal findings on diagnostic imaging of heart and coronary circulation, Z95.0 - Presence of cardiac pacemaker Liver Panel 6 Weeks E78.5 - Hyperlipidemia, unspecified Cardiac Cath LT w PCI Today I25.10 - Atherosclerotic heart disease of telida coronary artery without angina pectoris, I48.0 - Paroxysmal atrial fibrillation, R93.1 - Abnormal findings on diagnostic imaging of heart and coronary circulation, Z95.0 - Presence of cardiac pacemaker Prothrombin Time INR Today I25.10 - Atherosclerotic heart disease of telida coronary artery without angina pectoris, I48.0 - Paroxysmal atrial fibrillation, R93.1 - Abnormal findings on diagnostic imaging of heart and coronary circulation, Z95.0 - Presence of cardiac pacemaker Medications: New atorvastatin (Lipitor) change from lovastatin 40 mg PO BEDTIME 30 tabs 5RF Discontinued lovastatin Discontinued Reason: Doctor's Order 20 mg PO DAILY 90 tabs 3RF I50.22 - Chronic systolic (congestive) heart failure Coding Level of Care Code Est Pt Level 4 (83433) Complex EM visit Add On G2211 Diagnoses Coronary arteriosclerosis I25.[address] angiography R93.1 Paroxysmal atrial fibrillation I48.0 Cardiac pacemaker in situ Z95.0 Orthostatic hypotension I95.1 Dyslipidemia E78.5 CPT Codes EKG - CPT: 67640-Tpobrbqteonyuxgmj, Complete ([id number]) Time Spent (min) 36
--- OUTSIDE RECORDS SUMMARY | 2025-01-10 10:50 | XMS_ITS | Data Portability ---
Author Organization [facility] Address [address] [place] [address] Care Team Providers Care Soaking Room Operator Name Role Phone KEELEY SHAFFER Primary Care [...] intact. X-rays ordered, obtained and reviewed at [facility] 4 views of the right [...] his obtained. Follow-up sooner if further difficulty. [facility] speech recognition hard candy spinner software was used to create portions of [...] precautions reviewed. Follow-up on a p.r.n. basis. [facility] speech recognition hard candy spinner software was used to create portions of this document. An attempt at proofreading has been made to minimize errors. Please call for corrections. [email or web address] Not available 08/21/2024 15:25:35 Plan of Treatment Reminders Order Date Submit Date Provider Last Modified By Organization Details Last Modified Time Details Appointments RECHECK 15 2024 08:45A Rogelio Main PA-C Not available Not available Not available Lab None recorded . Referral None recorded . Procedures None recorded . Surgeries None recorded . Imaging XR, knee, 4 or more view - room 119 4V R knee 2023 024 pari [facility] Office, [address], [place], [address], 01/05/2024 15:19:54 Medication Orders None recorded . [...] a4ajBk vP9nXo QUaueC m3YtLR FvZl JJ8mAn HZtai3 0n8166 AC0Kqa 3mHUqG hKiQtr MwF INTERFACE [facility] Office [address] [facility] [address], [place], [address], 12/20/2023 15:01:23 12/20/19 24 12/20/2023 XR, knee, 4 or more view http:/ [email or web address] ?Encry pted=s hAaTro YD8dLq bEUv6g %2BXZw aYqtaq 0bqfl% 2Fg9IQ a4ajBk vP9nXo QUaueC m3YtLR Zl J8mAn HZtai3 0f5654 AC0Kqa 3mHUqG hKiQtr MwF INTERFACE [facility] [address] [facility] [address], [place], [address], 12/20/2023 15:01:25 Result Notes Documentation Provider Name and Address Organization Details Recorded Time Xr, Knee, 4 Or More View : [email or web address]? Encrypted=uoQlJfzAU7qSyhR Uv6g%6CFAxjYqgdt3dgey%2Fg 3OQh9ntDpzQ2uCpKZkutZa7Sj HCSsMsqBQV1aAuRLsvl22y783 3OJ8Pvy8kWRvWqLbOfnRyT Not Available [facility] 12/20/2023 15:01: 24 Xr, Knee, 4 Or More View : [email or web address] Encrypted=vwDfTcyYO8sFmiL Uv6g%9VFVqiMonva3zatu%2Fg 3ZUp9lwTbnX7iIxAKjxrDz7Wn TDMeFezQGL1dKbUWjpw97r026 7VI8Tyq6vSXuVjCxIlwVeI Not Available [facility] 12/20/2023 15:01: 26 Problems Name Problem SNOMED Code Status Onset Date Resolution Date Notes Provider Name and Address Organization Details Recorded Time No complaints 961499569 Active Status : 'A'; Not Available [facility] 09:24:54 Problem Notes None recorded. Procedures Surgical History Date Name Laterality Status Provider Name and Address Organization Details Recorded Time 5 Sports Knee 4&1 completed Nik Main PA-C [address] [facility], [place], [address], [facility] 11/13/2024 09:52:31 5 JZKNEE INJ completed Alberto Reynolds PA-C [address], [place], [address], [facility] 08/21/2024 15:25:01 4 Gel-One Knee Injection completed Alberto Reynolds PA-C [address], [place], [address], [facility] 02/16/2024 16:13:05 Imaging Results None recorded. Procedure Notes None recorded. Medical Equipment None Reported. Allergies Allergen ID Allergen Name Allergen Category Reaction Reaction Severity Criticality Documentation Date Start Date Code Code System Note Provider Name and Address Organization Details Recorded Time 382187 Dilaudid medicatio n Not available Not available Not available 05/16/20232018 77068 3 RxNorm Not Available [facility] 4 16:01:29 174506 amlodipin e besylate medicatio n Not available Not available Not available 05/16/20232015 43983 6 RxNorm Not Available [facility] 4 16:01:29 673998 lisinopri l medicatio n Not available Not available Not available 05/16/20232015 03455 RxNorm Not Available [facility] 4 16:01:29 Medications Name Sig Start [...] active Not Available Not Available Not Available prednisone 20 mg tablet TAKE 2 TABLETS BY MOUTH EVERY DAY IN THE MORNING active Not Available Not Available No t Available alendronate 70 mg tablet TAKE 1 TABLET BY MOUTH WEEKLY active Not Available Not Available No t Available prednisolone acetate 1 % eye drops,suspen mandeep PLEASE SEE ATTACHED FOR DETAILED DIRECTIONS active Not Available Not Available N ot Available pantoprazole 40 mg tablet,delay ed release TAKE 1 TABLET DAILY 1/2 HOUR BEFORE BREAKFAST active Not Available Not Available No t Available nitrofuranto in macrocrystal 100 mg capsule [...] Updated DateTime 08/21/2024 152.4 cm 27.9 kg/m2 12653.71 g RUFUS NAVARRO [facility] 08/21/2024 14:40:30 Date Recorded Body height Provider Name an d Address Organization Details Last Updated DateTime 11/13/2024 152.4 cm MAREN CARLOTTA [facility] 11/13/2024 09:31:37 Date Recorded Body height Body mass index (BMI) Body weight Provider Name and Address Organization Details Last Updated DateTime 12/20/2023 152.4 cm 28.3 kg/m2 02803.89 g RUFUS NAVARRO [facility] 12/20/2023 14:53:59 Date Recorded Body height Body mass index (BMI) Body weight Provider Name and Address Organization Details Last Updated DateTime 02/16/2024 152.4 cm 27.9 kg/m2 89719.71 [facility] 02/16/2024 15:32:24 Social History None recorded. Functional Status None recorded. Mental Status None recorded. Family History Nothing Reported. Medical History No medical history recorded. Gynecological HistoryNo gynecological history recorded. Obstetrics History GPAL:G 0 P 0 0 0 0 Past Encounters Encounter ID Performer Location Encounter Start Date Encounter Closed Date Diagnosis/Indication Diagnosis SNOMED-CT Code Diagnosis ICD10 Code Diagnosis IMO Codes Diagnosis Note [id number] Alberto Reynolds PA-C [place] [address] [place] [address] 12/20/2023 14:21:48 01/05/2024 15:19:54 Pain of right knee joint 1117207844 27002 M25.561 Osteoarthr itis of knee 506599220 M17.9 [id number] Alberto Reynolds PA-C [place] [address] [place] [address] 02/16/2024 14:56:20 03/05/2024 08:45:01 Osteoarthritis of right knee joint 9927407352 45169 M17.11 [id number] Alberto Reynolds PA-C [facility] [place] [address] [place] [address] 08/21/2024 14:32:13 08/30/2024 13:32:28 Osteoarthritis of right knee joint 6470671224 12911 M17.11 [id number] Nik Main PA-C [facility] [place] [address] [place] [address] 11/13/2024 09:13:56 11/26/2024 10:56:35 Osteoarthritis of right knee joint 9187899607 43700 M17.11 [id number] Health Concerns Section Related Observation LastModified by Organization Detai ls LastModified Time None Recorded Concern Status LastModified by Organization Details LastModified Time None Recorded Advance Directives Directive None Recorded Payers Insurance Date Sequence Insurance Name Policy Number Policy Mendez Covered Member ID Mendez Member ID Guarantor Name 11/12/2024 1 [place] [employer] [employer] Nancy E Lefrancois [id number] Nancy E Lefrancois 11/26/2024 2 [place] [id number] Nancy E Lefrancois [id number] Nancy E Lefrancois Notes Date Note Type Note Provider Name and Address Organization Details Recorded Time 11/13/2024 text/html ROS as noted in the HPI I am seeing the patient today under the supervision of Dr. Verdugo who was available but who did not see the patient. HPI:Patient presents today follow-up regarding their Right knee. They have had difficulty up and down stairs sitting standing. Previous injection gave good relief until recent. Problems ambulating. Wsxz-ttv-dqxvyqp medications are helping somewhat but not significantly. Pain is constant aching sometimes sharp pain with giving out sensations. Past family, medical, social history and review of systems has been reviewed, updated and is located in the patient s chart. Examination:The patient is well appearing and in no apparent distress. Alert and oriented x3. Gait is symmetric. Examination of the Right knee reveals no evidence of any edema, erythema, or warmth. No Deformity. Range of motion of the knee limited with mild discomfort at the end ranges. Mild effusion. Does have some tenderness to palpation about the medial hemijoint line. No tenderness to palpation about the lateral hemijoint line. Patellofemoral crepitus is noted. mild lateral ligamentous laxity. Negative Loli s . Calf is supple and nontender. Neurovascularly intact distally. Impression:Right Knee osteoarthritis Plan:We discussed the role of conservative management including medications, physical therapy, injection and bracing. At this point the patient was to proceed with injection. Please see procedure note. They will follow up with us as scheduled. Nik Main PA-C [address], [place], [address], [place] [facility] 11/13/2024 09:52:45 OBGyn Episode No OBEpisode recorded.
--- OUTSIDE RECORDS SUMMARY | 2025-01-10 10:50 | XMS_ITS | Patient Health Record ---
[facility] Address [address] [address] Care Team Providers Care Gas Turbine Assembler Name Role Phone Marcio CASSIDY, [place] Primary Care Provider Unavail able Mark Stovall Unavailable [phone] Allergies Allergen (clinical drug ingredient) Drug/Non Drug [...] Status Risk Notes Problem Acquired hallux rigidus (4161696) Hallux rigidus, right foot (M20.21) Active confirmed Plan Of Treatment Pending Test Test Name Order Date X ray : Foot, left 2V 07/20/2017 X ray : Foot, right 2V 07/20/2017 [id number] TENDON SHEATH/LIGAMENT 0 07/20/2017 [id number] TENDON SHEATH/LIGAMENT 0 08/22/2017 Insurance Providers Payer Name Payer Address Payer Phone Subscriber Number Group Number Insured Name Patient Relationship to Insured Coverage Start Date Coverage End Date Medicare National [employer]t S[employer] [address] [facility] [place] [id number] Roderick isNancy Self - patient is the insured 4 [employer] [address] [place] [address] [id number] Roderick isNancy Self - patient is the [...]
--- OUTSIDE RECORDS SUMMARY | 2025-01-10 10:50 | XMS_ITS | Clinical Summary ---
Author Organization [facility] Address [address] [place] [address] Phone Care Team Providers Care Order Checker Packer Processer Name Role Phone Jose Kimbrough MD Primary Care Provider [phone] Surgical History Surgery Date Site/Laterality Comments HYSTERECTOMY [...] age to complete this topic Insurance MEDICARE [facility] Care Teams Order Checker Packer Processer Relationship Specialty Start Date End Date Jose Kimbrough MD [address] [place] [address] PCP - General Otolaryngology 04/05/17
--- OUTSIDE RECORDS SUMMARY | 2025-01-10 10:51 | XMS_ITS | Patient Health Record ---
Author Organization [facility] Address [address] [place] [address] Care Team Providers Care Tanning Wheel Filler Name Role Phone Homa Del Rio Primary Care Provider UnavailHaider Merrill Unavailable [phone] Allergies Allergen (clinical drug ingredient) Drug/Non Drug [...] Orally Once a day Active Vitamin D3 25329 UNIT 1 capsule Orally O nce a [...] Problem Status W/U Status Risk Notes Problem Screening for malignant neoplasm of colon (518372133) Encounter for screening for malignant neoplasm of colon (Z12.11) Active confirmed Problem History of adenomatous polyp of colon (090673428) History of adenomatous polyp of colon (Z86.010) Active confirmed Problem Gastroesophageal reflux disease without esophagitis (907386656) Gastroesophageal reflux disease without esophagitis (K21.9) Active confirmed Problem Irritable bowel syndrome (69687990) Irritable bowel syndrome, unspecified type (K58.9) Active confirmed Plan Of Treatment Future Test Test Name Order Date COLONOSCOPY 05/31/2017 Insurance Providers Payer Name Payer Address Payer Phone Subscriber Number Group Number Insured Name Patient Relationship to Insured Coverage Start Date Coverage End Date MEDICARE OF [place] [address] [place] [address] [id number] LEFRANCO IS, FORTINO Self - patient is the insured MEDEX ATTN CLAIMS [address] [place] [address] [id number] LEFRANCO IS, FORTINO Self - patient is the insured Medical (General) History Medical History History ICD Code Colonoscopy 03-24-2010--only hyperplastic polyps-biopsies neg for microscopic colitis--she was noted to have diverticulosis and internal hemorrhoids Tubular adenomas removed in 2005 Hyperlipidemia COPD Neg. celiac labs in 2005 Denies [place],DM,CVA,renal disease Pacemaker- Dr. Guzmán Atrial fib HTN GERD --she had an upper endo scopy in 2005 with the finding of some signs of reflux and a hiatal hernia--there was no Son's esophagus Sleep apnea--uses CPAP Surgical History Surgery Date(Month/Year) Hysterectomy and removal of 1 ovary Pacemaker CCY Left knee replacement-- [facility]-Dr. Segura--04/2016--she describes being told of a difficult intubation and a sensitivity to opiates at that time Bilateral cataracts
== END 2025-01-10 10:14 | disposition home or self-care (01) ==
LOC: HO.HCS 09:24
PROVIDERS: PCP Internal Medicine; Visit Provider Nurse Practitioner Family
DX: I25.10 Atherosclerotic heart disease of native coronary artery without angina pectoris (principal); R93.1 Abnormal findings on diagnostic imaging of heart and coronary circulation; I48.0 Paroxysmal atrial fibrillation; Z95.0 Presence of cardiac pacemaker; I95.1 Orthostatic hypotension; E78.5 Hyperlipidemia, unspecified
CPT/HCPCS: 93010; 99214; G2211

== ENCOUNTER → 2025-01-10 09:23 | Outpatient (BNVA) | payer MEDICARE, SELFPAY | PROVIDERS: PCP Internal Medicine; Visit Provider Nurse Practitioner Family | DX: I25.10 Atherosclerotic heart disease of native coronary artery without angina pectoris (principal); I48.0 Paroxysmal atrial fibrillation; I95.1 Orthostatic hypotension; R93.1 Abnormal findings on diagnostic imaging of heart and coronary circulation; E78.5 Hyperlipidemia, unspecified; Z95.0 Presence of cardiac pacemaker; R94.31 Abnormal electrocardiogram [ECG] [EKG] | CPT/HCPCS: 93005; 99212 ==

== ENCOUNTER 2025-01-11 08:31 | Outpatient (REF) | payer MEDICARE, SELFPAY ==
--- OUTSIDE RECORDS SUMMARY | 2025-01-11 08:46 | XMS_ITS | Patient Health Record ---
Author Organization [facility] Address [address] [place] [address] Care Team Providers Care Neurology Nurse Name Role Phone Homa Del Rio Primary Care Provider UnavailHaider Merrill Unavailable [phone] Allergies Allergen (clinical drug ingredient) Drug/Non Drug [...] Orally Once a day Active Vitamin D3 38879 UNIT 1 capsule Orally O nce a [...] Problem Screening for malignant neoplasm of colon (233415040) Encounter for screening for malignant neoplasm of colon (Z12.11) Active confirmed Problem History of adenomatous polyp of colon (626864618) History of adenomatous polyp of colon (Z86.010) Active confirmed Problem Gastroesophageal reflux disease without esophagitis (832932188) Gastroesophageal reflux disease without esophagitis (K21.9) Active confirmed Problem Irritable bowel syndrome (07219138) Irritable bowel syndrome, unspecified type (K58.9) Active confirmed Plan Of Treatment Future Test Test Name Order Date COLONOSCOPY 05/31/2017 Insurance Providers Payer Name Payer Address Payer Phone Subscriber Number Group Number Insured Name Patient Relationship to Insured Coverage Start Date Coverage End Date MED[place]ARE OF [place] [address] [place] [address] [id number] LEFRANCO IS, FORTINO Self - patient is the insured MEDEX ATTN CLAIMS [address] [place] [address] [id number] LEFRANCO IS, FORTINO Self - patient is the insured Medical (General) History Medical History History ICD Code Colonoscopy 03-24-2010--only hyperplastic polyps-biopsies neg for microscopic colitis--she was noted to have diverticulosis and internal hemorrhoids Tubular adenomas removed in 2005 Hyperlipidemia COPD Neg. celiac labs in 2005 Denies [place],DM,CVA,renal disease Pacemaker- Dr. Guzmán Atrial fib HTN GERD --she had an upper endo scopy in 2005 with the finding of some signs of reflux and a hiatal hernia--there was no Son's esophagus Sleep apnea--uses CPAP Surgical History Surgery Date(Month/Year) Hysterectomy and removal of 1 ovary Pacemaker CCY Left knee replacement-- [facility]-Dr. Segura--04/2016--she describes being told of a difficult intubation and a sensitivity to opiates at that time Bilateral cataracts
--- OUTSIDE RECORDS SUMMARY | 2025-01-11 08:46 | XMS_ITS | Clinical Summary ---
Author Organization [facility] Address [address] [place] [address] Phone Care Team Providers Care Student Services Coordinator Name Role Phone Jose Kimbrough MD Primary Care Provider [phone] Surgical History Surgery Date Site/Laterality Comments HYSTERECTOMY [...] age to complete this topic Insurance MEDICARE [facility] Care Teams Student Services Coordinator Relationship Specialty Start Date End Date Jose Kimbrough MD [address] [place] [address] PCP - General Otolaryngology 04/05/17
--- OUTSIDE RECORDS SUMMARY | 2025-01-11 08:46 | XMS_ITS | Patient Health Record ---
Author Organization [facility] Address [address] [facility] [place] [address] Care Team Providers Care Color Developer Name Role Phone Marcio CASSIDY, Homa Primary Care Provider Unavail able Mark Stovall Unavailable [phone] Allergies Allergen (clinical drug ingredient) Drug/Non Drug [...] Status Risk Notes Problem Acquired hallux rigidus (7440473) Hallux rigidus, right foot (M20.21) Active confirmed Plan Of Treatment Pending Test Test Name Order Date X ray : Foot, left 2V 07/20/2017 X ray : Foot, right 2V 07/20/2017 10169,I1280-MVR TENDON SHEATH/LIGAMENT 0 07/20/2017 21985,E9314-WCD TENDON SHEATH/LIGAMENT 0 08/22/2017 Insurance Providers Payer Name Payer Address Payer Phone Subscriber Number Group Number Insured Name Patient Relationship to Insured Coverage Start Date Coverage End Date Medicare National [employer]t [employer] [address] [place] [id number] Roderick isNancy Self - patient is the insured 4 Medex Blue Shield [address] [place] [address] [id number] Roderick isNancy Self - patient is the [...]
--- OUTSIDE RECORDS SUMMARY | 2025-01-11 08:46 | XMS_ITS | Data Portability ---
Author Organization [facility] Address [address] [place] [address] Care Team Providers Care Commissioner Of Conciliation Name Role Phone KEELEY SHAFFER Primary Care [...] intact. X-rays ordered, obtained and reviewed at [facility] 4 views of the right knee [...] his obtained. Follow-up sooner if further difficulty. [facility] speech recognition relationship specialist software was used to create portions of [...] precautions reviewed. Follow-up on a p.r.n. basis. [facility] speech recognition relationship specialist software was used to create portions of [...] 119 4V R knee 2023 024 pari [facility] Office, [address], [place], [address], 01/05/2024 15:19:54 Medication Orders None recorded . [...] a4ajBk vP9nXo QUaueC m3YtLR FvZl JJ8mAn HZtai3 9y5849 AC0Kqa 3mHUqG hKiQtr MwF INTERFACE [facility] Office [address] [facility] [address], [place], [address], 12/20/2023 15:01:23 12/20/19 24 12/20/2023 XR, knee, 4 or more view http:/ [email or web address] ?Encry pted=s hAaTro YD8dLq bEUv6g %2BXZw aYqtaq 0bqfl% 2Fg9IQ a4ajBk vP9nXo QUaueC m3YtLR Zl J8mAn HZtai3 1d0928 AC0Kqa 3mHUqG hKiQtr MwF INTERFACE [facility] [address] [facility] [address], [place], [address], 12/20/2023 15:01:25 Result Notes Documentation Provider Name and Address Organization Details Recorded Time Xr, Knee, 4 Or More View : [email or web address]? Encrypted=voStXfpNW8wSjqU Uv6g%1ECRysWmyhp3hbqi%2Fg 4NGw0cbFsyC9bRdFPggeNd9Nk RBTuUkzQHB6wZfARpsa43u396 5OM3Jny4sOFzViMrXfzOvX Not Available [facility] 12/20/2023 15:01: 24 Xr, Knee, 4 Or More View : [email or web address]? Encrypted=aqBqZgiAC3wNpjY Uv6g%5DCLivUbnon0ovyp%2Fg 6XHy4gjFroQ9aZvLWegiVe5Hm FQHbIwoZLY0uBfQRhwb50t107 4DC8Rnh3vYOvYaNtEuxFrB Not Available [facility] 12/20/2023 15:01: 26 Problems Name Problem SNOMED Code Status Onset Date Resolution Date Notes Provider Name and Address Organization Details Recorded Time No complaints 096831665 Active Status : 'A'; Not Available [facility] 09:24:54 Problem Notes None recorded. Procedures Surgical History Date Name Laterality Status Provider Name and Address Organization Details Recorded Time 5 Sports Knee 4&1 completed Nik Main PA-C [address] [facility], [place], [address], [facility] 11/13/2024 09:52:31 5 JZKNEE INJ completed Alberto Reynolds PA-C [address], [place], [address], [facility] 08/21/2024 15:25:01 4 Gel-One Knee Injection completed Alberto Reynolds PA-C [address], [place], [address], [facility] 02/16/2024 16:13:05 Imaging Results None recorded. Procedure Notes None recorded. Medical Equipment None Reported. Allergies Allergen ID Allergen Name Allergen Category Reaction Reaction Severity Criticality Documentation Date Start Date Code Code System Note Provider Name and Address Organization Details Recorded Time 860701 Dilaudid medicatio n Not available Not available Not available 05/16/20232018 92017 3 RxNorm Not Available [facility] 4 16:01:29 248201 amlodipin e besylate medicatio n Not available Not available Not available 05/16/20232015 25425 6 RxNorm Not Available [facility] 4 16:01:29 263954 lisinopri l medicatio n Not available Not available Not available 05/16/20232015 94593 RxNorm Not Available [facility] 4 16:01:29 Medications Name Sig Start Date [...] Updated DateTime 08/21/2024 152.4 cm 27.9 kg/m2 29538.71 g RUFUS NAVARRO [facility] 08/21/2024 14:40:30 Date Recorded Body height Provider Name an d Address Organization Details Last Updated DateTime 11/13/2024 152.4 cm MAREN CARLOTTA [facility] 11/13/2024 09:31:37 Date Recorded Body height Body mass index (BMI) Body weight Provider Name and Address Organization Details Last Updated DateTime 12/20/2023 152.4 cm 28.3 kg/m2 04352.89 g RUFUS NAVARRO [facility] 12/20/2023 14:53:59 Date Recorded Body height Body mass index (BMI) Body weight Provider Name and Address Organization Details Last Updated DateTime 02/16/2024 152.4 cm 27.9 kg/m2 02706.71 [facility] 02/16/2024 15:32:24 Social History None recorded. Functional Status None recorded. Mental Status None recorded. Family History Nothing Reported. Medical History No medical history recorded. Gynecological HistoryNo gynecological history recorded. Obstetrics History GPAL:G 0 P 0 0 0 0 Past Encounters Encounter ID Performer Location Encounter Start Date Encounter Closed Date Diagnosis/Indication Diagnosis SNOMED-CT Code Diagnosis ICD10 Code Diagnosis IMO Codes Diagnosis Note [id number] Alberto Reynolds PA-C [place] [address] [place] [address] 12/20/2023 14:21:48 01/05/2024 15:19:54 Pain of right knee joint 0939658323 03727 M25.561 Osteoarthr itis of knee 139463520 M17.9 [id number] Alberto Reynolds PA-C [place] [address] [place] [address] 02/16/2024 14:56:20 03/05/2024 08:45:01 Osteoarthritis of right knee joint 8770795195 07496 M17.11 [id number] Alebrto Reynolds PA-C [facility] [place] [address] [place] [address] 08/21/2024 14:32:13 08/30/2024 13:32:28 Osteoarthritis of right knee joint 8998189529 99974 M17.11 [id number] Nik Main PA-C [facility] [place] [address] [place] [address] 11/13/2024 09:13:56 11/26/2024 10:56:35 Osteoarthritis of right knee joint 1712976748 95306 M17.11 2380317 Health Concerns Section Related Observation LastModified by Organization Detai ls LastModified Time None Recorded Concern Status LastModified by Organization Details LastModified Time None Recorded Advance Directives Directive None Recorded Payers Insurance Date Sequence Insurance Name Policy Number Policy Mendez Covered Member ID Mendez Member ID Guarantor Name 11/12/2024 1 [place] Nancy E Lefrancois [id number] Nancy E Lefrancois 11/26/2024 2 [place] [id number] Nancy E Lefrancois [id number] Nancy E Lefrancois Notes Date Note [...] gave good relief until recent. Problems ambulating. Rvpp-fay-jhrafow medications are helping somewhat but not significantly. [...] us as scheduled. Nik Main PA-C [address] [facility], [place], [address], [place] - [facility] 11/13/2024 09:52:45 OBGyn Episode No OBEpisode recorded.
[2025-01-11 08:54] LABS: MANUAL DIFF FLAG NO
[2025-01-11 09:37] LABS: Hematocrit 41.4 % (37.0-47.0); Hemoglobin 13.2 g/dl (12.0-16.0); Imm Gran Abs Auto 0.02 X10*3/uL (0.00-0.03); Imm Gran Pct Auto 0.2 % (0.0-0.4); Lymphocytes Absolute Auto 1.7 X10*3/uL (1.2-4.9); Mean Corpuscular HGB Conc 31.9 g/dl (31.0-35.0); Mean Corpuscular Hemoglobin 29.1 pg (27.0-33.0); Mean Corpuscular Volume 91.4 fL (80.0-98.0); NRBC Abs Auto 0.000 X10*3/uL (0.0-0.012); NRBC Pct Auto 0.0 /100WBC (0.0-0.2); Platelet Count 220 X10*3/uL (160-400); Red Blood Count 4.53 X10*6/uL (4.20-5.50); White Blood Count 8.2 X10*3/uL (4.8-10.8)
[2025-01-11 09:39] LABS: INTERNATIONAL NORM RATIO 1.2 (0.9-1.1); Prothrombin Time 13.8 SEC (10.9-12.4)
[2025-01-11 10:02] LABS: Anion Gap 10 (12-20); Blood Urea Nitrogen 13 mg/dL (9-16); Calcium 10.0 mg/dL (8.4-10.2); Carbon Dioxide 28 mmol/L (22-29); Chloride 106 mmol/L (96-108); Estimated Glomerular Filt Rate > 60; Potassium 4.0 mmol/L (3.3-5.1); Sodium 140 mmol/L (135-145)
== END 2025-01-11 08:32 | disposition home or self-care (01) ==
LOC: HO.LAB 08:31
PROVIDERS: PCP Internal Medicine; Visit Provider Nurse Practitioner Family
DX: R93.1 Abnormal findings on diagnostic imaging of heart and coronary circulation (principal); I25.10 Atherosclerotic heart disease of native coronary artery without angina pectoris; I48.0 Paroxysmal atrial fibrillation; E11.9 Type 2 diabetes mellitus without complications; Z95.0 Presence of cardiac pacemaker
CPT/HCPCS: 36415; 80048; 85025; 85610

== ENCOUNTER → 2025-01-29 23:59 | Outpatient (BNV) | payer MEDICARE, SELFPAY | PROVIDERS: PCP Internal Medicine; Visit Provider Internal Medicine Cardiovascular Disease | DX: I25.10 Atherosclerotic heart disease of native coronary artery without angina pectoris (principal) | CPT/HCPCS: 93458; 99152 ==

== ENCOUNTER 2025-02-05 12:17 | Outpatient (REF) | payer MEDICARE, SELFPAY ==
--- NOTE | ~2025-02-05 | MM_ITS ---
EXAMINATION: DXA BONE DENSITY AXIAL HISTORY: Z78.0 - Asymptomatic menopausal state TECHNIQUE: [employer] Dual energy absorptiometry (DEXA) of the lumbar spine, total left hip, and femoral neck was performed. COMPARISON: Comparison is made with the prior examinations most recent dated October 2022. FINDINGS: The bone mineral density of the lumbar spine (L1-L2) is 0.998 g/cm2, corresponding to a T-score of -1.4, and a Z-score of 0.5. This is indicative of osteopenia. This represents a BMD change of 1.1% compared to the prior exam. This is not statistically significant. The bone mineral density of the left total hip is 0.754 g/cm2, corresponding to a T-score of -2, and a Z-score of 0.1. This is indicative of osteopenia. This represents a BMD change of 1.2% compared to the prior exam. This is not statistically significant. The bone mineral density of the left femoral neck is 0.662 g/cm2, corresponding to a T-score of -2.7, and a Z-score of -0.5. This is indicative of osteoporosis. This represents a BMD change of 1.5% compared to the prior exam. This is not statistically significant. FRACTURE RISK: The FRAX index suggests a ten year probability of major osteoporotic fracture of 29.6%, and of hip fracture 10.5%. MM/XR DEXA axial skeleton IMPRESSION: Based on bone mineral density, and according to World Health Organization (WHO) criteria, the diagnosis is consistent with osteoporosis based on lowest T score of -2.7 in the left femoral neck. Treatment Recommendations: NOF guidelines recommend consideration for treatment in postmenopausal women and men age 50 and older presenting with the following: -A hip or vertebral (clinical or morphometric) fracture. -T-score less than or equal to -2.5 at the femoral neck or spine after appropriate evaluation to exclude secondary causes. -Low bone mass at the hip or spine and a 10-year fracture probability by FRAX of greater than or equal to 3% for hip fracture or greater than or equal to 20% for major osteoporotic fracture based on the [place] adapted WHO algorithm. Other Recommendations: All treatment decisions require clinical judgment and consideration of individual patient factors, including patient preferences, comorbidities, previous drug use, risk factors not captured in the FRAX model (e.g. frailty, falls, vitamin D deficiency, increased bone turnover, interval significant decline in bone density) and possible under or overestimation of fracture risk by FRAX. Additional medical evaluation for secondary cause of low bone mineral density may be appropriate. FUTURE SCAN RECOMMENDATION: People with diagnosed cases of osteoporosis or at high risk for fracture should have regular bone mineral density tests. For patients eligible for Medicare, routine testing is allowed once every 2 years. The testing frequency can be increased to one year for patients who have rapidly progressing disease, those who are receiving or discontinuing medical therapy to restore bone mass, or have additional risk factors. Statistically, 68% of repeat scans fall within 1 SD (+/- 0.010 g/cm2 for AP spine L1-L4) and 1 SD (+/- 0.012 g/cm2 for femur total) FRAX is a trademark of the [employer] Met[employer] Disease, a World Health Organization (WHO) Collaborating Center. Electronically signed by: Alexandrea Ames MD 02/05/2025 01:41 PM [facility]
--- OUTSIDE RECORDS SUMMARY | 2025-02-05 15:59 | XMS_ITS | Continuity of Care Document ---
Author Organization [facility], MARGARITA [address] Address [address] [place] [address] Care Team Providers Care Step Down Specialist Name Role Phone GWENDOLYN KEELEY VASQUEZ Primary Care Provider Assessment No assessment recorded. Plan of Treatment Reminders Order Date Submit Date Provider Last Modified By Organization Details Last Modified Time Details Appointments RECHECK 15 2025 08:30A M Nik Main PA-C Not available Not available Not available Lab None recorded . Referral None recorded . Procedures None recorded . Surgeries None recorded . Imaging None recorded . Medication Orders None recorded . Patient TargetsNo targets recorded. Patient InstructionsNo instructions recorded. Reason for Referral None Reported. Problems Name Problem SNOMED Code Status Onset Date Resolution Date Notes Provider Name and Address Organization Details Recorded Time No complaints 766710141 Active Status : 'A'; Not Available [facility] 4 09:24:54 Problem Notes None recorded. Procedures Surgical History Date Name Laterality Status Provider Name and Address Organization Details Recorded Time 5 Sports Knee 4&1 completed Nik Main PA-C [address] [facility], [place], [address], [facility] 11/13/2024 09:52:31 5 JZKNEE INJ completed Alberto Reynolds PA-C [address], [place], [address], [facility] 08/21/2024 15:25:01 4 Gel-One Knee Injection completed Alberto Reynolds PA-C [address], [place], [address], [facility] 02/16/2024 16:13:05 Imaging Results None recorded. Procedure Notes None recorded. Medical Equipment None Reported. Allergies Allergen ID Allergen Name Allergen Category Reaction Reaction Severity Criticality Documentation Date Start Date Code Code System Note Provider Name and Address Organization Details Recorded Time 484924 Dilaudid medicatio n Not available Not available Not available 05/16/20232018 69992 3 RxNorm Not Available [facility] 4 16:01:29 093958 amlodipin e besylate medicatio n Not available Not available Not available 05/16/20232015 80513 6 RxNorm Not Available [facility] 4 16:01:29 642801 lisinopri l medicatio n Not available Not available Not available 05/16/20232015 11895 RxNorm Not Available [facility] 4 16:01:29 Medications Name Sig Start [...] Not Available Vitals Date Recorded Body height Provider Name an d Address Organization Details Last Updated DateTime 11/13/2024 152.4 cm MAREN LAGUERRE [place] [facility] 11/13/2024 09:31:37 Social History None recorded. Functional Status None recorded. Mental Status None recorded. Family History Nothing Reported. Medical History No medical history recorded. Gynecological HistoryNo gynecological history recorded. Obstetrics History GPAL:G 0 P 0 0 0 0 Past Encounters Encounter ID Performer Location Encounter Start Date Encounter Closed Date Diagnosis/Indication Diagnosis SNOMED-CT Code Diagnosis ICD10 Code Diagnosis IMO Codes Diagnosis Note [id number] EDEN Escoto [address] [place] [address] 11/13/2024 09:13:56 11/26/2024 10:56:35 Osteoarthritis of right knee joint 2220308123 71185 M17.11 [id number] Health Concerns Section Related Observation LastModified by Organization Detai ls LastModified Time None Recorded Concern Status LastModified by Organization Details LastModified Time None Recorded Payers Encounter Date Sequence Insurance Name Policy Number Policy Mendez Covered Member ID Mendez Member ID Guarantor Name 11/13/2024 1 [place] Nancy Zaragoza [id number] Nancy Zaragoza 11/13/2024 2 [place] [id number] Nancy Zaragoza [id number] Nancy Zaragoza Notes Date Note Type Note Provider Name [...] gave good relief until recent. Problems ambulating. Qjba-tva-ovldreh medications are helping somewhat but not significantly. [...] us as scheduled. Nik Main PA-C [address] [facility] [address], [place], [address], [facility] - [facility] 11/13/2024 09:52:45 OBGyn Episode No OBEpisode recorded.
--- OUTSIDE RECORDS SUMMARY | 2025-02-05 15:59 | XMS_ITS | Clinical Summary ---
Author Organization [facility] Address [address] [place] [address] Phone Care Team Providers Care Humane Agent Name Role Phone Jose Kimbrough MD Primary Care Provider [phone] Surgical History Surgery Date Site/Laterality Comments HYSTERECTOMY [...] Years Used Date Smoking Tobacco: Former Cigarettes 0 Q uit: 04/19/1996 Smokeless Tobacco: Never Alcohol [...] MEDICARE [facility] Care Teams Humane Agent Relationship Specialty Start Date End Date Jose Kimbrough MD [address] [place] [address] PCP - General Otolaryngology 04/05/17
--- OUTSIDE RECORDS SUMMARY | 2025-02-05 15:59 | XMS_ITS | Patient Health Record ---
Author Organization [facility] Address [address] [place] [address] Care Team Providers Care Bag Liner Name Role Phone Homa Del Rio Primary Care Provider Haider Kelley Unavailable [phone] Allergies Allergen (clinical drug ingredient) Drug/Non Drug Allergy documented on EMR Reaction Allergy Type Onset Date Status hydromorphone Dilaudid Unknown Drug Allergy Act wesley lisinopril Lisinopril Unknown Drug Allergy Activ e Reason For Referral No Information Medications Medication SIG (Take, Route, Frequency, Duration) Notes Start Date End Date Status Losartan Potassium 50 MG Tablet 1 tablet Orally Once a day Active Pradaxa 150 MG Capsule 1 capsule Orally Twice a day Active Metoprolol Succinate 25 mg tablet 1 tablet orally once a day Active Flecainide Acetate 100 MG Tablet po Orally twice a day Active Multivitamin Adults - Tablet Orally Active ProAir HFA 108 (90 Base) MCG/ACT Aerosol Solution 2 puffs as needed Inhalation every 6 hrs/ as needed Active Raloxifene HCl 60 MG Tablet 1 tablet Ora lly Once a day Active Omeprazole 20 MG Capsule Delayed Release 1 capsule Orally Once a day Active Lovastatin 10 MG Tablet 1 tablet with a meal Orally Once a day Active Vitamin D3 90831 UNIT Capsule 1 capsule Orally Once a day Active Glucosamine 500 MG Capsule 1 capsule wit h a meal Orally Three times a day Active Tylenol 1 tab Oral as needed Active Immunizations Vaccine Route Administration Date Status Comme nts Influenza Unknown 11/12/2016 Administered Social History Tobacco Use: Social History Observation Description Date Details (start date - stop date) Former Smoker NA - NA Social History Tobacco Use: Social Info Question Answer Notes Tobacco Use/Smoking Patient is a former smoker When did you stop smoking? 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 Section Notes: Nonsmoker; no sig alcohol Nonsmoker; no sig alcohol Problems Problem Type SNOMED Code ICD Code Onset Dates Problem Status W/U Status Risk Notes Problem Screening for malignant neoplasm of colon (379512082) Encounter for screening for malignant neoplasm of colon (Z12.11) Active confirmed Problem History of adenomatous polyp of colon (301703245) History of adenomatous polyp of colon (Z86.010) Active confirmed Problem Gastroesophageal reflux disease without esophagitis (779232028) Gastroesophageal reflux disease without esophagitis (K21.9) Active confirmed Problem Irritable bowel syndrome (78009660) Irritable bowel syndrome, unspecified type (K58.9) Active confirmed Plan Of Treatment Future Test Test Name Order Date COLONOSCOPY 05/31/2017 Insurance Providers Payer Name Payer Address Payer Phone Subscriber Number Group Number Insured Name Patient Relationship to Insured Coverage Start Date Coverage End Date MEDICARE OF [place] [address] [place] [address] [id number] SUZANNE ISFORTINO Self - patient is the insured MEDEX ATTN CLAIMS [address] [place] [address] [id number] SUZANNE ISFORTINO Self - patient is the insured Medical (General) History Medical History History ICD Code Colonoscopy 03-24-2010--only hyperplastic polyps-biopsies neg for microscopic colitis--she was noted to have diverticulosis and internal hemorrhoids Tubular adenomas removed in 2005 Hyperlipidemia COPD Neg. celiac labs in 2005 Denies [place],DM,CVA,renal disease Pacemaker- Dr. Guzmán Atrial fib HTN GERD --she had an upper endo scopy in 2005 with the finding of some signs of reflux and a hiatal hernia--there was no Son's esophagus Sleep apnea--uses CPAP Surgical History Surgery Date(Month/Year) Hysterectomy and removal of 1 ovary Pacemaker CCY Left knee replacement-- [facility]-Dr. Segura--04/2016--she describes being told of a difficult intubation and a sensitivity to opiates at that time Bilateral cataracts
--- OUTSIDE RECORDS SUMMARY | 2025-02-05 15:59 | XMS_ITS | Data Portability ---
Author Organization [facility], [facility] Address [address] [place] [address] Care Team Providers Care Professor Of Architecture Name Role Phone KEELEY SHAFFER Primary Care [...] X-rays ordered, obtained and reviewed at [facility] 4 views of the right knee reveal [...] obtained. Follow-up sooner if further difficulty. [facility] [employer] [facility] speech recognition cnc maintenance mechanic software was used to create portions of [...] reviewed. Follow-up on a p.r.n. basis. [facility] [employer] [facility] speech recognition cnc maintenance mechanic software was used to create portions of this document. An attempt at proofreading has been made to minimize errors. Please call for corrections. [email or web address] Not available 08/21/2024 15:25:35 Plan of Treatment Reminders Order Date Submit Date Provider Last Modified By Organization Details Last Modified Time Details Appointments RECHECK 15 2025 08:30A Rogelio Main PA-C Not available Not available Not available Lab None recorded . Referral None recorded . Procedures None recorded . Surgeries None recorded . Imaging XR, knee, 4 or more view - room 119 4V R knee 2023 024 pari [facility], [address], [place], [address], 01/05/2024 15:19:54 Medication Orders None recorded . [...] a4ajBk vP9nXo QUaueC m3YtLR FvZl JJ8mAn HZtai3 0e2990 AC0Kqa 3mHUqG hKiQtr MwF INTERFACE [facility] [address] [facility] [address], [place], [address], 12/20/2023 15:01:23 12/20/19 24 12/20/2023 XR, knee, 4 or more view http:/ [email or web address] ?Encry pted=s hAaTro YD8dLq bEUv6g %2BXZw aYqtaq 0bqfl% 2Fg9IQ a4ajBk vP9nXo QUaueC m3YtLR Zl J8mAn HZtai3 1c5786 AC0Kqa 3mHUqG hKiQtr MwF INTERFACE [facility] [address] [address], [place], [address], 12/20/2023 15:01:25 Result Notes Documentation Provider Name and Address Organization Details Recorded Time Xr, Knee, 4 Or More View : [email or web address]? Encrypted=icYrKosMU8vVsrX Uv6g%8WWBjvFheli7eagu%2Fg 3APn2ciPhwK9sDeLNypcKy3Bx XOSiKlaVLV8rXdLAbvl61m559 1MP2Mjt9sDNuWeNpZsmApK Not Available [facility] 12/20/2023 15:01: 24 Xr, Knee, 4 Or More View : [email or web address]? Encrypted=qoOdQdzNJ3xXrkG Uv6g%8VQGxwWrklp4ruup%2Fg 4LQm6clFzyR6xEwZGiemMh4Ak ZAYlJgpTBN6rHiJRjyy18u953 9NK2Zen1vRRjJfUzSzpIeN Not Available [facility] 12/20/2023 15:01: 26 Problems Name Problem SNOMED Code Status Onset Date Resolution Date Notes Provider Name and Address Organization Details Recorded Time No complaints [id number] Active Status : 'A'; Not Available [facility] 09:24:54 Problem Notes None recorded. Procedures Surgical History Date Name Laterality Status Provider Name and Address Organization Details Recorded Time 5 Sports Knee 4&1 completed Nik Main PA-C [address] [facility]note 2], [place], [address], [facility] 11/13/2024 09:52:31 5 JZKNEE INJ completed Alberto Reynolds PA-C [address], [place], [address], [facility] 08/21/2024 15:25:01 4 Gel-One Knee Injection completed Alberto Reynolds PA-C [address], [place], [address], [facility] 02/16/2024 16:13:05 Imaging Results None recorded. Procedure Notes None recorded. Medical Equipment None Reported. Allergies Allergen ID Allergen Name Allergen Category Reaction Reaction Severity Criticality Documentation Date Start Date Code Code System Note Provider Name and Address Organization Details Recorded Time 608813 Dilaudid medicatio n Not available Not available Not available 05/16/20232018 83303 3 RxNorm Not Available [facility] 4 16:01:29 531687 amlodipin e besylate medicatio n Not available Not available Not available 05/16/20232015 15393 6 RxNorm Not Available [facility] 4 16:01:29 842723 lisinopri l medicatio n Not available Not available Not available 05/16/20232015 33628 RxNorm Not Available [facility] 4 16:01:29 Medications Name Sig Start [...] Updated DateTime 08/21/2024 152.4 cm 27.9 kg/m2 72613.71 g RUFUS NAVARRO [facility] 08/21/2024 14:40:30 Date Recorded Body height Provider Name an d Address Organization Details Last Updated DateTime 11/13/2024 152.4 cm MAREN CARLOTTA [facility] 11/13/2024 09:31:37 Date Recorded Body height Body mass index (BMI) Body weight Provider Name and Address Organization Details Last Updated DateTime 12/20/2023 152.4 cm 28.3 kg/m2 50660.89 g RUFUS NAVARRO [facility] 12/20/2023 14:53:59 Date Recorded Body height Body mass index (BMI) Body weight Provider Name and Address Organization Details Last Updated DateTime 02/16/2024 152.4 cm 27.9 kg/m2 47581.71 [facility] 02/16/2024 15:32:24 Social History None recorded. Functional Status None recorded. Mental Status None recorded. Family History Nothing Reported. Medical History No medical history recorded. Gynecological HistoryNo gynecological history recorded. Obstetrics History GPAL:G 0 P 0 0 0 0 Past Encounters Encounter ID Performer Location Encounter Start Date Encounter Closed Date Diagnosis/Indication Diagnosis SNOMED-CT Code Diagnosis ICD10 Code Diagnosis IMO Codes Diagnosis Note [id number] Alberto Reynolds PA-C [place] [address] [place] [address] 12/20/2023 14:21:48 01/05/2024 15:19:54 Pain of right knee joint 7609760569 28066 M25.561 Osteoarthr itis of knee 595658408 M17.9 [id number] Alberto Reynolds PA-C [place] [address] [place] [address] 02/16/2024 14:56:20 03/05/2024 08:45:01 Osteoarthritis of right knee joint 8766961456 80790 M17.11 [id number] Alberto Reynolds PA-C [facility] [place] [address] [place] [address] 08/21/2024 14:32:13 08/30/2024 13:32:28 Osteoarthritis of right knee joint 4912480755 97258 M17.11 0152320 [id number] Nik Main PA-C [facility] [place] [address] [place] [address] 11/13/2024 09:13:56 11/26/2024 10:56:35 Osteoarthritis of right knee joint 5995284675 01180 M17.11 [id number] Health Concerns Section Related Observation LastModified by Organization Detai ls LastModified Time None Recorded Concern Status LastModified by Organization Details LastModified Time None Recorded Advance Directives Directive None Recorded Payers Insurance Date Sequence Insurance Name Policy Number Policy Mendez Covered Member ID Mendez Member ID Guarantor Name 11/12/2024 1 [place] [employer] Nancy E Lefrancois [id number] Nancy E Lefrancois 11/26/2024 2 [place] [id number] Nancy E Lefrancois [id number] Nancy E Lefrancois Notes Date Note [...] gave good relief until recent. Problems ambulating. Epsj-fuh-lljfzfy medications are helping somewhat but not significantly. [...] us as scheduled. Nik Main PA-C [address], [place], [address], [place] [facility] 11/13/2024 09:52:45 OBGyn Episode No OBEpisode recorded.
--- OUTSIDE RECORDS SUMMARY | 2025-02-05 15:59 | XMS_ITS | Patient Health Record ---
[facility] Address [address] [place] [address] Care Team Providers Care Branch Specialist Name Role Phone Marcio CASSIDY, [place] Primary Care Provider Unavail able Mark Stovall Unavailable [phone] Allergies Allergen (clinical drug ingredient) Drug/Non Drug [...] Status Risk Notes Problem Acquired hallux rigidus (2436103) Hallux rigidus, right foot (M20.21) Active confirmed Plan Of Treatment Pending Test Test Name Order Date X ray : Foot, left 2V 07/20/2017 X ray : Foot, right 2V 07/20/2017 [id number] TENDON SHEATH/LIGAMENT 0 07/20/2017 [id number] TENDON SHEATH/LIGAMENT 0 08/22/2017 Insurance Providers Payer Name Payer Address Payer Phone Subscriber Number Group Number Insured Name Patient Relationship to Insured Coverage Start Date Coverage End Date Medicare National [employer] [address] [facility] [place] [id number] [phone] [id number] Roderick isNancy Self - patient is the insured 4 [employer] Blue [employer] [address] [place] [address] [id number] Roderick isNancy Self - patient is the [...]
== END 2025-02-05 12:18 | disposition home or self-care (01) ==
LOC: HO.MAMMO 12:17
PROVIDERS: PCP Internal Medicine; Visit Provider Internal Medicine
DX: Z78.0 Asymptomatic menopausal state (principal)
CPT/HCPCS: 77080

== ENCOUNTER → 2025-02-05 12:30 | Outpatient (BNV) | payer MEDICARE, SELFPAY | PROVIDERS: PCP Internal Medicine; Visit Provider Radiology Diagnostic Radiology | DX: E28.39 Other primary ovarian failure (principal) | CPT/HCPCS: 77080 ==

== ENCOUNTER 2025-02-16 13:47 | Inpatient (IN) | payer MEDICARE, SELFPAY ==
[2025-02-16] VITALS (9 sets, daily range): BP systolic 105–146; BP diastolic 64–84; PULSE 70–148; RESP 17–20; TEMP 36.9–38.6; O2SAT 91–97; BMI 27.9; BMI 27.3
--- NOTE | ~2025-02-16 | CT_ITS ---
CLINICAL HISTORY: confusion. CT head without contrast Comparison: CT/SR - CT ANGIO HEAD NECK - 03/09/24 21:[address] - CT ANGIO HEAD NECK - 03/09/24 21:[address]/REG/SR - BRAIN WO IV CONTRAST [id number] - 08/12/18 09:57 EDT Findings: No intra-axial mass, midline shift, hydrocephalus, or acute hemorrhage. Diffuse volume loss. Periventricular and subcortical white matter hypoattenuation likely chronic small-vessel ischemic changes. Intracranial atherosclerosis. There is no sinus or mastoid fluid. No acute findings in the orbits. There is no acute fracture. IMPRESSION: 1. No acute intracranial findings. This document has been electronically signed by: Calin Perkins MD on 02/16/2025 15:05:07
--- NOTE | ~2025-02-16 | CT_ITS ---
CLINICAL HISTORY: unresponsive episode CT head without contrast Comparison: CT/REG/SR - CT HEAD FOR STROKE - 02/16/25 14:47 EST Findings: No intra-axial mass, midline shift, hydrocephalus, or acute hemorrhage. Involutional changes with prominence of the extra-axial spaces. Symmetric periventricular white matter changes are noted. There are vascular calcifications. There is no sinus or mastoid fluid. The orbits are unremarkable. No skull fracture. IMPRESSION: 1. No acute intracranial findings. Chronic age related changes This document has been electronically signed by: Mauricio Noble MD on 02/18/2025 05:28:06
--- NOTE | ~2025-02-16 | XR_ITS ---
CLINICAL HISTORY: cough 2 view chest x-ray Comparison: CR - XR CHEST 1V - 03/09/24 18:08 EST CR/SR - XR CHEST 2V - 09/09/22 09:14 EDT Findings: No consolidation or effusion. Left subclavian pacemaker with electrode in the right atrium and right ventricle. Chronic fracture of the distal left clavicle. No acute fracture. IMPRESSION: 1. No acute cardiopulmonary findings. 2. Left subclavian pacemaker with electrodes in the right atrium and right ventricle. This document has been electronically signed by: Calin Perkins MD on 02/16/2025 16:46:27
--- NOTE | 2025-02-16 13:54 | ED.GENADULT ---
HPI - General Adult General Chief complaint: Upper Respiratory Symptoms Stated complaint: General Medical Time Seen by Provider: 02/16/25 14:19 Source: patient, RN notes reviewed and old records reviewed History of Present Illness ED Provider: Yazmin Mortensen PA-C HPI narrative: 79-year-old female with a past medical history proximal AFib on Pradaxa, Meniere's disease, GERD, JESU, osteoporosis, HLD, CHF, sick sinus syndrome, COPD, presenting to the ED complaining of subjective fever, chills, dry cough, generalized fatigue/weakness x few days. 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 Patient admits to feeling confused. Denies headache, focal weakness, chest pain, abdominal pain, nausea/vomiting. Related Data Home Medications ?Medication ?Instructions ?Recorded ?Confirmed multivitamin,wr-ufzz-kkwbsixg 1 tab PO DAILY 03/17/20 01/10/25 (Complete Multivitamin tablet) vitamins A,C,P-nfym-pyuvyc 4,296 1 cap PO BID 05/06/22 01/10/25 mcg-226 mg-90 mg capsule (PreserVision AREDS) fluoride (sodium) 1.1 % dental 1 appl PO BEDTIME 07/28/22 01/10/25 paste biotin 1,000 mcg chewable tablet 1,000 mcg PO DAILY 04/12/23 01/10/25 cholecalciferol (vitamin D3) 50 50 mcg PO DAILY 09/18/24 01/10/25 mcg (2,000 unit) capsule Previous Rx's ?Medication ?Instructions ?Recorded polyethylene glycol 3350 17 17 g PO DAILY #510 grams 08/27/21 gram/dose oral powder (Miralax) incontinence pad, liner, disp #90 ea 06/07/24 alendronate 70 mg tablet 70 mg PO QWEEK #12 tabs 06/13/24 dabigatran etexilate 150 mg capsule 150 mg PO BID 90 days #180 caps 10/17/24 pantoprazole 40 mg tablet,delayed 40 mg PO DAILY #90 tabs 10/17/24 release metoprolol succinate 50 mg 25 mg (1/2 x 50 mg) PO DAILY 90 12/12/24 tablet,extended release 24 hr days #45 tabs atorvastatin 40 mg tablet (Lipitor) 40 mg PO BEDTIME #30 tabs 01/10/25 midodrine 2.5 mg tablet 1.25 mg (1/2 x 2.5 mg) PO BID #90 01/10/25 tabs Allergies Allergy/AdvReac Type Severity Reaction Status Date / Time dronedarone (Multaq) Allergy Severe syncope Verified 02/16/25 13:58 flecainide Allergy Severe vertigo,blurry Verified 02/16/25 13:58 vision lisinopril (LISINOPRIL) Allergy Severe ANGIOEDEMA, Verified 02/16/25 13:58 bad cough, throat closing, tingling of head, cough losartan Allergy Intermediate dry cough, Verified 02/16/25 13:58 pruritus hydromorphone (Dilaudid) AdvReac Severe unresponsiv Verified 02/16/25 13:58 eness Review of Systems Review of Systems: Yes all other systems are reviewed and are negative Constitutional: Constitutional: Reports as per HPI Neurologic: Denies Abnormal speech present [facility] Past Medical History Attestation statement: The following information was validated with the patient. Source: old records reviewed Medical History Paroxysmal atrial fibrillation Persistent atrial fibrillation Active Meniere's disease Tubular adenoma Positive colorectal cancer screening using Cologuard test Hypercalcemia Diverticulosis Hiatal hernia GERD (gastroesophageal reflux disease) Epigastric pain Dysphagia JESU (obstructive sleep apnea) Hyperparathyroidism Osteoporosis Dyslipidemia Heart failure Cardiac pacemaker in situ Sick sinus syndrome COPD (chronic obstructive pulmonary disease) Surgical History H/O bilateral cataract extraction History of esophagogastroduodenoscopy (EGD) Hx of colonoscopy History of total abdominal hysterectomy and bilateral salpingo-oophorectomy History of total left knee replacement History of pacemaker History of laparoscopic cholecystectomy Family History Family History Father COPD (chronic obstructive pulmonary disease) Mother CAD (coronary artery disease) CVD (cardiovascular disease) Daughter No problems noted. 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 Cognitive needs: No Hearing needs: No Vision needs: No Physical Exam ED Vital Signs: Vital Signs - 24 hr 02/16/25 13:58 02/16/25 14:56 02/16/25 15:53 Temperature 99.4 F Pulse Rate 129 H 125 H 139 H Pulse Rate [Monitor] Respiratory Rate 18 Blood Pressure 105/69 125/84 117/64 Pulse Oximetry 94 92 Oxygen Delivery Method Room Air Room Air 02/16/25 16:18 02/16/25 16:26 02/16/25 16:26 Temperature 99.1 F Pulse Rate 148 H Pulse Rate [Monitor] 130 H Respiratory Rate 20 Blood Pressure 119/78 Pulse Oximetry 91 L Oxygen Delivery Method Room Air Room Air 02/16/25 16:58 Temperature 98.4 F Pulse Rate 70 Pulse Rate [Monitor] Respiratory Rate 19 Blood Pressure 118/71 Pulse Oximetry 97 Oxygen Delivery Method Room Air BMI result Body Mass Index 27.9 Const General: cooperative, healthy appearing and no acute distress Orientation/consciousness: oriented to person and oriented to place Limitations: no limitations HENMT Head: Yes normal to inspection and Yes atraumatic Ears: hearing grossly normal bilaterally General nose exam: Normal external nose present Face and sinus: Yes normal facial exam Eyes General: appearance normal, both eyes and all related structures Pupils: Equal, round and reactive pupils present EOM: EOMs intact bilaterally Neck Neck: Yes normal visual inspection and Yes no meningeal signs Resp Effort & Inspection: normal respiratory effort and no respiratory distress Auscultation: clear to auscultation bilaterally, no crackles and no wheezes Cardio Rate: tachycardic Rhythm: abnormal rhythm Heart sounds: S1 normal heart sound present and S2 normal heart sound present GI Inspection: Yes normal to inspection Palpation (GI): Soft to palpation, nontender, no guarding and not rigid General: Yes no CVA tenderness Back/Spine/Pelvis Back: no CVA tenderness Skin Rashes: no rashes Wounds: no wounds Neuro Other: believes it's 192 General: oriented to person, oriented to place, tone normal, moves all extremities, no meningeal signs, no focal motor deficits and CN's II-XI intact bilaterally Cranial nerves: Yes CN's II-XII intact bilaterally and Yes Equal, round and reactive pupils present Speech: No Abnormal speech present Motor exam (neuro): 5/5 motor strength present throughout and no tremor noted Extrem General: Yes normal to inspection, Yes no pedal edema and Yes no calf tenderness NIH Stroke Scale Internal: Initial- Upon Arrival Level of Consciousness: Alert Level of Consciousness Questions: Answers both questions correctly Level of Consciousness Commands: Performs both tasks correctly Best Gaze: Normal Visual: No visual loss Facial Palsy: Normal Motor Arm (Right): No drift Motor Arm (Left): No drift Motor Leg (Right): No drift Motor Leg (Left): No drift Limb Ataxia: Absent Sensory: Normal Best Language: No aphasia Dysarthia: Normal Extinction and Inattention: No abnormality Score: 0 Course Course Course Narrative: This is a Rapid Medical Examination (RME) performed by Filipe Landry PA-C in triage. Full HPI, ROS, assessment and treatment plan per primary provider in the Main ED. Hx: 79 yo F hx JESU, COPD, CHF, afib, bppv, here for eval of subjective fever, chills, cough, dizziness, weakness x3 days. Plan: labs, ekg, cxr, viral swabs -labs reassuring -influenza A positive -1607-- HR bouncing 112-130's 1650--XR chest 2V IMPRESSION: 1. No acute cardiopulmonary findings. 2. Left subclavian pacemaker with electrodes in the right atrium and right ventricle. CT head for STROKE IMPRESSION: 1. No acute intracranial findings. > plan to admit for further management. Case discussed with hospitalist [id number]. Patient converted to sinus rhythm Medications Administered Discontinued Medications Generic Name Dose Route Start Last Admin Trade Name Freq PRN Reason Stop Dose Admin Sodium Chloride 500 mls @ 999 mls/hr 02/16/25 14:45 02/16/25 16:02 Ns IV 02/16/25 15:15 Infused .Q31M KAMI Infusion Metoprolol Tartrate 2.5 mg 02/16/25 14:37 02/16/25 14:41 Metoprolol Tartrate 5 Mg/5 Ml Vial IVPUSH 02/16/25 14:38 2.5 mg ONCE ONE Administration Protocol Metoprolol Tartrate 5 mg 02/16/25 15:00 02/16/25 15:05 Metoprolol Tartrate 5 Mg/5 Ml Vial IVPUSH 02/16/25 15:01 5 mg ONCE ONE Administration Protocol Metoprolol Tartrate 5 mg 02/16/25 15:45 02/16/25 15:51 Metoprolol Tartrate 5 Mg/5 Ml Vial IVPUSH 02/16/25 15:46 5 mg ONCE ONE Administration Protocol Metoprolol Tartrate 25 mg 02/16/25 15:45 02/16/25 15:53 Metoprolol Tartrate 25 Mg Tablet PO 02/16/25 15:46 25 mg ONCE ONE Administration Protocol Medical Decision Making Medical Decision Making [facility] Narrative: 79-year-old female with a past medical history proximal AFib on Pradaxa, Meniere's disease, GERD, JESU, osteoporosis, HLD, CHF, sick sinus syndrome, COPD, presenting to the ED complaining of subjective fever, chills, dry cough, generalized fatigue/weakness x few days. 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 On exam tachycardic, monitor showing AFib with RVR, no focal deficits however patient is confused, believes it is 1925 when asked twice. This is not baseline for patient per daughter. Concern for CVA/TIA vs infectious etiologies vs metabolic abnormalities. Concern for AFib with RVR. Rule out ACS. Lower suspicion for dissection. Concern for viral illness Stroke protocol initiated while patient was evaluated by provider. Patient is not a candidate for TNK as is already anticoagulated and NIH stroke scale = 0 Plan: EKG, labs, UA, CXR, head CT, admission Please refer to course for remaining clinical decision making, interpretation of labs/imaging results, and discussions with consultants and/or family members. Differential Diagnosis Differential Diagnoses: The differential diagnosis associated with the presentation includes As above Admission/Observation Consideration of admission/observation: Escalation of care including admission/observation considered Consult Healthcare Provider Management of the patient was discussed with: Hospitalist Lab Data [facility] Lab Attestation statement: I reviewed the patient's lab results. 02/16/25 14:13 02/16/25 14:13 Labs: Lab Results 02/16/25 02/16/25 02/16/25 Range/Units 14:13 14:18 14:37 WBC 5.9 (4.8-10.8) X10*3/uL RBC 4.47 (4.20-5.50) X10*6/uL Hgb 13.0 (12.0-16.0) g/dl Hct 39.7 (37.0-47.0) % MCV 88.8 (80.0-98.0) fL MCH 29.1 (27.0-33.0) pg MCHC 32.7 (31.0-35.0) g/dl RDW 13.1 (11.0-16.0) % Plt Count 173 (160-400) X10*3/uL MPV 9.2 L (9.4-12.3) fL Immature Gran % (Auto) 0.2 (0.0-0.4) % Neut % (Auto) 81.3 H (45-73) % Lymph % (Auto) 6.6 L (20-40) % [place] % (Auto) 10.9 (2-11) % Eos % (Auto) 0.8 (0-4) % Baso % (Auto) 0.2 (0-2) % Lymph # (Auto) 0.4 L (1.2-4.9) X10*3/uL [place] # (Auto) 0.6 (0.1-1.2) X10*3/uL Eos # (Auto) 0.1 (0.0-0.4) X10*3/uL Baso # (Auto) 0.0 (0.0-0.2) X10*3/uL Abs Immat Gran (auto) 0.01 (0.00-0.03) X10*3/uL Absolute Neuts (auto) 4.8 (2.0-8.3) x10*3/uL Absolute Nucleated RBC 0.000 (0.0-0.012) X10*3/uL Nucleated RBC % (auto) 0.0 (0.0-0.2) /100WBC Whole Blood PT 14.7 H (11.1-13.5) sec Whole Blood INR 1.2 H (0.9-1.1) VBG pH 7.45 H (7.32-7.43) VBG pCO2 33 mmHg VBG pO2 66 mmHg VBG HCO3 23 (22-26) mmol/L VBG O2 Saturation 91.0 % VBG Base Excess 0.4 mmol/L Sodium 139 (135-145) mmol/L Potassium 4.0 (3.3-5.1) mmol/L Chloride 107 (96-108) mmol/L Carbon Dioxide 23 (22-29) mmol/L Anion Gap 13 (12-20) BUN 13 (9-16) mg/dL Creatinine 1.03 (0.5-1.4) mg/dL Estim Creat Clear Calc 36.0 Estimated GFR 51 POC Glucose 101 (60-115) mg/dL Random Glucose 115 (60-115) mg/dL Calcium 10.7 H D (8.4-10.2) mg/dL Magnesium 1.8 (1.6-2.6) mg/dL Total Bilirubin 0.7 (0.0-1.0) mg/dL AST 30 (5-31) U/L ALT 27 (0-31) U/L Alkaline Phosphatase 65 (39-117) U/L Troponin I High Sens 4.0 (<3.5-17.0) ng/L Total Protein 7.1 (6.5-8.0) g/dL Albumin 4.2 (3.5-5.0) g/dL Influenza Type A (PCR) POSITIVE A (Negative) Influenza Type B (PCR) NEGATIVE (Negative) RSV RNA Qual (PCR) NEGATIVE (Negative) SARS-CoV-2 RNA (RT-PCR) NEGATIVE (Negative) Independent Interpretation I performed an independent interpretation of an: EKG (EKG: My interpretation AFib with RVR at a rate of 154. QRS 78. No STEMI. Nonischemic.) Radiology Impression Discussion of test interpretation with radiology: I have reviewed the radiologist's reading. Independent Historian Clinical information obtained from an independent historian. History obtained from or confirmed by: Other (Daughter) External Record Review External record reviewed: Inpatient record, Office record, Outpatient record, Prior outpatient labs, Prior outpatient radiology, Primary care record and Outside ED record Tests considered The following testing was considered but not selected: As above Prescription Management I considered prescription management with: Pain Medication Chronic Conditions Patient?s care impacted by: Hypertension and Other (AFib with RVR) Social Determinants Patient?s care significantly limited by Social Determinants of Health including: Other Social Determinant of Health Critical Care Time Critical Care Time Critical Care Time: Yes Total Critical Care Time: 45 Attestation: I have personally provided critical care time exclusive of time spent on separately billable procedures. Time includes review of lab data, radiology results, discussion with consultants, and monitoring for potential decompensation. Intervention performed as documented. Discharge Plan Discharge Clinical Impression: Influenza A, Atrial fibrillation with RVR, Confusion, TIA (transient ischemic attack) Prescriptions: No Action polyethylene glycol 3350 [Miralax] 17 gram/dose powder 17 g PO DAILY Qty: 510 2RF alendronate 70 mg tablet 70 mg PO QWEEK Qty: 12 4RF dabigatran etexilate 150 mg capsule 150 mg PO BID 90 Days Qty: 180 1RF pantoprazole 40 mg tablet,delayed release (DR/EC) 40 mg PO DAILY Qty: 90 2RF Rx Instructions: take one tablet half an hour before breakfast metoprolol succinate 50 mg tablet extended release 24 hr 25 mg PO DAILY 90 Days Qty: 45 1RF midodrine 2.5 mg tablet 1.25 mg PO BID Qty: 90 3RF Rx Instructions: do not give last dose of day after 6PM or within 4 hrs of bedtime Complete Multivitamin Tablet 1 tab PO DAILY fluoride (sodium) 1.1 % paste 1 appl PO BEDTIME PreserVision AREDS 14,320-226-200 qfgf-xj-ndfi capsule 1 cap PO BID (DME) incontinence pad, liner, disp Pad See Rx Instructions .Route Qty: 90 11RF Rx Instructions: Use 3 pads per day biotin 1,000 mcg tablet,chewable 1,000 mcg PO DAILY cholecalciferol (vitamin D3) 50 mcg (2,000 unit) capsule 50 mcg PO DAILY atorvastatin [Lipitor] 40 mg tablet 40 mg PO BEDTIME Qty: 30 5RF Rx Instructions: change from lovastatin Print Language: Welsh
--- NOTE | 2025-02-16 13:57 | ECG_ITS ---
Test Reason : COUGH Blood Pressure : */* mmHG Vent. Rate : 154 BPM Atrial Rate : * BPM P-R Int : * ms QRS Dur : 78 ms QT Int : 276 ms P-R-T Axes : * 24 -19 degrees QTcB Int : 442 ms Atrial fibrillation with rapid ventricular response Nonspecific ST and T wave abnormality Abnormal ECG When compared with ECG of 09-Mar-2024 18:35, No significant changes seen Referred By: Philomena Landry Electronically Signed By: CHUCHO PANDEY
[2025-02-16 14:19] LABS: Hematocrit 39.7 % (37.0-47.0); Hemoglobin 13.0 g/dl (12.0-16.0); Imm Gran Abs Auto 0.01 X10*3/uL (0.00-0.03); Imm Gran Pct Auto 0.2 % (0.0-0.4); Lymphocytes Absolute Auto 0.4 X10*3/uL (1.2-4.9); MANUAL DIFF FLAG NO; Mean Corpuscular HGB Conc 32.7 g/dl (31.0-35.0); Mean Corpuscular Hemoglobin 29.1 pg (27.0-33.0); Mean Corpuscular Volume 88.8 fL (80.0-98.0); NRBC Abs Auto 0.000 X10*3/uL (0.0-0.012); NRBC Pct Auto 0.0 /100WBC (0.0-0.2); Platelet Count 173 X10*3/uL (160-400); Red Blood Count 4.47 X10*6/uL (4.20-5.50); White Blood Count 5.9 X10*3/uL (4.8-10.8)
[2025-02-16 14:23] LABS: VBG HCO3 23 mmol/L (22-26); VBG O2 % Saturation 91.0 %
[2025-02-16 14:24] LABS: Venous Blood Gas Refer to POC result
--- OUTSIDE RECORDS SUMMARY | 2025-02-16 14:25 | XMS_ITS | Data Portability ---
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 X-rays ordered, obtained and reviewed at [facility] 4 views of the right [...] his obtained. Follow-up sooner if further difficulty. [facility] [employer] [facility] speech recognition software engineer developer software was used to create portions of [...] precautions reviewed. Follow-up on a p.r.n. basis. [facility] [employer] [facility] speech recognition software engineer developer software was used to create portions of [...] 119 4V R knee 2023 024 pari [facility], [address], [place], [address], 01/05/2024 15:19:54 Medication Orders None recorded . [...] a4ajBk vP9nXo QUaueC m3YtLR FvZl JJ8mAn HZtai3 0t9628 AC0Kqa 3mHUqG hKiQtr MwF INTERFACE [facility] [address] [facility] [address], [place], [address], 12/20/2023 15:01:23 12/20/19 24 12/20/2023 XR, knee, 4 or more view http:/ [email or web address] ?Encry pted=s hAaTro YD8dLq bEUv6g %2BXZw aYqtaq 0bqfl% 2Fg9IQ a4ajBk vP9nXo QUaueC m3YtLR Zl J8mAn HZtai3 4s1274 AC0Kqa 3mHUqG hKiQtr MwF INTERFACE [facility] [address] [facility] [address], [place], [address], 12/20/2023 15:01:25 Result Notes Documentation Provider Name and Address Organization Details Recorded Time Xr, Knee, 4 Or More View : [email or web address] Encrypted=auCbDuhVY3hLbaR Uv6g%1DYTtoQbplr0huli%2Fg 3FPv9pmTsqZ3hCbMCccxEf7Pe UWVkSgpKKG7aRaNJhpb70p900 8FL5Iqk5rIIjApUkJlfKbU Not Available [facility] 12/20/2023 15:01: 24 Xr, Knee, 4 Or More View : [email or web address]? Encrypted=cmCzExpEU6xNwlV Uv6g%5CJHudQamwt9jwhn%2Fg 4SPy0asGatA8wKqVJkdaPe5El ITBqOvxHJG4iAhHUlrq83l605 0HD6Ugi0dHXpMrLjTrzAfE Not Available [facility] 12/20/2023 15:01: 26 Problems Name Problem SNOMED Code Status Onset Date Resolution Date Notes Provider Name and Address Organization Details Recorded Time No complaints 963366890 Active Status : 'A'; Not Available [facility] 09:24:54 Problem Notes None recorded. Procedures Surgical History Date Name Laterality Status Provider Name and Address Organization Details Recorded Time 5 Sports Knee 4&1 completed Nik Main PA-C [address] [facility], [place], [address], [facility] 11/13/2024 09:52:31 5 JZKNEE INJ completed Alberto Reynolds PA-C [address], [place], [address], [facility] 08/21/2024 15:25:01 4 Gel-One Knee Injection completed Alberto Reynolds PA-C [address], [place], [address], [facility] 02/16/2024 16:13:05 Imaging Results None recorded. Procedure Notes None recorded. Medical Equipment None Reported. Allergies Allergen ID Allergen Name Allergen Category Reaction Reaction Severity Criticality Documentation Date Start Date Code Code System Note Provider Name and Address Organization Details Recorded Time 015282 Dilaudid medicatio n Not available Not available Not available 05/16/20232018 75419 3 RxNorm Not Available [facility] 4 16:01:29 543520 amlodipin e besylate medicatio n Not available Not available Not available 05/16/20232015 10320 6 RxNorm Not Available [facility] 4 16:01:29 000844 lisinopri l medicatio n Not available Not available Not available 05/16/20232015 39359 RxNorm Not Available [facility] 4 16:01:29 Medications Name Sig Start [...] Updated DateTime 08/21/2024 152.4 cm 27.9 kg/m2 14206.71 g RUFUS NAVARRO [facility] 08/21/2024 14:40:30 Date Recorded Body height Provider Name an d Address Organization Details Last Updated DateTime 11/13/2024 152.4 cm MAREN CARLOTTA [facility] 11/13/2024 09:31:37 Date Recorded Body height Body mass index (BMI) Body weight Provider Name and Address Organization Details Last Updated DateTime 12/20/2023 152.4 cm 28.3 kg/m2 13685.89 g RUFUS NAVARRO [facility] 12/20/2023 14:53:59 Date Recorded Body height Body mass index (BMI) Body weight Provider Name and Address Organization Details Last Updated DateTime 02/16/2024 152.4 cm 27.9 kg/m2 05834.71 [facility] 02/16/2024 15:32:24 Social History None recorded. Functional Status None recorded. Mental Status None recorded. Family History Nothing Reported. Medical History No medical history recorded. Gynecological HistoryNo gynecological history recorded. Obstetrics History GPAL:G 0 P 0 0 0 0 Past Encounters Encounter ID Performer Location Encounter Start Date Encounter Closed Date Diagnosis/Indication Diagnosis SNOMED-CT Code Diagnosis ICD10 Code Diagnosis IMO Codes Diagnosis Note [id number] Alberto Reynolds PA-C [place] [address] [place] [id number] 12/20/2023 14:21:48 01/05/2024 15:19:54 Pain of right knee joint 2622485619 59034 M25.561 Osteoarthr itis of knee 206208402 M17.9 [id number] Alberto Reynolds PA-C [place] [address] [place] [address] 02/16/2024 14:56:20 03/05/2024 08:45:01 Osteoarthritis of right knee joint 7450072400 99793 M17.11 [id number] Alberto Reynolds PA-C [facility] [place] [address] [place] [place] [address] 08/21/2024 14:32:13 08/30/2024 13:32:28 Osteoarthritis of right knee joint 8288636052 70600 M17.11 [id number] Nik Main PA-C [facility] [place] [address] [place] [id number] 11/13/2024 09:13:56 11/26/2024 10:56:35 Osteoarthritis of right knee joint 1755815692 08198 M17.11 1401360 Health Concerns Section Related Observation LastModified by Organization Detai ls LastModified Time None Recorded Concern Status LastModified by Organization Details LastModified Time None Recorded Advance Directives Directive None Recorded Payers Insurance Date Sequence Insurance Name Policy Number Policy Mendez Covered Member ID Mendez Member ID Guarantor Name 11/12/2024 1 [place] [employer] Nancy E Lefrancois [id number] Nancy E Lefrancois 11/26/2024 2 [place] [id number] Nancy E Lefrancois [id number] Nancy E Lefrancois Notes Date Note [...] gave good relief until recent. Problems ambulating. Zddx-bbg-kyvjpge medications are helping somewhat but not significantly. [...] scheduled. Nik Main PA-C [address] [facility] [address], [place], [address], [place] [facility] 11/13/2024 09:52:45 OBGyn Episode No OBEpisode recorded.
[2025-02-16 14:33] LABS: Alanine Aminotransferase 27 U/L (0-31); Albumin Level 4.2 g/dL (3.5-5.0); Alkaline Phosphatase 65 U/L (39-117); Anion Gap 13 (12-20); Aspartate Amino Transferase 30 U/L (5-31); Blood Urea Nitrogen 13 mg/dL (9-16); Calcium 10.7 mg/dL (8.4-10.2); Carbon Dioxide 23 mmol/L (22-29); Chloride 107 mmol/L (96-108); Creatinine Clr Calc Pharmacy 36.0; Estimated Glomerular Filt Rate 51; Magnesium 1.8 mg/dL (1.6-2.6); Potassium 4.0 mmol/L (3.3-5.1); Sodium 139 mmol/L (135-145); Total Protein 7.1 g/dL (6.5-8.0)
--- NOTE | 2025-02-16 14:33 | PC.NURSE ---
patient presented to the ED with a cough for 2 days. Patient found to be in afib rvr on arrival. Patient states she takes metoprolol for known afib at home. Patient denying any chest pain or fatigue. Upon admission HR 170s on he monitor. Patient appears altered, stating the year is 1924 x2. Stroke protocol initiated. IV placed in left forearm.
[2025-02-16 14:42] LABS: Glucose, Whole Blood 101 mg/dL (60-115)
[2025-02-16 14:44] LABS: Prothrombin Time Whole Bld POC 14.7 sec (11.1-13.5); ~PT, ~INR - Anti Coag Clinic 1.2 (0.9-1.1)
--- NOTE | 2025-02-16 14:53 | PC.NURSE ---
Patient went to [facility] connected to monitor accompanied by RN x2. Vital signs in chart.
[2025-02-16 14:55] LABS: Troponin-I High Sensitivity 4.0 ng/L (<3.5-17.0)
[2025-02-16 14:56] LABS: Resp Syncy Virus RNA Qual PCR NEGATIVE (Negative); SARS COV2 PCR INHOUSE NEGATIVE (Negative)
--- NOTE | 2025-02-16 16:51 | ECG_ITS ---
Test Reason : REPEAT Blood Pressure : */* mmHG Vent. Rate : 71 BPM Atrial Rate : 71 BPM P-R Int : 174 ms QRS Dur : 66 ms QT Int : 334 ms P-R-T Axes : * 44 5 degrees QTcB Int : 362 ms Artifact in tracing Atrial-paced rhythm Nonspecific ST and T wave abnormality Abnormal ECG When compared with ECG of 16-Feb-2025 14:03, Electronic atrial pacemaker has replaced Atrial fibrillation Vent. rate has decreased by 83 bpm Referred By: Yazmin Mortensen Electronically Signed By: CHUCHO PANDEY
--- NOTE | 2025-02-16 17:00 | PC.NURSE ---
Patient seems to have converted from afib RVR to NSR in the 70s. Repeat EKG done and in the chart. Provider notified. Patient currently resting in bed.
--- NOTE | 2025-02-16 17:24 | PM.IMHP ---
History of Present Illness Date of Service: 02/16/25 Chief Complaint: ams 79F PMH paroxysmal AFib on Pradaxa, Meniere's disease, GERD, JESU, osteoporosis, hyperlipidemia, COPD, sick sinus syndrome status post pacer, coronary artery disease presented with altered mental status. Patient states she has been feeling unwell for about 2 days. She has been having myalgias, generalized weakness, fatigue, subjective fevers. On day of presentation was noted to be confused with staring spells. Baseline is A and O x3. In ED, found to be flu positive, in rapid AFib 130s which converted to normal sinus rhythm with metoprolol. Patient's mental status returned to baseline. Review of Systems Review of Systems: Yes all other systems are reviewed and are negative [facility] Medical History Paroxysmal atrial fibrillation Persistent atrial fibrillation Active Meniere's disease Tubular adenoma Positive colorectal cancer screening using Cologuard test Hypercalcemia Diverticulosis Hiatal hernia GERD (gastroesophageal reflux disease) Epigastric pain Dysphagia JESU (obstructive sleep apnea) Hyperparathyroidism Osteoporosis Dyslipidemia Heart failure Cardiac pacemaker in situ Sick sinus syndrome COPD (chronic obstructive pulmonary disease) Family History Father COPD (chronic obstructive pulmonary disease) Mother CAD (coronary artery disease) CVD (cardiovascular disease) Daughter No problems noted. Surgical History H/O bilateral cataract extraction History of esophagogastroduodenoscopy (EGD) Hx of colonoscopy History of total abdominal hysterectomy and bilateral salpingo-oophorectomy History of total left knee replacement History of pacemaker History of laparoscopic cholecystectomy Social History Housing: House Alcohol intake: current Alcohol intake frequency: holidays/special occasions only Alcohol type: wine Patient Tobacco Use Status: Former Tobacco user Tobacco use type: Cigarette Smoked in Last 30 Days: No e-Cigarette/Vaping Use: Never Used Second Hand Smoke Exposure: No Advance Directives: No Advance Directives Information Provided: No Do you have a plan to hurt others: No Plan service: No Current occupational status: retired 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 Cognitive needs: No Hearing needs: No Vision needs: No Meds Allergies Allergy/AdvReac Type Severity Reaction Status Date / Time dronedarone (Multaq) Allergy Severe syncope Verified 02/16/25 13:58 flecainide Allergy Severe vertigo,blurry Verified 02/16/25 13:58 vision lisinopril (LISINOPRIL) Allergy Severe ANGIOEDEMA, Verified 02/16/25 13:58 bad cough, throat closing, tingling of head, cough losartan Allergy Intermediate dry cough, Verified 02/16/25 13:58 pruritus hydromorphone (Dilaudid) AdvReac Severe unresponsiv Verified 02/16/25 13:58 eness Active Medications: Current Medications Acetaminophen (Acetaminophen 325 Mg Tablet) 650 mg PO Q6H PRN PRN Reason: Pain, Mild 1-3,fever,headache Calcium Carbonate (Calcium Carbonate 750 Mg Tab.Chew) 750 mg PO Q4H PRN PRN Reason: Heartburn Magnesium Hydroxide (Milk Of Magnesia 30 Ml Oral.Susp) 30 ml PO DAILY PRN PRN Reason: Constipation Melatonin (Melatonin 3 Mg Tablet) 6 mg PO BEDTIME PRN PRN Reason: Insomnia Oseltamivir Phosphate (Oseltamivir Phosphate 75 Mg Capsule) 75 mg PO Q12H [facility] Stop: 02/21/25 05:16 Sodium Chloride (0.9 % Sodium Chloride Flush 3 Ml Syringe) 3 ml IVFLUSH QSHIFT [facility] Home Medications ?Medication ?Instructions ?Recorded ?Confirmed ?Last Taken ?Type multivitamin,op-pzay-aofrwzwz 1 tab PO DAILY 03/17/20 01/10/25 Unknown History (Complete Multivitamin tablet) vitamins A,C,H-jxjw-zoncal 4,296 1 cap PO BID 05/06/22 01/10/25 Unknown History mcg-226 mg-90 mg capsule (PreserVision AREDS) fluoride (sodium) 1.1 % dental 1 appl PO BEDTIME 07/28/22 01/10/25 Unknown History paste biotin 1,000 mcg chewable tablet 1,000 mcg PO DAILY 04/12/23 01/10/25 Unknown History cholecalciferol (vitamin D3) 50 50 mcg PO DAILY 09/18/24 01/10/25 Unknown History mcg (2,000 unit) capsule Physical Exam Vital Signs and Narrative: Vital Signs: Last Vital Signs Temp 98.4 F 02/16/25 16:58 Pulse 70 02/16/25 16:58 Resp 19 02/16/25 16:58 BP 118/71 02/16/25 16:58 Pulse Ox 97 02/16/25 16:58 O2 Del Method Room Air 02/16/25 16:58 BMI result Body Mass Index 27.9 General: AO X 3, no acute distress Resp: CTA bilateral, no accessory muscles used CVS: S1,S2,RRR GI: soft, non tender, non distended Neuro: motor grossly intact, alert Psych: appropriate affect, appropriate insight Results Labs 02/16/25 14:13 02/16/25 14:13 Labs: Laboratory Results - last 24 hr 02/16/25 02/16/25 02/16/25 14:13 14:18 14:37 MCV 88.8 MCH 29.1 MCHC 32.7 RDW 13.1 Plt Count 173 MPV 9.2 L Immature Gran % (Auto) 0.2 Neut % (Auto) 81.3 H Lymph % (Auto) 6.6 L [place] % (Auto) 10.9 Eos % (Auto) 0.8 Baso % (Auto) 0.2 Lymph # (Auto) 0.4 L [place] # (Auto) 0.6 Eos # (Auto) 0.1 Baso # (Auto) 0.0 Abs Immat Gran (auto) 0.01 Absolute Neuts (auto) 4.8 Absolute Nucleated RBC 0.000 Nucleated RBC % (auto) 0.0 Whole Blood PT 14.7 H Whole Blood INR 1.2 H VBG pH 7.45 H VBG pCO2 33 VBG pO2 66 VBG HCO3 23 VBG O2 Saturation 91.0 VBG Base Excess 0.4 Anion Gap 13 Estim Creat Clear Calc 36.0 Estimated GFR 51 POC Glucose 101 Random Glucose 115 Calcium 10.7 H D Magnesium 1.8 Total Bilirubin 0.7 AST 30 ALT 27 Alkaline Phosphatase 65 Troponin I High Sens 4.0 Total Protein 7.1 Albumin 4.2 Influenza Type A (PCR) POSITIVE A Influenza Type B (PCR) NEGATIVE RSV RNA Qual (PCR) NEGATIVE SARS-CoV-2 RNA (RT-PCR) NEGATIVE Assessment and Plan (1) Paroxysmal atrial fibrillation: Status: Acute Plan 79F PMH paroxysmal AFib on Pradaxa, Meniere's disease, GERD, JESU, osteoporosis, hyperlipidemia, COPD, sick sinus syndrome status post pacer, coronary artery disease presented with altered mental status Acute metabolic encephalopathy due to flu a Mental status back to baseline, start Tamiflu day 1 (end date 02/20/25) Check MRI rule out TIA Paroxysmal AFib with RVR Back in sinus, continue Pradaxa, metoprolol CAD Continue Pradaxa, statin JESU Borderline not using CPAP May need nocturnal O2 DVT prophylaxis with Pradaxa Full code Quality Stroke Does the patient have a stroke diagnosis?: No VTE Prior VTE?: No VTE Risk Level:: Medical - moderate - high VTE Device Contraindication: Treatment Not Indicated VTE Drug Contraindication: N/A - Med Ordered
--- NOTE | 2025-02-16 17:24 | HO.NURTONUR ---
Patient is a 79 year old female presenting to the ED [facility] fatigue, fevers, cough, and generalized weakness for 3 days. When patient was brought in, she was found to be in afib RVR with rates in 140-160s. She has history of afib on thinners, CHF and COPD. Noted to have sudden confusion when presenting here, stating the year was 1924. Stroke protocol called for patient. HCT negative. Patient also received 3 doses of IV metoprolol, and one PO dose. Patient converted back to NSR around 1700. CXR negative. Nasal swab positive for influenza A. 20g IV in right FA.
--- NOTE | 2025-02-16 17:50 | MHC.EDTECH ---
counted patients gilbert with RN twice. $419 in gilbert , given to security and white slip put into her chart for when she picks up the gilbert upon discharge .
--- NOTE | 2025-02-16 18:21 | PHA.MEDREC ---
Addendum entered by Bessie Rogers RPh 02/16/25 18:29: Reviewed by pharmacist Original Note: Pharmacy Consult ? Medication Reconciliation Pharmacy has completed the medication reconciliation. Confirmed medication list with patient and against pharmacy claims. Patient could not confirm what day of the week she took her Alendronate 70 mg tablet. Patient took morning dose of Pradaxa today.
[2025-02-16] MEDS: 0.9 % Sodium Chloride Flush 3 ML SYRINGE IVFLUSH (19:23)
[2025-02-17] VITALS (7 sets, daily range): BP systolic 101–129; BP diastolic 62–87; PULSE 71–101; RESP 16–20; TEMP 36.7–37.9; O2SAT 92–97
[2025-02-17 08:07] LABS: Hematocrit 37.0 % (37.0-47.0); Hemoglobin 11.8 g/dl (12.0-16.0); Mean Corpuscular HGB Conc 31.9 g/dl (31.0-35.0); Mean Corpuscular Hemoglobin 29.1 pg (27.0-33.0); Mean Corpuscular Volume 91.1 fL (80.0-98.0); NRBC Abs Auto 0.000 X10*3/uL (0.0-0.012); NRBC Pct Auto 0.0 /100WBC (0.0-0.2); Platelet Count 164 X10*3/uL (160-400); Red Blood Count 4.06 X10*6/uL (4.20-5.50); White Blood Count 4.8 X10*3/uL (4.8-10.8)
[2025-02-17] MEDS: 0.9 % Sodium Chloride Flush 3 ML SYRINGE IVFLUSH ×3 (08:23→20:17)
[2025-02-17] MEDS: Metoprolol Succinate ER 50 MG TAB.ER.24H PO (08:25)
[2025-02-17 08:49] LABS: Anion Gap 13 (12-20); Blood Urea Nitrogen 15 mg/dL (9-16); Carbon Dioxide 24 mmol/L (22-29); Chloride 105 mmol/L (96-108); Cholesterol 109 mg/dL (<200); Creatinine Clr Calc Pharmacy 34.9; Estimated Glomerular Filt Rate 50; HDL Cholesterol 41 mg/dL (>40); Magnesium 1.9 mg/dL (1.6-2.6); Potassium 4.4 mmol/L (3.3-5.1); Sodium 138 mmol/L (135-145); Triglycerides 53 mg/dL (<150)
[2025-02-17 09:04] LABS: Calcium 9.4 mg/dL (8.4-10.2)
--- NOTE | 2025-02-17 10:27 | P.PNIM_ITS ---
Subjective Subjective Date of Service: 02/17/25 Interval History: febrile, feeling ill Physical Exam 2 Exam: Exam: Alert oriented x3, ill-appearing, frail, lungs clear, abdomen soft, no motor deficits Vital Signs: Vital Signs: Last Vital Signs Temp 100.2 F 02/17/25 07:46 Pulse 73 02/17/25 07:46 Resp 18 02/17/25 07:46 BP 117/65 02/17/25 07:46 Pulse Ox 95 02/17/25 07:46 O2 Del Method Room Air 02/17/25 07:46 BMI result Body Mass Index 27.3 Objective Data Active Medications Acetaminophen (Acetaminophen 325 Mg Tablet) 650 mg PO Q6H PRN PRN Reason: Pain, Mild 1-3,fever,headache Last Admin: 02/17/25 01:18 Dose: 650 mg Documented By: NEGAR Atorvastatin Calcium (Atorvastatin Calcium 40 Mg Tablet) 40 mg PO BEDTIME [facility] Last Admin: 02/16/25 19:15 Dose: 40 mg Documented By: NEGAR Benzocaine (Throat Lozenge, Medicated Lozenge) 1 lozenge MUCOUS MEM Q2H PRN PRN Reason: Sore Throat Benzonatate (Benzonatate 100 Mg Capsule) 100 mg PO TID PRN PRN Reason: Cough Last Admin: 02/17/25 08:25 Dose: 100 mg Documented By: MELINA Calcium Carbonate (Calcium Carbonate 750 Mg Tab.Chew) 750 mg PO Q4H PRN PRN Reason: Heartburn Dabigatran (Dabigatran Etexilate Mesylate 150 Mg Capsule) 150 mg PO BID [facility] Last Admin: 02/17/25 08:23 Dose: 150 mg Documented By: MELINA Magnesium Hydroxide (Milk Of Magnesia 30 Ml Oral.Susp) 30 ml PO DAILY PRN PRN Reason: Constipation Melatonin (Melatonin 3 Mg Tablet) 6 mg PO BEDTIME PRN PRN Reason: Insomnia Metoprolol Succinate (Metoprolol Succinate Er 50 Mg Tab.Er.24h) 50 mg PO DAILY [facility]; Protocol Last Admin: 02/17/25 08:25 Dose: 50 mg Documented By: MELINA Midodrine (Midodrine Hcl 2.5 Mg Tablet) 1.25 mg PO BID@0900,1700 [facility] Last Admin: 02/17/25 08:24 Dose: 1.25 mg Documented By: MELINA Multivitamins/Vitamin C (Multivitamin Tablet) 1 tab PO DAILY [facility] Omeprazole (Omeprazole 20 Mg Capsule.) 20 mg PO DAILY@0630 [facility] Last Admin: 02/17/25 06:17 Dose: 20 mg Documented By: NEGAR Oseltamivir Phosphate (Oseltamivir Phosphate 30 Mg Capsule) 30 mg PO Q12H [facility] Stop: 02/21/25 07:01 Last Admin: 02/17/25 06:17 Dose: 30 mg Documented By: NEGAR Polyethylene Glycol (Polyethylene Glycol 3350 17 Gm Powd.Pack) 17 gm PO DAILY [facility] Sodium Chloride (0.9 % Sodium Chloride Flush 3 Ml Syringe) 3 ml IVFLUSH QSHIFT [facility] Last Admin: 02/17/25 08:23 Dose: 3 ml Documented By: MELINA Vitamin D (Cholecalciferol (Vitamin D3) 25 Mcg Tablet) 50 mcg PO DAILY [facility] Last Admin: 02/17/25 08:23 Dose: 50 mcg Documented By: MELINA Labs 02/17/25 07:11 02/17/25 07:11 Labs: Laboratory Results - last 24 hr 02/16/25 02/16/25 02/16/25 14:13 14:18 14:37 MCV 88.8 MCH 29.1 MCHC 32.7 RDW 13.1 Plt Count 173 MPV 9.2 L Immature Gran % (Auto) 0.2 Neut % (Auto) 81.3 H Lymph % (Auto) 6.6 L [place] % (Auto) 10.9 Eos % (Auto) 0.8 Baso % (Auto) 0.2 Lymph # (Auto) 0.4 L [place] # (Auto) 0.6 Eos # (Auto) 0.1 Baso # (Auto) 0.0 Abs Immat Gran (auto) 0.01 Absolute Neuts (auto) 4.8 Absolute Nucleated RBC 0.000 Nucleated RBC % (auto) 0.0 Whole Blood PT 14.7 H Whole Blood INR 1.2 H VBG pH 7.45 H VBG pCO2 33 VBG pO2 66 VBG HCO3 23 VBG O2 Saturation 91.0 VBG Base Excess 0.4 Anion Gap 13 Estim Creat Clear Calc 36.0 Estimated GFR 51 POC Glucose 101 Random Glucose 115 Calcium 10.7 H D Magnesium 1.8 Total Bilirubin 0.7 AST 30 ALT 27 Alkaline Phosphatase 65 Troponin I High Sens 4.0 Total Protein 7.1 Albumin 4.2 Triglycerides Cholesterol LDL Cholesterol, Calc HDL Cholesterol Influenza Type A (PCR) POSITIVE A Influenza Type B (PCR) NEGATIVE RSV RNA Qual (PCR) NEGATIVE SARS-CoV-2 RNA (RT-PCR) NEGATIVE 02/17/25 07:11 MCV 91.1 MCH 29.1 MCHC 31.9 RDW 13.3 Plt Count 164 MPV 10.1 Immature Gran % (Auto) Neut % (Auto) Lymph % (Auto) [place] % (Auto) Eos % (Auto) Baso % (Auto) Lymph # (Auto) [place] # (Auto) Eos # (Auto) Baso # (Auto) Abs Immat Gran (auto) Absolute Neuts (auto) Absolute Nucleated RBC 0.000 Nucleated RBC % (auto) 0.0 Whole Blood PT Whole Blood INR VBG pH VBG pCO2 VBG pO2 VBG HCO3 VBG O2 Saturation VBG Base Excess Anion Gap 13 Estim Creat Clear Calc 34.9 Estimated GFR 50 POC Glucose Random Glucose 79 Calcium 9.4 D Magnesium 1.9 Total Bilirubin AST ALT Alkaline Phosphatase Troponin I High Sens Total Protein Albumin Triglycerides 53 Cholesterol 109 LDL Cholesterol, Calc 58 HDL Cholesterol 41 Influenza Type A (PCR) Influenza Type B (PCR) RSV RNA Qual (PCR) SARS-CoV-2 RNA (RT-PCR) Assessment and Plan (1) Paroxysmal atrial fibrillation: Status: Acute Plan 79F PMH paroxysmal AFib on Pradaxa, Meniere's disease, GERD, JESU, osteoporosis, hyperlipidemia, COPD, sick sinus syndrome status post pacer, coronary artery disease presented with altered mental status Acute metabolic encephalopathy due to flu a Mental status back to baseline, started Tamiflu day 2 (end date 02/20/25) Unable to get MRI due to pacer, doubt TIA Paroxysmal AFib with RVR Back in sinus, continue Pradaxa, metoprolol CAD Continue Pradaxa, statin JESU Borderline not using CPAP DVT prophylaxis with Pradaxa Full code reason for continued hospitalization: Given ongoing fevers and overall feeling unwell expected to still require close monitoring and hospitalization therefore will change to inpatient Quality Stroke Does the patient have a stroke diagnosis?: No VTE Prior VTE?: No VTE Risk Level:: Medical - moderate - high VTE Device Contraindication: Treatment Not Indicated VTE Drug Contraindication: N/A - Med Ordered
[2025-02-17 14:21] LABS: Appearance Urine Clear; Glucose Urine UA Negative (Negative); PH 5.0 (5.0-9.0); Specific Gravity - Urine 1.025 (1.005-1.025); UMIC TRIGGER UACC YES
--- NOTE | 2025-02-17 14:52 | MHC.CM.PN ---
ANGI GIVEN 02/17. THIS CM MET WITH PATIENT, SHE STATES SHE LIVES AT HOME ALONE AND IS INDEPENDENT WITH HER OWN CARE. PATIENTS DAUGHTER WILL TRANSPORT HER HOME AT DISCHARGE. HCP ON FILE AND VERIFIED. PCP: DR. KEELEY VASQUEZ
[2025-02-18] VITALS (10 sets, daily range): BP systolic 92–129; BP diastolic 51–81; PULSE 84–135; RESP 18–20; TEMP 36–37.4; O2SAT 94–95
--- NOTE | 2025-02-18 | ECG_ITS ---
Test Reason : RAPID HEART RATE Blood Pressure : */* mmHG Vent. Rate : 106 BPM Atrial Rate : * BPM P-R Int : * ms QRS Dur : 80 ms QT Int : 322 ms P-R-T Axes : * 6 4 degrees QTcB Int : 427 ms Atrial fibrillation with rapid ventricular response with occasional ventricular-paced complexes and Premature supraventricular complexes Abnormal ECG When compared with ECG of 16-Feb-2025 16:53, Atrial fibrillation with rapid ventricular response has replaced Electronic atrial pacemaker Vent. rate has increased by 35 bpm Referred By: Yazmin Mortensen Electronically Signed By: BELEN GALINDO MD
--- NOTE | 2025-02-18 04:10 | PM.EVENT ---
Event Note Date of Service: 02/18/25 Event Note: Brief unresponsive episode : Rapid response was called Patient had a brief unresponsive episode while on the commode for bowel movement. Likely vasovagal. Patient was brought back to the bed. On exam patient was responding, following commands, exam grossly nonfocal; moves all extremities equally; EKG tachycardic-> AFib-> heart rate fluctuating between 110-140. Blood glucose 116; systolic blood pressure 120. Will obtain stat CT head, labs Time Spent With Patient Time: Total time managing care of this patient today ____ minutes.
[2025-02-18 04:52] LABS: Glucose, Whole Blood 114 mg/dL (60-115)
--- NOTE | 2025-02-18 05:01 | PC.NURSE ---
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 Vital signs stable prior. T:98.6 HR: 96 BP: 107/73. O2: 94% Room Air. After voiding, patient reports becoming increasingly dizzy, and ultimately unresponsive on toilet. Rapid Response called. Patient unresponsive to voice and sternal rub. Assisted back to bed, where patient became alert and oriented about one minute. Able to follow directions and move all extremities.Vital signs at 0404 HR:84 BP: 129/81 O2:94% room air. Patient reports nausea following the event. Zofran ordered and administered per MAY. Labs collected and patient brought to CT scan.
[2025-02-18 05:20] LABS: MANUAL DIFF FLAG NO
[2025-02-18 05:22] LABS: Hematocrit 40.3 % (37.0-47.0); Hemoglobin 13.0 g/dl (12.0-16.0); Imm Gran Abs Auto 0.01 X10*3/uL (0.00-0.03); Imm Gran Pct Auto 0.2 % (0.0-0.4); Lymphocytes Absolute Auto 1.7 X10*3/uL (1.2-4.9); Mean Corpuscular HGB Conc 32.3 g/dl (31.0-35.0); Mean Corpuscular Hemoglobin 28.9 pg (27.0-33.0); Mean Corpuscular Volume 89.6 fL (80.0-98.0); NRBC Abs Auto 0.000 X10*3/uL (0.0-0.012); NRBC Pct Auto 0.0 /100WBC (0.0-0.2); Platelet Count 166 X10*3/uL (160-400); Red Blood Count 4.50 X10*6/uL (4.20-5.50); White Blood Count 5.0 X10*3/uL (4.8-10.8)
[2025-02-18 05:43] LABS: Anion Gap 13 (12-20); Blood Urea Nitrogen 15 mg/dL (9-16); Calcium 9.4 mg/dL (8.4-10.2); Carbon Dioxide 22 mmol/L (22-29); Chloride 104 mmol/L (96-108); Creatinine Clr Calc Pharmacy 37.7; Estimated Glomerular Filt Rate 55; Magnesium 1.8 mg/dL (1.6-2.6); Potassium 4.1 mmol/L (3.3-5.1); Sodium 135 mmol/L (135-145)
[2025-02-18 05:47] LABS: Troponin-I High Sensitivity 9.5 ng/L (<3.5-17.0)
[2025-02-18] MEDS: Throat Lozenge, Medicated LOZENGE 1 LOZENGE MUCOUS MEM (07:52)
[2025-02-18] MEDS: 0.9 % Sodium Chloride Flush 3 ML SYRINGE IVFLUSH ×3 (07:53→19:44)
[2025-02-18] MEDS: Metoprolol Succinate ER 50 MG TAB.ER.24H PO (07:53)
--- NOTE | 2025-02-18 10:24 | MHC.CM.PN ---
Patient has been changed to INPATIENT; CM addressed IMM with her.
--- NOTE | 2025-02-18 16:22 | P.PNIM_ITS ---
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; no acute disease on CT head AF/RVR this AM in 130s-150s Review of Systems Review of Systems: Yes all other systems are reviewed and are negative Physical Exam 2 Vital Signs: Vital Signs: Last Vital Signs Temp 97.6 F 02/18/25 15:23 Pulse 89 02/18/25 15:23 Resp 18 02/18/25 15:23 BP 92/51 L 02/18/25 15:23 Pulse Ox 94 02/18/25 15:23 O2 Del Method Room Air 02/18/25 15:23 BMI result Body Mass Index 27.3 Gen: in no acute distress HEENT: sclera anicteric, moist mucus membranes Neck: supple Lungs: diminished Heart: rapid, irregular, no murmurs Abd: soft, non-tender, non-distended Ext: no edema Skin: warm/well-perfused Neuro: alert and oriented x3, no focal findings Psych: appropriate affect Objective Data Active Medications Acetaminophen (Acetaminophen 325 Mg Tablet) 650 mg PO Q6H PRN PRN Reason: Pain, Mild 1-3,fever,headache Last Admin: 02/18/25 07:52 Dose: 650 mg Documented By: LILLIE Atorvastatin Calcium (Atorvastatin Calcium 40 Mg Tablet) 40 mg PO BEDTIME [facility] Last Admin: 02/17/25 20:16 Dose: 40 mg Documented By: STANLEY Benzocaine (Throat Lozenge, Medicated Lozenge) 1 lozenge MUCOUS MEM Q2H PRN PRN Reason: Sore Throat Last Admin: 02/18/25 07:52 Dose: 1 lozenge Documented By: LILLIE Benzonatate (Benzonatate 100 Mg Capsule) 100 mg PO TID PRN PRN Reason: Cough Last Admin: 02/17/25 15:12 Dose: 100 mg Documented By: MELINA Calcium Carbonate (Calcium Carbonate 750 Mg Tab.Chew) 750 mg PO Q4H PRN PRN Reason: Heartburn Dabigatran (Dabigatran Etexilate Mesylate 150 Mg Capsule) 150 mg PO BID [facility] Last Admin: 02/18/25 07:52 Dose: 150 mg Documented By: LILLIE Magnesium Hydroxide (Milk Of Magnesia 30 Ml Oral.Susp) 30 ml PO DAILY PRN PRN Reason: Constipation Melatonin (Melatonin 3 Mg Tablet) 6 mg PO BEDTIME PRN PRN Reason: Insomnia Metoprolol Succinate (Metoprolol Succinate Er 50 Mg Tab.Er.24h) 50 mg PO DAILY [facility]; Protocol Last Admin: 02/18/25 07:53 Dose: 50 mg Documented By: LILLIE Midodrine (Midodrine Hcl 2.5 Mg Tablet) 1.25 mg PO BID@0900,1700 [facility] Last Admin: 02/18/25 07:52 Dose: 1.25 mg Documented By: LILLIE Multivitamins/Vitamin C (Multivitamin Tablet) 1 tab PO DAILY [facility] Last Admin: 02/18/25 07:52 Dose: 1 tab Documented By: LILLIE Omeprazole (Omeprazole 20 Mg Capsule.Dr) 20 mg PO DAILY@0630 [facility] Last Admin: 02/18/25 05:36 Dose: 20 mg Documented By: STANLEY Oseltamivir Phosphate (Oseltamivir Phosphate 30 Mg Capsule) 30 mg PO Q12H [facility] Stop: 02/21/25 07:01 Last Admin: 02/18/25 07:52 Dose: 30 mg Documented By: LILLIE Polyethylene Glycol (Polyethylene Glycol 3350 17 Gm Powd.Pack) 17 gm PO DAILY [facility] Last Admin: 02/18/25 07:51 Dose: Not Given Documented By: LILLIE Non-Admin Reason: Patient Refused Sodium Chloride (0.9 % Sodium Chloride Flush 3 Ml Syringe) 3 ml IVFLUSH QSHIFT [facility] Last Admin: 02/18/25 07:53 Dose: 3 ml Documented By: LILLIE Vitamin D (Cholecalciferol (Vitamin D3) 25 Mcg Tablet) 50 mcg PO DAILY [facility] Last Admin: 02/18/25 07:52 Dose: 50 mcg Documented By: LILLIE Labs 02/18/25 04:39 02/18/25 04:39 Labs: Laboratory Results - last 24 hr 02/18/25 02/18/25 04:00 04:39 MCV 89.6 MCH 28.9 MCHC 32.3 RDW 13.2 Plt Count 166 MPV 9.9 Immature Gran % (Auto) 0.2 Neut % (Auto) 47.2 Lymph % (Auto) 33.7 [place] % (Auto) 17.7 H Eos % (Auto) 0.6 Baso % (Auto) 0.6 Lymph # (Auto) 1.7 [place] # (Auto) 0.9 Eos # (Auto) 0.0 Baso # (Auto) 0.0 Abs Immat Gran (auto) 0.01 Absolute Neuts (auto) 2.4 Absolute Nucleated RBC 0.000 Nucleated RBC % (auto) 0.0 Anion Gap 13 Estim Creat Clear Calc 37.7 Estimated GFR 55 POC Glucose 114 Random Glucose 120 H Lactic Acid 1.7 Calcium 9.4 Magnesium 1.8 Troponin I High Sens 9.5 D Assessment and Plan (1) Paroxysmal atrial fibrillation: Status: Acute Plan d2, 79yo F with pAF on Pradaxa, Menieres disease, GERD, JESU, osteoporosis, HLD, COPD, SSS s/p PPM, CAD presenting with AMS, found to have influenza A influenza A - Tamiflu 02/16-02/21/25, not hypoxic acute encephalopathy due to infection - resolving with treating infection AF/RVR - continue Pradaxa, metoprolol [got 1-time IV dose 02/18] orthostatic hypotension: on chronic midodrine CAD: continue statin, Pradaxa JESU: borderline, not on CPAP VTE ppx: Pradaxa dispo: TBD In my clinical judgment, the patient requires continued inpatient hospitalization for the following reasons: AF/RVR Total time managing care of this patient today: 40 minutes. Quality Stroke Does the patient have a stroke diagnosis?: No VTE Prior VTE?: No VTE Risk Level:: Medical - moderate - high VTE Device Contraindication: Treatment Not Indicated VTE Drug Contraindication: N/A - Med Ordered
[2025-02-19] VITALS (7 sets, daily range): BP systolic 105–136; BP diastolic 55–84; PULSE 70–118; RESP 16–22; TEMP 36.1–36.9; O2SAT 94–97
[2025-02-19] MEDS: Metoprolol Succinate ER 50 MG TAB.ER.24H PO (07:50)
[2025-02-19] MEDS: 0.9 % Sodium Chloride Flush 3 ML SYRINGE IVFLUSH (07:51)
[2025-02-19 07:57] LABS: Anion Gap 8 (12-20); Blood Urea Nitrogen 16 mg/dL (9-16); Calcium 9.1 mg/dL (8.4-10.2); Carbon Dioxide 24 mmol/L (22-29); Chloride 109 mmol/L (96-108); Creatinine Clr Calc Pharmacy 39.4; Estimated Glomerular Filt Rate 58; Magnesium 1.7 mg/dL (1.6-2.6); Potassium 3.9 mmol/L (3.3-5.1); Sodium 137 mmol/L (135-145)
[2025-02-19] MEDS: Metoprolol Succinate ER 25 MG TAB.ER.24H PO (08:06)
--- NOTE | 2025-02-19 12:44 | HO.PM.IMPN ---
Subjective Subjective Date of Service: 02/19/25 Interval History: AF/RVR up to 120s this AM, now NSR feeling less short of breath afebrile Review of Systems Review of Systems: Yes all other systems are reviewed and are negative Physical Exam Vital Signs: Vital Signs: Last Vital Signs Temp 96.9 F 02/19/25 10:57 Pulse 72 02/19/25 10:57 Resp 16 02/19/25 10:57 BP 112/67 02/19/25 10:57 Pulse Ox 97 02/19/25 10:57 O2 Del Method Room Air 02/19/25 10:57 BMI result Body Mass Index 27.3 Gen: in no acute distress HEENT: sclera anicteric, moist mucus membranes Neck: supple Lungs: diminished Heart: regular, no murmurs Abd: soft, non-tender, non-distended Ext: no edema Skin: warm/well-perfused Neuro: alert and oriented x3, no focal findings Psych: appropriate affect Objective Data Active Medications Acetaminophen (Acetaminophen 325 Mg Tablet) 650 mg PO Q6H PRN PRN Reason: Pain, Mild 1-3,fever,headache Last Admin: 02/18/25 07:52 Dose: 650 mg Documented By: LILLIE Atorvastatin Calcium (Atorvastatin Calcium 40 Mg Tablet) 40 mg PO BEDTIME [facility] Last Admin: 02/18/25 19:44 Dose: 40 mg Documented By: SELWYN Benzocaine (Throat Lozenge, Medicated Lozenge) 1 lozenge MUCOUS MEM Q2H PRN PRN Reason: Sore Throat Last Admin: 02/18/25 07:52 Dose: 1 lozenge Documented By: LILLIE Benzonatate (Benzonatate 100 Mg Capsule) 100 mg PO TID PRN PRN Reason: Cough Last Admin: 02/17/25 15:12 Dose: 100 mg Documented By: MELINA Calcium Carbonate (Calcium Carbonate 750 Mg Tab.Chew) 750 mg PO Q4H PRN PRN Reason: Heartburn Dabigatran (Dabigatran Etexilate Mesylate 150 Mg Capsule) 150 mg PO BID [facility] Last Admin: 02/19/25 07:50 Dose: 150 mg Documented By: COOPEEA Magnesium Hydroxide (Milk Of Magnesia 30 Ml Oral.Susp) 30 ml PO DAILY PRN PRN Reason: Constipation Melatonin (Melatonin 3 Mg Tablet) 6 mg PO BEDTIME PRN PRN Reason: Insomnia Metoprolol Succinate (Metoprolol Succinate Er 25 Mg Tab.Er.24h) 75 mg PO DAILY [facility]; Protocol Midodrine (Midodrine Hcl 2.5 Mg Tablet) 1.25 mg PO BID@0900,1700 [facility] Last Admin: 02/19/25 07:50 Dose: 1.25 mg Documented By: KRISTA Multivitamins/Vitamin C (Multivitamin Tablet) 1 tab PO DAILY [facility] Last Admin: 02/19/25 07:50 Dose: 1 tab Documented By: KRISTA Omeprazole (Omeprazole 20 Mg Capsule.Dr) 20 mg PO DAILY@0630 [facility] Last Admin: 02/19/25 05:09 Dose: 20 mg Documented By: SELWYN Oseltamivir Phosphate (Oseltamivir Phosphate 30 Mg Capsule) 30 mg PO Q12H [facility] Stop: 02/21/25 07:01 Last Admin: 02/19/25 06:23 Dose: 30 mg Documented By: SELWYN Polyethylene Glycol (Polyethylene Glycol 3350 17 Gm Powd.Pack) 17 gm PO DAILY [facility] Last Admin: 02/19/25 07:44 Dose: Not Given Documented By: KRISTA Non-Admin Reason: Patient Refused Sodium Chloride (0.9 % Sodium Chloride Flush 3 Ml Syringe) 3 ml IVFLUSH QSHIFT [facility] Last Admin: 02/19/25 07:51 Dose: 3 ml Documented By: KRISTA Vitamin D (Cholecalciferol (Vitamin D3) 25 Mcg Tablet) 50 mcg PO DAILY [facility] Last Admin: 02/19/25 07:50 Dose: 50 mcg Documented By: KRISTA Labs 02/18/25 04:39 02/19/25 07:09 Labs: Laboratory Results - last 24 hr 02/19/25 07:09 Hold Purple Top SEE NOTE Anion Gap 8 L Estim Creat Clear Calc 39.4 Estimated GFR 58 Random Glucose 92 Calcium 9.1 Magnesium 1.7 Assessment and Plan (1) Paroxysmal atrial fibrillation: Status: Acute Plan d3, 79yo F with pAF on Pradaxa, Menieres disease, GERD, JESU, osteoporosis, HLD, COPD, SSS s/p PPM, CAD presenting with AMS, found to have influenza A influenza A - Tamiflu 02/16-02/21/25, not hypoxic acute encephalopathy due to infection - resolving with treating infection AF/RVR - continue Pradaxa, increase metoprolol succinate from 50 to 75 mg/d today [got 1-time IV dose 5 mg metoprolol tartrate 02/18] orthostatic hypotension: on chronic midodrine CAD: continue statin, Pradaxa JESU: borderline, not on CPAP VTE ppx: Pradaxa dispo: likely home tomorrow if no AF/RVR In my clinical judgment, the patient requires continued inpatient hospitalization for the following reasons: AF/RVR Total time managing care of this patient today: 35 minutes. Quality Stroke Does the patient have a stroke diagnosis?: No VTE Prior VTE?: No VTE Risk Level:: Medical - moderate - high VTE Device Contraindication: Treatment Not Indicated VTE Drug Contraindication: N/A - Med Ordered
--- NOTE | 2025-02-19 18:26 | ECG_ITS ---
Test Reason : CHECK HEART RATE Blood Pressure : */* mmHG Vent. Rate : 70 BPM Atrial Rate : 70 BPM P-R Int : 178 ms QRS Dur : 82 ms QT Int : 376 ms P-R-T Axes : -18 32 23 degrees QTcB Int : 406 ms Atrial-paced rhythm Abnormal ECG When compared with ECG of 18-Feb-2025 04:00, Electronic atrial pacemaker has replaced Atrial fibrillation with ventricular-paced complexes Vent. rate has decreased by 36 bpm Referred By: Yazmin Mortensen Electronically Signed By: BELEN GALINDO MD
[2025-02-20 03:25] VITALS: BP 119/64; PULSE 82; RESP 18; TEMP 36.4; O2SAT 97
[2025-02-20 07:18] VITALS: BP 130/65; PULSE 74; RESP 16; TEMP 36.3; O2SAT 98
[2025-02-20 08:41] VITALS: BP 130/65; PULSE 74
[2025-02-20] MEDS: Metoprolol Succinate ER 25 MG TAB.ER.24H 75 MG PO (08:41)
[2025-02-20] MEDS: 0.9 % Sodium Chloride Flush 3 ML SYRINGE IVFLUSH ×2 (08:44)
[2025-02-20 09:06] VITALS: BP 130/65
[2025-02-20 11:09] VITALS: BP 138/72; PULSE 78; RESP 16; TEMP 36.2; O2SAT 96
--- NOTE | 2025-02-20 11:20 | P.DS_ITS ---
DS: Providers Provider Date of Service: 02/20/25 Date of admission: 02/17/25 10:19 Date of discharge: 02/20/25 Primary care physician: Homa Jones MD DS: Diagnosis Discharge Diagnosis (1) Paroxysmal atrial fibrillation: Status: Acute (2) Atrial fibrillation with RVR: Status: Acute (3) Acute encephalopathy due to infection: Status: Acute DS: Summary Hospital Course Hospital Course: From the history and physical by the admitting hospitalist, Luis Dallas MD, 02/16/25: '79F PMH paroxysmal AFib on Pradaxa, Meniere's disease, GERD, JESU, osteoporosis, hyperlipidemia, COPD, sick sinus syndrome status post pacer, coronary artery disease presented with altered mental status. Patient states she has been feeling unwell for about 2 days. She has been having myalgias, generalized weakness, fatigue, subjective fevers. On day of presentation was noted to be confused with staring spells. Baseline is A and O x3. In ED, found to be flu positive, in rapid AFib 130s which converted to normal sinus rhythm with metoprolol. 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 She was treated with Tamiflu. Not hypoxic and no evidence of bacterial superinfection with pnemonia. Encephalopathy resolved with flu treatment. For AF/RVR, metoprolol succinate was increased to 75 mg/d and she converted to sinus rhythm. Pradaxa was continued. She was discharged home and will take 1 more day of Tamiflu and increase metoprolol succinate as above. Time Attestation Discharge Coordination Time (in mins): 35 Quality: Safe Use of Opioids Does Pt have an Active Cancer Diagnosis on the Problem List?: No Quality: Stroke Does the patient have a stroke diagnosis?: No Physical Exam Vital Signs: Vital Signs: Last Vital Signs Temp 97.1 F 02/20/25 11:09 Pulse 78 02/20/25 11:09 Resp 16 02/20/25 11:09 BP 138/72 02/20/25 11:09 Pulse Ox 96 02/20/25 11:09 O2 Del Method Room Air 02/20/25 11:09 BMI result Body Mass Index 27.3 Gen: in no acute distress HEENT: sclera anicteric, moist mucus membranes Neck: supple Lungs: clear to auscultation bilaterally Heart: regular rate and rhythm, no murmurs Abd: soft, non-tender, non-distended Ext: no edema Skin: warm/well-perfused Neuro: alert and oriented x3, no focal findings Psych: appropriate affect DS: Data Data Completed and Pending Completed studies during hospitalization [Text1]: Laboratory Results WBC 5.0 X10*3/uL (4.8-10.8) 02/18/25 04:39 RBC 4.50 X10*6/uL (4.20-5.50) 02/18/25 04:39 Hgb 13.0 g/dl (12.0-16.0) 02/18/25 04:39 Hct 40.3 % (37.0-47.0) 02/18/25 04:39 MCV 89.6 fL (80.0-98.0) 02/18/25 04:39 MCH 28.9 pg (27.0-33.0) 02/18/25 04:39 MCHC 32.3 g/dl (31.0-35.0) 02/18/25 04:39 RDW 13.2 % (11.0-16.0) 02/18/25 04:39 Plt Count 166 X10*3/uL (160-400) 02/18/25 04:39 MPV 9.9 fL (9.4-12.3) 02/18/25 04:39 Immature Gran % (Auto) 0.2 % (0.0-0.4) 02/18/25 04:39 Neut % (Auto) 47.2 % (45-73) 02/18/25 04:39 Lymph % (Auto) 33.7 % (20-40) 02/18/25 04:39 Kerr % (Auto) 17.7 % (2-11) H 02/18/25 04:39 Eos % (Auto) 0.6 % (0-4) 02/18/25 04:39 Baso % (Auto) 0.6 % (0-2) 02/18/25 04:39 Lymph # (Auto) 1.7 X10*3/uL (1.2-4.9) 02/18/25 04:39 Kerr # (Auto) 0.9 X10*3/uL (0.1-1.2) 02/18/25 04:39 Eos # (Auto) 0.0 X10*3/uL (0.0-0.4) 02/18/25 04:39 Baso # (Auto) 0.0 X10*3/uL (0.0-0.2) 02/18/25 04:39 Abs Immat Gran (auto) 0.01 X10*3/uL (0.00-0.03) 02/18/25 04:39 Absolute Neuts (auto) 2.4 x10*3/uL (2.0-8.3) 02/18/25 04:39 Absolute Nucleated RBC 0.000 X10*3/uL (0.0-0.012) 02/18/25 04:39 Nucleated RBC % (auto) 0.0 /100WBC (0.0-0.2) 02/18/25 04:39 Hold Purple Top SEE NOTE 02/19/25 07:09 Whole Blood PT 14.7 sec (11.1-13.5) H 02/16/25 14:37 Whole Blood INR 1.2 (0.9-1.1) H 02/16/25 14:37 VBG pH 7.45 (7.32-7.43) H 02/16/25 14:18 VBG pCO2 33 mmHg 02/16/25 14:18 VBG pO2 66 mmHg 02/16/25 14:18 VBG HCO3 23 mmol/L (22-26) 02/16/25 14:18 VBG O2 Saturation 91.0 % 02/16/25 14:18 VBG Base Excess 0.4 mmol/L 02/16/25 14:18 Sodium 137 mmol/L (135-145) 02/19/25 07:09 Potassium 3.9 mmol/L (3.3-5.1) 02/19/25 07:09 Chloride 109 mmol/L (96-108) H 02/19/25 07:09 Carbon Dioxide 24 mmol/L (22-29) 02/19/25 07:09 Anion Gap 8 (12-20) L 02/19/25 07:09 BUN 16 mg/dL (9-16) 02/19/25 07:09 Creatinine 0.93 mg/dL (0.5-1.4) 02/19/25 07:09 Estim Creat Clear Calc 39.4 02/19/25 07:09 Estimated GFR 58 02/19/25 07:09 POC Glucose 114 mg/dL (60-115) 02/18/25 04:00 Random Glucose 92 mg/dL (60-115) 02/19/25 07:09 Lactic Acid 1.7 mmol/L (0.5-2.0) 02/18/25 04:39 Calcium 9.1 mg/dL (8.4-10.2) 02/19/25 07:09 Magnesium 1.7 mg/dL (1.6-2.6) 02/19/25 07:09 Total Bilirubin 0.7 mg/dL (0.0-1.0) 02/16/25 14:13 AST 30 U/L (5-31) 02/16/25 14:13 ALT 27 U/L (0-31) 02/16/25 14:13 Alkaline Phosphatase 65 U/L (39-117) 02/16/25 14:13 Troponin I High Sens 9.5 ng/L (<3.5-17.0) D 02/18/25 04:39 Total Protein 7.1 g/dL (6.5-8.0) 02/16/25 14:13 Albumin 4.2 g/dL (3.5-5.0) 02/16/25 14:13 Triglycerides 53 mg/dL (<150) 02/17/25 07:11 Cholesterol 109 mg/dL (<200) 02/17/25 07:11 LDL Cholesterol, Calc 58 mg/dL (<100) 02/17/25 07:11 HDL Cholesterol 41 mg/dL (>40) 02/17/25 07:11 Urine Color Dark Yellow 02/17/25 14:08 Urine Appearance Clear 02/17/25 14:08 Urine pH 5.0 (5.0-9.0) 02/17/25 14:08 Ur Specific [place] 1.025 (1.005-1.025) 02/17/25 14:08 Urine Protein Trace mg/dL (Neg-Trace) 02/17/25 14:08 Urine Glucose (UA) Negative mg/dL (Negative) 02/17/25 14:08 Urine Ketones 15 mg/dL (Negative) 02/17/25 14:08 Urine Blood Trace (Negative) H 02/17/25 14:08 Urine Nitrite Negative (Negative) 02/17/25 14:08 Ur Leukocyte Esterase Trace (Negative) H 02/17/25 14:08 Urine RBC 3-5 /HPF (0-2) H 02/17/25 14:08 Urine WBC 0-5 /HPF (0-5) 02/17/25 14:08 Ur Squamous Epith Cells 0-2 /HPF (0-2) 02/17/25 14:08 Urine Bacteria None Seen (None Seen) 02/17/25 14:08 Hyaline Casts 0-2 /LPF (0-2) 02/17/25 14:08 Influenza Type A (PCR) POSITIVE (Negative) A 02/16/25 14:13 Influenza Type B (PCR) NEGATIVE (Negative) 02/16/25 14:13 RSV RNA Qual (PCR) NEGATIVE (Negative) 02/16/25 14:13 SARS-CoV-2 RNA (RT-PCR) NEGATIVE (Negative) 02/16/25 14:13 Discharge Plan Discharge Anticipated Discharge Date/Time: 02/20/25 11:12 Patient Disposition: Home, Self-Care Discharge Diagnosis: influenza, atrial fibrillation Referrals: Homa Del Rio MD [Primary Care Provider, Internal Medicine] - 1 Week Saud Guzmán MD [Physician, Cardiology] - 2 Weeks Discharge Medications: New metoprolol succinate 25 mg Tablet Extended Release 24 Hr 75 mg PO DAILY Qty: 90 0RF Protocol: Hold for SBP/HR < HOLD for SBP < : 90 HOLD for HR < : 60 oseltamivir 30 mg Capsule 30 mg PO Q12H Qty: 2 0RF Continued polyethylene glycol 3350 [Miralax] 17 gram/dose powder 17 g PO DAILY Qty: 510 2RF alendronate 70 mg tablet 70 mg PO QWEEK Qty: 12 4RF dabigatran etexilate 150 mg capsule 150 mg PO BID 90 Days Qty: 180 1RF pantoprazole 40 mg tablet,delayed release (DR/EC) 40 mg PO DAILY Qty: 90 2RF Rx Instructions: take one tablet half an hour before breakfast midodrine 2.5 mg tablet 1.25 mg PO BID Qty: 90 3RF Rx Instructions: do not give last dose of day after 6PM or within 4 hrs of bedtime multivitamin Tablet 1 tab PO DAILY fluoride (sodium) 1.1 % paste 1 appl PO BEDTIME PreserVision AREDS 14,320-226-200 [id number] capsule 1 cap PO BID (DME) incontinence pad, liner, disp Pad See Rx Instructions .Route Qty: 90 11RF Rx Instructions: Use 3 pads per day biotin 1,000 mcg tablet,chewable 1,000 mcg PO DAILY cholecalciferol (vitamin D3) 50 mcg (2,000 unit) capsule 50 mcg PO DAILY atorvastatin [Lipitor] 40 mg tablet 40 mg PO BEDTIME Qty: 30 5RF Rx Instructions: change from lovastatin Discontinued metoprolol succinate 50 mg tablet extended release 24 hr 25 mg PO DAILY 90 Days Qty: 45 1RF Discharge Orders: Discharge Order (Routine); Ordered 02/20/25 Ordered By: Andres Luna Diet: Advance to usual diet Activity on Discharge: As tolerated Stand Alone Forms: Patient Portal Discharge page Print Language: Turkmen Care Plan Goals: recover from flu Health Concerns: influenza, atrial fibrillation Plan of Treatment: take Tamiflu 30 mg twice daily for 2 more doses increase metoprolol succinate to 75 mg once daily Please follow up with your primary care doctor within 1 week. Return to the hospital if you experience recurrent or worsening symptoms. See your hackler doll wigs in 2 weeks as well Assessment: See Discharge Summary.
--- NOTE | 2025-02-20 11:50 | MHC.CM.PN ---
Patient has been medically cleared for dc to home today, self care.
== END 2025-02-20 15:30 | disposition home or self-care (01) | DRG 866 ==
LOC: HO.ED 17:09 → HO.EDOVER 17:13 → HO.IMC 17:32
PROVIDERS: Hospitalist; Physician Assistant Medical; Admitting Provider Internal Medicine; Emergency Provider Emergency Medicine; PCP Internal Medicine; Visit Provider Family Medicine
DX: J10.81 Influenza due to other identified influenza virus with encephalopathy (principal); G47.33 Obstructive sleep apnea (adult) (pediatric); I48.0 Paroxysmal atrial fibrillation; I95.1 Orthostatic hypotension; I49.5 Sick sinus syndrome; I25.10 Atherosclerotic heart disease of native coronary artery without angina pectoris; Z95.0 Presence of cardiac pacemaker; Z79.899 Other long term (current) drug therapy
CPT/HCPCS: 36415; 70450; 71046; 80048; 80053; 80061; 81001; 82803; 82947; 83605; 83735; 84484; 85025; 85027; 85610; 87637; 93005; 97161; 99222; 99285; J0616; J2405

== ENCOUNTER → 2025-02-16 13:57 | Outpatient (BNV) | payer MEDICARE, SELFPAY | PROVIDERS: Admitting Provider Internal Medicine; Emergency Provider Emergency Medicine; PCP Internal Medicine; Visit Provider Internal Medicine | DX: I48.91 Unspecified atrial fibrillation (principal); R94.31 Abnormal electrocardiogram [ECG] [EKG]; Z95.0 Presence of cardiac pacemaker | CPT/HCPCS: 93010 ==

== ENCOUNTER → 2025-02-16 14:31 | Outpatient (BNV) | payer MEDICARE, SELFPAY | PROVIDERS: Emergency Provider Emergency Medicine; PCP Internal Medicine; Visit Provider Radiology Diagnostic Radiology | DX: R41.0 Disorientation, unspecified (principal); R05.9 Cough, unspecified; Z95.0 Presence of cardiac pacemaker | CPT/HCPCS: 70450; 71046 ==

== ENCOUNTER → 2025-02-16 17:02 | Outpatient (BNV) | payer MEDICARE, SELFPAY | PROVIDERS: Admitting Provider Internal Medicine; Emergency Provider Emergency Medicine; PCP Internal Medicine; Visit Provider Internal Medicine | DX: I48.0 Paroxysmal atrial fibrillation (principal) | CPT/HCPCS: 99222; 99232; 99233; 99499 ==

== ENCOUNTER 2025-02-17 10:19 | Outpatient (BNV) | payer MEDICARE, SELFPAY | END 2025-02-18 04:00 | PROVIDERS: Admitting Provider Internal Medicine; Emergency Provider Emergency Medicine; PCP Internal Medicine; Visit Provider Internal Medicine Cardiovascular Disease | DX: I48.91 Unspecified atrial fibrillation (principal); I49.3 Ventricular premature depolarization | CPT/HCPCS: 93010 ==

== ENCOUNTER 2025-02-17 10:19 | Outpatient (BNV) | payer MEDICARE, SELFPAY | END 2025-02-19 18:26 | PROVIDERS: Admitting Provider Internal Medicine; Emergency Provider Emergency Medicine; PCP Internal Medicine; Visit Provider Internal Medicine Cardiovascular Disease | DX: R94.31 Abnormal electrocardiogram [ECG] [EKG] (principal); Z95.0 Presence of cardiac pacemaker | CPT/HCPCS: 93010 ==

== ENCOUNTER 2025-02-17 10:19 | Outpatient (BNV) | payer MEDICARE, SELFPAY | END 2025-02-18 04:57 | PROVIDERS: Admitting Provider Internal Medicine; Emergency Provider Emergency Medicine; PCP Internal Medicine; Visit Provider Radiology Diagnostic Radiology | DX: R46.4 Slowness and poor responsiveness (principal) | CPT/HCPCS: 70450 ==

== ENCOUNTER 2025-02-22 08:32 | Outpatient (AMB) | payer MEDICARE, SELFPAY ==
--- NOTE | 2025-02-22 08:53 | A.OFFVIS_ITS ---
Intake Visit Reasons: 3m/follow up (set(UA+PVR) Intake Note: Patient presents today for a 3m follow up Urology Medications:None Blood Thinner: Pradaxa PVR: 55ml Co Founder And Director Required: No Accompanied by: Self / Same As Patient Allergies dronedarone (Multaq) Allergy (Severe, Verified 02/22/25 08:55) syncope flecainide Allergy (Severe, Verified 02/22/25 08:55) vertigo,blurry vision lisinopril (LISINOPRIL) Allergy (Severe, Verified 02/22/25 08:55) ANGIOEDEMA, bad cough, throat closing, tingling of head, cough losartan Allergy (Intermediate, Verified 02/22/25 08:55) dry cough, pruritus hydromorphone (Dilaudid) Adverse Reaction (Severe, Verified 02/22/25 08:55) unresponsiveness Medication List - Last Reconciled 02/22/25 by Danica An MD alendronate 70 mg PO QWEEK atorvastatin (Lipitor) 40 mg PO BEDTIME biotin 1,000 mcg PO DAILY cholecalciferol (vitamin D3) 50 mcg PO DAILY dabigatran etexilate 150 mg PO BID 90 days fluoride (sodium) 1.1% 1 appl PO BEDTIME incontinence pad, liner, disp Use 3 pads per day metoprolol succinate ER 75 mg See Protocol PO DAILY midodrine 1.25 mg (1/2 x 2.5 mg) PO BID multivitamin 1 tab PO DAILY oseltamivir 30 mg PO Q12H pantoprazole 40 mg PO DAILY polyethylene glycol 3350 (Miralax) 17 grams PO DAILY vitamins A,C,E-hkch-hkeosv 4,296 mcg-226 mg-90 mg (PreserVision AREDS) 1 cap PO BID HPI Comments Details: 02/22/25-- History of Present Illness The patient is an 79 year old female presenting for a 4-month follow-up for management of overactive bladder. She underwent a 100-unit Botox bladder injection on 11/02/24 for her symptoms. Following the procedure, the patient experienced significant improvement, describing the result as a miracle . She reports that her symptoms of urinary urgency are beginning to return. Despite some concern about being unable to urinate, she is emptying her bladder well, with a post-void residual of 55 mL. Overactive Bladder - Given the recurrence of urinary urgency symptoms after significant improvement from the previous treatment, a repeat Botox injection will be scheduled for next month. - A urine culture will be obtained approximately two weeks before the procedure to rule out infection. - Pre-procedure management will include a two-day course of antibiotics and pyridium for pain relief. 08/03/24--Here for UDS. Findings c/w Detrusor overactivity. 78-year-old female presenting with urinary incontinence. She reports that her symptoms have significantly worsened over the past two years, adversely affecting her quality of life. The presentation includes frequent episodes of bladder spasms causing incontinence, particularly triggered by stimuli such as running water. The incontinence has become distressingly embarrassing and inconvenient, particularly in public settings. She notes a history of taking Vesicare leading to adverse effects like edema and weight gain, thus ceased. The patient recalls undergoing a hysterectomy but without concurrent bladder suspension, which she believes might have contributed to escalating incontinence issues over time. Her primary goal is to manage these symptoms effectively, shown through her consideration of Botox bladder injections after unsuccessful pharmacological intervention. She is aware of the risk of hematuria and potential UTI after the procedure and consents to follow the necessary pre-procedural and post-procedural protocols. Urinary Symptoms Review - Frequent urge to urinate, often unable to reach the bathroom in time - Incontinence occurs with auditory stimuli (e.g., running water) - Incontinence results in embarrassing public accidents - Prior use of Vesicare failed also caused edema and weight gain Plan Bladder botox injection 100 units 06/07/24--Nancy is a very pleasant 78-year-old female patient of Dr. Gfof. She has a past medical history of Meniere's disease, old hypercalcemia, diverticulosis, hiatal hernia, GERD, obstructive sleep apnea, hyperparathyroidism, osteoporosis, dyslipidemia, heart failure, paroxysmal AFib, sick sinus syndrome status post [place] pacemaker, and COPD. She presents to the office today for a follow up of her ongoing lower urinary tract symptoms. In discussion with the patient today she reports having seeked emergency room care services a proximally 3 days ago as she had been experiencing issues with her atrial fibrillation. She reports in ER she was also given a prescription for antibiotics as she was noted to have a urinary tract infection. However, in review of patient's chart it appears urine culture 03/06 Mixed bacterial reba characteristic of urogenital contamination. She reports she has not yet started antibiotic therapy as prescription was sent to mail away pharmacy. She reports no UTI like symptoms and is enquiring if she should even start the medication when she receives it. In office urinalysis results reviewed with the patient today. Negative leukocytes negative nitrates. PVR 37 mL. She reports having stopped low-dose VESIcare as she felt this was causing issues with her breathing. She continues to report episodes of mixed urinary incontinence. Previous workup has included a retroperitoneal ultrasound 10/04 noting bilateral kidneys with no hydronephrosis. Right kidney with mild diffuse renal cortical thickening multiple renal cysts largest 1.1 cm upper pole there is no specific indication for additional imaging follow-up per radiology report. Left kidney with multiple anechoic foci i in the left peripelvic region may be related to caliectasis and/or pelvic cysts. May represent parapelvic cysts, largest 1.1 cm. The bladder is moderately distended. Bladder ureteral jets are demonstrated. Pre void bladder volume is approximately 130 mL. Postvoid bladder volume is approximately 10 mL. She has previously trialed tolterodine, Myrbetriq, and oxybutynin with no improvement in urinary urgency, urinary frequency and mixed urinary incontinent episodes she continues to experience. She continues to discuss and inquire if she is a candidate for bladder lift and or suspension procedure. We discussed at length risks and benefits of further surgical intervention. When asked she does report a history of 2 vaginal births of average size babies. She reports labors were approximately 4-5 hours long. She reports continuing to utilize 2-3 Ayala pads per day. She otherwise denies miki turia, dysuria, foul smelling urine, changes to urinary stream, flank pain, fever, and or chills. Discussed further treatment options of mixed urinary incontinence.She otherwise offers no other issues or concerns at this time. [facility] Medical History Paroxysmal atrial fibrillation Persistent atrial fibrillation Active Meniere's disease Tubular adenoma Positive colorectal cancer screening using Cologuard test Hypercalcemia Diverticulosis Hiatal hernia GERD (gastroesophageal reflux disease) Epigastric pain Dysphagia JESU (obstructive sleep apnea) Hyperparathyroidism Osteoporosis Dyslipidemia Heart failure Cardiac pacemaker in situ Sick sinus syndrome COPD (chronic obstructive pulmonary disease) Surgical History H/O bilateral cataract extraction History of esophagogastroduodenoscopy (EGD) Hx of colonoscopy History of total abdominal hysterectomy and bilateral salpingo-oophorectomy History of total left knee replacement History of pacemaker History of laparoscopic cholecystectomy Family History Father COPD (chronic obstructive pulmonary disease) Mother CAD (coronary artery disease) CVD (cardiovascular disease) Daughter No problems noted. 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 Cognitive needs: No Hearing needs: No Vision needs: No Review of Systems Const All systems reviewed & are unremarkable except as noted in HPI and below Reports no additional complaints Eyes Reports no additional complaints ENT Reports no additional complaints Card Reports no additional complaints Resp Reports no additional complaints GI Reports no additional complaints Reports as per HPI Musc Reports no additional complaints Skin/Breast Reports system reviewed and no additional complaints, except as documented Neuro Reports no additional complaints Psych Reports no additional complaints Endo Reports no additional complaints Miki/Lymph Reports no additional complaints Aller/Immun Reports no additional complaints Assessment & Plan Assessment & Plan (1) OAB (overactive bladder): Code(s): N32.81 - Overactive bladder Category: Medical (2) Urinary urgency: Code(s): R39.15 - Urgency of urination Category: Medical Plan Plan 1. Overactive Bladder - Given the recurrence of urinary urgency symptoms after significant improvement from the previous treatment, a repeat Botox injection will be scheduled for next month. - A urine culture will be obtained approximately two weeks before the procedure to rule out infection. - Post-procedure management will include a two-day course of antibiotics and pyridium for pain relief. Patient Instructions: The patient had an opportunity to ask questions regarding treatment plan. The patient expressed understanding and agreement with the above treatment plan. The patient is aware they should contact our office by phone for worsening of their current condition or the appearance of new symptoms. Compliance is encouraged with any medications and followup testing that is ordered. It is a privilege to be allowed the opportunity to participate in the urologic care of your patient. If you have any questions or concerns regarding treatment for the above conditions please do not hesitate to contact me. The office telephone contact is [phone]. This note is constructed in part using voice recognition software. While every effort has been made to ensure accuracy slate cutter errors may have been included. Yours sincerely, Danica An MD Scribe Plan - Not visible on output: Patient was informed and verbally consented to the use of an ambient scribe for clinic note documentation during this visit. Coding Level of Care Code Est Pt Level 4 (70997) Diagnoses OAB (overactive bladder) N32.81 Urinary urgency R39.15
== END 2025-02-22 09:22 | disposition home or self-care (01) ==
LOC: HO.HUSH 08:33
PROVIDERS: Visit Provider Urology
DX: N32.81 Overactive bladder (principal); R39.15 Urgency of urination
CPT/HCPCS: 99214

== ENCOUNTER → 2025-02-22 08:32 | Outpatient (BNVA) | payer MEDICARE, SELFPAY | PROVIDERS: Visit Provider Urology | DX: N32.81 Overactive bladder (principal); R39.15 Urgency of urination | CPT/HCPCS: 99212 ==

== ENCOUNTER 2025-02-26 08:25 | Outpatient (AMB) | payer MEDICARE, SELFPAY ==
[2025-02-26 08:27] VITALS: BP 116/60; PULSE 74; BMI 27.0
--- NOTE | 2025-02-26 08:27 | MHC.OFFVIS ---
Vital Signs 02/26/25 08:27 Height 5 ft Weight 138 lb 7.205 oz BMI 27.0 BP 116/60 Blood Pressure Location Lt brachial Position Sitting Pulse 74 Pulse Source Pulse Oximeter Intake Visit Reasons: [facility], s/p cath Intake Note: [facility]/ S/p Cath Accompanied by: Self / Same As Patient Allergies dronedarone (Multaq) Allergy (Severe, Verified 02/26/25 08:31) syncope flecainide Allergy (Severe, Verified 02/26/25 08:31) vertigo,blurry vision lisinopril (LISINOPRIL) Allergy (Severe, Verified 02/26/25 08:31) ANGIOEDEMA, bad cough, throat closing, tingling of head, cough losartan Allergy (Intermediate, Verified 02/26/25 08:31) dry cough, pruritus hydromorphone (Dilaudid) Adverse Reaction (Severe, Verified 02/26/25 08:31) unresponsiveness Medication List - Last Reconciled 02/26/25 by Saud Guzmán MD alendronate 70 mg PO QWEEK atorvastatin (Lipitor) 40 mg PO BEDTIME biotin 1,000 mcg PO DAILY cephalexin 500 mg PO BID 4 days cholecalciferol (vitamin D3) 50 mcg PO DAILY dabigatran etexilate 150 mg PO BID 90 days fluoride (sodium) 1.1% 1 appl PO BEDTIME incontinence pad, liner, disp Use 3 pads per day metoprolol succinate ER 75 mg See Protocol PO DAILY midodrine 1.25 mg (1/2 x 2.5 mg) PO BID multivitamin 1 tab PO DAILY oseltamivir 30 mg PO Q12H pantoprazole 40 mg PO DAILY phenazopyridine (Pyridium) 200 mg PO BID 6 doses polyethylene glycol 3350 (Miralax) 17 grams PO DAILY vitamins A,C,K-cyqt-rpqigr 4,296 mcg-226 mg-90 mg (PreserVision AREDS) 1 cap PO BID HPI Comments Details: Nancy comes for follow-up after recent hospitalization for flu and her usual pacer check and atrial fibrillation follow-up. She had a long hospitalization and still recuperating from it. Feels tired and says has to rest frequently but she says she is doing a lot better. While in the hospital they had held on midodrine and she did have syncopal episode there. She also had recurrent atrial fibrillation rapid ventricular response and her metoprolol was increased to 75 mg daily although since discharge she has been only taking 25 mg daily. She has not palpitations since discharge. She has not had any heart failure symptoms. Denies lightheadedness, syncope. Maintains adequate hydration. [facility] Medical History (Updated 02/26/25 @ 08:47 by Saud Guzmán MD) Paroxysmal atrial fibrillation TIA (transient ischemic attack) Persistent atrial fibrillation Active Meniere's disease Tubular adenoma Positive colorectal cancer screening using Cologuard test Hypercalcemia Diverticulosis Hiatal hernia GERD (gastroesophageal reflux disease) Epigastric pain Dysphagia JESU (obstructive sleep apnea) Hyperparathyroidism Osteoporosis Dyslipidemia Heart failure Cardiac pacemaker in situ Sick sinus syndrome COPD (chronic obstructive pulmonary disease) Surgical History H/O bilateral cataract extraction History of esophagogastroduodenoscopy (EGD) Hx of colonoscopy History of total abdominal hysterectomy and bilateral salpingo-oophorectomy History of total left knee replacement History of pacemaker History of laparoscopic cholecystectomy Family History Father COPD (chronic obstructive pulmonary disease) Mother CAD (coronary artery disease) CVD (cardiovascular disease) Daughter No problems noted. 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 Cognitive needs: No Hearing needs: No Vision needs: No Review of Systems Const Denies daytime sleepiness, Denies difficulty sleeping, Denies snoring, Denies stops breathing during sleep and Denies weakness Card Denies chest pain, Denies rapid heart rate, Denies irregular heart rhythm, Denies claudication, Denies leg edema, Denies lightheadedness, Denies palpitations, Denies dyspnea, Denies dyspnea on exertion, Denies orthopnea, Denies paroxysmal nocturnal dyspnea and Denies slow heart rate Resp Denies cough, Denies dyspnea, Denies dyspnea on exertion and Denies snoring GI Reports no additional complaints, Denies hematochezia, Denies change in stool character and Denies dyspepsia Musc Denies abnormal gait, Denies muscle weakness and Denies numbness Neuro Denies abnormal gait, Denies numbness and Denies weakness Endo Denies palpitations Physical Exam Vital Signs: Last Vital Signs Pulse 74 02/26/25 08:27 BP 116/60 02/26/25 08:27 BMI result Body Mass Index 27.0 Const General: cooperative, comfortable, no acute distress, alert, awake and well groomed Nutritional Appearance: average body habitus Orientation/consciousness: patient oriented x3 Limitations: no limitations Neck Neck: Yes trachea midline, Yes supple and Yes no JVD Resp Effort & Inspection: normal respiratory effort Auscultation: clear to auscultation bilaterally Cardio Jugular venous distension: no JVD Palpation: normal PMI Rhythm: abnormal rhythm irregularly irregular Heart sounds: S1 normal heart sound present, S2 normal heart sound present, no click, no gallops and no murmurs GI Auscultation: normal bowel sounds Skin General skin exam: no rashes or lesions noted Neuro General: patient oriented x3 and no focal motor deficits Extrem General: Yes no clubbing, cyanosis or edema Psych Appearance: grossly normal Office Procedures Cardiac Device Check Cardiac Device Check Details: Dual-chamber [place] pacemaker in place. Programmed in DDDR 70 beats per minute. Atrial pacing 72% of time. Atrial fibrillation burden noted 17% of the time. Atrial pacing thresholds excellent. Ventricular pacing thresholds are stable. Atrial ventricular sensing is excellent. Pacing lead impedance is stable. Battery life is at about 2.1 years 97879-JG Cardiac Device Check, pacemaker dual lead Procedure code (CPT) selection complete Assessment & Plan Assessment & Plan (1) Paroxysmal atrial fibrillation: Code(s): I48.0 - Paroxysmal atrial fibrillation Category: Medical Plan: Paroxysmal atrial fibrillation in the past with recurrent episode without any overt symptoms with increasing burden although she has no new symptoms. High likelihood of developing persistent atrial fibrillation. She has not tolerated multiple by pacer telemetry. Increase metoprolol to 25 mg b.i.d.. Avoidance of stimulants was discussed. Continue full oral anticoagulation, currently on dabigatran 150 mg b.i.d. which she has tolerated. Continue follow-up renal function every 3 months. (2) Cardiac pacemaker in situ: Code(s): Z95.0 - Presence of cardiac pacemaker Category: Medical Plan: Cardiac pacemaker in-situ for sick sinus syndrome. Pacemaker is working well. Reprogrammed for adequate function. Will follow remotely in 3 months follow up in the clinic in 6 months time. (3) Coronary arteriosclerosis: Code(s): I25.10 - Atherosclerotic heart disease of [place] coronary artery without angina pectoris Category: Medical Plan: Underlying CAD no indication for intervention. Currently not having any symptoms of angina. Continue high-intensity statin therapy. Currently on full oral anticoagulation therefore would avoid aspirin therapy. Continue aggressive blood pressure control. (4) Heart failure: Code(s): I50.9 - Heart failure, unspecified Category: Medical Qualifiers: Heart failure type: systolic Heart failure chronicity: chronic Qualified Code(s): I50.22 - Chronic systolic (congestive) heart failure Plan: Prior history of heart failure in the setting of persistent atrial fibrillation. Clinically euvolemic and well compensated. Continue to monitor for the same. No indication for antiarrhythmic drugs at this point time. Continue COPD management as per Pulmonary team. Continue maintain activity level as tolerated. (5) Orthostatic hypotension: Code(s): I95.1 - Orthostatic hypotension Category: Medical Plan: Significant orthostatic hypotension with significant symptoms related to it. Much improved even on low-dose midodrine therapy which has significantly improved her quality of life. Continue the same. Continue maintain adequate hydration. Orthostatic precautions were discussed. She understands them well. Follow up in the clinic in 6 months time, sooner PRN. Thank you for allowing me to partake in her care Medications: Changed From metoprolol succinate ER 75 mg See Protocol PO DAILY 90 tabs 0RF To metoprolol succinate ER 25 mg See Protocol PO BID 60 tabs 0RF Coding Level of Care Code Est Pt Level 4 (72624) Diagnoses Paroxysmal atrial fibrillation I48.0 Cardiac pacemaker in situ Z95.0 Coronary arteriosclerosis I25.10 Chronic systolic heart failure I50.22 Heart failure type: systolic Heart failure chronicity: chronic Orthostatic hypotension I95.1 CPT Codes Cardiac Device Check - Cardiac Device 2: 54554-BH Cardiac Device Check, pacemaker dual lead ([id number])
--- OUTSIDE RECORDS SUMMARY | 2025-02-26 08:49 | XMS_ITS | Data Portability ---
Author Organization [facility] Address [address] [place] [address] Care Team Providers Care Supervisor Laboratory Name Role Phone KEELEY SHAFFER Primary Care Provider [phone] Assessment Encounter Date Assessment Date Assessment LastModified [...] X-rays ordered, obtained and reviewed at [facility] 4 views of the right knee [...] his obtained. Follow-up sooner if further difficulty. [facility] speech recognition seismograph shooter software was used to create portions of [...] precautions reviewed. Follow-up on a p.r.n. basis. [facility] speech recognition seismograph shooter software was used to create portions of [...] 119 4V R knee 2023 024 pari [facility] Office, [address], [place], [address], 01/05/2024 15:19:54 Medication Orders None recorded . [...] a4ajBk vP9nXo QUaueC m3YtLR FvZl JJ8mAn HZtai3 7f6823 AC0Kqa 3mHUqG hKiQtr MwF INTERFACE [facility] Office [address] [facility] [address], [place], [address], 12/20/2023 15:01:23 12/20/19 24 12/20/2023 XR, knee, 4 or more view http:/ [email or web address] ?Encry pted=s hAaTro YD8dLq bEUv6g %2BXZw aYqtaq 0bqfl% 2Fg9IQ a4ajBk vP9nXo QUaueC m3YtLR Zl J8mAn HZtai3 5a6292 AC0Kqa 3mHUqG hKiQtr MwF INTERFACE [facility] [address] [facility] [address], [address], 12/20/2023 15:01:25 Result Notes Documentation Provider Name and Address Organization Details Recorded Time Xr, Knee, 4 Or More View : [email or web address] Encrypted=scIhRcoNV1cVgaY Uv6g%0WLDxxJiyip7ccyy%2Fg 2YIu3cxPthR4eYzKYqfeCa5Xi UHXnJzoVQZ1eSxQKksd03r145 4OQ8Aud1mCSaPtDoUgwXxT Not Available [facility] 12/20/2023 15:01: 24 Xr, Knee, 4 Or More View : [email or web address]? Encrypted=osKiKddBP1uIwkA Uv6g%1YLRvyZuyfj3ejgv%2Fg 6XOl0eeLgaV1vUlLQfqlVv2Vd HGYfUsuJJP7iVjNKtaf41s413 2CW0Oza6lHTmLhGuImoSmY Not Available [facility] 12/20/2023 15:01: 26 Problems Name Problem SNOMED Code Status Onset Date Resolution Date Notes Provider Name and Address Organization Details Recorded Time No complaints 437981536 Active Status : 'A'; Not Available [facility] 09:24:54 Problem Notes None recorded. Procedures Surgical History Date Name Laterality Status Provider Name and Address Organization Details Recorded Time 5 Sports Knee 4&1 completed Nik Main PA-C [address] [facility], [place], [address], [facility] 11/13/2024 09:52:31 5 JZKNEE INJ completed Alberto Reynolds PA-C [address], [place], [address], [facility] 08/21/2024 15:25:01 4 Gel-One Knee Injection completed Alberto Reynolds PA-C [address], [place], [address], [facility] 02/16/2024 16:13:05 Imaging Results None recorded. Procedure Notes None recorded. Medical Equipment None Reported. Allergies Allergen ID Allergen Name Allergen Category Reaction Reaction Severity Criticality Documentation Date Start Date Code Code System Note Provider Name and Address Organization Details Recorded Time 663623 Dilaudid medicatio n Not available Not available Not available 05/16/20232018 31374 3 RxNorm Not Available [facility] 4 16:01:29 922493 amlodipin e besylate medicatio n Not available Not available Not available 05/16/20232015 87581 6 RxNorm Not Available [facility] 4 16:01:29 511481 lisinopri l medicatio n Not available Not available Not available 05/16/20232015 08605 RxNorm Not Available [facility] 4 16:01:29 Medications Name Sig Start [...] Updated DateTime 08/21/2024 152.4 cm 27.9 kg/m2 36907.71 g RUFUS NAVARRO [facility] 08/21/2024 14:40:30 Date Recorded Body height Provider Name an d Address Organization Details Last Updated DateTime 11/13/2024 152.4 cm MAREN CARLOTTA [facility] 11/13/2024 09:31:37 Date Recorded Body height Body mass index (BMI) Body weight Provider Name and Address Organization Details Last Updated DateTime 12/20/2023 152.4 cm 28.3 kg/m2 33367.89 g RUFUS NAVARRO [facility] 12/20/2023 14:53:59 Date Recorded Body height Body mass index (BMI) Body weight Provider Name and Address Organization Details Last Updated DateTime 02/16/2024 152.4 cm 27.9 kg/m2 71121.71 g [facility] 02/16/2024 15:32:24 Social History None [...] ICD10 Code Diagnosis IMO Codes Diagnosis Note [id number] Alberto Reynolds PA-C [address] [place] [address] 12/20/2023 14:21:48 01/05/2024 15:19:54 Pain of right knee joint 6898914630 23272 M25.561 Osteoarthr itis of knee 876906373 M17.9 [id number] Alberto Reynolds PA-C [address] [address] [place] [address] 02/16/2024 14:56:20 03/05/2024 08:45:01 Osteoarthritis of right knee joint 4108646117 10163 M17.11 8859542 [id number] Alberto Reynolds PA-C [facility] [place] [address] [place] [place] [address] 08/21/2024 14:32:13 08/30/2024 13:32:28 Osteoarthritis of right knee joint 9226217952 41488 M17.11 4494312 [id number] Nik Main PA-C [facility] [place] [address] [place] [address] 11/13/2024 09:13:56 11/26/2024 10:56:35 Osteoarthritis of right knee joint 5445643742 27549 M17.11 [id number] Health Concerns Section Related Observation LastModified by Organization Detai ls LastModified Time None Recorded Concern Status LastModified by Organization Details LastModified Time None Recorded Advance Directives Directive None Recorded Payers Insurance Date Sequence Insurance Name Policy Number Policy Mendez Covered Member ID Mendez Member ID Guarantor Name 11/12/2024 1 [place] [employer] Nancy E Lefrancois [id number] Nancy E Lefrancois 11/26/2024 2 [place] [id number] Nancy E Lefrancois [id number] Nancy E Lefrancois Notes Date Note [...] gave good relief until recent. Problems ambulating. Octf-kul-avgirlc medications are helping somewhat but not significantly. [...] us as scheduled. Nik Main PA-C [address], [place], [address], [place] [facility] [place] [facility] 11/13/2024 09:52:45 OBGyn Episode No OBEpisode recorded.
--- OUTSIDE RECORDS SUMMARY | 2025-02-26 08:49 | XMS_ITS | Patient Health Record ---
[facility] Address [address] [place] [address] Care Team Providers Care Office Services Clerk Name Role Phone Marcio CASSIDY, Homa Primary Care Provider Unavail able Mark Stovall Unavailable [phone] Allergies Allergen (clinical drug ingredient) Drug/Non Drug [...] Status Risk Notes Problem Acquired hallux rigidus (7713279) Hallux rigidus, right foot (M20.21) Active confirmed Plan Of Treatment Pending Test Test Name Order Date X ray : Foot, left 2V 07/20/2017 X ray : Foot, right 2V 07/20/2017 [id number] TENDON SHEATH/LIGAMENT 0 07/20/2017 87375,[id number] TENDON SHEATH/LIGAMENT 0 08/22/2017 Insurance Providers Payer Name Payer Address Payer Phone Subscriber Number Group Number Insured Name Patient Relationship to Insured Coverage Start Date Coverage End Date Medicare National Govt Svcs Inc [address] [facility] [place] [id number] Roderick isNancy Self - patient is the insured 4 [employer] Blue Shield [address] [place] [address] [id number] Roderick isNancy Self - patient is the [...]
--- OUTSIDE RECORDS SUMMARY | 2025-02-26 08:49 | XMS_ITS | Patient Health Record ---
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 Section Notes: Nonsmoker; no sig alcohol Nonsmoker; no sig alcohol Problems Problem Type SNOMED Code ICD Code Onset Dates Problem Status W/U Status Risk Notes Problem Screening for malignant neoplasm of colon (669058289) Encounter for screening for malignant neoplasm of colon (Z12.11) Active confirmed Problem History of adenomatous polyp of colon (878808834) History of adenomatous polyp of colon (Z86.010) Active confirmed Problem Gastroesophageal reflux disease without esophagitis (623669359) Gastroesophageal reflux disease without esophagitis (K21.9) Active confirmed Problem Irritable bowel syndrome (39900609) Irritable bowel syndrome, unspecified type (K58.9) Active confirmed Plan Of Treatment Future Test Test Name Order Date COLONOSCOPY 05/31/2017 Insurance Providers Payer Name Payer Address Payer Phone Subscriber Number Group Number Insured Name Patient Relationship to Insured Coverage Start Date Coverage End Date MEDICARE OF [place] [address] [place] [address] [phone] [id number] SUZANNE ISFORTINO Self - patient is the insured MEDEX ATTN CLAIMS [address] [place] [address] [phone] [id number] SUZANNE ISFORTINO Self - patient is the insured Medical (General) History Medical History History ICD Code Colonoscopy 03-24-2010--only hyperplastic polyps-biopsies neg for microscopic colitis--she was noted to have diverticulosis and internal hemorrhoids Tubular adenomas removed in 2005 Hyperlipidemia COPD Neg. celiac labs in 2005 Denies PR,DM,CVA,renal disease Pacemaker- Dr. Guzmán Atrial fib HTN GERD --she had an upper endo scopy in 2005 with the finding of some signs of reflux and a hiatal hernia--there was no Son's esophagus Sleep apnea--uses CPAP Surgical History Surgery Date(Month/Year) Hysterectomy and removal of 1 ovary Pacemaker CCY Left knee replacement-- [facility]-Dr. Segura--04/2016--she describes being told of a difficult intubation and a sensitivity to opiates at that time Bilateral cataracts
--- OUTSIDE RECORDS SUMMARY | 2025-02-26 08:49 | XMS_ITS | Clinical Summary ---
Author Organization [facility] Address [address] [place] [address] Phone Care Team Providers Care Senior Controls Analyst Name Role Phone Jose Kimbrough MD Primary Care Provider [phone] Surgical History Surgery Date Site/Laterality Comments HYSTERECTOMY [...] on file Sexual Orientation Not on file Plan of Treatment Health Maintenance Due Date [...] age to complete this topic Insurance MEDICARE [facility] Care Teams Senior Controls Analyst Relationship Specialty Start Date End Date Jose Kimbrough MD [address] [place] [address] PCP - General Otolaryngology 04/05/17
== END 2025-02-26 08:45 | disposition home or self-care (01) ==
LOC: HO.HCS 08:26
PROVIDERS: Visit Provider Internal Medicine Cardiovascular Disease
DX: I48.0 Paroxysmal atrial fibrillation (principal); Z95.0 Presence of cardiac pacemaker; I25.10 Atherosclerotic heart disease of native coronary artery without angina pectoris; I50.22 Chronic systolic (congestive) heart failure; I95.1 Orthostatic hypotension
CPT/HCPCS: 93280; 99214

== ENCOUNTER → 2025-02-26 08:25 | Outpatient (BNVA) | payer MEDICARE, SELFPAY | PROVIDERS: Visit Provider Internal Medicine Cardiovascular Disease | DX: Z45.018 Encounter for adjustment and management of other part of cardiac pacemaker (principal); I48.0 Paroxysmal atrial fibrillation; I25.10 Atherosclerotic heart disease of native coronary artery without angina pectoris; I50.22 Chronic systolic (congestive) heart failure; I95.1 Orthostatic hypotension | CPT/HCPCS: 93280; 99212 ==